=== PATIENT | male | born 1930 | race Caucasian/White ===

== ENCOUNTER → 2016-10-19 | Outpatient (CLI) | payer MEDICARE, BC | END | disposition home or self-care (01) | LOC: LABWHC1 12:36 | PROVIDERS: ATTEND Physical Medicine & Rehabilitation | DX: M47.817 Spondylosis without myelopathy or radiculopathy, lumbosacral region (principal); M51.16 Intervertebral disc disorders with radiculopathy, lumbar region; S32.040A Wedge compression fracture of fourth lumbar vertebra, initial encounter for closed fracture; M54.2 Cervicalgia; M54.5 Low back pain | CPT/HCPCS: 36415; 93005 ==

== ENCOUNTER 2017-02-10 09:27 | Inpatient (IN) | payer MEDICARE, BC ==
[2017-02-10] MEDS ORDERED: IPRATROPIUM-ALBUTEROL 3 ML NEB INHALATION STA (09:35)
--- NOTE | 2017-02-10 09:38 | ED ---
General Adult HPI - General Chief complaint: Neuro Symptoms/Deficit Stated complaint: Weakness Time Seen by Provider: 02/10/17 09:28 Source: patient, family, EMS, RN notes reviewed Mode of arrival: EMS Limitations: no limitations - History of Present Illness Initial comments: Patient is a pleasant 86-year-old male presenting to the emergency department with concerns regarding mental status and weakness. Patient has had a cough since yesterday. Daughter states this morning patient was less responsive. Patient had an episode where he cannot speak at all for around 30 seconds. Following this patient had some mumbled words for several minutes until EMS arrived. Patient seems to be talking normal at this point. Patient always leans to the right however this morning he was leaning towards the left. Patient did have difficulty transferring to use the toilet earlier. Patient is a poor historian and majority of history is taken from daughter. - Related Data Home Medications Medication Instructions Recorded Confirmed Fluticasone/Salmeterol [Advair 1 puff INHALATION RT-BID 09/04/15 09/21/15 250-50 Diskus] Tamsulosin HCl [Flomax] 0.4 mg PO DAILY 09/04/15 09/21/15 Levothyroxine Sodium [Synthroid] 75 mcg PO DAILY 09/07/15 09/21/15 Acetaminophen [Tylenol] 650 mg PO Q4H PRN 09/21/15 09/21/15 Bisacodyl [Dulcolax] 10 mg RECTAL DAILY PRN 09/21/15 09/21/15 Carbidopa-Levodopa 25-100 mg 1 tab PO TID 09/21/15 09/21/15 [Sinemet 25-100 mg] Folic Acid 1 mg PO HS 09/21/15 09/21/15 Guaifenesin/Dextromethorphan 5 ml PO Q6H 09/21/15 09/21/15 [Tussin Dm Cough Syrup] Menthol [Biofreeze] 1 applic TOPICAL BID 09/21/15 09/21/15 Multivitamins, Thera [Multivitamin 1 tab PO HS 09/21/15 09/21/15 (formulary)] Nitroglycerin Sl Tabs [Nitrostat] 0.4 mg SUBLINGUAL Q5M PRN 09/21/15 09/21/15 Thiamine [Vitamin B-1] 100 mg PO HS 09/21/15 09/21/15 amLODIPine BESYLATE [Norvasc] 2.5 mg PO DAILY 09/21/15 09/21/15 guaiFENesin [Mucinex] 600 mg PO Q12HR 09/21/15 09/21/15 Previous Rx's Medication Instructions Recorded Docusate [Colace] 100 mg PO BID cap 09/08/15 Loratadine [Claritin] 10 mg PO DAILY tab 09/08/15 Sodium Bicarbonate Tab 650 mg PO TID tab 09/08/15 Amoxic-Pot Clav 500-125 mg 1 tab PO Q12HR #7 tab 09/24/15 [Augmentin 500-125 mg] Furosemide [Lasix] 40 mg PO DAILY #1 tablet 09/24/15 Gabapentin [Neurontin] 200 mg PO TID cap 09/24/15 Ipratropium-Albuterol Nebulize 3 ml INHALATION RT-QID ampul.neb 09/24/15 [Duoneb 0.5 mg-3 mg/3 ml Soln] Levofloxacin [Levaquin] 250 mg PO DAILY #7 tab 09/24/15 oxyCODONE-APAP 5-325MG [Percocet 1 tab PO Q8H PRN #20 tab 09/24/15 5-325 mg] traMADol HCl [Ultram] 50 mg PO QID PRN #20 tab 09/24/15 Allergies Allergy/AdvReac Type Severity Reaction Status Date / Time No Known Allergies Allergy Verified 09/21/15 06:22 Review of Systems ROS Statement: Those systems with pertinent positive or pertinent negative responses have been documented in the HPI. ROS Other: All systems not noted in ROS Statement are negative. Constitutional: Denies: fever Eyes: Denies: eye pain ENT: Denies: ear pain Respiratory: Reports: cough Cardiovascular: Denies: chest pain Endocrine: Denies: fatigue Gastrointestinal: Denies: abdominal pain Genitourinary: Denies: dysuria Musculoskeletal: Denies: back pain Skin: Denies: rash Neurological: Reports: abnormal gait, other (speech problems) Past Medical History Past Medical History: Asthma, Heart Failure, Dementia, Musculoskeletal Disorder , Neurologic Disorder, Osteoarthritis (OA), Renal Disease, Thyroid Disorder Additional Past Medical History / Comment(s): Parkinsons disease, compression fracture of the L4 spine, gait dysfunction, bilateral hip and leg pain since a fall in August 2015, recent L heel blister chronic failure stage III, hyperkalemia , anemia, DJD, osteopenia, hypothyroidism, BPH, occasional confusion, History of Any Multi-Drug Resistant Organisms: None Reported Past Surgical History: Appendectomy, Joint Replacement Additional Past Surgical History / Comment(s): Total L hip replacement, splenectomy Past Anesthesia/Blood Transfusion Reactions: No Reported Reaction Past Psychological History: No Psychological Hx Reported Smoking Status: Former smoker Past Alcohol Use History: None Reported Past Drug Use History: None Reported - Past Family History Sister(s) Family Medical History: Myocardial Infarction ([place]) Brother(s) Family Medical History: Diabetes Mellitus Mother Family Medical History: No Reported History Additional Family Medical History / Comment(s): Mother lived to be 80 yrs old. Father History Unknown: Yes Additional Family Medical History / Comment(s): Father lived to be 75yrs old. General Exam Limitations: no limitations General appearance: alert, in no apparent distress Head exam: Present: atraumatic Eye exam: Present: normal appearance, PERRL, EOMI ENT exam: Present: normal oropharynx Neck exam: Present: normal inspection Respiratory exam: Present: wheezes Cardiovascular Exam: Present: regular rate, normal rhythm GI/Abdominal exam: Present: soft. Absent: tenderness Extremities exam: Present: normal inspection Neurological exam: Present: alert, CN II-XII intact, other (limited bilateral lower extremity exam. Patient refuses to lift either leg off the bed stating this is a chronic problem related to back problems. No weakness with dorsi and plantar flexion of the feet.) Expanded Speech: Present: fluid speech Cranial nerves: EOM's Intact: Normal Sensory exam: Upper Extremity Light Touch: Normal, Lower Extremity Light Touch: Normal Motor strength exam: RUE: 5, LUE: 5 Eye Response: (4) open spontaneously Motor Response: (6) obeys commands Verbal Response: (5) oriented Psychiatric exam: Present: normal affect, normal mood Skin exam: Present: normal color Course Vital Signs 02/10/17 02/10/17 02/10/17 09:29 10:28 10:29 Temperature 99.2 F 99.0 F Pulse Rate 94 86 80 Respiratory 20 18 Rate Blood Pressure 86/53 103/65 O2 Sat by Pulse 93 L 98 Oximetry 02/10/17 10:40 Temperature Pulse Rate 89 Respiratory Rate Blood Pressure O2 Sat by Pulse Oximetry - Reevaluation(s) Reevaluation #1: 02/10/17 11:06 patient does meet sepsis criteria diagnosed at 11:06 AM. Lactic acid and blood cultures have been ordered. IV antibiotics will be ordered. Patient and family updated on results and plan. Dr. Cleaning[facility] group has been paged for admission for Dr. Martínez. Neurology will be consulted. EKG Findings - EKG Comments: EKG Findings:: normal sinus rhythm 91. WV 202. QRS 146. QT 446. QTc 548. Right axis. Right bundle branch block. Inferior Q waves. Nonspecific T waves. Medical Decision Making - Lab Data Result diagrams: 02/10/17 09:44 02/10/17 09:44 Lab Results 02/10/17 02/10/17 02/10/17 Range/Units 09:31 09:44 09:44 WBC 12.6 H (3.8-10.6) k/uL RBC 3.38 L (4.30-5.90) m/uL Hgb 10.2 L (13.0-17.5) gm/dL Hct 33.0 L (39.0-53.0) % MCV 97.7 (80.0-100.0) fL MCH 30.2 (25.0-35.0) pg MCHC 30.9 L (31.0-37.0) g/dL RDW 15.4 (11.5-15.5) % Plt Count 181 (150-450) k/uL Neutrophils % 87 % Lymphocytes % 9 % Monocytes % 4 % Eosinophils % 0 % Basophils % 0 % Neutrophils # 10.9 H (1.3-7.7) k/uL Lymphocytes # 1.1 (1.0-4.8) k/uL Monocytes # 0.4 (0-1.0) k/uL Eosinophils # 0.0 (0-0.7) k/uL Basophils # 0.0 (0-0.2) k/uL PT (9.0-12.0) sec INR (<1.2) APTT (22.0-30.0) sec Sodium (137-145) mmol/L Potassium (3.5-5.1) mmol/L Chloride (98-107) mmol/L Carbon Dioxide (22-30) mmol/L Anion Gap mmol/L BUN (9-20) mg/dL Creatinine (0.66-1.25) mg/dL Est GFR (MDRD) Af Amer (>60 ml/min/1.73 sqM) Est GFR (MDRD) Non-Af (>60 ml/min/1.73 sqM) Glucose (74-99) mg/dL POC Glucose (mg/dL) 109 H (75-99) mg/dL POC Glu Network Developer ID Shawn Hernandez Plasma Lactic Acid Chema (0.7-2.0) mmol/L Calcium (8.4-10.2) mg/dL Total Bilirubin (0.2-1.3) mg/dL AST (17-59) U/L ALT (21-72) U/L Alkaline Phosphatase (38-126) U/L Total Creatine Kinase 37 L (55-170) U/L CK-MB (CK-2) 0.6 (0.0-2.4) ng/mL CK-MB (CK-2) Rel Index 1.6 Troponin I <0.012 (0.000-0.034) ng/mL Total Protein (6.3-8.2) g/dL Albumin (3.5-5.0) g/dL 02/10/17 02/10/17 02/10/17 Range/Units 09:44 09:44 09:44 WBC (3.8-10.6) k/uL RBC (4.30-5.90) m/uL Hgb (13.0-17.5) gm/dL Hct (39.0-53.0) % MCV (80.0-100.0) fL MCH (25.0-35.0) pg MCHC (31.0-37.0) g/dL RDW (11.5-15.5) % Plt Count (150-450) k/uL Neutrophils % % Lymphocytes % % Monocytes % % Eosinophils % % Basophils % % Neutrophils # (1.3-7.7) k/uL Lymphocytes # (1.0-4.8) k/uL Monocytes # (0-1.0) k/uL Eosinophils # (0-0.7) k/uL Basophils # (0-0.2) k/uL PT 11.5 (9.0-12.0) sec INR 1.2 H (<1.2) APTT 25.1 (22.0-30.0) sec Sodium 139 (137-145) mmol/L Potassium 4.1 (3.5-5.1) mmol/L Chloride 108 H (98-107) mmol/L Carbon Dioxide 17 L (22-30) mmol/L Anion Gap 14 mmol/L BUN 81 H* (9-20) mg/dL Creatinine 2.60 H (0.66-1.25) mg/dL Est GFR (MDRD) Af Amer 28 (>60 ml/min/1.73 sqM) Est GFR (MDRD) Non-Af 23 (>60 ml/min/1.73 sqM) Glucose 108 H (74-99) mg/dL POC Glucose (mg/dL) (75-99) mg/dL POC Glu Network Developer ID Plasma Lactic Acid Chema 1.5 (0.7-2.0) mmol/L Calcium 8.6 (8.4-10.2) mg/dL Total Bilirubin 0.6 (0.2-1.3) mg/dL AST 15 L (17-59) U/L ALT 23 (21-72) U/L Alkaline Phosphatase 60 (38-126) U/L Total Creatine Kinase (55-170) U/L CK-MB (CK-2) (0.0-2.4) ng/mL CK-MB (CK-2) Rel Index Troponin I (0.000-0.034) ng/mL Total Protein 7.0 (6.3-8.2) g/dL Albumin 3.7 (3.5-5.0) g/dL - Radiology Data Radiology results: report reviewed (Computed tomography scan of the brain shows no acute intercranial abnormality. Atrophy and chronic white matter changes.), image reviewed (right lower lobe infiltrate) Critical Care Time Critical Care Time: Yes Total Critical Care Time: 32 Disposition Clinical Impression: Transient cerebral ischemia, Pneumonia, Sepsis Disposition: ADMITTED IP TO THIS HOSP Condition: Serious Referrals: Peyton Martínez DO [Primary Care Provider] - 1-2 days Decision Time: 11:07
[2017-02-10 09:39] LABS: Glucose,Whole Blood 109 mg/dL (75-99)
[2017-02-10 10:11] LABS: Basophils % (A) 0 %; CH 30.8; CHCM 31.7; Eosinophils % (A) 0 %; HDW 2.37; HGB 10.2 gm/dL (13.0-17.5); Luc # (Auto) 0.07; Luc % (Auto) 1; Lymphocytes # (A) 1.1 k/uL (1.0-4.8); Lymphocytes % (A) 9 %; MCH 30.2 pg (25.0-35.0); MCHC 30.9 g/dL (31.0-37.0); MCV 97.7 fL (80.0-100.0); Mean Platelet Volume 8.4; Monocytes # (A) 0.4 k/uL (0-1.0); Monocytes % (A) 4 %; Neutrophils # (A) 10.9 k/uL (1.3-7.7); Neutrophils % (A) 87 %; RBC 3.38 m/uL (4.30-5.90); RDW 15.4 % (11.5-15.5); WBC 12.6 k/uL (3.8-10.6); WBC (Perox) 12.82
[2017-02-10 10:15] LABS: Calcium 8.6 mg/dL (8.4-10.2); Potassium 4.1 mmol/L (3.5-5.1); Total Bilirubin 0.6 mg/dL (0.2-1.3)
[2017-02-10 10:19] LABS: INR 1.2 (<1.2); Partial Thromboplastin Time 25.1 sec (22.0-30.0); Prothrombin Time 11.5 sec (9.0-12.0)
[2017-02-10 10:31] LABS: Creatine Kinase 37 U/L (55-170)
--- NOTE | 2017-02-10 10:39 | CT ---
EXAMINATION TYPE: CT brain wo con DATE OF EXAM: 02/10/2017 COMPARISON: NONE HISTORY: Neuro deficits CT DLP: 953.60 mGycm Automated exposure control for dose reduction was used. FINDINGS: There are generalized changes of sulcal prominence and ventriculomegaly, compatible with atrophic torito nge. There is diffuse periventricular white matter lucency, compatible with chronic white matter isch emic change. No acute focal lesion, mass effect or midline shift is seen. I do not see evidence of in tracranial blood. Visualized portions of the paranasal sinuses and mastoids are clear. IMPRESSION: 1. NO ACUTE INTRACRANIAL ABNORMALITY. 2. ATROPHIC CHANGE. 3. CHRONIC WHITE MATTER ISCHEMIC CHANGE.
--- NOTE | 2017-02-10 10:41 | XR ---
EXAMINATION TYPE: XR chest 2V DATE OF EXAM: 02/10/2017 HISTORY: altered mental status. REFERENCE: Previous study dated 09/24/2015. FINDINGS: The heart is enlarged. There is a right lower lobe infiltrate. I cannot exclude a small rig ht effusion. The left lung is clear. IMPRESSION: 1. CARDIOMEGALY. 2. RIGHT LOWER LOBE INFILTRATE.
[2017-02-10 10:44] LABS: Creatine Kinase MB 0.6 ng/mL (0.0-2.4); Troponin I <0.012 ng/mL (0.000-0.034)
[2017-02-10] MEDS ORDERED: IPRATROPIUM-ALBUTEROL 3 ML NEB INHALATION PRN (11:08)
[2017-02-10] MEDS ORDERED: cefTRIAXone IN SWFI 1,000 MG/10 ML SYRINGE IVP STA (11:08)
[2017-02-10] MEDS ORDERED: PNEUMONIA PROTOCOL UTILIZED 1 EACH MISC PO PRN (11:08)
[2017-02-10] MEDS ORDERED: ASPIRIN 325 MG TAB PO STA (11:12)
[2017-02-10] MEDS ORDERED: AZITHROMYCIN 500 MG in SODIUM CHLORIDE 0.9% 250 ML IVPB STA (11:19)
[2017-02-10] MEDS: SODIUM CHLORIDE 0.9% 1,000 ML IV SCH (12:09)
[2017-02-10 13:06] VITALS: BMI 27.6
[2017-02-10] MEDS ORDERED: NITROGLYCERIN SL TABS 0.4 MG TAB SUBLINGUAL PRN (14:37)
--- NOTE | 2017-02-10 16:25 | US ---
EXAMINATION TYPE: US carotid duplex BILAT DATE OF EXAM: 02/10/2017 COMPARISON: NONE CLINICAL HISTORY: Stenosis. Stenosis, exam done portable EXAM MEASUREMENTS: RIGHT: Peak Systolic Velocity (PSV) cm/sec ----- Right CCA: 64.3 ----- Right ICA: 73.0 ----- Right ECA: 144.7 ICA/CCA ratio: 1.1 RIGHT: End Diastole cm/sec ----- Right CCA: 8.4 ----- Right ICA: 18.9 ----- Right ECA: 0.0 LEFT: Peak Systolic Velocity (PSV) cm/sec ----- Left CCA: 77.3 ----- Left ICA: 79.8 ----- Left ECA: 116.4 ICA/CCA ratio: 1.0 LEFT: End Diastole cm/sec ----- Left CCA: 8.0 ----- Left ICA: 16.0 ----- Left ECA: 0.0 VERTEBRALS (direction of flow): Right Vertebral: Antegrade Left Vertebral: Antegrade Rhythm: Normal Difficult and limited evaluation of the right side due to patient's neck rigidly contracted to the right. Elevated velocity: right mid ECA, no significant stenosis. IMPRESSION: There is antegrade flow in the vertebral arteries. The images and measurements suggest 0 -50% stenosis in both internal carotid arteries and closer to 40% based on the images. There is eleva julio right external carotid artery velocity suggestive of 50-70% stenosis. Criteria for Assigning % of Stenosis / Diameter reduction (Estimation based on the indirect measurements of the internal carotid artery velocities (ICA PSV). 1. Normal (no stenosis)=ICA PSV < 125 cm/s: ratio < 2.0: ICA EDV<40 cm/s. 2. Less than 50% stenosis=ICA PSV < 125 cm/s: ratio < 2.0: ICA EDV<40 cm/s. 3. 50 to 69% stenosis=ICA PSV of 125 to 230 cm/s: ration 2.0 ? 4.0: ICA EDV 40-100 cm/s. 4. Greater than 70% stenosis to near occlusion= ICA PSV > 230 cm/s: ratio > 4.0: ICA EDV > 100 cm/s. 5. Near occlusion= ICA PSV velocities may be low or undetectable: variable ratio and ICA EDV. 6. Total occlusion=unable to detect flow.
[2017-02-10] MEDS: CARBIDOPA-LEVODOPA 25-100 MG 1 EACH TAB PO SCH (17:11)
[2017-02-10] MEDS ORDERED: SYMBICORT 80-4.5 MCG INHALER INHALATION SCH (20:00)
[2017-02-10] MEDS: HEPARIN SODIUM,PORCINE 5,000 UNIT/ML 1 ML VIAL SQ SCH (20:48)
[2017-02-10] MEDS: FOLIC ACID 1 MG TAB PO SCH (20:48)
[2017-02-10] MEDS: MULTIVITAMINS, THERA 1 EACH TAB PO SCH (20:48)
[2017-02-10] MEDS: THIAMINE 100 MG TAB PO SCH (20:48)
[2017-02-10] MEDS: METHADONE 5 MG TAB PO SCH (20:52)
--- NOTE | 2017-02-10 23:41 | P.HPIM ---
History of Present Illness H&P Date: 02/10/17 Chief Complaint: Altered mental status Patient is a 86-year-old male with a known history of dementia, Parkinson's disease, bilateral hip arthritis and other multiple medical problems presenting to the emergency department with concerns regarding mental status and weakness. Patient has had a cough since yesterday. Daughter states this morning patient was less responsive. Patient had an episode where he cannot speak at all for around 30 seconds. Following this patient had some mumbled words for several minutes until EMS arrived. Patient seems to be talking normal at this point. Patient always leans to the right however this morning he was leaning towards the left. Patient did have difficulty transferring to use the toilet earlier. Patient is a poor historian and majority of history is taken from daughter. Patient had chest x-ray which shows right lower lobe infiltrate CT head showed no acute intracranial process. Chronic white matter ischemic changes. EKG showed normal sinus rhythm Carotid duplex showed antegrade flow in both carotid arteries Review of Systems Constitutional: Patient denies any fever or chills . No generalized weakness or weight loss. Abdomen: Patient denied nausea vomiting and diarrhea and abdominal pain. Cardiovascular: Patient denies any chest pain or short of breath no palpitations. Respiratory: Patient does have cough and shortness of breath. Complete review of systems could not be a peripheral the patient Past Medical History Past Medical History: Asthma, Heart Failure, Dementia, Musculoskeletal Disorder , Neurologic Disorder, Osteoarthritis (OA), Renal Disease, Thyroid Disorder Additional Past Medical History / Comment(s): Parkinsons disease, compression fracture of the L4 spine, gait dysfunction, bilateral hip and leg pain since a fall in August 2015, chronic renal failure stage IV, hyperkalemia, anemia, DJD, osteopenia, hypothyroidism, BPH, occasional confusion, History of Any Multi-Drug Resistant Organisms: None Reported Past Surgical History: Appendectomy, Joint Replacement Additional Past Surgical History / Comment(s): Total L hip replacement, splenectomy Past Anesthesia/Blood Transfusion Reactions: No Reported Reaction Past Psychological History: No Psychological Hx Reported Additional Psychological History / Comment(s): Pt moved from [place] to [place] to be with family. He was admitted to [facility] 09/04/15 and discharged to [facility]. He is on a low NA 1200ml fluid restricted diet. He needs assist with all ADLs. He is assisted up into a wheelchair, otherwise he is in bed. He wears mediboots. Patient lives with son and [id number] that take care of him. Smoking Status: Never smoker Past Alcohol Use History: None Reported Additional Past Alcohol Use History / Comment(s): Pt states he started smoking at age 13 (1944) and quit 50 yrs ago(1965). Past Drug Use History: None Reported Additional Drug Use History / Comment(s): xsmoker over 50 yrs ago - Past Family History Sister(s) Family Medical History: Myocardial Infarction ([place]) Brother(s) Family Medical History: Diabetes Mellitus Mother Family Medical History: No Reported History Additional Family Medical History / Comment(s): Mother lived to be 80 yrs old. Father History Unknown: Yes Additional Family Medical History / Comment(s): Father lived to be 75yrs old. Medications and Allergies Home Medications Medication Instructions Recorded Confirmed Type Fluticasone/Salmeterol [Advair 1 puff INHALATION RT-BID 09/04/15 02/10/17 History 250-50 Diskus] Tamsulosin HCl [Flomax] 0.4 mg PO DAILY 09/04/15 02/10/17 History Levothyroxine Sodium [Synthroid] 75 mcg PO DAILY 09/07/15 02/10/17 History Carbidopa-Levodopa 25-100 mg 1 tab PO TID 09/21/15 02/10/17 History [Sinemet 25-100 mg] Folic Acid 1 mg PO HS 09/21/15 02/10/17 History Multivitamins, Thera [Multivitamin 1 tab PO HS 09/21/15 02/10/17 History (formulary)] Nitroglycerin Sl Tabs [Nitrostat] 0.4 mg SUBLINGUAL Q5M PRN 09/21/15 02/10/17 History Thiamine [Vitamin B-1] 100 mg PO HS 09/21/15 02/10/17 History guaiFENesin [Mucinex] 600 mg PO Q12HR 09/21/15 02/10/17 History Furosemide [Lasix] 40 mg PO DAILY #1 tablet 09/24/15 02/10/17 Rx Allopurinol [Zyloprim] 100 mg PO DAILY 02/10/17 02/10/17 History Calcitriol 0.5 mcg PO MOTH 02/10/17 02/10/17 History Dutasteride [Avodart] 0.5 mg PO DAILY 02/10/17 02/10/17 History Gabapentin [Neurontin] 100 mg PO TID 02/10/17 02/10/17 History Levocetirizine Dihydrochloride 5 mg PO DAILY 02/10/17 02/10/17 History [Xyzal] Methadone [Dolophine] 5 mg PO BID@0800,199902/10/17 02/10/17 History Allergies Allergy/AdvReac Type Severity Reaction Status Date / Time fentanyl Allergy Rash/Hives Verified 02/10/17 11:15 Physical Exam Vitals: Vital Signs Temp Pulse Pulse Resp BP BP Pulse Ox 02/10/17 13:42 81 18 02/10/17 12:14 97.7 F 86 18 103/56 98 02/10/17 11:33 97.6 F 81 16 85/53 96 02/10/17 11:29 89 20 92/57 98 02/10/17 10:40 89 02/10/17 10:29 99.0 F 80 18 103/65 98 02/10/17 10:28 86 02/10/17 09:29 99.2 F 94 20 86/53 93 L Intake and Output 02/09/17 02/10/17 02/10/17 22:59 06:59 14:59 Other: Voiding Method Urinal Weight 80 kg Patient Weight 02/11/17 05:59 Weight 80 kg PHYSICAL EXAMINATION: Patient is lying in the bed comfortably, no acute distress, awake alert but could not provide any history.. HEENT: Normocephalic. Neck is supple. Pupils reactive. Nostrils clear. Oral cavity is moist. Ears reveal no drainage. Neck reveals no JVD, carotid bruits, or thyromegaly. CHEST EXAMINATION: Trachea is central. Symmetrical expansion. Lung ramirez clear to auscultation and percussion. CARDIAC: Normal S1, S2 with no gallops. No murmurs ABDOMEN: Soft. Bowel sounds normal. No organomegaly. No abdominal bruits. Extremities: reveal no edema. No clubbing or cyanosis Neurologically awake, alert, oriented x1-2 . Able to move all extremities. No focal deficits noted Skin: No rash or skin lesions. Psychiatric: coOperative. Musculoskeletal: No joint swelling or deformity. Normal range of motion. Results CBC & Chem 7: 02/10/17 09:44 02/10/17 09:44 Labs: Abnormal Lab Results - Last 24 Hours (Table) 02/10/17 02/10/17 02/10/17 Range/Units 09:31 09:44 09:44 WBC 12.6 H (3.8-10.6) k/uL RBC 3.38 L (4.30-5.90) m/uL Hgb 10.2 L (13.0-17.5) gm/dL Hct 33.0 L (39.0-53.0) % MCHC 30.9 L (31.0-37.0) g/dL Neutrophils # 10.9 H (1.3-7.7) k/uL INR (<1.2) Chloride (98-107) mmol/L Carbon Dioxide (22-30) mmol/L BUN (9-20) mg/dL Creatinine (0.66-1.25) mg/dL Glucose (74-99) mg/dL POC Glucose (mg/dL) 109 H (75-99) mg/dL AST (17-59) U/L Total Creatine Kinase 37 L (55-170) U/L 02/10/17 02/10/17 Range/Units 09:44 09:44 WBC (3.8-10.6) k/uL RBC (4.30-5.90) m/uL Hgb (13.0-17.5) gm/dL Hct (39.0-53.0) % MCHC (31.0-37.0) g/dL Neutrophils # (1.3-7.7) k/uL INR 1.2 H (<1.2) Chloride 108 H (98-107) mmol/L Carbon Dioxide 17 L (22-30) mmol/L BUN 81 H* (9-20) mg/dL Creatinine 2.60 H (0.66-1.25) mg/dL Glucose 108 H (74-99) mg/dL POC Glucose (mg/dL) (75-99) mg/dL AST 15 L (17-59) U/L Total Creatine Kinase (55-170) U/L Thrombosis Risk Factor Assmnt - DVT/VTE Prophylaxis DVT/VTE Prophylaxis: Pharmacologic Prophylaxis ordered - Choose All That Apply Any of the Below Risk Factors Present?: Yes Each Factor Represents 1 point: Serious lung disease incl. pneumonia (< 1month) , Swollen legs (current) Each Risk Factor Represents 3 Points: Age 75 years or older Thrombosis Risk Factor Assessment Total Risk Factor Score: 5 Thrombosis Risk Factor Assessment Level: High Risk Assessment and Plan Assessment: #1 right lower lobe pneumonia #2 difficulty finding words and altered mental status on admission. Possible TIA. #3 CKD-4 #4 Parkinson's disease and dementia #5 hypothyroidism #6 BPH #7 COPD stable Plan: Patient will be continued on antibiotics in the form of ceftriaxone and azithromycin. Stroke workup including CT head and carotid duplex was done. Continue with the breathing treatments and follow up closely. Further recommendations based on the clinical course. Time with Patient: Greater than 30
[2017-02-11 06:43] LABS: Cholesterol 124 mg/dL (<200); HDL Cholesterol 40 mg/dL (40-60)
[2017-02-11] MEDS: LEVOTHYROXINE 75 MCG TAB PO SCH (06:50)
[2017-02-11] MEDS: METHADONE 5 MG TAB PO SCH ×2 (08:30→20:15)
[2017-02-11] MEDS: CARBIDOPA-LEVODOPA 25-100 MG 1 EACH TAB PO SCH ×3 (08:31→16:17)
[2017-02-11] MEDS: SYMBICORT 80-4.5 MCG INHALER INHALATION SCH ×2 (09:07→20:05)
--- NOTE | 2017-02-11 09:35 | XR ---
EXAMINATION TYPE: XR chest 2V DATE OF EXAM: 02/11/2017 HISTORY: pneumonia. REFERENCE: Previous study dated 02/10/2017. FINDINGS: The heart is enlarged. There is bibasilar airspace disease, worse on the right than the lef t. I suspect a small right effusion. The overall appearance is very similar to previous. IMPRESSION: NO SIGNIFICANT CHANGE IN THE APPEARANCE OF THE CHEST.
[2017-02-11] MEDS: HEPARIN SODIUM,PORCINE 5,000 UNIT/ML 1 ML VIAL SQ SCH ×2 (09:51→20:15)
[2017-02-11] MEDS: ALLOPURINOL 100 MG TAB PO SCH (09:51)
[2017-02-11] MEDS: TAMSULOSIN 0.4 MG CAP.ER.24H PO SCH (09:51)
[2017-02-11] MEDS: ASPIRIN 325 MG TAB PO SCH (09:51)
[2017-02-11] MEDS: FINASTERIDE 5 MG TAB PO SCH (09:51)
[2017-02-11 10:54] LABS: Basophils % (A) 0 %; CH 30.7; CHCM 30.8; Eosinophils # (A) 0.3 k/uL (0-0.7); Eosinophils % (A) 3 %; HCT 30.2 % (39.0-53.0); HDW 2.36; HGB 9.1 gm/dL (13.0-17.5); Hypochromasia Slight; Luc # (Auto) 0.08; Luc % (Auto) 1; Lymphocytes # (A) 2.1 k/uL (1.0-4.8); Lymphocytes % (A) 24 %; MCH 30.2 pg (25.0-35.0); MCHC 30.1 g/dL (31.0-37.0); MCV 100.4 fL (80.0-100.0); Macrocytosis Slight; Mean Platelet Volume 8.7; Monocytes # (A) 0.4 k/uL (0-1.0); Monocytes % (A) 4 %; Neutrophils % (A) 68 %; RBC 3.01 m/uL (4.30-5.90); RDW 14.4 % (11.5-15.5); WBC 8.8 k/uL (3.8-10.6); WBC (Perox) 8.77
[2017-02-11 11:00] LABS: Calcium 8.3 mg/dL (8.4-10.2); Potassium 4.2 mmol/L (3.5-5.1)
[2017-02-11] MEDS: cefTRIAXone IN SWFI 1,000 MG/10 ML SYRINGE IVP SCH (11:16)
[2017-02-11] MEDS: SODIUM CHLORIDE 0.9% 1,000 ML IV SCH ×3 (11:16→22:17)
[2017-02-11] MEDS: AZITHROMYCIN 500 MG TAB PO SCH (11:16)
--- NOTE | 2017-02-11 15:39 | ECHOF ---
Referral Reason:Thrombus MEASUREMENTS -------- HEIGHT: 170.2 cm WEIGHT: 79.4 kg BP: 120/60 IVSd: 1.5 cm (0.6 - 1.1) LVIDd: 3.5 cm (3.9 - 5.3) LVPWd: 1.0 cm (0.6 - 1.1) IVSs: 1.7 cm LVIDs: 3.3 cm LVPWs: 1.5 cm LAESV Index (A-L): 23.59 ml/m Ao Diam: 3.7 cm (2.0 - 3.7) AV Cusp: 1.8 cm (1.5 - 2.6) LA Diam: 4.5 cm (2.7 - 3.8) EPSS: 0.6 cm MV E Errol: 0.92 m/s MV DecT: 117 ms MV A Errol: 0.36 m/s MV E/A Ratio: 2.57 AR PHT: 439 ms RAP: 5.00 mmHg RVSP: 18.24 mmHg MV EF SLOPE: 49.75 mm/s (70 - 150) MV EXCURSION: 1.72 cm (> 18.000) FINDINGS -------- Undetermined rhythm. This was a technically adequate study. The left ventricular size is normal. There is mild concentric left ventricular hypertrophy. Overa ll left ventricular systolic function is low-normal with, an EF between 50 - 55 %. The right ventricle is normal in size. Normal LA size by volume 22+/-6 ml/m2. The right atrial size is normal. There is mild aortic regurgitation. Mild mitral regurgitation is present. Mild tricuspid regurgitation present. Right ventricular systolic pressure is normal at < 35 mmHg. Trace/mild (physiologic) pulmonic regurgitation. The aortic root size is normal. There is no pericardial effusion. CONCLUSIONS -------- 1. The left ventricular size is normal. 2. There is mild concentric left ventricular hypertrophy. 3. Overall left ventricular systolic function is low-normal with, an EF between 50 - 55 %. 4. The right ventricle is normal in size. 5. There is mild aortic regurgitation. 6. Mild mitral regurgitation is present. 7. Mild tricuspid regurgitation present. 8. Right ventricular systolic pressure is normal at < 35 mmHg. 9. Trace/mild (physiologic) pulmonic regurgitation. 10. The aortic root size is normal. 11. There is no pericardial effusion. INDUSTRIAL RADIOGRAPHER: Yin Bridges RDCS
--- NOTE | 2017-02-11 15:56 | P.CNNES ---
History of Present Illness Consult date: 02/11/17 Requesting physician: Gustavo Urbina Reason for Consult: Altered mental status History of Present Illness: Patient is a pleasant 86-year-old male who is being evaluated by the neurology service today 02/11/2017 per the request of Dr. Urbina for altered mental status. Patient does have history of dementia, Parkinson's disease, arthritis, and CHF. Patient is a poor historian. No family is at the bedside. Information was taken from the chart and the staff. Patient was brought to [facility] with complaints of increasing weakness and altered mental status. The daughter reports patient was less responsive in the morning. She reports an episode where he could not speak at all for approximately 30 seconds. Following this episode his words were mumbled for several minutes but seemed to clear by the time EMS arrived. CT of the brain showed no acute intracranial abnormality. CT did show atrophic changes and chronic white matter ischemic changes. Carotid Doppler showed less than 50% stenosis in both internal carotid arteries. Vital signs on admission were temperature 99.2 pulse rate 94 blood pressure 86/53 O2 saturation 93% on room air. Laboratory workup revealed WBCs 12.6, RBCs 3.38, hemoglobin 10.2, hematocrit 33.0. BUN was elevated at 81 with creatinine of 2.6. Lipid panel was within normal limits. Home medications include Sinemet 25/100 3 times a day. Patient is on methadone 5 mg twice a day for pain. At the time of my evaluation, patient is resting comfortably in bed and appears to be in no acute distress. Patient is conversant without dysarthria. Review of Systems REVIEW OF SYSTEMS: Otherwise unremarkable and noncontributory. Past Medical History Past Medical History: Asthma, Heart Failure, Dementia, Musculoskeletal Disorder , Neurologic Disorder, Osteoarthritis (OA), Renal Disease, Thyroid Disorder Additional Past Medical History / Comment(s): Parkinsons disease, compression fracture of the L4 spine, gait dysfunction, bilateral hip and leg pain since a fall in August 2015, chronic renal failure stage IV, hyperkalemia, anemia, DJD, osteopenia, hypothyroidism, BPH, occasional confusion, History of Any Multi-Drug Resistant Organisms: None Reported Past Surgical History: Appendectomy, Joint Replacement Additional Past Surgical History / Comment(s): Total L hip replacement, splenectomy Past Anesthesia/Blood Transfusion Reactions: No Reported Reaction Past Psychological History: No Psychological Hx Reported Additional Psychological History / Comment(s): Pt moved from [place] to [place] to be with family. He was admitted to [facility] 09/04/15 and discharged to [facility]. He is on a low NA 1200ml fluid restricted diet. He needs assist with all ADLs. He is assisted up into a wheelchair, otherwise he is in bed. He wears mediboots. Patient lives with son and [id number] that take care of him. Smoking Status: Never smoker Past Alcohol Use History: None Reported Additional Past Alcohol Use History / Comment(s): Pt states he started smoking at age 13 (1944) and quit 50 yrs ago(1965). Past Drug Use History: None Reported Additional Drug Use History / Comment(s): xsmoker over 50 yrs ago - Past Family History Sister(s) Family Medical History: Myocardial Infarction ([place]) Brother(s) Family Medical History: Diabetes Mellitus Mother Family Medical History: No Reported History Additional Family Medical History / Comment(s): Mother lived to be 80 yrs old. Father History Unknown: Yes Additional Family Medical History / Comment(s): Father lived to be 75yrs old. Medications and Allergies Home Medications Medication Instructions Recorded Confirmed Type Fluticasone/Salmeterol [Advair 1 puff INHALATION RT-BID 09/04/15 02/10/17 History 250-50 Diskus] Tamsulosin HCl [Flomax] 0.4 mg PO DAILY 09/04/15 02/10/17 History Levothyroxine Sodium [Synthroid] 75 mcg PO DAILY 09/07/15 02/10/17 History Carbidopa-Levodopa 25-100 mg 1 tab PO TID 09/21/15 02/10/17 History [Sinemet 25-100 mg] Folic Acid 1 mg PO HS 09/21/15 02/10/17 History Multivitamins, Thera [Multivitamin 1 tab PO HS 09/21/15 02/10/17 History (formulary)] Nitroglycerin Sl Tabs [Nitrostat] 0.4 mg SUBLINGUAL Q5M PRN 09/21/15 02/10/17 History Thiamine [Vitamin B-1] 100 mg PO HS 09/21/15 02/10/17 History guaiFENesin [Mucinex] 600 mg PO Q12HR 09/21/15 02/10/17 History Furosemide [Lasix] 40 mg PO DAILY #1 tablet 09/24/15 02/10/17 Rx Allopurinol [Zyloprim] 100 mg PO DAILY 02/10/17 02/10/17 History Calcitriol 0.5 mcg PO MOTH 02/10/17 02/10/17 History Dutasteride [Avodart] 0.5 mg PO DAILY 02/10/17 02/10/17 History Gabapentin [Neurontin] 100 mg PO TID 02/10/17 02/10/17 History Levocetirizine Dihydrochloride 5 mg PO DAILY 02/10/17 02/10/17 History [Xyzal] Methadone [Dolophine] 5 mg PO BID@0802/10/17 02/10/17 History Allergies Allergy/AdvReac Type Severity Reaction Status Date / Time fentanyl Allergy Rash/Hives Verified 02/10/17 11:15 Physical Examination - Vital Signs Vital Signs: Vital Signs Temp Pulse Pulse Resp BP Pulse Ox 02/11/17 11:24 57 L 16 02/11/17 11:11 97.2 F L 57 L 16 127/59 97 02/11/17 09:05 92 02/11/17 08:58 88 02/11/17 08:00 96.7 F L 57 L 16 119/53 96 02/11/17 04:00 98.1 F 48 L 16 112/57 99 02/11/17 00:00 96.9 F L 46 L 16 115/53 98 02/10/17 20:00 96.9 F L 50 L 16 121/52 98 Intake and Output 02/11/17 02/11/17 02/11/17 06:59 14:59 22:59 Intake Total 516 Output Total 300 Balance 216 Intake: Intake, IV Titration 40 Amount Sodium Chloride 0.9% 1, 40 000 ml @ 20 mls/hr IV . Q24H [facility] Rx#:[id number] Oral 476 Output: Urine 300 Other: Voiding Method Urinal # Voids 1 # Bowel Movements 1 Weight PHYSICAL EXAM: GENERAL APPEARANCE: Patient is a well-developed, obese male who appears to be in no acute distress. HEENT: Normocephalic, atraumatic, no facial asymmetry is seen. Neck is supple with no masses felt. CARDIOVASCULAR: Regular rate and rhythm. ABDOMEN: Nontender, nondistended. EXTREMITIES: Show no edema or clubbing. NEUROLOGICAL EXAM: Patient is awake, alert, and oriented 3. Speech and language are normal. Strength is 5/5 in bilateral upper extremities and 4-/5 in bilateral lower extremities. Sensory exam is decreased in bilateral lower extremities. No obvious lateralizing weakness is noted. No facial asymmetry on cranial nerve testing. Tremors noted to bilateral upper extremities with left greater than right. No seizure activity noted. Results - Laboratory Findings CBC and BMP: 02/11/17 06:08 02/11/17 06:08 Abnormal Lab Findings: Abnormal Labs 02/10/17 02/10/17 02/10/17 09:31 09:44 09:44 WBC 12.6 H RBC 3.38 L Hgb 10.2 L Hct 33.0 L MCV MCHC 30.9 L Neutrophils # 10.9 H INR Chloride Carbon Dioxide BUN Creatinine Glucose POC Glucose (mg/dL) 109 H Calcium AST Total Creatine Kinase 37 L 02/10/17 02/10/17 02/11/17 09:44 09:44 06:08 WBC RBC 3.01 L Hgb 9.1 L Hct 30.2 L MCV 100.4 H MCHC 30.1 L Neutrophils # INR 1.2 H Chloride 108 H Carbon Dioxide 17 L BUN 81 H* Creatinine 2.60 H Glucose 108 H POC Glucose (mg/dL) Calcium AST 15 L Total Creatine Kinase 02/11/17 06:08 WBC RBC Hgb Hct MCV MCHC Neutrophils # INR Chloride Carbon Dioxide 20 L BUN 89 H* Creatinine 3.02 H Glucose POC Glucose (mg/dL) Calcium 8.3 L AST Total Creatine Kinase Assessment and Plan Plan: Impression: 1. Altered mental status, resolved 2. Sensory deficit 3. Lower extremity weakness 4. Parkinson's disease 5. Dementia 6. Pneumonia Recommendations: It does appear patient suffered a transient ischemic attack with episode of difficulty speaking. Speech and language are normal at this time. Patient does have chronic weakness and increased generalized weakness may be due to progressing Parkinson's disease. Continue current Sinemet dosing. Patient was found to have right lower lobe pneumonia on admission. He is currently on antibiotics for this. As you recall, CT of the brain and carotid arteries were without any significant findings. I recommend starting aspirin 81 mg by mouth daily. I will order an EEG and serum homocysteine level. Lipid panel was within normal limits. Continue current management for her pneumonia. I recommend PT OT consult to evaluate and treat. Continue neurological checks. I will continue to follow with you. Further recommendations to follow. Thank you for allowing me to participate in the care of your patient. Feel free to call with any questions or concerns. I performed an examination of the patient and discussed the management with the HAIRSPRING FABRICATION SUPERVISOR. I have reviewed the HAIRSPRING FABRICATION SUPERVISOR notes and agree with the findings and plan of care.
[2017-02-11] MEDS: THIAMINE 100 MG TAB PO SCH (20:16)
[2017-02-11] MEDS: MULTIVITAMINS, THERA 1 EACH TAB PO SCH (20:16)
[2017-02-11] MEDS: FOLIC ACID 1 MG TAB PO SCH (20:16)
[2017-02-11] MEDS ORDERED: FUROSEMIDE 10 MG/ML 4 ML VIAL IV STA (21:14)
--- NOTE | 2017-02-11 23:53 | P.PN ---
Subjective Progress Note Date: 02/11/17 Principal diagnosis: Pneumonia Patient is a 86-year-old male with a known history of dementia, Parkinson's disease, bilateral hip arthritis and other multiple medical problems presenting to the emergency department with concerns regarding mental status and weakness. Patient has had a cough since yesterday. Daughter states this morning patient was less responsive. Patient had an episode where he cannot speak at all for around 30 seconds. Following this patient had some mumbled words for several minutes until EMS arrived. Patient seems to be talking normal at this point. Patient always leans to the right however this morning he was leaning towards the left. Patient did have difficulty transferring to use the toilet earlier. Patient is a poor historian and majority of history is taken from daughter. Patient had chest x-ray which shows right lower lobe infiltrate CT head showed no acute intracranial process. Chronic white matter ischemic changes. EKG showed normal sinus rhythm Carotid duplex showed antegrade flow in both carotid arteries 02/11/2017 Patient is awake and alert and oriented. Afebrile now. Shortness of breath improved. Neurologic workup negative so far. Continue with aspirin. No fever no chills. No acute overnight issues. Creatinine level increased from 2.6-3.0 today Current medications reviewed Objective - Vital Signs Vital signs: Vital Signs Temp 97.6 F 02/11/17 20:00 Pulse 57 L 02/11/17 20:00 Resp 22 02/11/17 20:00 BP 141/63 02/11/17 20:00 Pulse Ox 97 02/11/17 20:00 Intake & Output 02/11/17 02/11/17 02/12/17 06:59 18:59 06:59 Intake Total 752 Output Total 300 Balance 452 Weight Intake: Intake, IV Titration 40 Amount Sodium Chloride 0.9% 1, 40 000 ml @ 20 mls/hr IV . Q24H [facility] Rx#:[id number] Oral 712 Output: Urine 300 Other: Voiding Method Urinal # Voids 1 # Bowel Movements 1 - Exam PHYSICAL EXAMINATION: Patient is lying in the bed comfortably, no acute distress, awake alert and oriented.. Underlying dementia HEENT: Normocephalic. Neck is supple. Pupils reactive. Nostrils clear. Oral cavity is moist. Ears reveal no drainage. Neck reveals no JVD, carotid bruits, or thyromegaly. CHEST EXAMINATION: Trachea is central. Symmetrical expansion. Lung ramirez clear to auscultation and percussion. Diminished breath sounds basally CARDIAC: Normal S1, S2 with no gallops. No murmurs ABDOMEN: Soft. Bowel sounds normal. No organomegaly. No abdominal bruits. Extremities: reveal no edema. No clubbing or cyanosis Neurologically awake, alert, oriented x3 with well-coordinated movements. No focal deficits noted Skin: No rash or skin lesions. Psychiatric: Cooperative. Nonsuicidal Musculoskeletal: No joint swelling or deformity. Normal range of motion. - Labs CBC & Chem 7: 02/11/17 06:08 02/11/17 06:08 Labs: Abnormal Lab Results - Last 24 Hours (Table) 02/11/17 02/11/17 Range/Units 06:08 06:08 RBC 3.01 L (4.30-5.90) m/uL Hgb 9.1 L (13.0-17.5) gm/dL Hct 30.2 L (39.0-53.0) % MCV 100.4 H (80.0-100.0) fL MCHC 30.1 L (31.0-37.0) g/dL Carbon Dioxide 20 L (22-30) mmol/L BUN 89 H* (9-20) mg/dL Creatinine 3.02 H (0.66-1.25) mg/dL Calcium 8.3 L (8.4-10.2) mg/dL Microbiology - Last 24 Hours (Table) 02/10/17 09:44 Blood Culture - Preliminary Blood No Growth after 24 hours Assessment and Plan Assessment: #1 right lower lobe pneumonia #2 difficulty finding words and altered mental status on admission. Possible TIA and leg weakness due to worsening Parkinson's disease #3 acute on chronic CKD-4 creatinine increased from 2.6-3.0 #4 Parkinson's disease and dementia #5 hypothyroidism #6 BPH #7 COPD stable Plan: Patient will be continued on antibiotics in the form of ceftriaxone and azithromycin. Stroke workup including CT head and carotid duplex was done. Continue with aspirin. Follow-up renal function. Patient will be given gentle hydration. Continue with the breathing treatments and follow up closely. Further recommendations based on the clinical course. Time with Patient: Greater than 30
[2017-02-12] MEDS: LEVOTHYROXINE 75 MCG TAB PO SCH (06:32)
[2017-02-12] MEDS: CARBIDOPA-LEVODOPA 25-100 MG 1 EACH TAB PO SCH ×3 (06:32→16:55)
[2017-02-12 06:33] LABS: Calcium 8.4 mg/dL (8.4-10.2); Potassium 4.3 mmol/L (3.5-5.1)
[2017-02-12 06:38] LABS: Basophils % (A) 0 %; CH 30.4; CHCM 31.2; Eosinophils # (A) 0.4 k/uL (0-0.7); Eosinophils % (A) 5 %; HCT 30.4 % (39.0-53.0); HDW 2.38; HGB 9.3 gm/dL (13.0-17.5); Hypochromasia Slight; Luc # (Auto) 0.09; Luc % (Auto) 1; Lymphocytes # (A) 1.7 k/uL (1.0-4.8); Lymphocytes % (A) 25 %; MCHC 30.6 g/dL (31.0-37.0); MCV 98.1 fL (80.0-100.0); Mean Platelet Volume 8.4; Monocytes # (A) 0.3 k/uL (0-1.0); Monocytes % (A) 5 %; Neutrophils # (A) 4.4 k/uL (1.3-7.7); Neutrophils % (A) 63 %; RDW 14.2 % (11.5-15.5); WBC 6.9 k/uL (3.8-10.6); WBC (Perox) 7.15
[2017-02-12] MEDS: SYMBICORT 80-4.5 MCG INHALER INHALATION SCH ×2 (08:15→20:23)
[2017-02-12] MEDS: METHADONE 5 MG TAB PO SCH ×2 (08:22→20:09)
[2017-02-12] MEDS: TAMSULOSIN 0.4 MG CAP.ER.24H PO SCH (08:22)
[2017-02-12] MEDS: ASPIRIN 325 MG TAB PO SCH (08:22)
[2017-02-12] MEDS: FINASTERIDE 5 MG TAB PO SCH (08:22)
[2017-02-12] MEDS: HEPARIN SODIUM,PORCINE 5,000 UNIT/ML 1 ML VIAL SQ SCH ×2 (08:23→20:10)
[2017-02-12] MEDS: ALLOPURINOL 100 MG TAB PO SCH (08:23)
[2017-02-12] MEDS: cefTRIAXone IN SWFI 1,000 MG/10 ML SYRINGE IVP SCH (08:26)
[2017-02-12] MEDS ORDERED: CALCITRIOL 0.25 MCG CAP PO SCH (09:00)
--- NOTE | 2017-02-12 11:32 | CDI ---
In responding to this query, please exercise your independent professional judgment. The [facility] Coding Staff and Clinical Documentation Specialists appreciate your assistance in clarifying documentation, maintaining compliance with coding guidelines, accurately documenting patients condition and capturing severity of illness. The fact that a question is asked does not imply that any particular answer is desired or expected. Communication forms are a method of clarifying documentation and are not made part of the Legal Health Record. Thank you in advance for your clarification. Last Revision, June 2016 Libia Petit [address] [facility] [place] [address] Documentation Clarification Form Date: 02/12/2017 11:24:00 AM From: Vinita Canada RN, CCDS Admit Date: 02/10/2017 11:08:00 AM Patient Name: Dejon Canas Visit Number: [id number] Dr. Gustavo Urbina CHF is documented in the medical H&P. History/Risk Factors: CHF, right lower lobe pneumonia this admission, TIA, CKD stage 4, Parkinsons disease with dementia Clinical Indicators: VS/Pulse OX: temp 99.2, hr 94, RR 20, B/P 86/53, spo2 93% RA BNP: not done 02/10 Echocardiogram Results: EF 50-55%, mild m/t/p regurg, mild concentric LVH Chest X Ray: - reatment: Lasix 40 mg IVP x1 In your professional opinion, can you please clarify the acuity and type of CHF if known? Systolic Heart Failure: Acute Chronic Acute on Chronic Diastolic Heart Failure: Acute Chronic Acute on Chronic Systolic & Diastolic Heart Failure: Acute Chronic Acute on Chronic Unable to determine Other, please specify Please document in your progress notes and discharge summary in order to capture severity of illness and risk of mortality. Include clinical findings that support your diagnosis. FYI: Press F11 to launch patient chart. SÁNCHEZ
--- NOTE | 2017-02-12 11:40 | CDI ---
In responding to this query, please exercise your independent professional judgment. The [facility] Coding Staff and Clinical Documentation Specialists appreciate your assistance in clarifying documentation, maintaining compliance with coding guidelines, accurately documenting patients condition and capturing severity of illness. The fact that a question is asked does not imply that any particular answer is desired or expected. Communication forms are a method of clarifying documentation and are not made part of the Legal Health Record. Thank you in advance for your clarification. Last Revision, February 2015 Libia Petit [address] [facility] [place] [address] Documentation Clarification Form Date: 02/12/2017 11:34:00 AM From: Vinita Canada RN, CCDS Admit Date: 02/10/2017 11:08:00 AM Patient Name: Dejon Canas Visit Number: [id number] Dr. Gustavo Urbina A diagnosis of anemia lacks specificity to accurately reflect your patients severity of condition and clarification is needed. Patient history/risk factors: Anemia, CHF, CKD stage 4, Parkinson's disease Clinical Indicators: Hemoglobin: 10.2/9.1/9.3 Hematocrit: 33/30.2/30.4 Treatment: labs am daily Vitamin B-1 100 mg PO Q HS Folic Acid 1 mg PO Q HS In order to capture the severity of condition, please clarify the type of anemia and etiology if known: Acute blood loss anemia Acute on chronic blood loss anemia Chronic blood loss anemia Iron deficiency anemia Hemolytic anemia Drug induced anemia Anemia due to malignancy Nutritional anemia Anemia of chronic kidney disease Unable to determine Other, please specify Please document in your progress notes and discharge summary in order to capture severity of illness and risk of mortality. Include clinical findings that support your diagnosis. FYI: Press F11 to launch patient chart. SÁNCHEZ
[2017-02-12] MEDS: AZITHROMYCIN 500 MG TAB PO SCH (12:20)
--- NOTE | 2017-02-12 16:33 | P.PN ---
Subjective Progress Note Date: 02/12/17 Principal diagnosis: Patient is a pleasant 86-year-old male who is being followed by the neurology service for altered mental status. Patient does have history of dementia, Parkinson's disease, arthritis and CHF. Patient is poor historian. Information is gleaned from the chart and staff. Patient was brought to occur [facility] with increasing weakness and altered mental status. Daughter did witness episode of patient being unable to speak for approximately 30 seconds. Following this his words were mumbled over several minutes but cleared by the time EMS arrived. Most likely patient did suffer TIA. Patient is also showing increasing signs of weakness which may be progressing Parkinson' s disease. CT of the brain showed no intracranial abnormality. CT did show atrophic changes and chronic white matter ischemic changes. Patient is currently being treated for pneumonia as well. This may be contributing to increased weakness. At the time of my evaluation, patient's resting comfortably in bed and appears to be in no acute distress. Objective - Vital Signs Vital signs: Vital Signs Temp 96.9 F L 02/12/17 12:00 Pulse 63 02/12/17 16:00 Resp 18 02/12/17 16:00 BP 143/66 02/12/17 16:00 Pulse Ox 97 02/12/17 16:00 Intake & Output 02/11/17 02/12/17 02/12/17 18:59 06:59 18:59 Intake Total 752 340 Output Total 300 1350 700 Balance 452 -1350 -360 Weight 76.5 kg Intake: Intake, IV Titration 40 Amount Sodium Chloride 0.9% 1, 40 000 ml @ 60 mls/hr IV . [id number] [facility] Rx#:[id number] Oral 712 340 Output: Urine 300 1350 700 Other: Voiding Method Urinal Urinal Urinal Diaper Diaper # Voids 1 1 1 # Bowel Movements 1 1 - Exam PHYSICAL EXAM: GENERAL APPEARANCE: Patient is a well-developed, obese male who appears to be in no acute distress. HEENT: Normocephalic, atraumatic, no facial asymmetry is seen. Neck is supple with no masses felt. CARDIOVASCULAR: Regular rate and rhythm. ABDOMEN: Nontender, nondistended. EXTREMITIES: Show no edema or clubbing. NEUROLOGICAL EXAM: Patient is awake, alert, and oriented 3. Speech and language are normal. Strength is 5/5 in bilateral upper extremities and 3/5 in bilateral lower extremities. Sensory exam is decreased in bilateral lower extremities. No obvious lateralizing weakness is noted. No facial asymmetry is seen on cranial nerve testing. Tremors are noted to bilateral upper extremities with left greater than right. No seizure activity is seen. - Labs CBC & Chem 7: 02/12/17 05:15 02/12/17 05:15 Labs: Abnormal Lab Results - Last 24 Hours (Table) 02/12/17 02/12/17 02/12/17 Range/Units 05:15 05:15 05:15 RBC 3.10 L (4.30-5.90) m/uL Hgb 9.3 L (13.0-17.5) gm/dL Hct 30.4 L (39.0-53.0) % MCHC 30.6 L (31.0-37.0) g/dL Carbon Dioxide 21 L (22-30) mmol/L BUN 87 H* (9-20) mg/dL Creatinine 2.64 H (0.66-1.25) mg/dL Homocysteine 22.61 H (4.00-14.00) umol/L Microbiology - Last 24 Hours (Table) 02/10/17 09:44 Blood Culture - Preliminary Blood No Growth after 48 hours 02/12/17 06:05 Gram Stain - Final Sputum Sputum Culture - Final Assessment and Plan Plan: Impression: 1. TIA, transient aphasia which resolved 2. Altered mental status, resolved 3. Sensory deficit 4. Lower extremity weakness 5. Parkinson's disease 6. Dementia 7. Pneumonia Recommendations: It does appear patient suffered a transient ischemic attack with episode of difficulty speaking. Speech and language are normal at this time. Patient does have chronic weakness and increased generalized weakness may be due to progressing Parkinson's disease and recent bout of pneumonia. Continue current Sinemet dosing. As you recall, CT of the brain and carotid arteries were without any significant findings. I recommend continuing aspirin 81 mg by mouth daily. EEG was ordered but not yet performed. Serum homocysteine level is elevated. I will start the patient on Foltx daily. Lipid panel was within normal limits. Continue current management for pneumonia. I recommend PT OT consult to evaluate and treat. Continue neurological checks. Barring any abnormality on the EEG, I will continue to follow with you on an as-needed basis. Feel free to call with any questions or concerns. I performed an examination of the patient and discussed the management with the QUARRYING SPECIALIST. I have reviewed the QUARRYING SPECIALIST notes and agree with the findings and plan of care.
[2017-02-12] MEDS: FOLIC ACID 1 MG TAB PO SCH (20:10)
[2017-02-12] MEDS: THIAMINE 100 MG TAB PO SCH (20:10)
[2017-02-12] MEDS: MULTIVITAMINS, THERA 1 EACH TAB PO SCH (20:10)
--- NOTE | 2017-02-12 23:35 | P.PN ---
Subjective Progress Note Date: 02/12/17 Principal diagnosis: Pneumonia Patient is a 86-year-old male with a known history of dementia, Parkinson's disease, bilateral hip arthritis and other multiple medical problems presenting to the emergency department with concerns regarding mental status and weakness. Patient has had a cough since yesterday. Daughter states this morning patient was less responsive. Patient had an episode where he cannot speak at all for around 30 seconds. Following this patient had some mumbled words for several minutes until EMS arrived. Patient seems to be talking normal at this point. Patient always leans to the right however this morning he was leaning towards the left. Patient did have difficulty transferring to use the toilet earlier. Patient is a poor historian and majority of history is taken from daughter. Patient had chest x-ray which shows right lower lobe infiltrate CT head showed no acute intracranial process. Chronic white matter ischemic changes. EKG showed normal sinus rhythm Carotid duplex showed antegrade flow in both carotid arteries 02/11/2017 Patient is awake and alert and oriented. Afebrile now. Shortness of breath improved. Neurologic workup negative so far. Continue with aspirin. No fever no chills. No acute overnight issues. Creatinine level increased from 2.6-3.0 today 02/12/2017 Patient is awake and oriented. No complaints of chest pain today no short of breath. They will function improved. No fever no chills. Patient will be continued on aspirin and Dhillon acid was added. Anticipate discharged to rehab for next 24 hours Current medications reviewed Objective - Vital Signs Vital signs: Vital Signs Temp 96.9 F L 02/12/17 12:00 Pulse 63 02/12/17 16:00 Resp 18 02/12/17 16:00 BP 143/66 02/12/17 16:00 Pulse Ox 97 02/12/17 16:00 Intake & Output 02/12/17 02/12/17 02/13/17 06:59 18:59 06:59 Intake Total 440 Output Total 1350 700 350 Balance -1350 -260 -350 Weight 76.5 kg Intake: Oral 440 Output: Urine 1350 700 350 Other: Voiding Method Urinal Urinal Diaper Diaper # Voids 1 1 3 # Bowel Movements 1 - Exam PHYSICAL EXAMINATION: Patient is lying in the bed comfortably, no acute distress, awake alert and oriented.. Underlying dementia HEENT: Normocephalic. Neck is supple. Pupils reactive. Nostrils clear. Oral cavity is moist. Ears reveal no drainage. Neck reveals no JVD, carotid bruits, or thyromegaly. CHEST EXAMINATION: Trachea is central. Symmetrical expansion. Lung ramirez clear to auscultation and percussion. Diminished breath sounds basally CARDIAC: Normal S1, S2 with no gallops. No murmurs ABDOMEN: Soft. Bowel sounds normal. No organomegaly. No abdominal bruits. Extremities: reveal no edema. No clubbing or cyanosis Neurologically awake, alert, oriented x3 with well-coordinated movements. No focal deficits noted Skin: No rash or skin lesions. Psychiatric: Cooperative. Nonsuicidal Musculoskeletal: No joint swelling or deformity. Normal range of motion. - Labs CBC & Chem 7: 02/12/17 05:15 02/12/17 05:15 Labs: Abnormal Lab Results - Last 24 Hours (Table) 02/12/17 02/12/17 02/12/17 Range/Units 05:15 05:15 05:15 RBC 3.10 L (4.30-5.90) m/uL Hgb 9.3 L (13.0-17.5) gm/dL Hct 30.4 L (39.0-53.0) % MCHC 30.6 L (31.0-37.0) g/dL Carbon Dioxide 21 L (22-30) mmol/L BUN 87 H* (9-20) mg/dL Creatinine 2.64 H (0.66-1.25) mg/dL Homocysteine 22.61 H (4.00-14.00) umol/L Microbiology - Last 24 Hours (Table) 02/10/17 09:44 Blood Culture - Preliminary Blood No Growth after 48 hours 02/12/17 06:05 Gram Stain - Final Sputum Sputum Culture - Final Assessment and Plan Assessment: #1 right lower lobe pneumonia #2 difficulty finding words and altered mental status on admission. 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 Stroke workup including CT head and carotid duplex was done. EEG pending Continue with aspirin. Follow-up renal function. Patient will be given gentle hydration. Continue with the breathing treatments and follow up closely. Further recommendations based on the clinical course.
[2017-02-13 01:07] VITALS: RESP 16
[2017-02-13 06:39] LABS: CH 30.3; CHCM 31.1; HCT 29.9 % (39.0-53.0); HDW 2.33; HGB 9.3 gm/dL (13.0-17.5); Hypochromasia Slight; MCH 30.6 pg (25.0-35.0); MCHC 31.2 g/dL (31.0-37.0); MCV 98.1 fL (80.0-100.0); Macrocytosis Slight; Mean Platelet Volume 8.4; RBC 3.04 m/uL (4.30-5.90); RDW 15.4 % (11.5-15.5)
[2017-02-13] MEDS: LEVOTHYROXINE 75 MCG TAB PO SCH (06:47)
[2017-02-13] MEDS: CARBIDOPA-LEVODOPA 25-100 MG 1 EACH TAB PO SCH ×2 (06:47→12:06)
[2017-02-13 06:55] LABS: Calcium 8.8 mg/dL (8.4-10.2); Potassium 4.5 mmol/L (3.5-5.1); Total Bilirubin 0.2 mg/dL (0.2-1.3); Total Protein 6.3 g/dL (6.3-8.2)
[2017-02-13] MEDS: SYMBICORT 80-4.5 MCG INHALER INHALATION SCH (08:03)
[2017-02-13] MEDS: ASPIRIN 325 MG TAB PO SCH (09:08)
[2017-02-13] MEDS: FINASTERIDE 5 MG TAB PO SCH (09:08)
[2017-02-13] MEDS: ALLOPURINOL 100 MG TAB PO SCH (09:08)
[2017-02-13] MEDS: METHADONE 5 MG TAB PO SCH (09:08)
[2017-02-13] MEDS: TAMSULOSIN 0.4 MG CAP.ER.24H PO SCH (09:08)
[2017-02-13] MEDS: HEPARIN SODIUM,PORCINE 5,000 UNIT/ML 1 ML VIAL SQ SCH (09:08)
[2017-02-13 09:18] VITALS: PULSE 50; TEMP 97.8
--- NOTE | 2017-02-13 11:56 | P.DS ---
Providers Date of admission: 02/10/17 11:08 Expected date of discharge: 02/13/17 Attending physician: Gustavo Urbina Consults: 02/10/17 11:08 Consult Physician Routine Consulting Provider: Marga Junior Consult Reason/Comments: altered mental status, rule out TIA Do you want consulting provider notified?: Yes Primary care physician: Peyton Das Hospital Course: \ Discharge diagnosis #1 right lower lobe pneumonia #2 difficulty finding words and altered mental status on admission. 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 Patient has had a cough since yesterday. Daughter states this morning patient was less responsive. Patient had an episode where he cannot speak at all for around 30 seconds. Following this patient had some mumbled words for several minutes until EMS arrived. Patient seems to be talking normal at this point. Patient always leans to the right however this morning he was leaning towards the left. Patient did have difficulty transferring to use the toilet earlier. Patient is a poor historian and majority of history is taken from daughter. Patient had chest x-ray which shows right lower lobe infiltrate CT head showed no acute intracranial process. Chronic white matter ischemic changes. EKG showed normal sinus rhythm Carotid duplex showed antegrade flow in both carotid arteries 02/11/2017 Patient is awake and alert and oriented. Afebrile now. Shortness of breath improved. Neurologic workup negative so far. Continue with aspirin. No fever no chills. No acute overnight issues. Creatinine level increased from 2.6-3.0 today 02/12/2017 Patient is awake and oriented. No complaints of chest pain today no short of breath. They will function improved. No fever no chills. Patient will be continued on aspirin and Dhillon acid was added. Anticipate discharged to rehab for next 24 hours. Patient was continued on antibiotics in the form of ceftriaxone and azithromycin. Stroke workup including CT head and carotid duplex was done. EEG was. awaiting report. Continue with aspirin. stable. renal function. Patient as given gentle hydration. Otherwise patient is tolerating oral diet. IV fluids were discontinued. Patient was taking Lasix 40 mg daily which will be changed to 20 mg daily. Continued with the breathing treatments. Patient was followed closely. Currently hemodynamically stable. Patient will need rehab transfer. Discharge physical examination was done Total time taken greater than 35 minutes including 18 minutes for counseling and coordination of care. Patient Condition at Discharge: Serious Plan - Discharge Summary Discharge Rx Participant: Yes New Discharge Prescriptions: New Aspirin 81 mg PO DAILY #30 chewable Cefuroxime Axetil [Ceftin] 500 mg PO BID #10 tab Continue Tamsulosin HCl [Flomax] 0.4 mg PO DAILY Fluticasone/Salmeterol [Advair 250-50 Diskus] 1 puff INHALATION RT-BID Levothyroxine Sodium [Synthroid] 75 mcg PO DAILY Nitroglycerin Sl Tabs [Nitrostat] 0.4 mg SUBLINGUAL Q5M PRN PRN Reason: Pain guaiFENesin [Mucinex] 600 mg PO Q12HR Thiamine [Vitamin B-1] 100 mg PO HS Multivitamins, Thera [Multivitamin (formulary)] 1 tab PO HS Folic Acid 1 mg PO HS Carbidopa-Levodopa 25-100 mg [Sinemet 25-100 mg] 1 tab PO TID Methadone [Dolophine] 5 mg PO BID@0800,1999 Levocetirizine Dihydrochloride [Xyzal] 5 mg PO DAILY Dutasteride [Avodart] 0.5 mg PO DAILY Calcitriol 0.5 mcg PO MOTH Allopurinol [Zyloprim] 100 mg PO DAILY Gabapentin [Neurontin] 100 mg PO TID Changed Furosemide [Lasix] 20 mg PO DAILY #1 tablet Discharge Medication List Fluticasone/Salmeterol [Advair 250-50 Diskus] 1 puff INHALATION RT-BID 09/04/15 [History] Tamsulosin HCl [Flomax] 0.4 mg PO DAILY 09/04/15 [History] Levothyroxine Sodium [Synthroid] 75 mcg PO DAILY 09/07/15 [History] Carbidopa-Levodopa 25-100 mg [Sinemet 25-100 mg] 1 tab PO TID 09/21/15 [History] Folic Acid 1 mg PO HS 09/21/15 [History] Multivitamins, Thera [Multivitamin (formulary)] 1 tab PO HS 09/21/15 [History] Nitroglycerin Sl Tabs [Nitrostat] 0.4 mg SUBLINGUAL Q5M PRN 09/21/15 [History] Thiamine [Vitamin B-1] 100 mg PO HS 09/21/15 [History] guaiFENesin [Mucinex] 600 mg PO Q12HR 09/21/15 [History] Allopurinol [Zyloprim] 100 mg PO DAILY 02/10/17 [History] Calcitriol 0.5 mcg PO MOTH 02/10/17 [History] Dutasteride [Avodart] 0.5 mg PO DAILY 02/10/17 [History] Gabapentin [Neurontin] 100 mg PO TID 02/10/17 [History] Levocetirizine Dihydrochloride [Xyzal] 5 mg PO DAILY 02/10/17 [History] Methadone [Dolophine] 5 mg PO BID@0800,2000 02/10/17 [History] Aspirin 81 mg PO DAILY #30 chewable 02/13/17 [Rx] Cefuroxime Axetil [Ceftin] 500 mg PO BID #10 tab 02/13/17 [Rx] Furosemide [Lasix] 20 mg PO DAILY #1 tablet 02/13/17 [Rx] Follow up Appointment(s)/Referral(s): Peyton Das DO [Primary Care Provider] - 1-2 days Discharge Disposition: TRANSFER TO SNF/ECF
[2017-02-13] MEDS: AZITHROMYCIN 500 MG TAB PO SCH (12:06)
[2017-02-13] MEDS: cefTRIAXone IN SWFI 1,000 MG/10 ML SYRINGE IVP SCH (12:09)
[2017-02-13 12:25] VITALS: BP 132/61
--- NOTE | 2017-02-23 09:26 | EEG ---
ELECTROENCEPHALOGRAM REPORT DATE OF SERVICE: 02/13/2017 REASON FOR TESTING: Altered mental status. DESCRIPTION OF THE PROCEDURE: This EEG was performed using a 21 channel digital electroencephalograph, following international 10-20 system. DESCRIPTION OF THE RECORDING: From the beginning of the tracing, and with patient's eyes closed, the background rhythm was mostly consisting of. 6 to 7 Hz theta frequency in the posterior occipital leads. No obvious asymmetry is seen. Frequent muscle artifacts and occasional movement artifacts are seen. Photic stimulation was performed with no driving response seen. No pathological waves were elicited. Hyperventilation was not performed. The patient remains awake throughout the tracing. No epileptiform discharges were seen. His EKG lead showed a bradycardic rate with a normal rhythm. INTERPRETATION: This awake EEG is abnormal due to the presence of generalized slowing of the background rhythm, mostly in the theta range. This is consistent with mild encephalopathy. No epileptiform discharges were seen. The absence of epileptiform discharges does not rule out the diagnosis of epilepsy, therefore clinical correlation is recommended. MMANALY / IJN: [id number] /
== END 2017-02-13 15:19 | DRG 871 ==
LOC: EC 09:27 → 6SEL 11:08
PROVIDERS: ADMIT Internal Medicine; ATTEND Internal Medicine
DX: A41.9 Sepsis, unspecified organism (principal); J18.9 Pneumonia, unspecified organism; N18.4 Chronic kidney disease, stage 4 (severe); I50.32 Chronic diastolic (congestive) heart failure; F03.90 Unspecified dementia, unspecified severity, without behavioral disturbance, psychotic disturbance, mood disturbance, and anxiety; G20 Parkinson's disease; J44.0 Chronic obstructive pulmonary disease with (acute) lower respiratory infection; G45.9 Transient cerebral ischemic attack, unspecified; R47.01 Aphasia; D63.1 Anemia in chronic kidney disease; E03.9 Hypothyroidism, unspecified; M16.10 Unilateral primary osteoarthritis, unspecified hip; M85.80 Other specified disorders of bone density and structure, unspecified site; N40.0 Benign prostatic hyperplasia without lower urinary tract symptoms; Z79.899 Other long term (current) drug therapy; Z82.49 Family history of ischemic heart disease and other diseases of the circulatory system; Z83.3 Family history of diabetes mellitus; Z87.891 Personal history of nicotine dependence; Z90.81 Acquired absence of spleen; Z91.81 History of falling; Z96.642 Presence of left artificial hip joint; Z88.5 Allergy status to narcotic agent; R00.1 Bradycardia, unspecified
CPT/HCPCS: 36415; 70450; 71020; 80048; 80053; 80061; 82550; 82553; 83090; 83605; 84484; 85025; 85027; 85610; 85730; 87040; 87070; 87205; 93005; 93306; 93880; 94640; 95816; 99291

== ENCOUNTER 2017-05-24 15:02 | Inpatient (IN) | payer MEDICARE, BC ==
[2017-05-24] MEDS ORDERED: cefTRIAXone IN SWFI 1,000 MG/10 ML SYRINGE IVP STA (15:13)
[2017-05-24] MEDS ORDERED: SODIUM CHLORIDE 0.9% 1,000 ML IV STA (15:13)
[2017-05-24] MEDS ORDERED: FUROSEMIDE 10 MG/ML 4 ML VIAL IV STA (15:13)
[2017-05-24 15:59] LABS: Basophils % (A) 0 %; Eosinophils # (A) 0.3 k/uL (0-0.7); Eosinophils % (A) 3 %; HCT 34.5 % (39.0-53.0); HGB 10.5 gm/dL (13.0-17.5); Hypochromasia Slight; Lymphocytes # (A) 1.7 k/uL (1.0-4.8); Lymphocytes % (A) 19 %; MCHC 30.4 g/dL (31.0-37.0); MCV 98.4 fL (80.0-100.0); Mean Platelet Volume 8.7; Monocytes # (A) 0.3 k/uL (0-1.0); Monocytes % (A) 4 %; Neutrophils # (A) 6.3 k/uL (1.3-7.7); Neutrophils % (A) 73 %; Platelet Count 209 k/uL (150-450); RDW 14.6 % (11.5-15.5); WBC 8.6 k/uL (3.8-10.6)
[2017-05-24 16:08] LABS: ALT <6 U/L (21-72); AST 17 U/L (17-59); Albumin 4.1 g/dL (3.5-5.0); Alkaline Phosphatase 69 U/L (38-126); Anion Gap 17 mmol/L; Blood Urea Nitrogen 60 mg/dL (9-20); Calcium 9.4 mg/dL (8.4-10.2); Carbon Dioxide 21 mmol/L (22-30); Chloride 105 mmol/L (98-107); Glucose 129 mg/dL (74-99); Sodium 143 mmol/L (137-145); Total Bilirubin 0.7 mg/dL (0.2-1.3); Total Protein 7.5 g/dL (6.3-8.2)
[2017-05-24 16:11] LABS: Creatine Kinase 41 U/L (55-170)
[2017-05-24 16:13] LABS: INR 1.1 (<1.2); Partial Thromboplastin Time 25.4 sec (22.0-30.0)
[2017-05-24 16:25] LABS: Creatine Kinase MB 1.1 ng/mL (0.0-2.4); Troponin I <0.012 ng/mL (0.000-0.034)
--- NOTE | 2017-05-24 16:28 | XR ---
EXAMINATION TYPE: XR chest 2V DATE OF EXAM: 05/24/2017 COMPARISON: Prior chest x-ray 02/11/2017 HISTORY: Difficulty breathing, productive cough TECHNIQUE: Frontal and lateral views of the chest are obtained. FINDINGS: Increased AP diameter of the chest could be indicative of underlying COPD. Patient is rota julio. Abnormal increased attenuation present at the right lung base obscures the right hemidiaphragm p artially. Heart is enlarged. No pneumothorax or pleural effusion. IMPRESSION: Correlate for possible right middle lobe pneumonia, patient is rotated. Suspect elevatio n of the right hemidiaphragm. Cardiomegaly. Follow-up suggested.
--- NOTE | 2017-05-24 16:32 | ED ---
General Adult HPI - General Chief complaint: Recheck/Abnormal Lab/Rx Stated complaint: pneumonia Time Seen by Provider: 05/24/17 15:09 Source: patient, EMS Mode of arrival: EMS Limitations: no limitations - History of Present Illness Initial comments: 86 years old male was treated with a pneumonia a few days ago, he is not feeling better he is short-winded he still has a lot of secretions he does have a history of COPD. Today he almost passed out though he he didn't totally passed out he felt like sternal pass out he denies any injury from passing out. He said they does have a mild chest pain no pleuritic component to the chest pain no abdominal pain no frequency urgency dysuria no symptoms of any TIA or CVA - Related Data Home Medications Medication Instructions Recorded Confirmed Fluticasone/Salmeterol [Advair 1 puff INHALATION RT-BID 09/04/15 02/10/17 250-50 Diskus] Tamsulosin HCl [Flomax] 0.4 mg PO DAILY 09/04/15 02/10/17 Levothyroxine Sodium [Synthroid] 75 mcg PO DAILY 09/07/15 02/10/17 Carbidopa-Levodopa 25-100 mg 1 tab PO TID 09/21/15 02/10/17 [Sinemet 25-100 mg] Folic Acid 1 mg PO HS 09/21/15 02/10/17 Multivitamins, Thera [Multivitamin 1 tab PO HS 09/21/15 02/10/17 (formulary)] Nitroglycerin Sl Tabs [Nitrostat] 0.4 mg SUBLINGUAL Q5M PRN 09/21/15 02/10/17 Thiamine [Vitamin B-1] 100 mg PO HS 09/21/15 02/10/17 Allopurinol [Zyloprim] 100 mg PO DAILY 02/10/17 02/10/17 Calcitriol 0.5 mcg PO MOTH 02/10/17 02/10/17 Dutasteride [Avodart] 0.5 mg PO DAILY 02/10/17 02/10/17 Gabapentin [Neurontin] 100 mg PO TID 02/10/17 02/10/17 Levocetirizine Dihydrochloride 5 mg PO DAILY 02/10/17 02/10/17 [Xyzal] Methadone [Dolophine] 5 mg PO BID@0800,199902/10/17 02/10/17 Albuterol Inhaler [Ventolin Hfa 2 puff INHALATION RT-BID 05/24/17 05/24/17 Inhaler] Albuterol Nebulized [Ventolin 2.5 mg INHALATION RT-QID PRN 05/24/17 05/24/17 Nebulized] Amoxic-Pot Clav 875-125Mg 1 tab PO Q12HR 05/24/17 05/24/17 [Augmentin 875-125] Cholecalciferol (Vitamin D3) 2,000 unit PO DAILY@1400 05/24/17 05/24/17 [Vitamin D3] Furosemide [Lasix] 40 mg PO DAILY 05/24/17 05/24/17 Loratadine [Claritin] 10 mg PO DAILY 05/24/17 05/24/17 Sodium Polystyrene Sulfon/Sorb 15 gm PO MOTH 05/24/17 05/24/17 [Kionex 15 gm/60 ml Suspension] Zinc 50 mg PO DAILY 05/24/17 05/24/17 hydrOXYzine PAMOATE 25 mg PO DAILY 05/24/17 05/24/17 predniSONE See Taper PO DAILY 05/24/17 05/24/17 Previous Rx's Medication Instructions Recorded Aspirin 81 mg PO DAILY #30 chewable 02/13/17 Allergies Allergy/AdvReac Type Severity Reaction Status Date / Time fentanyl Allergy Rash/Hives Verified 05/24/17 16:21 Review of Systems ROS Statement: Those systems with pertinent positive or pertinent negative responses have been documented in the HPI. ROS Other: All systems not noted in ROS Statement are negative. Past Medical History Past Medical History: Asthma, Heart Failure, Dementia, Musculoskeletal Disorder , Neurologic Disorder, Osteoarthritis (OA), Renal Disease, Thyroid Disorder Additional Past Medical History / Comment(s): Parkinsons disease, compression fracture of the L4 spine, gait dysfunction, bilateral hip and leg pain since a fall in August 2015, chronic renal failure stage IV, hyperkalemia, anemia, DJD, osteopenia, hypothyroidism, BPH, occasional confusion, History of Any Multi-Drug Resistant Organisms: None Reported Past Surgical History: Appendectomy, Joint Replacement Additional Past Surgical History / Comment(s): Total L hip replacement, splenectomy Past Anesthesia/Blood Transfusion Reactions: No Reported Reaction Past Psychological History: No Psychological Hx Reported Smoking Status: Never smoker Past Alcohol Use History: None Reported Past Drug Use History: None Reported - Past Family History Sister(s) Family Medical History: Myocardial Infarction (MD) Brother(s) Family Medical History: Diabetes Mellitus Mother Family Medical History: No Reported History Additional Family Medical History / Comment(s): Mother lived to be 80 yrs old. Father History Unknown: Yes Additional Family Medical History / Comment(s): Father lived to be 75yrs old. General Exam - General Exam Comments Initial Comments: General: The patient is awake and alert, in no distress, does look tired Skin: Skin is warm and dry and no rashes or lesions are noted. Eye: Pupils are equal, round and reactive to light, extra-ocular movements are intact; there is normal conjunctiva bilaterally. Ears, nose, mouth and throat: There are moist mucous membranes Neck: The neck is supple, there is no tenderness Cardiovascular: There is a regular rate and rhythm. Respiratory: To auscultation bilateral, noticed times of secretions at the bases bilaterally Gastrointestinal: Soft, non-distended, non-tender abdomen without masses or organomegaly noted. There is no rebound or guarding present. Bowel sounds are unremarkable. Back: There is no tenderness to palpation in the midline. There is no obvious deformity. Musculoskeletal: Normal ROM, no tenderness, There is no pedal edema. There is no calf tenderness or swelling. No cords were appreciated. Neurological: CN II-XII intact, Cranial nerves III through XII are intact. There are no obvious motor or sensory deficits. Coordination appears grossly intact. Speech is normal. No neurological deficits at all no suspicion of TIA or CVA Psychiatric: Cooperative, appropriate mood & affect, normal judgment. Limitations: no limitations Course Vital Signs 05/24/17 05/24/17 15:07 16:09 Temperature 96.8 F L Pulse Rate 89 96 Respiratory 24 18 Rate Blood Pressure 95/60 125/76 O2 Sat by Pulse 93 L 95 Oximetry Troponin is negative creatinine is 2.33 BUN is over 60 CO2 is 21 troponin EKG were reviewed, chest x-ray confirms pneumonia basically he is a frail outpatient therapy he will needed the admitted he be admitted to Dr. Cleaning service EKG Findings - EKG Comments: EKG Findings:: EKG is a sinus rhythm with the patient complexes ventricular rate is 91 PA interval is 196 QRS duration is 88 QT/QTc is and review of this EKG does not reveal any STEMI noticed a nonspecific ST and T-wave abnormalities Medical Decision Making - Lab Data Result diagrams: 05/24/17 15:40 05/24/17 15:40 Lab Results 05/24/17 05/24/17 05/24/17 Range/Units 15:40 15:40 15:40 WBC 8.6 (3.8-10.6) k/uL RBC 3.50 L (4.30-5.90) m/uL Hgb 10.5 L (13.0-17.5) gm/dL Hct 34.5 L (39.0-53.0) % MCV 98.4 (80.0-100.0) fL MCH 30.0 (25.0-35.0) pg MCHC 30.4 L (31.0-37.0) g/dL RDW 14.6 (11.5-15.5) % Plt Count 209 (150-450) k/uL Neutrophils % 73 % Lymphocytes % 19 % Monocytes % 4 % Eosinophils % 3 % Basophils % 0 % Neutrophils # 6.3 (1.3-7.7) k/uL Lymphocytes # 1.7 (1.0-4.8) k/uL Monocytes # 0.3 (0-1.0) k/uL Eosinophils # 0.3 (0-0.7) k/uL Basophils # 0.0 (0-0.2) k/uL Hypochromasia Slight PT (9.0-12.0) sec INR (<1.2) APTT (22.0-30.0) sec Sodium 143 (137-145) mmol/L Potassium 4.0 (3.5-5.1) mmol/L Chloride 105 (98-107) mmol/L Carbon Dioxide 21 L (22-30) mmol/L Anion Gap 17 mmol/L BUN 60 H (9-20) mg/dL Creatinine 2.33 H (0.66-1.25) mg/dL Est GFR (MDRD) Af Amer 32 (>60 ml/min/1.73 sqM) Est GFR (MDRD) Non-Af 27 (>60 ml/min/1.73 sqM) Glucose 129 H (74-99) mg/dL Calcium 9.4 (8.4-10.2) mg/dL Total Bilirubin 0.7 (0.2-1.3) mg/dL AST 17 (17-59) U/L ALT <6 L (21-72) U/L Alkaline Phosphatase 69 (38-126) U/L Total Creatine Kinase 41 L (55-170) U/L CK-MB (CK-2) 1.1 (0.0-2.4) ng/mL CK-MB (CK-2) Rel Index 2.7 Troponin I <0.012 (0.000-0.034) ng/mL NT-Pro-B Natriuret Pep pg/mL Total Protein 7.5 (6.3-8.2) g/dL Albumin 4.1 (3.5-5.0) g/dL 05/24/17 05/24/17 Range/Units 15:40 15:40 WBC (3.8-10.6) k/uL RBC (4.30-5.90) m/uL Hgb (13.0-17.5) gm/dL Hct (39.0-53.0) % MCV (80.0-100.0) fL MCH (25.0-35.0) pg MCHC (31.0-37.0) g/dL RDW (11.5-15.5) % Plt Count (150-450) k/uL Neutrophils % % Lymphocytes % % Monocytes % % Eosinophils % % Basophils % % Neutrophils # (1.3-7.7) k/uL Lymphocytes # (1.0-4.8) k/uL Monocytes # (0-1.0) k/uL Eosinophils # (0-0.7) k/uL Basophils # (0-0.2) k/uL Hypochromasia PT 11.0 (9.0-12.0) sec INR 1.1 (<1.2) APTT 25.4 (22.0-30.0) sec Sodium (137-145) mmol/L Potassium (3.5-5.1) mmol/L Chloride (98-107) mmol/L Carbon Dioxide (22-30) mmol/L Anion Gap mmol/L BUN (9-20) mg/dL Creatinine (0.66-1.25) mg/dL Est GFR (MDRD) Af Amer (>60 ml/min/1.73 sqM) Est GFR (MDRD) Non-Af (>60 ml/min/1.73 sqM) Glucose (74-99) mg/dL Calcium (8.4-10.2) mg/dL Total Bilirubin (0.2-1.3) mg/dL AST (17-59) U/L ALT (21-72) U/L Alkaline Phosphatase (38-126) U/L Total Creatine Kinase (55-170) U/L CK-MB (CK-2) (0.0-2.4) ng/mL CK-MB (CK-2) Rel Index Troponin I (0.000-0.034) ng/mL NT-Pro-B Natriuret Pep 1520 pg/mL Total Protein (6.3-8.2) g/dL Albumin (3.5-5.0) g/dL Disposition Clinical Impression: Pre-syncope, Pneumonia, Hypotension Disposition: ADMITTED IP TO THIS HOSP Condition: Good Referrals: Peyton Das DO [Primary Care Provider] - 1-2 days
[2017-05-24] MEDS ORDERED: AZITHROMYCIN 500 MG in SODIUM CHLORIDE 0.9% 250 ML IVPB STA (16:37)
[2017-05-24] MEDS ORDERED: NITROGLYCERIN SL TABS 0.4 MG TAB SUBLINGUAL PRN (16:54)
[2017-05-24] MEDS ORDERED: ALBUTEROL INHALER 60 PUFF/8 GM INHALER INHALATION SCH (20:00)
[2017-05-24] MEDS: GABAPENTIN 100 MG CAP PO SCH (21:53)
[2017-05-24] MEDS: methylPREDNISolone SOD SUCCI 40 MG/ML 1 ML VIAL IV SCH (21:54)
[2017-05-24] MEDS: CARBIDOPA-LEVODOPA 25-100 MG 1 EACH TAB PO SCH (21:54)
[2017-05-24] MEDS: METHADONE 5 MG TAB PO SCH (22:04)
[2017-05-25] MEDS: SYMBICORT 80-4.5 MCG INHALER INHALATION SCH ×3 (00:17→21:30)
--- NOTE | 2017-05-25 00:20 | P.HPIM ---
History of Present Illness H&P Date: 05/24/17 Chief Complaint: Shortness of breath Patient is a 86-year-old male with a known history of Parkinson's disease, dementia asthma/COPD, osteoarthritis CKD stage IV and other multiple medical problems presented to ER with complaints of tiredness weak and about to pass out. Patient was seen by his PCP in the clinic today and was sent home on antibiotics. Patient actually recently completed antibiotic course 2 days ago for tracheobronchitis/pneumonia. After seeing his PCP in the clinic patient went home and was taking shower. Patient certainly became very tired and weak, short-winded and about to pass out. Patient's family brought to the hospital. Patient was also complaining of mild chest pain at home. no abdominal pain no frequency urgency dysuria no symptoms of any TIA or CVA Chest x-ray showed correlate for right middle lobe pneumonia WBC 8.6 BUN/creatinine 60/ 2.33 BNP 1520 Influenza PCR negative Review of Systems Patient denied any complaints of fever or chills. Patient does have generalized weakness. No chest pain. No nausea vomiting or abdominal pain or diarrhea. Patient does have shortness of breath. No numbness no tingling. Complete review of systems could not be obtained from the patient due to underlying dementia Past Medical History Past Medical History: Asthma, Heart Failure, Dementia, Musculoskeletal Disorder , Neurologic Disorder, Osteoarthritis (OA), Renal Disease, Thyroid Disorder Additional Past Medical History / Comment(s): Parkinsons disease, compression fracture of the L4 spine, gait dysfunction, bilateral hip and leg pain since a fall in August 2015, chronic renal failure stage IV, hyperkalemia, anemia, DJD, osteopenia, hypothyroidism, BPH, occasional confusion, History of Any Multi-Drug Resistant Organisms: None Reported Past Surgical History: Appendectomy, Joint Replacement Additional Past Surgical History / Comment(s): Total L hip replacement, splenectomy Past Anesthesia/Blood Transfusion Reactions: No Reported Reaction Past Psychological History: No Psychological Hx Reported Additional Psychological History / Comment(s): Pt moved from [place] to [place] to be with family. He was admitted to [facility] 09/04/15 and discharged to [facility] [place]. He is on a low NA 1200ml fluid restricted diet. He needs assist with all ADLs. He is assisted up into a wheelchair, otherwise he is in bed. Patient lives with son and [id number] that take care of him. Smoking Status: Former smoker Past Alcohol Use History: None Reported Additional Past Alcohol Use History / Comment(s): Pt states he started smoking at age 13 (1944) and quit 50 yrs ago(1965). Past Drug Use History: None Reported Additional Drug Use History / Comment(s): xsmoker over 50 yrs ago - Past Family History Sister(s) Family Medical History: Myocardial Infarction ([place]) Brother(s) Family Medical History: Diabetes Mellitus Mother Family Medical History: No Reported History Additional Family Medical History / Comment(s): Mother lived to be 80 yrs old. Father History Unknown: Yes Additional Family Medical History / Comment(s): Father lived to be 75yrs old. Medications and Allergies Home Medications Medication Instructions Recorded Confirmed Type Fluticasone/Salmeterol [Advair 1 puff INHALATION RT-BID 09/04/15 05/24/17 History 250-50 Diskus] Tamsulosin HCl [Flomax] 0.4 mg PO DAILY 09/04/15 05/24/17 History Levothyroxine Sodium [Synthroid] 75 mcg PO DAILY 09/07/15 05/24/17 History Carbidopa-Levodopa 25-100 mg 1 tab PO TID 09/21/15 05/24/17 History [Sinemet 25-100 mg] Folic Acid 1 mg PO DAILY@1400 09/21/15 05/24/17 History Multivitamins, Thera [Multivitamin 1 tab PO DAILY@1400 09/21/15 05/24/17 History (formulary)] Nitroglycerin Sl Tabs [Nitrostat] 0.4 mg SUBLINGUAL Q5M PRN 09/21/15 05/24/17 History Thiamine [Vitamin B-1] 100 mg PO DAILY@1400 09/21/15 05/24/17 History Allopurinol [Zyloprim] 100 mg PO DAILY 02/10/17 05/24/17 History Calcitriol 0.5 mcg PO MOWEFR 02/10/17 05/24/17 History Dutasteride [Avodart] 0.5 mg PO DAILY 02/10/17 05/24/17 History Gabapentin [Neurontin] 100 mg PO TID 02/10/17 05/24/17 History Levocetirizine Dihydrochloride 5 mg PO DAILY 02/10/17 05/24/17 History [Xyzal] Methadone [Dolophine] 5 mg PO BID@0800,199902/10/17 05/24/17 History Aspirin 81 mg PO DAILY #30 chewable 02/13/17 05/24/17 Rx Albuterol Inhaler [Ventolin Hfa 2 puff INHALATION RT-BID 05/24/17 05/24/17 History Inhaler] Albuterol Nebulized [Ventolin 2.5 mg INHALATION RT-QID PRN 05/24/17 05/24/17 History Nebulized] Amoxic-Pot Clav 875-125Mg 1 tab PO Q12HR 05/24/17 05/24/17 History [Augmentin 875-125] Cholecalciferol (Vitamin D3) 2,000 unit PO DAILY@1400 05/24/17 05/24/17 History [Vitamin D3] Furosemide [Lasix] 40 mg PO DAILY 05/24/17 05/24/17 History Loratadine [Claritin] 10 mg PO DAILY 05/24/17 05/24/17 History Sodium Polystyrene Sulfon/Sorb 15 gm PO MOTH 05/24/17 05/24/17 History [Kionex 15 gm/60 ml Suspension] Zinc 50 mg PO DAILY 05/24/17 05/24/17 History hydrOXYzine PAMOATE 25 mg PO DAILY 05/24/17 05/24/17 History predniSONE See Taper PO DAILY 05/24/17 05/24/17 History Allergies Allergy/AdvReac Type Severity Reaction Status Date / Time fentanyl Allergy Rash/Hives Verified 05/24/17 16:21 Physical Exam Vitals: Vital Signs Temp Pulse Resp BP Pulse Ox 05/24/17 20:18 90 18 122/57 97 05/24/17 18:02 92 18 117/58 97 05/24/17 16:35 90 18 108/58 98 05/24/17 16:09 96 18 125/76 95 05/24/17 15:07 96.8 F L 89 24 95/60 93 L Intake and Output 05/24/17 05/24/17 05/24/17 06:59 14:59 22:59 Other: Weight 79.379 kg Patient Weight 05/25/17 06:59 Weight 79.379 kg PHYSICAL EXAMINATION: Patient is lying in the bed comfortably, no acute distress, awake alert and does have some cognitive impairment . Poor historian HEENT: Normocephalic. Neck is supple. Pupils reactive. Nostrils clear. Oral cavity is moist. Ears reveal no drainage. Neck reveals no JVD, carotid bruits, or thyromegaly. CHEST EXAMINATION: Trachea is central. Symmetrical expansion. Lung ramirez clear to auscultation and percussion. Diminished air entry basally CARDIAC: Normal S1, S2 with no gallops. No murmurs ABDOMEN: Soft. Bowel sounds normal. No organomegaly. No abdominal bruits. Extremities: reveal no edema. No clubbing or cyanosis Neurologically awake, alert with well-coordinated movements. No focal deficits noted Skin: No rash or skin lesions. Psychiatric: Cooperative. Nonsuicidal Musculoskeletal: No joint swelling or deformity. Normal range of motion. Results CBC & Chem 7: 05/24/17 15:40 05/24/17 15:40 Labs: Abnormal Lab Results - Last 24 Hours (Table) 05/24/17 05/24/17 05/24/17 Range/Units 15:40 15:40 15:40 RBC 3.50 L (4.30-5.90) m/uL Hgb 10.5 L (13.0-17.5) gm/dL Hct 34.5 L (39.0-53.0) % MCHC 30.4 L (31.0-37.0) g/dL Carbon Dioxide 21 L (22-30) mmol/L BUN 60 H (9-20) mg/dL Creatinine 2.33 H (0.66-1.25) mg/dL Glucose 129 H (74-99) mg/dL ALT <6 L (21-72) U/L Total Creatine Kinase 41 L (55-170) U/L Thrombosis Risk Factor Assmnt - Choose All That Apply Any of the Below Risk Factors Present?: Yes Each Factor Represents 1 point: Obesity (BMI >25), Serious lung disease incl. pneumonia (< 1month) Other Risk Factors: Yes Each Risk Factor Represents 2 Points: Patient confined to bed Each Risk Factor Represents 3 Points: Age 75 years or older Thrombosis Risk Factor Assessment Total Risk Factor Score: 7 Thrombosis Risk Factor Assessment Level: High Risk Assessment and Plan Assessment: Right lower lobe pneumonia. Failed outpatient therapy COPD with mild exacerbation CKD stage IV baseline creatinine around 2.5 Anemia of chronic disease Parkinson's disease and gait dysfunction Osteoarthritis Hypothyroidism BPH Dementia Chronic CHF possible diastolic dysfunction Plan: Patient was taking Augmentin at home. Currently patient was started on ceftriaxone and azithromycin. . Monitor renal function. Continue with home medications and follow closely. Continue with albuterol inhalation and Symbicort. Pulmonary will be consulted. Discussed with his family in detail at bedside. Further recommendations based on the clinical course. Prognosis is guarded. Time with Patient: Greater than 30
[2017-05-25] MEDS: methylPREDNISolone SOD SUCCI 40 MG/ML 1 ML VIAL IV SCH ×4 (02:09→17:31)
[2017-05-25] MEDS: LEVOTHYROXINE 75 MCG TAB PO SCH (05:37)
[2017-05-25 07:35] LABS: Glucose,Whole Blood 157 mg/dL (75-99)
[2017-05-25] MEDS: INSULIN ASPART 100 UNIT/ML 1 ML 10 ML VIAL SQ SCH ×4 (08:38→21:48)
[2017-05-25] MEDS: METHADONE 5 MG TAB PO SCH ×2 (08:38→20:09)
[2017-05-25] MEDS: GABAPENTIN 100 MG CAP PO SCH ×3 (08:39→21:48)
[2017-05-25] MEDS: hydrOXYzine PAMOATE 25 MG CAP PO SCH (08:39)
[2017-05-25] MEDS: CARBIDOPA-LEVODOPA 25-100 MG 1 EACH TAB PO SCH ×3 (08:40→21:48)
[2017-05-25] MEDS: ASPIRIN 81 MG PO SCH (08:40)
[2017-05-25] MEDS: ZINC SULFATE 220 MG CAP PO SCH (08:40)
[2017-05-25] MEDS: FINASTERIDE 5 MG TAB PO SCH (08:40)
[2017-05-25] MEDS: ALLOPURINOL 100 MG TAB PO SCH (08:40)
[2017-05-25] MEDS: LORATADINE 10 MG TAB PO SCH (08:40)
[2017-05-25] MEDS: TAMSULOSIN 0.4 MG CAP.ER.24H PO SCH (08:41)
[2017-05-25] MEDS: FUROSEMIDE 40 MG TAB PO SCH (08:41)
[2017-05-25] MEDS ORDERED: LORATADINE 10 MG TAB PO SCH (09:00)
[2017-05-25] MEDS: ALBUTEROL NEBULIZED 2.5 MG/3 ML INHALATION PRN ×2 (11:18→15:06)
[2017-05-25] MEDS: CALCITRIOL 0.25 MCG CAP PO SCH (11:22)
[2017-05-25] MEDS: MULTIVITAMINS, THERA 1 EACH TAB PO SCH (11:23)
[2017-05-25] MEDS: THIAMINE 100 MG TAB PO SCH (11:23)
[2017-05-25] MEDS: FOLIC ACID 1 MG TAB PO SCH (11:23)
[2017-05-25] MEDS: CHOLECALCIFEROL 1,000 UNIT TAB PO SCH (11:24)
[2017-05-25 12:49] LABS: Glucose,Whole Blood 152 mg/dL (75-99)
--- NOTE | 2017-05-25 12:56 | P.CNPUL ---
History of Present Illness Consult date: 05/25/17 Requesting physician: Gustavo Urbina Reason for consult: COPD, pneumonia Chief complaint: Shortness of breath and weakness History of present illness: This is an 86-year-old white male, remote smoking history, history of multiple medical problems and comorbidities including Parkinson's disease, dementia, COPD , stage IV chronic kidney disease, patient presented to the ER with mostly symptoms of shortness of breath and weakness, almost passed out while he was taking a shower. Patient was recently seen by his primary care physician, placed on antibiotics, and apparently he was receiving treatment for presumptive tracheobronchitis, possible pneumonia. His condition according the patient was getting worse, family brought in the patient to the hospital, and his chest x-ray showed right lower lobe and possibly a right middle lobe pneumonia. Patient was admitted, placed on Rocephin and Zithromax, and this consult was initiated. In addition to his symptoms of shortness of breath, patient has been generally weak, complaining of cough, some wheezing. No fever , no chills, no hemoptysis, no chest pain. Labs on admission showed relatively normal CBC, normal electrolytes, however his BUN was 60 creatinine 2.33, anion gap metabolic acidosis was noted related to his renal failure. Viral screening was negative for influenza Review of Systems 14 point review of systems were obtained, please refer to pertinent positives as noted in HPI, otherwise remaining systems are negative. Past Medical History Past Medical History: Asthma, Heart Failure, Dementia, Musculoskeletal Disorder , Neurologic Disorder, Osteoarthritis (OA), Renal Disease, Thyroid Disorder Additional Past Medical History / Comment(s): Parkinsons disease, compression fracture of the L4 spine, gait dysfunction, bilateral hip and leg pain since a fall in August 2015, chronic renal failure stage IV, hyperkalemia, anemia, DJD, osteopenia, hypothyroidism, BPH, occasional confusion, History of Any Multi-Drug Resistant Organisms: None Reported Past Surgical History: Appendectomy, Joint Replacement Additional Past Surgical History / Comment(s): Total L hip replacement, splenectomy Past Anesthesia/Blood Transfusion Reactions: No Reported Reaction Past Psychological History: No Psychological Hx Reported Additional Psychological History / Comment(s): [place]. He was admitted to [facility] 09/04/15 and discharged to [facility] [place]. He is on a low NA 1200ml fluid restricted diet. He needs assist with all ADLs. He is assisted up into a wheelchair, otherwise he is in bed. Patient lives with son and [id number] that take care of him. Smoking Status: Former smoker Past Alcohol Use History: None Reported Additional Past Alcohol Use History / Comment(s): Pt states he started smoking at age 13 (1944) and quit 50 yrs ago(1965). Past Drug Use History: None Reported Additional Drug Use History / Comment(s): xsmoker over 50 yrs ago - Past Family History Sister(s) Family Medical History: Myocardial Infarction ([place]) Brother(s) Family Medical History: Diabetes Mellitus Mother Family Medical History: No Reported History Additional Family Medical History / Comment(s): Mother lived to be 80 yrs old. Father History Unknown: Yes Additional Family Medical History / Comment(s): Father lived to be 75yrs old. Medications and Allergies Home Medications Medication Instructions Recorded Confirmed Type Fluticasone/Salmeterol [Advair 1 puff INHALATION RT-BID 09/04/15 05/24/17 History 250-50 Diskus] Tamsulosin HCl [Flomax] 0.4 mg PO DAILY 09/04/15 05/24/17 History Levothyroxine Sodium [Synthroid] 75 mcg PO DAILY 09/07/15 05/24/17 History Carbidopa-Levodopa 25-100 mg 1 tab PO TID 09/21/15 05/24/17 History [Sinemet 25-100 mg] Folic Acid 1 mg PO DAILY@139909/21/15 05/24/17 History Multivitamins, Thera [Multivitamin 1 tab PO DAILY@1400 09/21/15 05/24/17 History (formulary)] Nitroglycerin Sl Tabs [Nitrostat] 0.4 mg SUBLINGUAL Q5M PRN 09/21/15 05/24/17 History Thiamine [Vitamin B-1] 100 mg PO DAILY@1400 09/21/15 05/24/17 History Allopurinol [Zyloprim] 100 mg PO DAILY 02/10/17 05/24/17 History Calcitriol 0.5 mcg PO MOWEFR 02/10/17 05/24/17 History Dutasteride [Avodart] 0.5 mg PO DAILY 02/10/17 05/24/17 History Gabapentin [Neurontin] 100 mg PO TID 02/10/17 05/24/17 History Levocetirizine Dihydrochloride 5 mg PO DAILY 02/10/17 05/24/17 History [Xyzal] Methadone [Dolophine] 5 mg PO BID@0800,199902/10/17 05/24/17 History Aspirin 81 mg PO DAILY #30 chewable 02/13/17 05/24/17 Rx Albuterol Inhaler [Ventolin Hfa 2 puff INHALATION RT-BID 05/24/17 05/24/17 History Inhaler] Albuterol Nebulized [Ventolin 2.5 mg INHALATION RT-QID PRN 05/24/17 05/24/17 History Nebulized] Amoxic-Pot Clav 875-125Mg 1 tab PO Q12HR 05/24/17 05/24/17 History [Augmentin 875-125] Cholecalciferol (Vitamin D3) 2,000 unit PO DAILY@1400 05/24/17 05/24/17 History [Vitamin D3] Furosemide [Lasix] 40 mg PO DAILY 05/24/17 05/24/17 History Loratadine [Claritin] 10 mg PO DAILY 05/24/17 05/24/17 History Sodium Polystyrene Sulfon/Sorb 15 gm PO MOTH 05/24/17 05/24/17 History [Kionex 15 gm/60 ml Suspension] Zinc 50 mg PO DAILY 05/24/17 05/24/17 History hydrOXYzine PAMOATE 25 mg PO DAILY 05/24/17 05/24/17 History predniSONE See Taper PO DAILY 05/24/17 05/24/17 History Allergies Allergy/AdvReac Type Severity Reaction Status Date / Time fentanyl Allergy Rash/Hives Verified 05/24/17 16:21 Physical Exam Vitals: Vital Signs Temp Pulse Pulse Resp BP BP Pulse Ox 05/25/17 11:30 64 05/25/17 11:20 68 05/25/17 09:34 53 L 150/70 05/25/17 07:00 96.9 F L 93 16 177/74 98 05/24/17 22:00 97.2 F L 90 20 105/61 94 L 05/24/17 20:18 90 18 122/57 97 05/24/17 18:02 92 18 117/58 97 05/24/17 16:35 90 18 108/58 98 02/15/18 16:09 96 18 125/76 95 05/24/17 15:07 96.8 F L 89 24 95/60 93 L Intake and Output 05/24/17 05/25/17 05/25/17 22:59 06:59 14:59 Intake Total 200 100 Output Total 300 Balance 200 -200 Intake: Oral 200 100 Output: Urine 300 Other: Voiding Method Urinal Diaper # Voids 2 # Bowel Movements 0 0 Weight 76.204 kg General appearance: Revealed a 86-year-old white male, in no distress, looks chronically ill and frail. Head exam: atraumatic, normocephalic. Eye exam: PERRLA, EOMI, ENT exam: Moist mucous membranes, throat is clear. Neck exam: Neck is supple, no neck masses, no thyromegaly, no stridor. Respiratory exam: Diminished breath sounds and crackles at the bases, no chest wall tenderness. Crackles noted more so at the right base. Cardiovascular Exam: regular rate, normal rhythm, 2/6 systolic murmur throughout the precordium, no gallop. GI/Abdominal exam: Soft nontender no megaly no rebound no guarding. Extremities exam: No clubbing edema or cyanosis. Neurological exam: Generally weak, otherwise no focal neurologic deficit. Psychiatric exam: Normal mood and affect, normal mental status examination. Skin exam: Present: normal color Results - Laboratory Findings CBC and BMP: 05/24/17 15:40 05/24/17 15:40 PT/INR, D-dimer PT 11.0 sec (9.0-12.0) 05/24/17 15:40 INR 1.1 (<1.2) 05/24/17 15:40 Abnormal lab findings: Abnormal Labs 05/24/17 05/24/17 05/24/17 15:40 15:40 15:40 RBC 3.50 L Hgb 10.5 L Hct 34.5 L MCHC 30.4 L Carbon Dioxide 21 L BUN 60 H Creatinine 2.33 H Glucose 129 H POC Glucose (mg/dL) ALT <6 L Total Creatine Kinase 41 L 05/25/17 07:15 RBC Hgb Hct MCHC Carbon Dioxide BUN Creatinine Glucose POC Glucose (mg/dL) 157 H ALT Total Creatine Kinase - Diagnostic Findings Chest x-ray: image reviewed (Right lower lobe and right middle lobe pneumonia is strongly suspected, slight elevation of right hemidiaphragm noted. Underlying COPD is also suspected.) Assessment and Plan Assessment: Impression: Acute right lower lobe pneumonia Acute exacerbation of COPD Multiple comorbidities including chronic kidney disease stage IV, anemia of chronic disease, Parkinson's disease, hypothyroidism, osteoarthritis, dementia, Recommendation: Agree with the present treatment plan including bronchodilators , antibiotics in the form of Rocephin and Zithromax, patient is back on his usual Parkinson's medications, agree with Solu-Medrol, we'll continue to follow. Long-term prognosis is poor and guarded considering the patient's age and the presentation of extensive pneumonia involving the right lower lobe Time with Patient: Greater than 30
[2017-05-25] MEDS: SODIUM CHLORIDE 0.9% 1,000 ML IV SCH (14:35)
--- NOTE | 2017-05-25 16:16 | CONS ---
CONSULTATION REASON FOR CONSULT: Renal failure. DATE OF CONSULTATION: 05/25/2017. HISTORY OF PRESENT ILLNESS: Patient is an 86-year-old male who was admitted to the hospital yesterday evening with abnormal labs. It appears that the patient passed out at home. He is not able to provide a detailed history. He did have some chest pressure too. No history of fever, chills. Patient states he has had weak kidney function previously. Serum creatinine was at 2.3 mg/dL. Review of previous labs shows previous creatinine 2.5 on 04/24/2017 and 1.9-2 mg/dL in February of 2017. Blood pressure is currently not low, although it was low at 105/61 on initial admission. Home medications do not show any NSAIDs or VÍCTOR inhibitors. PAST MEDICAL HISTORY: Chronic kidney disease and NKF stage IV, CKD mineral bone disorder, dementia, asthma, osteoarthritis, hypothyroidism, Parkinson disease, anemia, hypothyroidism. BPH. PAST SURGICAL HISTORY: Appendectomy and total left hip arthroplasty, splenectomy. SOCIAL HISTORY: Patient is a former smoker. No history of drug abuse or alcohol abuse. MEDICATIONS: Medications at home included Advair, Flomax, Sinemet, Synthroid, folic acid, multivitamins, Zyloprim, calcitriol, Avodart, Neurontin, vitamin D3, Lasix, Kayexalate, zinc, prednisone. ALLERGIES: Include fentanyl, which causes rash and hives. EXAMINATION: Patient is comfortable. He is not in any acute distress. He is awake. Blood pressure is 150/70, heart rate 68 per minute. He is afebrile. Examination of the heart S1, S2. Examination lungs bilateral breath sounds are heard. Decreased breath sounds bases. Abdomen is soft, nontender. Examination lower extremity shows no significant edema. [employer] exam is grossly intact. LAB: Shows sodium of 143, potassium 4.0, chloride 105, BUN 60, serum creatinine 2.3, hemoglobin 10.5 g/dL, calcium 9.4. ASSESSMENT: 1. Acute kidney injury, possibly prerenal. I will start gentle IV hydration. Chest x- ray does not show any significant pulmonary vascular congestion. 2. Chronic kidney disease and NKF stage IV secondary to nephrosclerosis. 3. CKD mineral bone disorder. 4. Acute right lower lobe pneumonia maintained on antibiotics. 5. Acute exacerbation of chronic obstructive pulmonary disease. PLAN: Start gentle IV hydration. Continue antibiotics. Repeat labs in a.m. Continue calcitriol. Thank you for this consultation. We will continue to follow the patient with you during his hospitalization. MMODL / IJN: [id number] /
[2017-05-25 17:00] LABS: Glucose,Whole Blood 238 mg/dL (75-99)
[2017-05-25] MEDS ORDERED: AZITHROMYCIN 500 MG in SODIUM CHLORIDE 0.9% 250 ML IVPB SCH (18:00)
--- NOTE | 2017-05-25 19:18 | P.PN ---
Subjective Progress Note Date: 05/25/17 Progress note being dictated for Dr. Urbina. Interval history:Patient is a 86-year-old male with a known history of Parkinson 's disease, dementia asthma/COPD, osteoarthritis CKD stage IV and other multiple medical problems presented to ER with complaints of tiredness weak and about to pass out. Patient was seen by his PCP in the clinic today and was sent home on antibiotics. Patient actually recently completed antibiotic course 2 days ago for tracheobronchitis/pneumonia. After seeing his PCP in the clinic patient went home and was taking shower. Patient certainly became very tired and weak, short-winded and about to pass out. Patient's family brought to the hospital. Patient was also complaining of mild chest pain at home. no abdominal pain no frequency urgency dysuria no symptoms of any TIA or CVA Chest x-ray showed correlate for right middle lobe pneumonia WBC 8.6 BUN/creatinine 60/ 2.33 BNP 1520 Influenza PCR negative 05/25/17 breathing slowly improving on nebulized bronchodilators, steroids, IV antibiotics. Maintained on gentle IV fluid hydration. Diet intake improving with no nausea or vomiting. Tested negative for influenza. Afebrile, maintaining O2 sats in the 90s on 2 L nasal cannula. Objective - Vital Signs Vital signs: Vital Signs Temp 97.0 F L 05/25/17 15:00 Pulse 70 05/25/17 15:14 Resp 18 05/25/17 18:26 BP 143/64 05/25/17 15:00 Pulse Ox 94 L 05/25/17 15:00 Intake & Output 05/24/17 05/25/17 05/25/17 18:59 06:59 18:59 Intake Total 300 Output Total 300 Balance 0 Weight 79.379 kg 76.204 kg Intake: Oral 300 Output: Urine 300 Other: Voiding Method Urinal Diaper # Voids 2 1 # Bowel Movements 0 - Exam Patient is sitting up in the bed comfortably, no acute distress, awake alert and does have some cognitive impairment . HEENT: Normocephalic. Neck is supple. Pupils reactive. Nostrils clear. Oral cavity is moist. Ears reveal no drainage. Neck reveals no JVD, carotid bruits, or thyromegaly. CHEST EXAMINATION: Trachea is central. Symmetrical expansion. Diminished air entry basally with bibasilar crackles, greater on the right CARDIAC: Normal S1, S2 with no gallops. No murmurs ABDOMEN: Soft. Bowel sounds normal. No organomegaly. No abdominal bruits. Extremities: reveal no edema. No clubbing or cyanosis Neurologically awake, alert with well-coordinated movements. Mild parkinsonian tremors. No focal deficits noted Skin: Bilateral buttocks , ulcers X 1 On each buttock, dime size, dry without draingage. Psychiatric: Cooperative. Nonsuicidal Musculoskeletal: No joint swelling or deformity. Normal range of motion. - Labs CBC & Chem 7: 05/24/17 15:40 05/24/17 15:40 Labs: Abnormal Lab Results - Last 24 Hours (Table) 05/25/17 05/25/17 05/25/17 Range/Units 07:15 12:22 16:57 POC Glucose (mg/dL) 157 H 152 H 238 H (75-99) mg/dL Assessment and Plan Assessment: Acute extensive Right lower lobe pneumonia. Failed outpatient therapy Acute COPD with mild exacerbation Acute on CKD stage IV baseline creatinine around 2.5, acute prerenal, chronic secondary to nephrosclerosis Anemia of chronic disease Parkinson's disease and gait dysfunction Osteoarthritis Hypothyroidism BPH Dementia Chronic CHF possible diastolic dysfunction Stage 2 buttocks ulcers x 2, present on admission. refer to Nursing pictures Plan: Continue on current medication regime ,monitoring and symptomatic treatment. Maintain nebulized rhonchal dilators, steroids, Rocephin, Zithromax. PT OT. Trapezius for improving bed mobility. Case management to also arrange for trapeze OP, when patient goes home for improved bed mobility. Close monitoring of renal function and electrolytes with repeat labs ordered for a.m. prognosis guarded given multiple complex medical issues. The impression and plan of care has been dictated as directed. : I performed a history and examination of this patient, discussed the same with the dictator. I agree with the dictator's note ,documented as a scribe. Any additional findings or plans will be noted.
[2017-05-25 21:05] LABS: Glucose,Whole Blood 236 mg/dL (75-99)
[2017-05-26] MEDS: methylPREDNISolone SOD SUCCI 40 MG/ML 1 ML VIAL IV SCH ×5 (00:25→22:59)
[2017-05-26] MEDS: LEVOTHYROXINE 75 MCG TAB PO SCH (06:34)
[2017-05-26] MEDS: ALBUTEROL NEBULIZED 2.5 MG/3 ML INHALATION PRN ×3 (07:15→16:32)
[2017-05-26] MEDS: SYMBICORT 80-4.5 MCG INHALER INHALATION SCH ×2 (07:15→19:38)
[2017-05-26 07:43] LABS: Glucose,Whole Blood 153 mg/dL (75-99)
[2017-05-26 08:09] LABS: Basophils % (A) 0 %; Eosinophils % (A) 0 %; HCT 33.7 % (39.0-53.0); HGB 10.1 gm/dL (13.0-17.5); Hypochromasia Slight; Lymphocytes # (A) 1.2 k/uL (1.0-4.8); Lymphocytes % (A) 9 %; MCH 29.5 pg (25.0-35.0); MCHC 29.9 g/dL (31.0-37.0); MCV 98.8 fL (80.0-100.0); Monocytes # (A) 0.2 k/uL (0-1.0); Monocytes % (A) 2 %; Neutrophils # (A) 11.6 k/uL (1.3-7.7); Neutrophils % (A) 89 %; Platelet Count 192 k/uL (150-450); RBC 3.41 m/uL (4.30-5.90); RDW 14.6 % (11.5-15.5); WBC 13.1 k/uL (3.8-10.6)
[2017-05-26] MEDS: INSULIN ASPART 100 UNIT/ML 1 ML 10 ML VIAL SQ SCH ×4 (08:13→22:11)
[2017-05-26] MEDS: ALLOPURINOL 100 MG TAB PO SCH (08:14)
[2017-05-26] MEDS: METHADONE 5 MG TAB PO SCH ×2 (08:14→21:04)
[2017-05-26] MEDS: FINASTERIDE 5 MG TAB PO SCH (08:15)
[2017-05-26] MEDS: CARBIDOPA-LEVODOPA 25-100 MG 1 EACH TAB PO SCH ×3 (08:15→21:04)
[2017-05-26] MEDS: ASPIRIN 81 MG PO SCH (08:15)
[2017-05-26] MEDS: FUROSEMIDE 40 MG TAB PO SCH (08:15)
[2017-05-26] MEDS: TAMSULOSIN 0.4 MG CAP.ER.24H PO SCH (08:16)
[2017-05-26] MEDS: hydrOXYzine PAMOATE 25 MG CAP PO SCH (08:16)
[2017-05-26] MEDS: LORATADINE 10 MG TAB PO SCH (08:16)
[2017-05-26] MEDS: ZINC SULFATE 220 MG CAP PO SCH (08:16)
[2017-05-26] MEDS: GABAPENTIN 100 MG CAP PO SCH ×3 (08:16→21:05)
[2017-05-26] MEDS: SODIUM CHLORIDE 0.9% 1,000 ML IV SCH (08:17)
[2017-05-26 08:30] LABS: Calcium 9.3 mg/dL (8.4-10.2); Potassium 4.1 mmol/L (3.5-5.1)
[2017-05-26 12:02] LABS: Glucose,Whole Blood 169 mg/dL (75-99)
[2017-05-26] MEDS: CHOLECALCIFEROL 1,000 UNIT TAB PO SCH (12:50)
[2017-05-26] MEDS: MULTIVITAMINS, THERA 1 EACH TAB PO SCH (12:50)
[2017-05-26] MEDS: THIAMINE 100 MG TAB PO SCH (12:50)
[2017-05-26] MEDS: FOLIC ACID 1 MG TAB PO SCH (12:50)
--- NOTE | 2017-05-26 12:55 | P.PN ---
Subjective Progress Note Date: 05/26/17 Principal diagnosis: Acute right lower lobe pneumonia and COPD exacerbation This is an 86-year-old white male, remote smoking history, history of multiple medical problems and comorbidities including Parkinson's disease, dementia, COPD , stage IV chronic kidney disease, patient presented to the ER with mostly symptoms of shortness of breath and weakness, almost passed out while he was taking a shower. Patient was recently seen by his primary care physician, placed on antibiotics, and apparently he was receiving treatment for presumptive tracheobronchitis, possible pneumonia. His condition according the patient was getting worse, family brought in the patient to the hospital, and his chest x-ray showed right lower lobe and possibly a right middle lobe pneumonia. Patient was admitted, placed on Rocephin and Zithromax, and this consult was initiated. In addition to his symptoms of shortness of breath, patient has been generally weak, complaining of cough, some wheezing. No fever , no chills, no hemoptysis, no chest pain. Labs on admission showed relatively normal CBC, normal electrolytes, however his BUN was 60 creatinine 2.33, anion gap metabolic acidosis was noted related to his renal failure. Viral screening was negative for influenza Patient was reevaluated today on 05/26/2017, feeling a bit better, however he continues to cough and wheeze. No fever no chills no hemoptysis no chest pain. Labs were reviewed WBC count is 13.1 basic metabolic profile is normal BUN is 64 creatinine is 2.23, basically the same as it was yesterday on admission. Objective - Vital Signs Vital signs: Vital Signs Temp 96.7 F L 05/26/17 06:16 Pulse 72 05/26/17 11:40 Resp 14 05/26/17 06:16 BP 166/76 05/26/17 06:16 Pulse Ox 98 05/26/17 06:16 Intake & Output 05/25/17 05/26/17 05/26/17 18:59 06:59 18:59 Output Total 200 Balance -200 Output: Urine 200 Other: Voiding Method Urinal Urinal # Voids 1 - Exam General appearance: Revealed a 86-year-old white male, in no distress, looks chronically ill and frail. Head exam: atraumatic, normocephalic. Eye exam: PERRLA, EOMI, ENT exam: Moist mucous membranes, throat is clear. Neck exam: Neck is supple, no neck masses, no thyromegaly, no stridor. Respiratory exam: Diminished breath sounds and crackles at the bases, no chest wall tenderness. Crackles noted more so at the right base. Cardiovascular Exam: regular rate, normal rhythm, 2/6 systolic murmur throughout the precordium, no gallop. GI/Abdominal exam: Soft nontender no megaly no rebound no guarding. Extremities exam: No clubbing edema or cyanosis. Neurological exam: Generally weak, otherwise no focal neurologic deficit. Psychiatric exam: Normal mood and affect, normal mental status examination. Skin exam: Present: normal color, no rashes. - Labs CBC & Chem 7: 05/26/17 07:24 05/26/17 07:24 Labs: Abnormal Lab Results - Last 24 Hours (Table) 05/25/17 05/25/17 05/26/17 Range/Units 16:57 20:52 07:24 WBC 13.1 H (3.8-10.6) k/uL RBC 3.41 L (4.30-5.90) m/uL Hgb 10.1 L (13.0-17.5) gm/dL Hct 33.7 L (39.0-53.0) % MCHC 29.9 L (31.0-37.0) g/dL Neutrophils # 11.6 H (1.3-7.7) k/uL BUN (9-20) mg/dL Creatinine (0.66-1.25) mg/dL Glucose (74-99) mg/dL POC Glucose (mg/dL) 238 H 236 H (75-99) mg/dL 05/26/17 05/26/17 05/26/17 Range/Units 07:24 07:36 11:53 WBC (3.8-10.6) k/uL RBC (4.30-5.90) m/uL Hgb (13.0-17.5) gm/dL Hct (39.0-53.0) % MCHC (31.0-37.0) g/dL Neutrophils # (1.3-7.7) k/uL BUN 64 H (9-20) mg/dL Creatinine 2.23 H (0.66-1.25) mg/dL Glucose 145 H (74-99) mg/dL POC Glucose (mg/dL) 153 H 169 H (75-99) mg/dL Assessment and Plan Assessment: Impression: Acute right lower lobe pneumonia Acute exacerbation of COPD Multiple comorbidities including chronic kidney disease stage IV, anemia of chronic disease, Parkinson's disease, hypothyroidism, osteoarthritis, dementia, Recommendation: Continue present treatment plan including bronchodilators, antibiotics in the form of Rocephin and Zithromax, patient is back on his usual Parkinson's medications, [facility], we'll continue to follow. Long -term prognosis is poor and guarded considering the patient's age and the presentation of extensive pneumonia involving the right lower lobe Time with Patient: Less than 30
[2017-05-26 13:43] VITALS: BMI 24.0
[2017-05-26] MEDS: cefTRIAXone IN SWFI 1,000 MG/10 ML SYRINGE IVP SCH (16:44)
[2017-05-26] MEDS: AZITHROMYCIN 500 MG TAB PO SCH (16:45)
[2017-05-26 16:57] LABS: Glucose,Whole Blood 180 mg/dL (75-99)
--- NOTE | 2017-05-26 18:32 | PN ---
PROGRESS NOTE Patient is seen for followup for acute kidney injury. He is currently maintained on IV fluids. His serum creatinine has improved slightly. The patient has been voiding in the urinal. Overall, patient is more awake today. He is able to carry on a conversation. EXAMINATION: Blood pressure is 128/70, heart rate 68 per minute. He is afebrile. Examination of the heart: S1, S2. Examination lungs: Bilateral breath sounds are heard. Abdomen is soft, nontender. Examination lower extremity shows no significant edema. OPTIMIZATION SPECIALIST exam is grossly intact. LABS: Sodium 141, potassium 4.1, BUN 64, serum creatinine 2.23, hemoglobin 10.1 g/dL. ASSESSMENT: 1. Acute kidney injury, prerenal, slightly improved. Renal function is not far from baseline. Previously, patient's creatinine has been 1.7 to 2 mg/dL. The patient is maintained on IV fluids at 50 mL an hour, which we can continue for now. 2. Chronic kidney disease NKF stage IV with baseline creatinine about 1.7 mg/dL secondary to nephrosclerosis. 3. Acute right lower lobe pneumonia maintained on antibiotics. 4. Acute exacerbation of chronic obstructive pulmonary disease. PLAN: Continue IV fluids 50 mL an hour. Repeat labs in a.m. Encourage increased oral intake. Check urinalysis. MMODL / IJN: [id number] /
[2017-05-26 19:50] LABS: Appearance,Urine Clear (Clear); Bilirubin,Urine Negative (Negative); Blood,Urine Negative (Negative); Color,Urine Light Yellow; Glucose,Urine (UA) Negative (Negative); Ketones,Urine Negative (Negative); Leukocyte Esterase,Urine Negative (Negative); Nitrite,Urine Negative (Negative); Protein,Urine Negative (Negative); Specific Gravity,Urine 1.008 (1.001-1.035); Urobilinogen,Urine <2.0 mg/dL (<2.0)
[2017-05-26 21:22] LABS: Glucose,Whole Blood 248 mg/dL (75-99)
[2017-05-27] MEDS: SODIUM CHLORIDE 0.9% 1,000 ML IV SCH (06:29)
[2017-05-27] MEDS: LEVOTHYROXINE 75 MCG TAB PO SCH (06:29)
[2017-05-27] MEDS: methylPREDNISolone SOD SUCCI 40 MG/ML 1 ML VIAL IV SCH ×3 (06:29→16:30)
[2017-05-27 06:58] LABS: Glucose,Whole Blood 152 mg/dL (75-99)
[2017-05-27] MEDS: METHADONE 5 MG TAB PO SCH ×2 (07:57→20:34)
[2017-05-27] MEDS: INSULIN ASPART 100 UNIT/ML 1 ML 10 ML VIAL SQ SCH ×4 (07:57→22:13)
[2017-05-27] MEDS: ASPIRIN 81 MG PO SCH (08:00)
[2017-05-27] MEDS: ALLOPURINOL 100 MG TAB PO SCH (08:00)
[2017-05-27] MEDS: FINASTERIDE 5 MG TAB PO SCH (08:01)
[2017-05-27] MEDS: GABAPENTIN 100 MG CAP PO SCH ×3 (08:01→20:34)
[2017-05-27] MEDS: CARBIDOPA-LEVODOPA 25-100 MG 1 EACH TAB PO SCH ×3 (08:01→20:34)
[2017-05-27] MEDS: LORATADINE 10 MG TAB PO SCH (08:02)
[2017-05-27] MEDS: hydrOXYzine PAMOATE 25 MG CAP PO SCH (08:02)
[2017-05-27] MEDS: TAMSULOSIN 0.4 MG CAP.ER.24H PO SCH (08:03)
[2017-05-27] MEDS: ZINC SULFATE 220 MG CAP PO SCH (08:03)
[2017-05-27] MEDS: SYMBICORT 80-4.5 MCG INHALER INHALATION SCH ×2 (08:34→19:59)
[2017-05-27] MEDS: ALBUTEROL NEBULIZED 2.5 MG/3 ML INHALATION PRN ×2 (08:34→12:07)
[2017-05-27 09:15] LABS: Basophils % (A) 0 %; Eosinophils % (A) 0 %; HCT 32.8 % (39.0-53.0); Hypochromasia Slight; Lymphocytes % (A) 6 %; MCH 29.6 pg (25.0-35.0); MCHC 30.4 g/dL (31.0-37.0); MCV 97.5 fL (80.0-100.0); Mean Platelet Volume 8.3; Monocytes # (A) 0.3 k/uL (0-1.0); Monocytes % (A) 2 %; Neutrophils # (A) 14.5 k/uL (1.3-7.7); Neutrophils % (A) 92 %; Platelet Count 232 k/uL (150-450); RBC 3.37 m/uL (4.30-5.90); RDW 14.9 % (11.5-15.5); WBC 15.8 k/uL (3.8-10.6)
[2017-05-27 09:39] LABS: Calcium 8.9 mg/dL (8.4-10.2)
[2017-05-27 12:19] LABS: Glucose,Whole Blood 243 mg/dL (75-99)
[2017-05-27] MEDS: FOLIC ACID 1 MG TAB PO SCH (13:46)
[2017-05-27] MEDS: CHOLECALCIFEROL 1,000 UNIT TAB PO SCH (13:46)
[2017-05-27] MEDS: MULTIVITAMINS, THERA 1 EACH TAB PO SCH (13:47)
[2017-05-27] MEDS: THIAMINE 100 MG TAB PO SCH (13:47)
--- NOTE | 2017-05-27 16:14 | P.PN ---
Subjective Progress Note Date: 05/27/17 Principal diagnosis: Acute right lower lobe pneumonia and COPD exacerbation This is an 86-year-old white male, remote smoking history, history of multiple medical problems and comorbidities including Parkinson's disease, dementia, COPD , stage IV chronic kidney disease, patient presented to the ER with mostly symptoms of shortness of breath and weakness, almost passed out while he was taking a shower. Patient was recently seen by his primary care physician, placed on antibiotics, and apparently he was receiving treatment for presumptive tracheobronchitis, possible pneumonia. His condition according the patient was getting worse, family brought in the patient to the hospital, and his chest x-ray showed right lower lobe and possibly a right middle lobe pneumonia. Patient was admitted, placed on Rocephin and Zithromax, and this consult was initiated. In addition to his symptoms of shortness of breath, patient has been generally weak, complaining of cough, some wheezing. No fever , no chills, no hemoptysis, no chest pain. Labs on admission showed relatively normal CBC, normal electrolytes, however his BUN was 60 creatinine 2.33, anion gap metabolic acidosis was noted related to his renal failure. Viral screening was negative for influenza Patient was reevaluated today on 05/26/2017, feeling a bit better, however he continues to cough and wheeze. No fever no chills no hemoptysis no chest pain. Labs were reviewed WBC count is 13.1 basic metabolic profile is normal BUN is 64 creatinine is 2.23, basically the same as it was yesterday on admission. Reevaluated today on 05/27/2017, patient is basically about the same, continues to cough and wheeze intermittently. No fever no chills no hemoptysis no chest pain. WBC count is 15.8 hemoglobin is 10.0 basic metabolic profile is normal, however BUN is 68 creatinine is 2.0, improving compared to admission labs. Objective - Vital Signs Vital signs: Vital Signs Temp 97.6 F 05/27/17 15:00 Pulse 89 05/27/17 15:00 Resp 16 05/27/17 15:00 BP 109/53 05/27/17 15:00 Pulse Ox 93 L 05/27/17 15:00 Intake & Output 05/26/17 05/27/17 05/27/17 18:59 06:59 18:59 Intake Total 7678 933 7879 Output Total 850 Balance 1020 -750 1100 Weight 76.204 kg Intake: Oral 6583 744 [id number] Output: Urine 850 Other: Voiding Method Urinal Urinal # Voids 2 3 # Bowel Movements 1 1 - Exam General appearance: Revealed a 86-year-old white male, in no distress, looks chronically ill and frail. Head exam: atraumatic, normocephalic. Eye exam: PERRLA, EOMI, ENT exam: Moist mucous membranes, throat is clear. Neck exam: Neck is supple, no neck masses, no thyromegaly, no stridor. Respiratory exam: Diminished breath sounds and crackles at the bases, no chest wall tenderness. Cardiovascular Exam: regular rate, normal rhythm, 2/6 systolic murmur throughout the precordium, no gallop. GI/Abdominal exam: Soft nontender no megaly no rebound no guarding. Extremities exam: No clubbing edema or cyanosis. Neurological exam: Generally weak, otherwise no focal neurologic deficit. Psychiatric exam: Normal mood and affect, normal mental status examination. Skin exam: Present: normal color, no rashes. - Labs CBC & Chem 7: 05/27/17 08:09 05/27/17 08:09 Labs: Abnormal Lab Results - Last 24 Hours (Table) 05/26/17 05/26/17 05/27/17 Range/Units 16:45 21:13 06:51 WBC (3.8-10.6) k/uL RBC (4.30-5.90) m/uL Hgb (13.0-17.5) gm/dL Hct (39.0-53.0) % MCHC (31.0-37.0) g/dL Neutrophils # (1.3-7.7) k/uL Carbon Dioxide (22-30) mmol/L BUN (9-20) mg/dL Creatinine (0.66-1.25) mg/dL Glucose (74-99) mg/dL POC Glucose (mg/dL) 180 H 248 H 152 H (75-99) mg/dL 05/27/17 05/27/17 05/27/17 Range/Units 08:09 08:09 12:17 WBC 15.8 H (3.8-10.6) k/uL RBC 3.37 L (4.30-5.90) m/uL Hgb 10.0 L (13.0-17.5) gm/dL Hct 32.8 L (39.0-53.0) % MCHC 30.4 L (31.0-37.0) g/dL Neutrophils # 14.5 H (1.3-7.7) k/uL Carbon Dioxide 21 L (22-30) mmol/L BUN 68 H (9-20) mg/dL Creatinine 2.00 H (0.66-1.25) mg/dL Glucose 154 H (74-99) mg/dL POC Glucose (mg/dL) 243 H (75-99) mg/dL Assessment and Plan Assessment: Impression: Acute right lower lobe pneumonia Acute exacerbation of COPD Multiple comorbidities including chronic kidney disease stage IV, anemia of chronic disease, Parkinson's disease, hypothyroidism, osteoarthritis, dementia, Recommendation: Continue present treatment plan including bronchodilators, antibiotics in the form of Rocephin and Zithromax, patient is back on his usual Parkinson's medications, [facility]'ll [facility] to [facility]. Follow-up chest x-ray in a.m. or in the next 24-48 hours. Patient will likely benefit from rehab referral. Time with Patient: Less than 30
[2017-05-27] MEDS: cefTRIAXone IN SWFI 1,000 MG/10 ML SYRINGE IVP SCH (16:29)
[2017-05-27] MEDS: AZITHROMYCIN 500 MG TAB PO SCH (16:30)
[2017-05-27 16:45] LABS: Glucose,Whole Blood 182 mg/dL (75-99)
--- NOTE | 2017-05-27 17:01 | PN ---
PROGRESS NOTE The patient is seen for followup for acute kidney injury, which is mainly prerenal. He is maintained on gentle IV hydration. Renal function continues to improve. Serum creatinine is down to 2.0 mg/dL from 2.3 on initial admission. Previous creatinine has been about 1.7 in March of 2017. EXAMINATION: Blood pressure is 109/53, heart rate 89 per minute. Patient is afebrile. Examination of the heart: S1, S2. Examination lungs: Bilateral breath sounds are heard. Abdomen is soft, nontender. Exam of lower extremity shows no significant edema. GUEST ASSOCIATE exam is grossly intact. LABS: Sodium 140, potassium 4.0, chloride 104, BUN 68, serum creatinine 2.0, hemoglobin 10.0 g/dL. ASSESSMENT: 1. Acute kidney injury, prerenal, currently maintained on gentle IV hydration with improvement in renal function. Patient is encouraged to increase his oral intake. 2. Chronic kidney disease and NKF stage IIIB with baseline creatinine about 1.7 mg/dL secondary to nephrosclerosis. Urinalysis is completely benign. 3. Acute right lower lobe pneumonia maintained on antibiotics. 4. Acute exacerbation of chronic obstructive pulmonary disease, currently improved. PLAN: Continue normal saline. Encourage increased oral intake. Avoid nephrotoxic agents. Repeat labs in a.m. MMODL / IJN: [id number] /
[2017-05-27 20:29] LABS: Glucose,Whole Blood 180 mg/dL (75-99)
--- NOTE | 2017-05-27 23:33 | P.PN ---
Subjective Progress Note Date: 05/26/17 Principal diagnosis: Pneumonia Interval history:Patient is a 86-year-old male with a known history of Parkinson 's disease, dementia asthma/COPD, osteoarthritis CKD stage IV and other multiple medical problems presented to ER with complaints of tiredness weak and about to pass out. Patient was seen by his PCP in the clinic today and was sent home on antibiotics. Patient actually recently completed antibiotic course 2 days ago for tracheobronchitis/pneumonia. After seeing his PCP in the clinic patient went home and was taking shower. Patient certainly became very tired and weak, short-winded and about to pass out. Patient's family brought to the hospital. Patient was also complaining of mild chest pain at home. no abdominal pain no frequency urgency dysuria no symptoms of any TIA or CVA Chest x-ray showed correlate for right middle lobe pneumonia WBC 8.6 BUN/creatinine 60/ 2.33 BNP 1520 Influenza PCR negative 05/25/17 breathing slowly improving on nebulized bronchodilators, steroids, IV antibiotics. Maintained on gentle IV fluid hydration. Diet intake improving with no nausea or vomiting. Tested negative for influenza. Afebrile, maintaining O2 sats in the 90s on 2 L nasal cannula. 05/26/2017 [place] patient's breathing status much improved now. Currently maintained on nasal cannula with good saturation. Able to tolerate oral diet and will reduce IV fluids. Pulmonary is following. Anticipate discharge in 1- 2 days.. Creatinine 2.3 Patient denied any complaints of chest pain or worsening shortness of breath. No nausea vomiting or abdominal pain. Otherwise patient is a poor historian. Current medications reviewed Objective - Vital Signs Vital signs: Vital Signs Temp 97.0 F L 05/26/17 15:00 Pulse 77 05/26/17 16:48 Resp 16 05/26/17 16:48 BP 128/70 05/26/17 15:00 Pulse Ox 94 L 05/26/17 15:00 Intake & Output 05/26/17 05/26/17 05/27/17 06:59 18:59 06:59 Intake Total 1020 Output Total 200 Balance -200 1020 Weight 76.204 kg Intake: Oral 1020 Output: Urine 200 Other: Voiding Method Urinal Urinal Urinal # Voids 2 # Bowel Movements 1 - Exam Patient is sitting up in the bed comfortably, no acute distress, awake alert and does have some cognitive impairment . HEENT: Normocephalic. Neck is supple. Pupils reactive. Nostrils clear. Oral cavity is moist. Ears reveal no drainage. Neck reveals no JVD, carotid bruits, or thyromegaly. CHEST EXAMINATION: Trachea is central. Symmetrical expansion. Diminished air entry basally with bibasilar crackles, greater on the right CARDIAC: Normal S1, S2 with no gallops. No murmurs ABDOMEN: Soft. Bowel sounds normal. No organomegaly. No abdominal bruits. Extremities: reveal no edema. No clubbing or cyanosis Neurologically awake, alert with well-coordinated movements. Mild parkinsonian tremors. No focal deficits noted Skin: Bilateral buttocks , ulcers X 1 On each buttock, dime size, dry without draingage. Psychiatric: Cooperative. Nonsuicidal Musculoskeletal: No joint swelling or deformity. Normal range of motion. - Labs CBC & Chem 7: 05/27/17 08:09 05/27/17 08:09 Labs: Abnormal Lab Results - Last 24 Hours (Table) 05/26/17 05/26/17 05/26/17 Range/Units 07:24 07:24 07:36 WBC 13.1 H (3.8-10.6) k/uL RBC 3.41 L (4.30-5.90) m/uL Hgb 10.1 L (13.0-17.5) gm/dL Hct 33.7 L (39.0-53.0) % MCHC 29.9 L (31.0-37.0) g/dL Neutrophils # 11.6 H (1.3-7.7) k/uL BUN 64 H (9-20) mg/dL Creatinine 2.23 H (0.66-1.25) mg/dL Glucose 145 H (74-99) mg/dL POC Glucose (mg/dL) 153 H (75-99) mg/dL 05/26/17 05/26/17 Range/Units 11:53 16:45 WBC (3.8-10.6) k/uL RBC (4.30-5.90) m/uL Hgb (13.0-17.5) gm/dL Hct (39.0-53.0) % MCHC (31.0-37.0) g/dL Neutrophils # (1.3-7.7) k/uL BUN (9-20) mg/dL Creatinine (0.66-1.25) mg/dL Glucose (74-99) mg/dL POC Glucose (mg/dL) 169 H 180 H (75-99) mg/dL Assessment and Plan Assessment: Right lower lobe pneumonia. Failed outpatient therapy COPD with mild exacerbation CKD stage IV baseline creatinine around 2.5 Anemia of chronic disease Parkinson's disease and gait dysfunction Osteoarthritis Hypothyroidism BPH Dementia Chronic CHF possible diastolic dysfunction Plan: Patient was taking Augmentin at home. Currently patient was started on ceftriaxone and azithromycin. . Monitor renal function. Continue with home medications and follow closely. Continue with albuterol inhalation and Symbicort. Pulmonary is following. Discussed with his family in detail at bedside. Further recommendations based on the clinical course. Prognosis is guarded. Time with Patient: Greater than 30
--- NOTE | 2017-05-27 23:35 | P.PN ---
Subjective Progress Note Date: 05/27/17 Principal diagnosis: Pneumonia Interval history:Patient is a 86-year-old male with a known history of Parkinson 's disease, dementia asthma/COPD, osteoarthritis CKD stage IV and other multiple medical problems presented to ER with complaints of tiredness weak and about to pass out. Patient was seen by his PCP in the clinic today and was sent home on antibiotics. Patient actually recently completed antibiotic course 2 days ago for tracheobronchitis/pneumonia. After seeing his PCP in the clinic patient went home and was taking shower. Patient certainly became very tired and weak, short-winded and about to pass out. Patient's family brought to the hospital. Patient was also complaining of mild chest pain at home. no abdominal pain no frequency urgency dysuria no symptoms of any TIA or CVA Chest x-ray showed correlate for right middle lobe pneumonia WBC 8.6 BUN/creatinine 60/ 2.33 BNP 1520 Influenza PCR negative 05/25/17 breathing slowly improving on nebulized bronchodilators, steroids, IV antibiotics. Maintained on gentle IV fluid hydration. Diet intake improving with no nausea or vomiting. Tested negative for influenza. Afebrile, maintaining O2 sats in the 90s on 2 L nasal cannula. 05/26/2017 [place] patient's breathing status much improved now. Currently maintained on nasal cannula with good saturation. Able to tolerate oral diet and will reduce IV fluids. Pulmonary is following. Anticipate discharge in 1- 2 days.. Creatinine 2.3 Patient denied any complaints of chest pain or worsening shortness of breath. No nausea vomiting or abdominal pain. Otherwise patient is a poor historian. 05/27/2017 Patient's breathing status is much improved today. Currently saturating on room air. Continued on antibiotics and breathing treatments. Renal function improved with creatinine level II.0 And spit discharge in next 24 hours with more clinical improvement Active Medications Generic Name Dose Route Start Last Admin Trade Name Freq PRN Reason Stop Dose Admin Albuterol Sulfate 2.5 mg 05/24/17 16:54 05/27/17 12:07 Ventolin Nebulized INHALATION 2.5 mg RT-QID PRN Administration Shortness Of Breath Allopurinol 100 mg 05/25/17 09:00 05/27/17 08:00 Zyloprim PO 100 mg DAILY DIANN Administration Aspirin 81 mg 05/25/17 09:00 05/27/17 08:00 Aspirin PO 81 mg DAILY DIANN Administration Azithromycin 500 mg 05/26/17 18:00 05/27/17 16:30 Zithromax PO 500 mg Q24HR@1800 DIANN Administration Budesonide/Formoterol Fumarate 2 puff 05/24/17 20:30 05/27/17 19:59 Symbicort 80-4.5 Mcg Inhaler INHALATION 2 puff RT-BID DIANN Administration Calcitriol 0.5 mcg 05/25/17 12:00 05/25/17 11:22 Rocaltrol PO 0.5 mcg MoWeFr@1200 DIANN Administration Carbidopa/Levodopa 1 each 05/24/17 22:00 05/27/17 20:34 Sinemet 25-100 PO 1 each TID DIANN Administration Ceftriaxone Sodium 1,000 mg 05/26/17 16:00 05/27/17 16:29 Rocephin IVP 1,000 mg Q24H DIANN Administration Cholecalciferol 2,000 unit 05/25/17 14:00 05/27/17 13:46 Vitamin D3 PO 2,000 unit DAILY@1400 DIANN Administration Finasteride 5 mg 05/25/17 09:00 05/27/17 08:01 Proscar PO 5 mg DAILY DIANN Administration Folic Acid 1 mg 05/25/17 14:00 05/27/17 13:46 Folic Acid PO 1 mg DAILY@1400 DIANN Administration Gabapentin 100 mg 05/24/17 22:00 05/27/17 20:34 Neurontin PO 100 mg TID DIANN Administration Hydroxyzine Pamoate 25 mg 05/25/17 09:00 05/27/17 08:02 Vistaril PO 25 mg DAILY DIANN Administration Sodium Chloride 1,000 mls @ 50 mls/hr 05/25/17 14:00 05/27/17 06:29 Saline 0.9% IV 50 mls/hr .Q20H DIANN Administration Insulin Aspart 0 unit 05/25/17 07:30 05/27/17 22:13 Novolog SQ 4 unit ACHS DIANN Administration Protocol Levothyroxine Sodium 75 mcg 05/25/17 06:30 05/27/17 06:29 Synthroid PO 75 mcg DAILY@0630 DIANN Administration Loratadine 10 mg 05/25/17 09:00 05/27/17 08:02 Claritin PO 10 mg DAILY DIANN Administration Methadone HCl 5 mg 05/24/17 20:30 05/27/17 20:34 Dolophine PO 5 mg BID@0800,2000 [facility] Administration Methylprednisolone Sodium Succinate 40 mg 05/24/17 20:15 05/27/17 16:30 Solu-Medrol IV 40 mg Q6HR DIANN Administration Multivitamins 1 each 05/25/17 14:00 05/27/17 13:47 Theragran PO 1 each DAILY@1400 [facility] Administration Nitroglycerin 0.4 mg 05/24/17 16:54 Nitrostat SUBLINGUAL Q5M PRN Pain Sodium Polystyrene Sulfonate 15 gm 05/28/17 12:00 Kayexalate PO MoTh@1200 DIANN Tamsulosin HCl 0.4 mg 05/25/17 09:00 05/27/17 08:03 Flomax PO 0.4 mg DAILY [facility] Administration Thiamine HCl 100 mg 05/25/17 14:00 05/27/17 13:47 Vitamin B-1 PO 100 mg DAILY@1400 [facility] Administration Zinc Sulfate 220 mg 05/25/17 09:00 05/27/17 08:03 Orazinc PO 220 mg DAILY [facility] Administration Current medications reviewed Objective - Vital Signs Vital signs: Vital Signs Temp 97.6 F 05/27/17 15:00 Pulse 89 05/27/17 15:00 Resp 16 05/27/17 15:00 BP 109/53 05/27/17 15:00 Pulse Ox 93 L 05/27/17 15:00 Intake & Output 05/27/17 05/27/17 05/28/17 06:59 18:59 06:59 Intake Total 100 1100 Output Total 850 Balance -750 1100 Intake: Oral 100 1100 Output: Urine 850 Other: Voiding Method Urinal Urinal # Voids 3 # Bowel Movements 1 - Exam Patient is sitting up in the bed comfortably, no acute distress, awake alert and does have some cognitive impairment . HEENT: Normocephalic. Neck is supple. Pupils reactive. Nostrils clear. Oral cavity is moist. Ears reveal no drainage. Neck reveals no JVD, carotid bruits, or thyromegaly. CHEST EXAMINATION: Trachea is central. Symmetrical expansion. Diminished air entry basally . No crackles CARDIAC: Normal S1, S2 with no gallops. No murmurs ABDOMEN: Soft. Bowel sounds normal. No organomegaly. No abdominal bruits. Extremities: reveal no edema. No clubbing or cyanosis Neurologically awake, alert with well-coordinated movements. Mild parkinsonian tremors. No focal deficits noted Skin: Bilateral buttocks , ulcers X 1 On each buttock, dime size, dry without draingage. Psychiatric: Cooperative. Nonsuicidal Musculoskeletal: No joint swelling or deformity. Normal range of motion. - Labs CBC & Chem 7: 05/27/17 08:09 05/27/17 08:09 Labs: Abnormal Lab Results - Last 24 Hours (Table) 05/27/17 05/27/17 05/27/17 Range/Units 06:51 08:09 08:09 WBC 15.8 H (3.8-10.6) k/uL RBC 3.37 L (4.30-5.90) m/uL Hgb 10.0 L (13.0-17.5) gm/dL Hct 32.8 L (39.0-53.0) % MCHC 30.4 L (31.0-37.0) g/dL Neutrophils # 14.5 H (1.3-7.7) k/uL Carbon Dioxide 21 L (22-30) mmol/L BUN 68 H (9-20) mg/dL Creatinine 2.00 H (0.66-1.25) mg/dL Glucose 154 H (74-99) mg/dL POC Glucose (mg/dL) 152 H (75-99) mg/dL 05/27/17 05/27/17 05/27/17 Range/Units 12:17 16:43 20:28 WBC (3.8-10.6) k/uL RBC (4.30-5.90) m/uL Hgb (13.0-17.5) gm/dL Hct (39.0-53.0) % MCHC (31.0-37.0) g/dL Neutrophils # (1.3-7.7) k/uL Carbon Dioxide (22-30) mmol/L BUN (9-20) mg/dL Creatinine (0.66-1.25) mg/dL Glucose (74-99) mg/dL POC Glucose (mg/dL) 243 H 182 H 180 H (75-99) mg/dL Assessment and Plan Assessment: Right lower lobe pneumonia. Failed outpatient therapy COPD with mild exacerbation Acute on CKD stage IV baseline creatinine around 2--2.5 Anemia of chronic disease Parkinson's disease and gait dysfunction Osteoarthritis Hypothyroidism BPH Dementia Chronic CHF possible diastolic dysfunction Plan: Patient was taking Augmentin at home. Currently patient was started on ceftriaxone and azithromycin. . Monitor renal function. Continue with home medications and follow closely. Continue with albuterol inhalation and Symbicort. Pulmonary is following. Anticipate discharge in next 24 hours Further recommendations based on the clinical course. Prognosis is guarded. Time with Patient: Greater than 30
[2017-05-28] MEDS: methylPREDNISolone SOD SUCCI 40 MG/ML 1 ML VIAL IV SCH ×4 (00:15→17:26)
[2017-05-28] MEDS: SODIUM CHLORIDE 0.9% 1,000 ML IV SCH ×4 (00:15→13:03)
[2017-05-28] MEDS: LEVOTHYROXINE 75 MCG TAB PO SCH (06:30)
[2017-05-28 07:21] LABS: Glucose,Whole Blood 168 mg/dL (75-99)
[2017-05-28 08:29] LABS: Basophils % (A) 0 %; Eosinophils % (A) 0 %; HCT 33.2 % (39.0-53.0); Hypochromasia Slight; Lymphocytes % (A) 5 %; MCH 29.7 pg (25.0-35.0); MCHC 30.2 g/dL (31.0-37.0); MCV 98.3 fL (80.0-100.0); Mean Platelet Volume 8.4; Monocytes # (A) 0.4 k/uL (0-1.0); Monocytes % (A) 2 %; Neutrophils # (A) 16.5 k/uL (1.3-7.7); Neutrophils % (A) 92 %; Platelet Count 235 k/uL (150-450); RBC 3.37 m/uL (4.30-5.90); WBC 17.9 k/uL (3.8-10.6)
[2017-05-28] MEDS: METHADONE 5 MG TAB PO SCH ×2 (08:29→19:57)
[2017-05-28] MEDS: ASPIRIN 81 MG PO SCH (08:30)
[2017-05-28] MEDS: ALLOPURINOL 100 MG TAB PO SCH (08:30)
[2017-05-28] MEDS: GABAPENTIN 100 MG CAP PO SCH ×3 (08:30→21:36)
[2017-05-28] MEDS: FINASTERIDE 5 MG TAB PO SCH (08:30)
[2017-05-28] MEDS: TAMSULOSIN 0.4 MG CAP.ER.24H PO SCH (08:30)
[2017-05-28] MEDS: INSULIN ASPART 100 UNIT/ML 1 ML 10 ML VIAL SQ SCH ×4 (08:30→22:38)
[2017-05-28] MEDS: ZINC SULFATE 220 MG CAP PO SCH (08:30)
[2017-05-28] MEDS: LORATADINE 10 MG TAB PO SCH (08:30)
[2017-05-28] MEDS: CARBIDOPA-LEVODOPA 25-100 MG 1 EACH TAB PO SCH ×3 (08:30→21:36)
[2017-05-28 08:32] LABS: Potassium 4.1 mmol/L (3.5-5.1)
[2017-05-28] MEDS: hydrOXYzine PAMOATE 25 MG CAP PO SCH (08:35)
[2017-05-28] MEDS: SYMBICORT 80-4.5 MCG INHALER INHALATION SCH ×2 (09:08→19:37)
--- NOTE | 2017-05-28 10:43 | P.PN ---
Subjective Patient is seen in follow-up for acute kidney injury and chronic kidney disease. Patient has chronic kidney disease stage III secondary to nephrosclerosis with baseline creatinine near 1.7. Creatinine was 2.3 on admission and is down to 1.92 today. He is currently resting in bed. Patient' s been treated for right lower lobe pneumonia. Denies chest pain. Denies shortness of breath. Admits to good urine output. Does have some loose bowel movements. No vomiting. Vital signs are stable. General: The patient appeared well nourished and normally developed. HEENT: Head exam is unremarkable. Neck is without jugular venous distension. LUNGS: Lungs are clear to auscultation and percussion. Breath sounds decreased. HEART: Rate and Rhythm are regular. First and second heart sounds normal. No murmurs, rubs or gallops. ABDOMEN: Abdominal exam reveals normal bowel sounds. Non-tender and non- distended. No evidence of peritonitis. EXTREMITITES: No clubbing, cyanosis, or edema. Objective - Vital Signs Vital signs: Vital Signs Temp 96.9 F L 05/28/17 06:31 Pulse 58 L 05/28/17 06:31 Resp 14 05/28/17 06:31 BP 158/74 05/28/17 06:31 Pulse Ox 95 05/28/17 06:31 Intake & Output 05/27/17 05/28/17 05/28/17 18:59 06:59 18:59 Intake Total 1100 Output Total 600 Balance 1100 -600 Intake: Oral 1100 Output: Urine 600 Other: Voiding Method Urinal # Voids 3 # Bowel Movements 1 3 1 - Labs CBC & Chem 7: 05/28/17 08:05 05/28/17 08:05 Labs: Abnormal Lab Results - Last 24 Hours (Table) 05/27/17 05/27/17 05/27/17 Range/Units 12:17 16:43 20:28 WBC (3.8-10.6) k/uL RBC (4.30-5.90) m/uL Hgb (13.0-17.5) gm/dL Hct (39.0-53.0) % MCHC (31.0-37.0) g/dL Neutrophils # (1.3-7.7) k/uL Carbon Dioxide (22-30) mmol/L BUN (9-20) mg/dL Creatinine (0.66-1.25) mg/dL Glucose (74-99) mg/dL POC Glucose (mg/dL) 243 H 182 H 180 H (75-99) mg/dL 05/28/17 05/28/17 05/28/17 Range/Units 07:14 08:05 08:05 WBC 17.9 H (3.8-10.6) k/uL RBC 3.37 L (4.30-5.90) m/uL Hgb 10.0 L (13.0-17.5) gm/dL Hct 33.2 L (39.0-53.0) % MCHC 30.2 L (31.0-37.0) g/dL Neutrophils # 16.5 H (1.3-7.7) k/uL Carbon Dioxide 21 L (22-30) mmol/L BUN 76 H (9-20) mg/dL Creatinine 1.92 H (0.66-1.25) mg/dL Glucose 176 H (74-99) mg/dL POC Glucose (mg/dL) 168 H (75-99) mg/dL Assessment and Plan Plan: Assessment: #1. Nonoliguric acute kidney injury mostly prerenal improving with IV hydration. Creatinine was 2.3 on admission and is down to 1.92 today. #2. Chronic kidney disease stage III secondary to nephrosclerosis with baseline creatinine near 1.7. #3. Right lower lobe pneumonia maintained on antibiotics. #4. 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 #5. Hypertension with chronic kidney disease. #6. Mild metabolic acidosis secondary to chronic kidney disease. Plan: Hep-Lock IV fluids. Encouraged oral intake. Avoid nephrotoxic agents and hypotensive episodes. Repeat electrolytes in the morning.
[2017-05-28] MEDS: CALCITRIOL 0.25 MCG CAP PO SCH (11:56)
[2017-05-28] MEDS ORDERED: SODIUM POLYSTYRENE SULFONATE 15 GM/60 ML BOTTLE PO SCH (12:00)
--- NOTE | 2017-05-28 12:31 | P.PN ---
Subjective Progress Note Date: 05/28/17 Principal diagnosis: Acute right lower lobe pneumonia and COPD exacerbation This is an 86-year-old white male, remote smoking history, history of multiple medical problems and comorbidities including Parkinson's disease, dementia, COPD , stage IV chronic kidney disease, patient presented to the ER with mostly symptoms of shortness of breath and weakness, almost passed out while he was taking a shower. Patient was recently seen by his primary care physician, placed on antibiotics, and apparently he was receiving treatment for presumptive tracheobronchitis, possible pneumonia. His condition according the patient was getting worse, family brought in the patient to the hospital, and his chest x-ray showed right lower lobe and possibly a right middle lobe pneumonia. Patient was admitted, placed on Rocephin and Zithromax, and this consult was initiated. In addition to his symptoms of shortness of breath, patient has been generally weak, complaining of cough, some wheezing. No fever , no chills, no hemoptysis, no chest pain. Labs on admission showed relatively normal CBC, normal electrolytes, however his BUN was 60 creatinine 2.33, anion gap metabolic acidosis was noted related to his renal failure. Viral screening was negative for influenza Patient was reevaluated today on 05/26/2017, feeling a bit better, however he continues to cough and wheeze. No fever no chills no hemoptysis no chest pain. Labs were reviewed WBC count is 13.1 basic metabolic profile is normal BUN is 64 creatinine is 2.23, basically the same as it was yesterday on admission. Reevaluated today on 05/27/2017, patient is basically about the same, continues to cough and wheeze intermittently. No fever no chills no hemoptysis no chest pain. WBC count is 15.8 hemoglobin is 10.0 basic metabolic profile is normal, however BUN is 68 creatinine is 2.0, improving compared to admission labs. On 05/28/2017 patient seen again in follow-up. Patient has a loose congested nonproductive cough, lung sounds are positive for diffuse wheezes and scattered rhonchi. He is on room air with O2 sat 95%. Continues on Rocephin and Zithromax, IV Solu-Medrol and DuoNeb nebulized treatments. His influenza screen was negative. Remains afebrile. Vital signs are stable. Today's lab work has been reviewed, WBC is up to 17.9, hemoglobin is 10, his renal profile is stable, with BUN is 76, and creatinine is 1.92. Patient is resting in bed. He denies any chest pain. He is tolerating oral intake well. Nephrology is following regarding the acute on chronic renal failure. Objective - Vital Signs Vital signs: Vital Signs Temp 96.9 F L 05/28/17 06:31 Pulse 58 L 05/28/17 06:31 Resp 14 05/28/17 06:31 BP 158/74 05/28/17 06:31 Pulse Ox 95 05/28/17 06:31 Intake & Output 05/27/17 05/28/17 05/28/17 18:59 06:59 18:59 Intake Total 1100 Output Total 600 Balance 1100 -600 Intake: Oral 1100 Output: Urine 600 Other: Voiding Method Urinal # Voids 3 # Bowel Movements 1 3 1 - Exam General appearance: Revealed a 86-year-old white male, in no distress, looks chronically ill and frail. Head exam: atraumatic, normocephalic. Eye exam: PERRLA, EOMI, ENT exam: Moist mucous membranes, throat is clear. Neck exam: Neck is supple, no neck masses, no thyromegaly, no stridor. Respiratory exam: Diminished breath sounds with scattered rhonchi and diffuse wheezing Cardiovascular Exam: regular rate, normal rhythm, 2/6 systolic murmur throughout the precordium, no gallop. GI/Abdominal exam: Soft nontender no megaly no rebound no guarding. Extremities exam: No clubbing edema or cyanosis. Neurological exam: Generally weak, otherwise no focal neurologic deficit. Psychiatric exam: Normal mood and affect, normal mental status examination. Skin exam: Present: normal color, no rashes. - Labs CBC & Chem 7: 05/28/17 08:05 05/28/17 08:05 Labs: Abnormal Lab Results - Last 24 Hours (Table) 05/27/17 05/27/17 05/28/17 Range/Units 16:43 20:28 07:14 WBC (3.8-10.6) k/uL RBC (4.30-5.90) m/uL Hgb (13.0-17.5) gm/dL Hct (39.0-53.0) % MCHC (31.0-37.0) g/dL Neutrophils # (1.3-7.7) k/uL Carbon Dioxide (22-30) mmol/L BUN (9-20) mg/dL Creatinine (0.66-1.25) mg/dL Glucose (74-99) mg/dL POC Glucose (mg/dL) 182 H 180 H 168 H (75-99) mg/dL 05/28/17 05/28/17 Range/Units 08:05 08:05 WBC 17.9 H (3.8-10.6) k/uL RBC 3.37 L (4.30-5.90) m/uL Hgb 10.0 L (13.0-17.5) gm/dL Hct 33.2 L (39.0-53.0) % MCHC 30.2 L (31.0-37.0) g/dL Neutrophils # 16.5 H (1.3-7.7) k/uL Carbon Dioxide 21 L (22-30) mmol/L BUN 76 H (9-20) mg/dL Creatinine 1.92 H (0.66-1.25) mg/dL Glucose 176 H (74-99) mg/dL POC Glucose (mg/dL) (75-99) mg/dL Assessment and Plan Plan: Assessment: Acute right lower lobe pneumonia Acute exacerbation of COPD Multiple comorbidities including chronic kidney disease stage IV, anemia of chronic disease, Parkinson's disease, hypothyroidism, osteoarthritis, dementia, Recommendation: We will obtain a 2 view chest x-ray today, continue treatment plan including bronchodilators, antibiotics in the form of Rocephin and Zithromax, Solu-Medrol , nebulized treatments. Patient will likely benefit from rehab referral. I performed a history & physical examination of the patient and discussed their management with my nurse practitioner, Gretchen Garcia. I reviewed the nurse practitioner's note and agree with the documented findings and plan of care. Lung sounds are positive for diffuse wheezes and rhonchi throughout the lung ramirez. The findings and the impression was discussed with the patient. I attest to the documentation by the nurse practitioner. Time with Patient: Less than 30
[2017-05-28 12:37] LABS: Glucose,Whole Blood 160 mg/dL (75-99)
[2017-05-28] MEDS: FOLIC ACID 1 MG TAB PO SCH (13:03)
[2017-05-28] MEDS: THIAMINE 100 MG TAB PO SCH (13:03)
[2017-05-28] MEDS: CHOLECALCIFEROL 1,000 UNIT TAB PO SCH (13:04)
[2017-05-28] MEDS: MULTIVITAMINS, THERA 1 EACH TAB PO SCH (13:04)
[2017-05-28 17:16] LABS: Glucose,Whole Blood 125 mg/dL (75-99)
[2017-05-28] MEDS: AZITHROMYCIN 500 MG TAB PO SCH (17:29)
[2017-05-28] MEDS: cefTRIAXone IN SWFI 1,000 MG/10 ML SYRINGE IVP SCH (17:30)
[2017-05-28] MEDS: CEFUROXIME 250 MG TAB PO SCH (17:40)
--- NOTE | 2017-05-28 18:07 | P.PN ---
Subjective Progress Note Date: 05/28/17 Progress note being dictated for Dr. Martínez Interval history:Patient is a 86-year-old male with a known history of Parkinson 's disease, dementia asthma/COPD, osteoarthritis CKD stage IV and other multiple medical problems presented to ER with complaints of tiredness weak and about to pass out. Patient was seen by his PCP in the clinic today and was sent home on antibiotics. Patient actually recently completed antibiotic course 2 days ago for tracheobronchitis/pneumonia. After seeing his PCP in the clinic patient went home and was taking shower. Patient certainly became very tired and weak, short-winded and about to pass out. Patient's family brought to the hospital. Patient was also complaining of mild chest pain at home. no abdominal pain no frequency urgency dysuria no symptoms of any TIA or CVA Chest x-ray showed correlate for right middle lobe pneumonia WBC 8.6 BUN/creatinine 60/ 2.33 BNP 1520 Influenza PCR negative 05/25/17 breathing slowly improving on nebulized bronchodilators, steroids, IV antibiotics. Maintained on gentle IV fluid hydration. Diet intake improving with no nausea or vomiting. Tested negative for influenza. Afebrile, maintaining O2 sats in the 90s on 2 L nasal cannula. 05/26/2017 [place] patient's breathing status much improved now. Currently maintained on nasal cannula with good saturation. Able to tolerate oral diet and will reduce IV fluids. Pulmonary is following. Anticipate discharge in 1- 2 days.. Creatinine 2.3 Patient denied any complaints of chest pain or worsening shortness of breath. No nausea vomiting or abdominal pain. Otherwise patient is a poor historian. 05/27/2017 Patient's breathing status is much improved today. Currently saturating on room air. Continued on antibiotics and breathing treatments. Renal function improved with creatinine level II.0 And spit discharge in next 24 hours with more clinical improvement 05/28/2017 maintained on nebulized bronchodilators, IV steroids, Zithromax and Rocephin, loose congested nonproductive cough persists. Maintaining O2 sats in the mid 90s. Good diet intake, blood sugars controlled. Renal function slowly improving. Afebrile. Objective - Vital Signs Vital signs: Vital Signs Temp 96.2 F L 05/28/17 15:00 Pulse 67 05/28/17 15:00 Resp 16 02/19/18 15:00 BP 167/77 05/28/17 15:00 Pulse Ox 97 05/28/17 15:00 Intake & Output 05/27/17 05/28/17 05/28/17 18:59 06:59 18:59 Intake Total 1100 Output Total 600 Balance 1100 -600 Intake: Oral 1100 Output: Urine 600 Other: Voiding Method Urinal # Voids 3 1 # Bowel Movements 1 3 1 - Exam Patient is sitting up in the bed comfortably, no acute distress, awake alert and does have some cognitive impairment . HEENT: Normocephalic. Neck is supple. Pupils reactive. Nostrils clear. Oral cavity is moist. Ears reveal no drainage. Neck reveals no JVD, carotid bruits, or thyromegaly. CHEST EXAMINATION: Trachea is central. Symmetrical expansion. Bilateral bases with Diminished air entry,scattered rhonchi, occasional diffuse expiratory wheezing CARDIAC: Normal S1, S2 with no gallops. Systolic murmurs ABDOMEN: Soft. Bowel sounds normal. No organomegaly. No abdominal bruits. Extremities: reveal no edema. No clubbing or cyanosis Neurologically awake, alert with well-coordinated movements. Mild parkinsonian tremors. No focal deficits noted Skin: Bilateral buttocks , ulcers X 1 On each buttock, dime size, dry without draingage. Please refer to nursing documentation/pictures. Psychiatric: Cooperative. Nonsuicidal Musculoskeletal: No joint swelling or deformity. Normal range of motion. - Labs CBC & Chem 7: 05/28/17 08:05 05/28/17 08:05 Labs: Abnormal Lab Results - Last 24 Hours (Table) 05/27/17 05/28/17 05/28/17 Range/Units 20:28 07:14 08:05 WBC 17.9 H (3.8-10.6) k/uL RBC 3.37 L (4.30-5.90) m/uL Hgb 10.0 L (13.0-17.5) gm/dL Hct 33.2 L (39.0-53.0) % MCHC 30.2 L (31.0-37.0) g/dL Neutrophils # 16.5 H (1.3-7.7) k/uL Carbon Dioxide (22-30) mmol/L BUN (9-20) mg/dL Creatinine (0.66-1.25) mg/dL Glucose (74-99) mg/dL POC Glucose (mg/dL) 180 H 168 H (75-99) mg/dL 05/28/17 05/28/17 05/28/17 Range/Units 08:05 12:22 17:11 WBC (3.8-10.6) k/uL RBC (4.30-5.90) m/uL Hgb (13.0-17.5) gm/dL Hct (39.0-53.0) % MCHC (31.0-37.0) g/dL Neutrophils # (1.3-7.7) k/uL Carbon Dioxide 21 L (22-30) mmol/L BUN 76 H (9-20) mg/dL Creatinine 1.92 H (0.66-1.25) mg/dL Glucose 176 H (74-99) mg/dL POC Glucose (mg/dL) 160 H 125 H (75-99) mg/dL Assessment and Plan Assessment: Acute extensive Right lower lobe pneumonia. Failed outpatient therapy Acute COPD with mild exacerbation Acute on CKD stage III, secondary to nephrosclerosis, baseline creatinine 1.7 Anemia of chronic disease Parkinson's disease and gait dysfunction Osteoarthritis Hypothyroidism BPH Dementia Chronic CHF possible diastolic dysfunction Stage 2 buttocks ulcers x 2, present on admission. refer to Nursing pictures Plan: Continue on current medication regime ,monitoring and symptomatic treatment. F/U Chest x-ray pending. Maintain nebulized rhonchal dilators, steroids, ceftin, Zithromax. PT OT. Close monitoring of renal function and electrolytes with repeat labs ordered for a.m. prognosis guarded given multiple complex medical issues. Discharge planning in progress for subacute rehab tomorrow pending pulmonary clearance. The impression and plan of care has been dictated as directed. : I performed a history and examination of this patient, discussed the same with the dictator. I agree with the dictator's note ,documented as a scribe. Any additional findings or plans will be noted.
[2017-05-28] MEDS: predniSONE 20 MG TAB PO SCH (19:57)
[2017-05-28 21:39] LABS: Glucose,Whole Blood 148 mg/dL (75-99)
[2017-05-29] MEDS: methylPREDNISolone SOD SUCCI 40 MG/ML 1 ML VIAL IV SCH (01:35)
[2017-05-29] MEDS: LEVOTHYROXINE 75 MCG TAB PO SCH (05:54)
[2017-05-29 07:26] LABS: Glucose,Whole Blood 127 mg/dL (75-99)
[2017-05-29] MEDS: INSULIN ASPART 100 UNIT/ML 1 ML 10 ML VIAL SQ SCH ×3 (07:28→17:37)
[2017-05-29 07:31] VITALS: RESP 18
[2017-05-29] MEDS: METHADONE 5 MG TAB PO SCH (08:21)
[2017-05-29] MEDS: GABAPENTIN 100 MG CAP PO SCH ×2 (08:22→15:45)
[2017-05-29] MEDS: FINASTERIDE 5 MG TAB PO SCH (08:22)
[2017-05-29] MEDS: ALLOPURINOL 100 MG TAB PO SCH (08:22)
[2017-05-29] MEDS: ZINC SULFATE 220 MG CAP PO SCH (08:22)
[2017-05-29] MEDS: CHOLECALCIFEROL 1,000 UNIT TAB PO SCH (08:22)
[2017-05-29] MEDS: CARBIDOPA-LEVODOPA 25-100 MG 1 EACH TAB PO SCH ×2 (08:22→15:45)
[2017-05-29] MEDS: hydrOXYzine PAMOATE 25 MG CAP PO SCH (08:22)
[2017-05-29] MEDS: TAMSULOSIN 0.4 MG CAP.ER.24H PO SCH (08:23)
[2017-05-29] MEDS: predniSONE 20 MG TAB PO SCH (08:23)
[2017-05-29] MEDS: FOLIC ACID 1 MG TAB PO SCH (08:23)
[2017-05-29] MEDS: LORATADINE 10 MG TAB PO SCH (08:23)
[2017-05-29] MEDS: THIAMINE 100 MG TAB PO SCH (08:23)
[2017-05-29] MEDS: ASPIRIN 81 MG PO SCH (08:23)
[2017-05-29] MEDS: CEFUROXIME 250 MG TAB PO SCH (08:23)
[2017-05-29] MEDS: MULTIVITAMINS, THERA 1 EACH TAB PO SCH (08:24)
--- NOTE | 2017-05-29 08:24 | XR ---
EXAMINATION TYPE: XR chest 2V DATE OF EXAM: 05/28/2017 COMPARISON: Prior chest x-ray 05/24/2017 HISTORY: Right lower lobe pneumonia TECHNIQUE: Frontal and lateral views of the chest are obtained on 3 images. FINDINGS: Patchy basilar density persists on the right. Heart is enlarged. No evident pneumothorax o r sizable effusion. Prominent lung volumes suggest underlying COPD. Old right-sided rib fractures are suspected posteriorly. Patient is rotated. IMPRESSION: Correlate for right lower lobe atelectasis versus pneumonia.
[2017-05-29 08:40] LABS: Basophils % (A) 0 %; Eosinophils % (A) 0 %; HGB 9.9 gm/dL (13.0-17.5); Hypochromasia Moderate; Lymphocytes % (A) 5 %; MCH 29.7 pg (25.0-35.0); MCV 99.2 fL (80.0-100.0); Macrocytosis Slight; Mean Platelet Volume 8.5; Monocytes # (A) 0.6 k/uL (0-1.0); Monocytes % (A) 3 %; Neutrophils # (A) 19.5 k/uL (1.3-7.7); Neutrophils % (A) 92 %; Platelet Count 219 k/uL (150-450); RBC 3.32 m/uL (4.30-5.90); WBC 21.1 k/uL (3.8-10.6)
[2017-05-29] MEDS: SYMBICORT 80-4.5 MCG INHALER INHALATION SCH (08:55)
[2017-05-29 09:08] LABS: Calcium 8.5 mg/dL (8.4-10.2); Magnesium 2.4 mg/dL (1.6-2.3); Potassium 4.4 mmol/L (3.5-5.1)
--- NOTE | 2017-05-29 10:52 | XR ---
EXAMINATION TYPE: XR chest 1V portable DATE OF EXAM: 05/29/2017 COMPARISON: Prior chest x-ray 05/28/2017 HISTORY: Pneumonia TECHNIQUE: Single frontal view of the chest is obtained. FINDINGS: Patient is rotated. Heart is enlarged. Basilar density in the right appears improved. No e vident pneumothorax. No pleural effusion. IMPRESSION: Cardiomegaly. Suspect improvement in aeration. Follow-up PA and lateral chest x-ray may be of benefit.
[2017-05-29 12:02] LABS: Glucose,Whole Blood 141 mg/dL (75-99)
--- NOTE | 2017-05-29 12:38 | P.PN ---
Subjective Patient is seen in follow-up for acute kidney injury and chronic kidney disease. Patient has chronic kidney disease stage III secondary to nephrosclerosis with baseline creatinine near 1.7. Creatinine was 2.3 on admission and is down to 1.79 today. He is currently resting in bed. Patient' s been treated for right lower lobe pneumonia. Denies chest pain. Denies shortness of breath. Admits to good urine output. Does have some loose bowel movements. No vomiting. Hemodynamically stable. Vital signs are stable. General: The patient appeared well nourished and normally developed. HEENT: Head exam is unremarkable. Neck is without jugular venous distension. LUNGS: Lungs are clear to auscultation and percussion. Breath sounds decreased. HEART: Rate and Rhythm are regular. First and second heart sounds normal. No murmurs, rubs or gallops. ABDOMEN: Abdominal exam reveals normal bowel sounds. Non-tender and non- distended. No evidence of peritonitis. EXTREMITITES: No clubbing, cyanosis, or edema. Objective - Vital Signs Vital signs: Vital Signs Temp 97.9 F 05/29/17 07:00 Pulse 51 L 05/29/17 07:00 Resp 18 05/29/17 07:00 BP 149/74 05/29/17 07:00 Pulse Ox 97 05/29/17 07:00 Intake & Output 05/28/17 05/29/17 05/29/17 18:59 06:59 18:59 Output Total 575 Balance -575 Output: Urine 575 Other: Voiding Method Urinal # Voids 1 1 # Bowel Movements 1 2 - Labs CBC & Chem 7: 05/29/17 07:57 05/29/17 07:57 Labs: Abnormal Lab Results - Last 24 Hours (Table) 05/28/17 05/28/17 05/28/17 Range/Units 12:22 17:11 21:36 WBC (3.8-10.6) k/uL RBC (4.30-5.90) m/uL Hgb (13.0-17.5) gm/dL Hct (39.0-53.0) % MCHC (31.0-37.0) g/dL Neutrophils # (1.3-7.7) k/uL Carbon Dioxide (22-30) mmol/L BUN (9-20) mg/dL Creatinine (0.66-1.25) mg/dL Glucose (74-99) mg/dL POC Glucose (mg/dL) 160 H 125 H 148 H (75-99) mg/dL Magnesium (1.6-2.3) mg/dL 05/29/17 05/29/17 05/29/17 Range/Units 07:23 07:57 07:57 WBC 21.1 H (3.8-10.6) k/uL RBC 3.32 L (4.30-5.90) m/uL Hgb 9.9 L (13.0-17.5) gm/dL Hct 33.0 L (39.0-53.0) % MCHC 30.0 L (31.0-37.0) g/dL Neutrophils # 19.5 H (1.3-7.7) k/uL Carbon Dioxide 21 L (22-30) mmol/L BUN 81 H* (9-20) mg/dL Creatinine 1.79 H (0.66-1.25) mg/dL Glucose 136 H (74-99) mg/dL POC Glucose (mg/dL) 127 H (75-99) mg/dL Magnesium 2.4 H (1.6-2.3) mg/dL 05/29/17 Range/Units 11:52 WBC (3.8-10.6) k/uL RBC (4.30-5.90) m/uL Hgb (13.0-17.5) gm/dL Hct (39.0-53.0) % MCHC (31.0-37.0) g/dL Neutrophils # (1.3-7.7) k/uL Carbon Dioxide (22-30) mmol/L BUN (9-20) mg/dL Creatinine (0.66-1.25) mg/dL Glucose (74-99) mg/dL POC Glucose (mg/dL) 141 H (75-99) mg/dL Magnesium (1.6-2.3) mg/dL Assessment and Plan Plan: Assessment: #1. Nonoliguric acute kidney injury mostly prerenal improving with IV hydration. Creatinine was 2.3 on admission and is down to 1.79 today. BUN disproportionately elevated partially due to steroids. #2. Chronic kidney disease stage III secondary to nephrosclerosis with baseline creatinine near 1.7. #3. Right lower lobe pneumonia maintained on antibiotics. #4. 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 #5. Hypertension with chronic kidney disease. #6. Mild metabolic acidosis secondary to chronic kidney disease. Plan: Remains off all IV fluids. Encouraged oral intake. Avoid nephrotoxic agents and hypotensive episodes. Repeat electrolytes in the morning.
[2017-05-29 15:49] VITALS: BP 144/73; PULSE 68; TEMP 95.6
--- NOTE | 2017-05-29 16:07 | P.DS ---
Providers Date of admission: 05/24/17 16:41 Expected date of discharge: 05/29/17 Attending physician: Karla Martínez Consults: 05/24/17 16:48 Consult Physician Stat Consulting Provider: Kurt Brown Consult Reason/Comments: COPD Do you want consulting provider notified?: Yes Consult Physician Stat Consulting Provider: Jesus Fierro Consult Reason/Comments: Chronic renal failure Do you want consulting provider notified?: Yes Primary care physician: Peyton Das Hospital Course: Final Diagnoses: Acute extensive Right lower lobe pneumonia. Failed outpatient therapy Acute COPD with mild exacerbation Acute on CKD stage III, secondary to nephrosclerosis, baseline creatinine 1.7 Anemia of chronic disease Parkinson's disease and gait dysfunction Osteoarthritis Hypothyroidism BPH Dementia Chronic CHF possible diastolic dysfunction Stage 2 buttocks ulcers x 2, present on admission. refer to Nursing pictures Hospital course:Interval history:Patient is a 86-year-old male with a known history of Parkinson's disease, dementia asthma/COPD, osteoarthritis CKD stage IV and other multiple medical problems presented to ER with complaints of tiredness weak, near syncope. Patient recently completed antibiotic course 2 days prior to admission for tracheobronchitis/pneumonia. Patient became very tired and weak, short-winded with near syncope. Patient's family brought to the hospital. Patient was also complaining of mild chest pain at home. no abdominal pain no frequency urgency dysuria no symptoms of any TIA or CVA.Chest x-ray showed correlate for right middle lobe pneumonia.WBC 8.6,BUN/creatinine 60 / 2.33,,BNP 1520,Influenza PCR negative. Evaluated by pulmonary and nephrology. Maintained on nebulized bronchodilators, IV antibiotics, gentle IV fluid hydration. Significant clinical improvement. Patient has been cleared by all consults for discharge. Patient is being discharged to [facility] subacute rehab in stable condition with guarded prognosis. Physical EXAM: VSS, sitting up in bed, no acute distress, cardiac, regular S1 and S2, lungs, bilateral bases diminished with scattered rhonchi, diffuse expiratory wheezing. Abdomem: Soft nontender positive bowel sounds. Neuro: No focal deficits. The impression and plan of care has been dictated as directed. : I performed a history and examination of this patient, discussed the same with the dictator. I agree with the dictator's note ,documented as a scribe. Any additional findings or plans will be noted. Time taken: 35 minutes Patient Condition at Discharge: Stable Plan - Discharge Summary Discharge Rx Participant: Yes New Discharge Prescriptions: New Azithromycin [Zithromax] 500 mg PO Q24HR@1800 #3 tab Cefuroxime [Ceftin] 500 mg PO DAILY #10 tab Continue Tamsulosin HCl [Flomax] 0.4 mg PO DAILY Fluticasone/Salmeterol [Advair 250-50 Diskus] 1 puff INHALATION RT-BID Levothyroxine Sodium [Synthroid] 75 mcg PO DAILY Nitroglycerin Sl Tabs [Nitrostat] 0.4 mg SUBLINGUAL Q5M PRN PRN Reason: Pain Thiamine [Vitamin B-1] 100 mg PO DAILY@1400 Multivitamins, Thera [Multivitamin (formulary)] 1 tab PO DAILY@1400 Folic Acid 1 mg PO DAILY@1400 Carbidopa-Levodopa 25-100 mg [Sinemet 25-100 mg] 1 tab PO TID Methadone [Dolophine] 5 mg PO BID@0800,2000 Levocetirizine Dihydrochloride [Xyzal] 5 mg PO DAILY Dutasteride [Avodart] 0.5 mg PO DAILY Calcitriol 0.5 mcg PO MOWEFR Allopurinol [Zyloprim] 100 mg PO DAILY Gabapentin [Neurontin] 100 mg PO TID Aspirin 81 mg PO DAILY #30 chewable Cholecalciferol (Vitamin D3) [Vitamin D3] 2,000 unit PO DAILY@1400 Albuterol Inhaler [Ventolin Hfa Inhaler] 2 puff INHALATION RT-BID Furosemide [Lasix] 40 mg PO DAILY hydrOXYzine PAMOATE 25 mg PO DAILY Loratadine [Claritin] 10 mg PO DAILY Sodium Polystyrene Sulfon/Sorb [Kionex 15 gm/60 ml Suspension] 15 gm PO MOTH Zinc 50 mg PO DAILY Albuterol Nebulized [Ventolin Nebulized] 2.5 mg INHALATION RT-QID PRN PRN Reason: Shortness Of Breath predniSONE See Taper PO DAILY Discontinued Amoxic-Pot Clav 875-125Mg [Augmentin 875-125] 1 tab PO Q12HR Discharge Medication List Fluticasone/Salmeterol [Advair 250-50 Diskus] 1 puff INHALATION RT-BID 09/04/15 [History] Tamsulosin HCl [Flomax] 0.4 mg PO DAILY 09/04/15 [History] Levothyroxine Sodium [Synthroid] 75 mcg PO DAILY 09/07/15 [History] Carbidopa-Levodopa 25-100 mg [Sinemet 25-100 mg] 1 tab PO TID 09/21/15 [History] Folic Acid 1 mg PO DAILY@1400 09/21/15 [History] Multivitamins, Thera [Multivitamin (formulary)] 1 tab PO DAILY@1400 09/21/15 [ History] Nitroglycerin Sl Tabs [Nitrostat] 0.4 mg SUBLINGUAL Q5M PRN 09/21/15 [History] Thiamine [Vitamin B-1] 100 mg PO DAILY@1400 09/21/15 [History] Allopurinol [Zyloprim] 100 mg PO DAILY 02/10/17 [History] Calcitriol 0.5 mcg PO MOWEFR 02/10/17 [History] Dutasteride [Avodart] 0.5 mg PO DAILY 02/10/17 [History] Gabapentin [Neurontin] 100 mg PO TID 02/10/17 [History] Levocetirizine Dihydrochloride [Xyzal] 5 mg PO DAILY 02/10/17 [History] Methadone [Dolophine] 5 mg PO BID@0800,199902/10/17 [History] Aspirin 81 mg PO DAILY #30 chewable 02/13/17 [Rx] Albuterol Inhaler [Ventolin Hfa Inhaler] 2 puff INHALATION RT-BID 05/24/17 [ History] Albuterol Nebulized [Ventolin Nebulized] 2.5 mg INHALATION RT-QID PRN 05/24/17 [ History] Cholecalciferol (Vitamin D3) [Vitamin D3] 2,000 unit PO DAILY@1400 05/24/17 [ History] Furosemide [Lasix] 40 mg PO DAILY 05/24/17 [History] Loratadine [Claritin] 10 mg PO DAILY 05/24/17 [History] Sodium Polystyrene Sulfon/Sorb [Kionex 15 gm/60 ml Suspension] 15 gm PO MOTH [History] Zinc 50 mg PO DAILY 05/24/17 [History] hydrOXYzine PAMOATE 25 mg PO DAILY 05/24/17 [History] predniSONE See Taper PO DAILY 05/24/17 [History] Azithromycin [Zithromax] 500 mg PO Q24HR@1800 #3 tab 05/29/17 [Rx] Cefuroxime [Ceftin] 500 mg PO DAILY #10 tab 05/29/17 [Rx] Follow up Appointment(s)/Referral(s): [facility], [NON-STAFF] - (Once out of [facility].) Raghav Garcia MD [STAFF PHYSICIAN] - 1 Week (While in [facility].) Peyton Das DO [Primary Care Provider] - 1 Week (Once out of [facility].) [facility], [[facility]FF[facility] - 1 Week Patient Instructions/Handouts: Heart Failure (DC), Pneumonia (DC) Activity/Diet/Wound Care/Special Instructions: Regular diet. Activity as tolerated. Fall precautions, change position every 2 hours while awake. CBC,BMP In 3 days
[2017-05-29 17:04] LABS: Glucose,Whole Blood 149 mg/dL (75-99)
[2017-05-29] MEDS: AZITHROMYCIN 500 MG TAB PO SCH (17:37)
[2017-05-30] MEDS ORDERED: predniSONE 20 MG TAB PO SCH (09:00)
== END 2017-05-29 18:06 | DRG 194 ==
LOC: EC 15:02 → 4MS4W 16:41
PROVIDERS: ADMIT Hospitalist; ATTEND Hospitalist
DX: J18.9 Pneumonia, unspecified organism (principal); E87.2 Acidosis; L89.312 Pressure ulcer of right buttock, stage 2; I13.0 Hypertensive heart and chronic kidney disease with heart failure and stage 1 through stage 4 chronic kidney disease, or unspecified chronic kidney disease; N17.9 Acute kidney failure, unspecified; L89.322 Pressure ulcer of left buttock, stage 2; N18.4 Chronic kidney disease, stage 4 (severe); G20 Parkinson's disease; I50.32 Chronic diastolic (congestive) heart failure; J44.0 Chronic obstructive pulmonary disease with (acute) lower respiratory infection; J44.1 Chronic obstructive pulmonary disease with (acute) exacerbation; D63.8 Anemia in other chronic diseases classified elsewhere; F03.90 Unspecified dementia, unspecified severity, without behavioral disturbance, psychotic disturbance, mood disturbance, and anxiety; E03.9 Hypothyroidism, unspecified; M19.90 Unspecified osteoarthritis, unspecified site; M85.80 Other specified disorders of bone density and structure, unspecified site; N40.0 Benign prostatic hyperplasia without lower urinary tract symptoms; T38.0X5A Adverse effect of glucocorticoids and synthetic analogues, initial encounter; Z79.4 Long term (current) use of insulin; Z79.51 Long term (current) use of inhaled steroids; Z79.52 Long term (current) use of systemic steroids; Z79.82 Long term (current) use of aspirin; Z79.899 Other long term (current) drug therapy; Z82.49 Family history of ischemic heart disease and other diseases of the circulatory system; Z83.3 Family history of diabetes mellitus; Z87.891 Personal history of nicotine dependence; Z90.81 Acquired absence of spleen; Z91.81 History of falling; Z96.642 Presence of left artificial hip joint
CPT/HCPCS: 36415; 71045; 71046; 80048; 80053; 81003; 82550; 82553; 83735; 83880; 84484; 85025; 85610; 85730; 87502; 93005; 94640; 94760; 96365; 96366; 96372; 96375; 99214; 99285

== ENCOUNTER 2017-06-11 16:45 | Inpatient (IN) | payer MEDICARE, BC ==
--- NOTE | 2017-06-11 16:58 | ED ---
General Adult HPI - General Chief complaint: Recheck/Abnormal Lab/Rx Stated complaint: pneumonia Time Seen by Provider: 06/11/17 16:46 Source: patient, family, EMS, RN notes reviewed, old records reviewed - History of Present Illness Initial comments: 86-year-old male presenting for evaluation of hyperkalemia. According EMS patient has an up trending potassium, was 6.2, given 2 doses of Kayexalate, repeat potassium is 6.8. Patient's only complaint is mild dyspnea. According to EMS he was treated for pneumonia. Patient denies any lower extremity swelling. Denies any vomiting or diarrhea. Denies fever or chills. Patient states he has been eating and drinking normally. - Related Data Home Medications Medication Instructions Recorded Confirmed Fluticasone/Salmeterol [Advair 1 puff INHALATION RT-BID@0800,1700 09/04/1506/11 250-50 Diskus] Tamsulosin HCl [Flomax] 0.4 mg PO DAILY@0800 09/04/15 06/11/17 Levothyroxine Sodium [Synthroid] 75 mcg PO DAILY@0609/07/15 06/11/17 Carbidopa-Levodopa 25-100 mg 1 tab PO TID@0800,1200,1700 09/21/15 06/11/17 [Sinemet 25-100 mg] Folic Acid 1 mg PO DAILY@169909/21/15 06/11/17 Multivitamins, Thera [Multivitamin 1 tab PO DAILY@169909/21/15 06/11/17 (formulary)] Nitroglycerin Sl Tabs [Nitrostat] 0.4 mg SUBLINGUAL Q5M PRN 09/21/15 06/11/17 Thiamine [Vitamin B-1] 100 mg PO DAILY@169909/21/15 06/11/17 Allopurinol [Zyloprim] 100 mg PO DAILY@0800 02/10/17 06/11/17 Calcitriol 0.5 mcg PO MOWEFR@17002/10/17 06/11/17 Dutasteride [Avodart] 0.5 mg PO DAILY@0800 02/10/17 06/11/17 Gabapentin [Neurontin] 100 mg PO TID@0800,1400,2100 02/10/17 06/11/17 Levocetirizine Dihydrochloride 5 mg PO DAILY@0800 02/10/17 06/11/17 [Xyzal] Methadone [Dolophine] 5 mg PO BID@0800,2100 02/10/17 06/11/17 Cholecalciferol (Vitamin D3) 2,000 unit PO DAILY@1700 05/24/17 06/11/17 [Vitamin D3] Sodium Polystyrene Sulfon/Sorb 15 gm PO MOTH@0800 05/24/17 06/11/17 [Kionex 15 gm/60 ml Suspension] Zinc 50 mg PO DAILY@1700 05/24/17 06/11/17 hydrOXYzine PAMOATE 25 mg PO DAILY@0800 05/24/17 06/11/17 Albuterol Nebulized [Ventolin 2.5 mg INHALATION RT-Q4H PRN 06/11/17 06/11/17 Nebulized] Aspirin 81 mg PO DAILY@1700 06/11/17 06/11/17 Bisacodyl [Dulcolax] 10 mg RECTAL DAILY PRN 06/11/17 06/11/17 Ensure Clear 1 can PO BID@0800,1700 06/11/17 06/11/17 Magnesium Hydroxide [Milk of 2,400 mg PO DAILY PRN 06/11/17 06/11/17 Magnesia] Na Phos,M-B/Na Phos,Di-Ba [Fleet 133 ml RECTAL DAILY PRN 06/11/17 06/11/17 Adult] Sodium Polystyrene Sulfonate 15 gm PO DIRECTED 06/11/17 06/11/17 [Kayexalate] predniSONE 10 mg PO DAILY 06/11/17 06/11/17 Allergies Allergy/AdvReac Type Severity Reaction Status Date / Time fentanyl Allergy Rash/Hives Verified 06/11/17 17:19 Review of Systems ROS Statement: Those systems with pertinent positive or pertinent negative responses have been documented in the HPI. ROS Other: All systems not noted in ROS Statement are negative. Past Medical History Past Medical History: Asthma, Heart Failure, Dementia, Musculoskeletal Disorder , Neurologic Disorder, Osteoarthritis (OA), Renal Disease, Thyroid Disorder Additional Past Medical History / Comment(s): Parkinsons disease, compression fracture of the L4 spine, gait dysfunction, bilateral hip and leg pain since a fall in August 2015, chronic renal failure stage IV, hyperkalemia, anemia, DJD, osteopenia, hypothyroidism, BPH, occasional confusion, History of Any Multi-Drug Resistant Organisms: None Reported Past Surgical History: Appendectomy, Joint Replacement Additional Past Surgical History / Comment(s): Total L hip replacement, splenectomy Past Anesthesia/Blood Transfusion Reactions: No Reported Reaction Past Psychological History: No Psychological Hx Reported Additional Psychological History / Comment(s): Pt moved from [place] to [place] to be with family. He was admitted to [facility] 09/04/15 and discharged to [facility]. He is on a low NA 1200ml fluid restricted diet. He needs assist with all ADLs. He is assisted up into a wheelchair, otherwise he is in bed. Patient lives with son and [id number] that take care of him. Smoking Status: Former smoker Past Alcohol Use History: None Reported Additional Past Alcohol Use History / Comment(s): Pt states he started smoking at age 13 (1944) and quit 50 yrs ago(1965). Past Drug Use History: None Reported Additional Drug Use History / Comment(s): xsmoker over 50 yrs ago - Past Family History Sister(s) Family Medical History: Myocardial Infarction ([place]) Brother(s) Family Medical History: Diabetes Mellitus Mother Family Medical History: No Reported History Additional Family Medical History / Comment(s): Mother lived to be 80 yrs old. Father History Unknown: Yes Additional Family Medical History / Comment(s): Father lived to be 75yrs old. General Exam General appearance: alert, in no apparent distress Head exam: Present: atraumatic, normocephalic Eye exam: Present: normal appearance, PERRL ENT exam: Present: mucous membranes moist Neck exam: Present: normal inspection. Absent: tenderness, meningismus Respiratory exam: Present: rhonchi. Absent: respiratory distress Cardiovascular Exam: Present: regular rate, normal rhythm GI/Abdominal exam: Present: soft. Absent: distended, tenderness Extremities exam: Present: normal inspection, normal capillary refill. Absent: pedal edema Neurological exam: Present: alert, oriented X3, CN II-XII intact. Absent: motor sensory deficit Psychiatric exam: Present: normal affect, normal mood Skin exam: Present: warm, dry, intact. Absent: cyanosis, diaphoretic Course Vital Signs 06/11/17 06/11/17 06/11/17 16:50 17:11 18:39 Temperature 98.3 F Pulse Rate 72 70 58 L Respiratory 18 18 18 Rate Blood Pressure 164/70 138/63 160/71 O2 Sat by Pulse 98 99 98 Oximetry EKG Findings - EKG Comments: EKG Findings:: EKG shows normal sinus rhythm, ventricular rate 67, TX interval 164, QRS duration 88, QTC 435, no ischemic changes, patient does have hyperacute T waves in V2, no other signs of hyperkalemia Medical Decision Making - Medical Decision Making 86 old male presenting with outpatient lab abnormalities. Patient comes from the longterm, potassium was found to be 6.8, this was rechecked in the emergency department, 6.2. Patient has EKG showing normal sinus rhythm, normal intervals, there is possibility of hyperacute T wave in V2 and 3, no other signs of hyperkalemia. Patient has history of chronic kidney disease, creatinine 1.5 this appears to be baseline. Other electrolytes within normal limits. Hemoglobin stable 9.6 from 9.5. Chest x-ray negative for any pulmonary edema or focal pneumonia. Patient given normal saline, Dhillon catheter inserted with clear urine approximately 200 mL of output. No urinary retention. He is given calcium gluconate, albuterol and he received 2 doses of Kayexalate prior to arrival. - Lab Data Result diagrams: 06/11/17 17:10 06/11/17 17:10 Lab Results 06/11/17 06/11/17 06/11/17 Range/Units 17:10 17:10 17:10 WBC 13.3 H (3.8-10.6) k/uL RBC 3.16 L (4.30-5.90) m/uL Hgb 9.6 L (13.0-17.5) gm/dL Hct 30.5 L (39.0-53.0) % MCV 96.5 D (80.0-100.0) fL MCH 30.5 (25.0-35.0) pg MCHC 31.6 (31.0-37.0) g/dL RDW 16.0 H (11.5-15.5) % Plt Count 208 (150-450) k/uL Neutrophils % 91 % Lymphocytes % 5 % Monocytes % 3 % Eosinophils % 0 % Basophils % 0 % Neutrophils # 12.1 H (1.3-7.7) k/uL Lymphocytes # 0.6 L (1.0-4.8) k/uL Monocytes # 0.4 (0-1.0) k/uL Eosinophils # 0.1 (0-0.7) k/uL Basophils # 0.0 (0-0.2) k/uL PT (9.0-12.0) sec INR (<1.2) APTT (22.0-30.0) sec Sodium 136 L (137-145) mmol/L Potassium 6.2 H* (3.5-5.1) mmol/L Chloride 108 H (98-107) mmol/L Carbon Dioxide 21 L (22-30) mmol/L Anion Gap 7 mmol/L BUN 57 H (9-20) mg/dL Creatinine 1.50 H (0.66-1.25) mg/dL Est GFR (MDRD) Af Amer 54 (>60 ml/min/1.73 sqM) Est GFR (MDRD) Non-Af 44 (>60 ml/min/1.73 sqM) Glucose 132 H (74-99) mg/dL Calcium 7.9 L (8.4-10.2) mg/dL Magnesium 2.3 (1.6-2.3) mg/dL Total Bilirubin 0.3 (0.2-1.3) mg/dL AST 11 L (17-59) U/L ALT 12 L (21-72) U/L Alkaline Phosphatase 50 (38-126) U/L Total Creatine Kinase <20 L (55-170) U/L CK-MB (CK-2) 1.3 (0.0-2.4) ng/mL CK-MB (CK-2) Rel Index Troponin I <0.012 (0.000-0.034) ng/mL NT-Pro-B Natriuret Pep pg/mL Total Protein 4.9 L (6.3-8.2) g/dL Albumin 2.5 L (3.5-5.0) g/dL 06/11/17 06/11/17 Range/Units 17:10 17:10 WBC (3.8-10.6) k/uL RBC (4.30-5.90) m/uL Hgb (13.0-17.5) gm/dL Hct (39.0-53.0) % MCV (80.0-100.0) fL MCH (25.0-35.0) pg MCHC (31.0-37.0) g/dL RDW (11.5-15.5) % Plt Count (150-450) k/uL Neutrophils % % Lymphocytes % % Monocytes % % Eosinophils % % Basophils % % Neutrophils # (1.3-7.7) k/uL Lymphocytes # (1.0-4.8) k/uL Monocytes # (0-1.0) k/uL Eosinophils # (0-0.7) k/uL Basophils # (0-0.2) k/uL PT 10.6 (9.0-12.0) sec INR 1.1 (<1.2) APTT 23.7 (22.0-30.0) sec Sodium (137-145) mmol/L Potassium (3.5-5.1) mmol/L Chloride (98-107) mmol/L Carbon Dioxide (22-30) mmol/L Anion Gap mmol/L BUN (9-20) mg/dL Creatinine (0.66-1.25) mg/dL Est GFR (MDRD) Af Amer (>60 ml/min/1.73 sqM) Est GFR (MDRD) Non-Af (>60 ml/min/1.73 sqM) Glucose (74-99) mg/dL Calcium (8.4-10.2) mg/dL Magnesium (1.6-2.3) mg/dL Total Bilirubin (0.2-1.3) mg/dL AST (17-59) U/L ALT (21-72) U/L Alkaline Phosphatase (38-126) U/L Total Creatine Kinase (55-170) U/L CK-MB (CK-2) (0.0-2.4) ng/mL CK-MB (CK-2) Rel Index Troponin I (0.000-0.034) ng/mL NT-Pro-B Natriuret Pep 1120 pg/mL Total Protein (6.3-8.2) g/dL Albumin (3.5-5.0) g/dL Critical Care Time Critical Care Time: Yes Total Critical Care Time: 35 Disposition Clinical Impression: Hyperkalemia Disposition: ADMITTED IP TO THIS HOSP Condition: Stable Referrals: Peyton Das DO [Primary Care Provider] - 1-2 days Decision to Admit Reason: Admit from EC Decision Date: 06/11/17 Decision Time: 18:54
[2017-06-11 17:21] LABS: Basophils % (A) 0 %; Eosinophils # (A) 0.1 k/uL (0-0.7); Eosinophils % (A) 0 %; HCT 30.5 % (39.0-53.0); HGB 9.6 gm/dL (13.0-17.5); Lymphocytes # (A) 0.6 k/uL (1.0-4.8); Lymphocytes % (A) 5 %; MCH 30.5 pg (25.0-35.0); MCHC 31.6 g/dL (31.0-37.0); Mean Platelet Volume 7.6; Monocytes # (A) 0.4 k/uL (0-1.0); Monocytes % (A) 3 %; Neutrophils # (A) 12.1 k/uL (1.3-7.7); Neutrophils % (A) 91 %; Platelet Count 208 k/uL (150-450); RBC 3.16 m/uL (4.30-5.90); WBC 13.3 k/uL (3.8-10.6)
--- NOTE | 2017-06-11 17:28 | XR ---
EXAMINATION TYPE: XR chest 2V DATE OF EXAM: 06/11/2017 COMPARISON: 05/29/2017, 02/10/2017 INDICATION: Difficulty breathing cough elevated potassium TECHNIQUE: Frontal and lateral views of the chest are obtained. FINDINGS: The heart size is normal. Mediastinum has some fullness of the right superior mediastinum region, wh ich remains stable. The pulmonary vasculature is normal. The lungs are clear. IMPRESSION: 1. No acute pulmonary process.
[2017-06-11 17:30] LABS: Albumin 2.5 g/dL (3.5-5.0); Calcium 7.9 mg/dL (8.4-10.2); Total Bilirubin 0.3 mg/dL (0.2-1.3); Total Protein 4.9 g/dL (6.3-8.2)
[2017-06-11 17:33] LABS: INR 1.1 (<1.2); Partial Thromboplastin Time 23.7 sec (22.0-30.0); Potassium 6.2 mmol/L (3.5-5.1); Prothrombin Time 10.6 sec (9.0-12.0)
[2017-06-11] MEDS ORDERED: LIDOCAINE URO-JET JELLY 2% 5 ML KIT URETHRAL ONE (17:36)
[2017-06-11 17:38] LABS: MCV 96.5 fL (80.0-100.0)
[2017-06-11 17:45] LABS: Creatine Kinase <20 U/L (55-170)
[2017-06-11 17:57] LABS: Creatine Kinase MB 1.3 ng/mL (0.0-2.4); Troponin I <0.012 ng/mL (0.000-0.034)
[2017-06-11] MEDS ORDERED: CALCIUM GLUCONATE 1,000 MG in SODIUM CHLORIDE 0.9% 100 ML IVPB ONE (18:44)
[2017-06-11] MEDS ORDERED: SODIUM POLYSTYRENE SULFONATE 15 GM/60 ML BOTTLE PO ONE (18:44)
[2017-06-11] MEDS ORDERED: ALBUTEROL NEB (CONC) 2.5 MG/0.5 ML INHALATION ONE (18:44)
[2017-06-11] MEDS ORDERED: SODIUM CHLORIDE 0.9% 1,000 ML IV SCH (18:45)
[2017-06-11] MEDS ORDERED: IPRATROPIUM-ALBUTEROL 3 ML NEB INHALATION STA (18:46)
[2017-06-11] MEDS ORDERED: NALOXONE 0.4 MG/ML 1 ML VIAL IV PRN (18:47)
[2017-06-11] MEDS ORDERED: MAGNESIUM HYDROXIDE 2,400 MG/10 ML CUP PO PRN (21:06)
[2017-06-11] MEDS ORDERED: BISACODYL 10 MG SUPP RECTAL PRN (21:06)
[2017-06-11] MEDS ORDERED: NA PHOS,M-B/NA PHOS,DI-BA 133 ML ENEMA RECTAL PRN (21:06)
[2017-06-11] MEDS ORDERED: NITROGLYCERIN SL TABS 0.4 MG TAB SUBLINGUAL PRN (21:06)
[2017-06-11 23:53] LABS: Potassium 5.9 mmol/L (3.5-5.1)
[2017-06-12] MEDS ORDERED: ACETAMINOPHEN TAB 325 MG TAB PO PRN (00:08)
[2017-06-12] MEDS ORDERED: SODIUM POLYSTYRENE SULFONATE 15 GM/60 ML BOTTLE PO ONE (00:12)
--- NOTE | 2017-06-12 02:17 | HP ---
HISTORY AND PHYSICAL DATE OF SERVICE: 06/11/2017 CHIEF COMPLAINTS: Hyperkalemia. HISTORY OF PRESENT ILLNESS: This 86-year-old gentleman with a past medical history of multiple medical problems including COPD, history of DJD, history of chronic renal disease, history of Parkinson's, history of hypothyroidism, being followed by Dr. Das in the outpatient setting was recently treated with pneumonia. Subsequently patient had hypokalemia, potassium 6.5. Patient came to [facility] for further evaluation. Patient complains of weakness. Patient also complains of shortness of breath. There is no history of fever, rigors or chills. No history of headache , loss of consciousness, seizures. PAST MEDICAL HISTORY: History of recent pneumonia, history of asthma, CHF, dementia, DJD, history of renal disease, history of Parkinson's. MEDICATIONS: Prior to admission home medications are: 1. Kayexalate 50 mg p.r.n. 2. Zyloprim 100 mg b.i.d. 3. Prednisone 10 mg daily. 4. Hydroxyzine 25 mg b.i.d. 5. Zinc 50 mg daily. 6. Vitamin B1 100 mg. 7. Flomax 0.4 daily. 9. Nitrostat 0.4 mg sublingual. 10.Fleet enema daily p.r.n. 11.Multivitamins 1 p.o. daily. 14.Synthroid 75 mcg. 16.Neurontin 100 mg p.o. t.i.d. 17.Folic acid 1 mg. 18.Advair 250/50 1 puff daily. 19.Ensure clear 1 can p.o. t.i.d. 21.Vitamin D3 2000 daily. 22.Sinemet 20/100 1 p.o. t.i.d. 23.Calcitriol 0.5 mcg p.o. Sunday, Sunday, Sunday. 24.Dulcolax 10 mg daily p.r.n. 25.Aspirin 81 mg daily. 26.Ventolin 2.5 q.4h p.r.n. ALLERGIES: PENICILLIN. FAMILY HISTORY: History of myocardial infarction in the family. SOCIAL HISTORY: Previous history of smoking. No history of alcohol intake. REVIEW OF SYSTEMS: ENT: No diminished hearing or vision. CARDIOVASCULAR: No angina or palpitations. Respiratory: As mentioned earlier. GI no nausea or vomiting. No dysuria. NERVOUS SYSTEM: As mentioned. Allergy/Immunology: No asthma or hayfever. Musculoskeletal as mentioned. Hematology/Oncology: No history of anemia. Endocrine: As mentioned earlier. Constitutional: As mentioned earlier. Rheumatology: Negative. Dermatology: Negative. Psychiatric; as mentioned earlier. PHYSICAL EXAMINATION: Alert and oriented x2. Pulse 69, blood pressure 130/64, respiration 18, temperature 97 degrees, pulse ox 98% on room air. HEENT: Conjunctivae normal. Oral mucosa moist. Neck is no jugular venous distention. No carotid bruit. No lymph node enlargement. Cardiovascular: S1-S2. No S3, no S4. Respiratory: Breath sounds diminished in the bases. A few scattered rhonchi. No crackles. ABDOMEN: Soft, nontender. No mass palpable. Legs: No edema. No swelling. NERVOUS SYSTEM: Higher functions as mentioned earlier. Moves all four extremities. No focal motor or sensory deficits. Lymphatics: No lymph nodes palpable in the neck , axillae or groin. SKIN: No ulcer, rash or bleeding. LAB STUDIES: Hemoglobin 10.6, sodium 130, potassium 3.2, creatinine 1.50. Other labs noted. ASSESSMENT: 1. Acute hyperkalemia, possibly secondary to renal disease. 2. History of chronic kidney disease stage 3. 3. Hyponatremia. 4. Increased WBC. 5. Anemia. 6. Chronic obstructive pulmonary disease. 7. History of recent pneumonia. 8. History of asthma. 9. Dementia. 10.Degenerative joint disease. 11.History of Parkinson disease. 12.History of compression fracture of the L4. 13.Gait dysfunction. 14.History of osteopenia. 15.History of degenerative joint disease. RECOMMENDATIONS AND DISCUSSION: In this 86-year-old gentleman who presented with multiple complex medical issues , we will monitor the patient closely, continue the current medications, symptomatic treatment. Continue the bronchodilators. Otherwise I would also recommend Kayexalate. Repeat potassium is 5.9. Otherwise I would also recommend dietary evaluation for potassium restriction. The patient seems to be not very compliant with hypokalemic diet at this time. Otherwise, guarded prognosis because of multiple complex medical issues and further recommendations to follow. A copy of dictation being forwarded to Dr. Bautista who is the primary care physician CHRIS / EZRAN: [id number] / [facility]
[2017-06-12 05:58] LABS: Basophils % (A) 0 %; Eosinophils # (A) 0.1 k/uL (0-0.7); Eosinophils % (A) 1 %; HCT 28.7 % (39.0-53.0); HGB 9.1 gm/dL (13.0-17.5); Lymphocytes # (A) 1.4 k/uL (1.0-4.8); Lymphocytes % (A) 16 %; MCH 30.2 pg (25.0-35.0); MCHC 31.6 g/dL (31.0-37.0); MCV 95.4 fL (80.0-100.0); Mean Platelet Volume 7.6; Monocytes # (A) 0.6 k/uL (0-1.0); Monocytes % (A) 7 %; Neutrophils # (A) 6.4 k/uL (1.3-7.7); Neutrophils % (A) 75 %; Platelet Count 202 k/uL (150-450); RBC 3.01 m/uL (4.30-5.90); RDW 15.7 % (11.5-15.5); WBC 8.5 k/uL (3.8-10.6)
[2017-06-12 06:20] LABS: Albumin 2.2 g/dL (3.5-5.0); Calcium 7.7 mg/dL (8.4-10.2); Phosphorus 3.4 mg/dL (2.5-4.5); Potassium 5.7 mmol/L (3.5-5.1); Total Bilirubin 0.4 mg/dL (0.2-1.3); Total Protein 4.5 g/dL (6.3-8.2)
[2017-06-12] MEDS: LEVOTHYROXINE 75 MCG TAB PO SCH (06:23)
[2017-06-12] MEDS: IPRATROPIUM-ALBUTEROL 3 ML NEB INHALATION PRN (07:40)
[2017-06-12] MEDS: SYMBICORT 80-4.5 MCG INHALER INHALATION SCH ×2 (07:41→20:02)
[2017-06-12] MEDS ORDERED: NON-FORMULARY DRUG (Ensure Clear 1 CAN) PO SCH (08:00)
[2017-06-12] MEDS: LORATADINE 10 MG TAB PO SCH (09:13)
[2017-06-12] MEDS: TAMSULOSIN 0.4 MG CAP.ER.24H PO SCH (09:13)
[2017-06-12] MEDS: predniSONE 10 MG TAB PO SCH (09:13)
[2017-06-12] MEDS: FINASTERIDE 5 MG TAB PO SCH (09:13)
[2017-06-12] MEDS: GABAPENTIN 100 MG CAP PO SCH ×3 (09:13→22:34)
[2017-06-12] MEDS: CARBIDOPA-LEVODOPA 25-100 MG 1 EACH TAB PO SCH ×3 (09:13→17:06)
[2017-06-12] MEDS: ALLOPURINOL 100 MG TAB PO SCH (09:13)
[2017-06-12] MEDS: SODIUM POLYSTYRENE SULFONATE 15 GM/60 ML BOTTLE PO SCH ×3 (09:14→17:07)
[2017-06-12] MEDS: hydrOXYzine PAMOATE 25 MG CAP PO SCH (09:49)
[2017-06-12] MEDS: METHADONE 5 MG TAB PO SCH ×2 (09:50→22:34)
[2017-06-12 13:35] VITALS: BMI 27.0
[2017-06-12] MEDS ORDERED: DARBEPOETIN ALFA 40 MCG/0.4 ML SYRINGE SQ SCH (16:30)
[2017-06-12] MEDS ORDERED: FOLIC ACID 1 MG TAB PO SCH (17:00)
[2017-06-12] MEDS ORDERED: MULTIVITAMINS, THERA 1 EACH TAB PO SCH (17:00)
[2017-06-12] MEDS ORDERED: THIAMINE 100 MG TAB PO SCH (17:00)
[2017-06-12] MEDS ORDERED: ZINC SULFATE 220 MG CAP PO SCH (17:00)
[2017-06-12] MEDS ORDERED: ASPIRIN 81 MG PO SCH (17:00)
[2017-06-12] MEDS ORDERED: CHOLECALCIFEROL 1,000 UNIT TAB PO SCH (17:00)
--- NOTE | 2017-06-12 18:16 | P.PN ---
Subjective Progress Note Date: 06/12/17 Progress note being dictated for Dr. Cleaning. Interval history: This is an 78-year-old gentleman admitted with acute hyperkalemia, chronic kidney disease, hyponatremia and multiple other medical issues. Received Kayexalate, placed on potassium dietary restrictions, potassium down to 5.7. Telemetry sinus bradycardia, heart rates in the 50s. Renal function improving. Nephrology consult in place with recommendations pending. Denies chest pain, palpitations or increasing shortness of breath. Afebrile, leukocytosis resolved. Sodium 138. Loose congested cough, nonproductive. Objective - Vital Signs Vital signs: Vital Signs Temp 97.4 F L 06/12/17 15:45 Pulse 55 L 06/12/17 16:00 Resp 16 06/12/17 16:00 BP 142/62 06/12/17 15:45 Pulse Ox 99 06/12/17 15:45 Intake & Output 06/11/17 06/12/17 06/12/17 18:59 06:59 18:59 Intake Total 630 400 Output Total 210 1140 Balance -210 -510 400 Weight 79.379 kg 88 kg 88 kg Intake: Intake, IV Titration 150 Amount Sodium Chloride 0.9% 1, 150 000 ml @ 75 mls/hr IV . [id number] DIANN Rx#:[id number] Oral 480 400 Output: Urine 210 1140 Uretheral (Dhillon) 210 300 Other: Voiding Method Urinal Urinal Diaper Diaper # Voids 220 # Bowel Movements 2 - Exam PHYSICAL EXAM: VITAL SIGNS: [As above] GENERAL: Sitting up in bed, no acute distress HEENT: Conjunctivae normal. eyes normal. Oral mucosa moist NECK: No JVD. No thyroid enlargement. No LNs CARDIOVASCULAR: S1, S2 muffled. No murmur RESPIRATION: Breath sounds diminished in the bases. Coarse rhonchi, no crackles. ABDOMEN: Soft, nontender . No guarding. no masses palpable. Bowel sounds heard. LEGS: No edema. no swelling PSYCHIATRY: Alert and oriented -3, mood and affect normal. NERVOUS SYSTEM: Cranial N 2-12 grossly normal. Moves all 4 limbs. Diffuse weakness No focal deficits. Skin: no ulcer no rash Joints: No active swelling. No inflammation. Lymphatic system. No LN neck axilla or groin. - Labs CBC & Chem 7: 06/12/17 05:28 06/12/17 05:28 Labs: Abnormal Lab Results - Last 24 Hours (Table) 06/11/17 06/12/17 06/12/17 Range/Units 23:28 05:28 05:28 RBC 3.01 L (4.30-5.90) m/uL Hgb 9.1 L (13.0-17.5) gm/dL Hct 28.7 L (39.0-53.0) % RDW 15.7 H (11.5-15.5) % Sodium 136 L (137-145) mmol/L Potassium 5.9 H 5.7 H (3.5-5.1) mmol/L Chloride 108 H 109 H (98-107) mmol/L BUN 52 H (9-20) mg/dL Creatinine 1.41 H (0.66-1.25) mg/dL Calcium 7.7 L (8.4-10.2) mg/dL Magnesium 2.4 H (1.6-2.3) mg/dL AST 10 L (17-59) U/L ALT 20 L (21-72) U/L Total Protein 4.5 L (6.3-8.2) g/dL Albumin 2.2 L (3.5-5.0) g/dL Assessment and Plan Assessment: 1. Acute hyperkalemia, possibly secondary to renal disease 2. Chronic kidney disease, stage III 3. Hyponatremia, resolved 4. Leukocytosis, resolved 5, anemia of chronic disease 6. COPD 7. Recent pneumonia 8. Parkinson's disease 9. Compression fracture of L4, degenerative joint disease Plan: Continue on current medication regime, monitoring and symptomatic treatment. Maintain nebulized bronchodilators, renal diet, Kayexalate. Close monitoring of electrolytes, renal function with repeat labs ordered for a.m. nephrology consult in place with recommendations pending. Increase ambulation as tolerated The impression and plan of care has been dictated as directed. : I performed a history and examination of this patient, discussed the same with the dictator. I agree with the dictator's note ,documented as a scribe. Any additional findings or plans will be noted.
--- NOTE | 2017-06-12 22:26 | US ---
EXAMINATION TYPE: US renals and bladder DATE OF EXAM: 06/12/2017 COMPARISON: NONE CLINICAL HISTORY: renal failure. Renal failure. Exam limitations due to body habitus. EXAM MEASUREMENTS: Right Kidney: 8.3 x 4.1 x 3.5 cm Left Kidney: 8.5 x4.7 x 3.2 cm Right Kidney: No hydronephrosis or masses seen Left Kidney: No hydronephrosis or masses seen Bladder: Anechoic Bilateral Jets seen: no There is no evidence for hydronephrosis. No nephrolithiasis is seen. No masses are identified. The urinary bladder is anechoic. IMPRESSION: No acute process.
--- NOTE | 2017-06-12 22:30 | CONS ---
CONSULTATION DATE OF CONSULTATION: June 12, 2017. REASON FOR CONSULT: Renal failure. HISTORY OF PRESENT ILLNESS: Patient is an 86-year-old male who was with complaints of weakness. He was also short of breath. The patient was noted to have high potassium. His serum potassium was 6.2 mEq/L with a creatinine of 1.5. The patient was recently discharged from the hospital on 05/29/2017. He was seen for acute kidney injury on top of chronic kidney disease. 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 His serum creatinine was about 1.9-1.7 at the time of discharge. The patient has been more short of breath on this admission and chest x-ray showed no acute pulmonary process. The patient has received Kayexalate and his serum potassium is down to 5.7 mEq/L today. The patient's blood pressure was not low at the time of admission. Medications prior to admission did not include any VÍCTOR inhibitors or nonsteroidal anti-inflammatory agents. Currently patient is not on any IV fluids. His serum creatinine is at 1.4 mg/dL. The patient has been voiding in a diaper; however, it looks like he has been retaining urine with 900 cc of urine obtained on straight cath. PAST MEDICAL HISTORY: CKD stage 4 with baseline creatinine about 2; however, on this admission, his creatinine is down to 1.5 mg/dL. Etiology is nephrosclerosis and perhaps underlying the obstructive uropathy and urine retention as well. The patient has Parkinson disease, osteoarthritis, dementia, asthma, hypothyroidism, BPH. PAST SURGICAL HISTORY: Appendectomy, total left hip arthroplasty, splenectomy. SOCIAL HISTORY: Negative for smoking or drug abuse. MEDICATIONS: At home included: 1. Kayexalate. 2. Zyloprim. 3. Prednisone. 4. Methadone. 5. Milk of magnesia. 6. Neurontin. 7. Sinemet. 8. Calcitriol. 9. Aspirin. 10.Dulcolax. 11.Vitamin D3. 12.Ensure. 13.Avodart. EXAMINATION: Currently patient is lying in bed. He is not in any acute distress. Blood pressure is 141/64, heart rate 57 per minute. He is afebrile. HEART: S1, S2. LUNGS: Decreased breath sounds at bases. Abdomen is soft, nontender. Lower extremities show trace edema bilaterally. CONTINUITY READER is grossly intact. LABS: Show sodium 138, potassium 5.7, chloride 109, BUN 52, serum creatinine 1.4. Hemoglobin 9.1 g/dL. Calcium 7.7. ASSESSMENT: 1. Acute kidney injury, most likely secondary to urine retention. Serum creatinine is slightly improved. Previously, patient's creatinine has been at about 2; however, I do believe he had some degree of obstructive uropathy at that time as well, since his renal function has improved significantly. Continue to maintain off of IV fluids. Hyperkalemia should improve with relief of obstruction. We will likely need to insert Dhillon catheter. The patient is maintained on Avodart. 2. Hyperkalemia associated with urine retention, obstructive uropathy, status post Kayexalate and improving. 3. Chronic kidney disease mineral bone disorder maintained on calcitriol, which we can continue. 4. Chronic kidney disease secondary to nephrosclerosis and possibly underlying obstructive uropathy. Baseline creatinine now appears to be about 1.5 mg/dL, as this is much lower than about 2, which it had been previously. 5. Parkinson disease. 6. Underlying dementia. 7. Anemia of chronic disease. Will rule out iron deficiency. Last iron saturation was done in September. Ferritin was high at 415 in late May. I doubt underlying significant iron deficiency. 8. Benign prostatic hypertrophy, maintained on Avodart. PLAN: Continue to monitor postvoid residuals. Patient will likely need Dhillon catheter placed. Continue with Avodart. Repeat labs in a.m. The patient may need Urology consult. Thank you for this consultation. We will continue to follow the patient with you during his hospitalization. MMODL / IJN: [id number] /
[2017-06-13] MEDS: LEVOTHYROXINE 75 MCG TAB PO SCH (06:04)
[2017-06-13 06:17] LABS: Basophils % (A) 0 %; Eosinophils # (A) 0.2 k/uL (0-0.7); Eosinophils % (A) 3 %; HCT 28.7 % (39.0-53.0); HGB 9.2 gm/dL (13.0-17.5); Lymphocytes # (A) 1.5 k/uL (1.0-4.8); Lymphocytes % (A) 22 %; MCH 30.2 pg (25.0-35.0); MCHC 31.9 g/dL (31.0-37.0); MCV 94.7 fL (80.0-100.0); Mean Platelet Volume 7.8; Monocytes # (A) 0.5 k/uL (0-1.0); Monocytes % (A) 7 %; Neutrophils # (A) 4.8 k/uL (1.3-7.7); Neutrophils % (A) 68 %; Platelet Count 190 k/uL (150-450); RBC 3.03 m/uL (4.30-5.90); WBC 7.2 k/uL (3.8-10.6)
[2017-06-13 06:28] LABS: Calcium 7.6 mg/dL (8.4-10.2)
[2017-06-13 06:29] LABS: Potassium 5.1 mmol/L (3.5-5.1)
[2017-06-13] MEDS: IPRATROPIUM-ALBUTEROL 3 ML NEB INHALATION PRN ×2 (08:36→11:45)
[2017-06-13] MEDS: SYMBICORT 80-4.5 MCG INHALER INHALATION SCH (08:36)
[2017-06-13] MEDS: predniSONE 10 MG TAB PO SCH (09:18)
[2017-06-13] MEDS: GABAPENTIN 100 MG CAP PO SCH ×2 (09:18→15:01)
[2017-06-13] MEDS: ALLOPURINOL 100 MG TAB PO SCH (09:18)
[2017-06-13] MEDS: LORATADINE 10 MG TAB PO SCH (09:18)
[2017-06-13] MEDS: CARBIDOPA-LEVODOPA 25-100 MG 1 EACH TAB PO SCH ×2 (09:18→11:28)
[2017-06-13] MEDS: FINASTERIDE 5 MG TAB PO SCH (09:18)
[2017-06-13] MEDS: TAMSULOSIN 0.4 MG CAP.ER.24H PO SCH (09:21)
[2017-06-13] MEDS: hydrOXYzine PAMOATE 25 MG CAP PO SCH (09:21)
[2017-06-13] MEDS: METHADONE 5 MG TAB PO SCH (09:22)
[2017-06-13 11:26] VITALS: RESP 18; TEMP 97
[2017-06-13] MEDS ORDERED: FUROSEMIDE 20 MG TAB PO SCH (14:00)
--- NOTE | 2017-06-13 14:31 | PN ---
PROGRESS NOTE Patient is seen for followup for acute kidney injury. His renal function has improved significantly with creatinine now down to 1.3 mg/dL. It looks like he may have had urine retention on initial admission. However, lately, according to nursing staff, he has been voiding in his diaper and the urinal. Ultrasound did not show any evidence of hydronephrosis. Currently, patient is not on any IV fluids. His oral intake is fair. His potassium has also improved. PHYSICAL EXAMINATION: Blood pressure is 131/64, heart rate 66 per minute. He is afebrile. Examination of the heart, S1, S2. Examination of the lungs, decreased breath sounds at bases. Abdomen is soft, nontender. Examination of the lower extremities showed trace edema bilaterally. LEGAL OFFICE ADMINISTRATOR exam is grossly intact. LABS SHOW: Sodium 136, potassium 5.1, chloride 107, BUN 46, serum creatinine 1.3, hemoglobin 9.2 g/dL. ASSESSMENT: 1. Acute kidney injury, prerenal versus secondary to urine retention. I will check another bladder scan. Continue off of IV fluids. Resume low-dose diuretics which will also help with the hyperkalemia. There are no nephrotoxic agents on board at this time. 2. BPH, maintained on Proscar and Flomax. 3. Hyperkalemia associated with acute kidney injury and possibly underlying urinary retention as well. Currently improved post Kayexalate. 4. Secondary hyperparathyroidism. Maintained on Rocaltrol 3 times a week. 5. Hypothyroidism. 6. Anemia of chronic disease maintained on Aranesp. 7. Hyperuricemia, currently on Zyloprim. 8. Chronic kidney disease, NKF stage III, with baseline creatinine about 1.5 to 1.3 mg/dL. Previously it had been around 1.9 to 1.7 to 2 mg/dL. PLAN: Check bladder scan. Continue to encourage the patient to void. Continue with the Proscar and the Flomax. Add low-dose loop diuretics to help with the hyperkalemia. MMODL / IJN: [id number] /
[2017-06-13 15:54] VITALS: BP 143/71; PULSE 71
[2017-06-13] MEDS ORDERED: CALCITRIOL 0.25 MCG CAP PO SCH (17:00)
--- NOTE | 2017-06-13 22:49 | DS ---
DISCHARGE SUMMARY FINAL DIAGNOSES: 1. Acute hypokalemia, possibly secondary to renal disease. 2. History of chronic kidney disease stage 3. 3. Hyponatremia, resolved. 4. Leukocytosis, improved. 5. Anemia of chronic disease. 6. Chronic obstructive pulmonary disease. 7. History of recent pneumonia. 8. History of Parkinson's disease. 9. Compression fracture of L4. 10.Degenerative joint disease. DISCHARGE DISPOSITION: The patient is being discharged in stable condition with guarded prognosis. HISTORY OF PRESENT ILLNESS: This 86-year-old with a past medical history of multiple medical problems was admitted were severe hypokalemia. The patient treated conservatively. The patient improved significantly. Potassium improved from 6.2 to 5.1. The patient will be discharged in stable condition with guarded prognosis. On exam, vital signs are stable. Cardiovascular normal. Abdomen is soft. Nervous system, no focal deficits. DISCHARGE INSTRUCTIONS: 1. Cardiac diet. 2. Activity limited until follow up. 3. Follow up with Dr. De Leon in 2 weeks. 4. Follow up with Dr. Das in 2-3 days. 5. CBC and BMP in the outpatient setting. 6. Home care is being arranged. 7. A low-potassium diet is recommend. 8. Ventolin 2.5 q.4h p.r.n. 9. Zyloprim 100 mg p.o. daily. 10.Aspirin 81 mg. 11.Dulcolax 10 mg rectally. 12.Calcitriol 0.5 p.o. Sunday, Sunday and Sunday. 13.Carbidopa levodopa 25/100 p.o. t.i.d. 14.Vitamin D3 2000 daily. 15.Avodart 0.5 mg daily. 16.Ensure 1 p.o. b.i.d. 17.Advair 1 puff b.i.d. 18.Folic acid 1 mg b.i.d. 19.Lasix 20 mg p.o. daily. 20.Neurontin 100 mg p.o. t.i.d. 21.Hydroxyzine 25 mg p.o. daily. 22.Levocetirizine 5 mg p.o. daily. 23.Synthroid 75 mcg p.o. daily. 24.Magnesium oxide 2.4 g daily. 25.Methadone 5 mg p.o. b.i.d. 26.Multivitamins 1 p.o. daily. 27.Fleets enema p.r.n. 28.Nitrostat 0.4 sublingual p.r.n. 29.Prednisone 10 mg p.o. daily. 30.Sodium polystyrene sulfonate 15 g p.o. Sunday, and 15 mg p.r.n. 31.Flomax 0.4 daily. 32.Thiamine 100 mg p.o. daily. 33.Zinc 50 mg p.o. Total time taken 35 minutes. MMODL / IJN: [id number] /
[2017-06-14] MEDS ORDERED: SODIUM POLYSTYRENE SULFONATE 15 GM/60 ML BOTTLE PO SCH (08:00)
== END 2017-06-13 17:27 | disposition home health service (06) | DRG 641 ==
LOC: EC 16:45 → 6SEL 18:47
PROVIDERS: ADMIT Internal Medicine; ATTEND Internal Medicine
DX: E87.5 Hyperkalemia (principal); N17.9 Acute kidney failure, unspecified; N13.8 Other obstructive and reflux uropathy; N25.81 Secondary hyperparathyroidism of renal origin; G20 Parkinson's disease; D63.8 Anemia in other chronic diseases classified elsewhere; F03.90 Unspecified dementia, unspecified severity, without behavioral disturbance, psychotic disturbance, mood disturbance, and anxiety; E87.1 Hypo-osmolality and hyponatremia; D72.829 Elevated white blood cell count, unspecified; E03.9 Hypothyroidism, unspecified; I12.9 Hypertensive chronic kidney disease with stage 1 through stage 4 chronic kidney disease, or unspecified chronic kidney disease; N18.3 Chronic kidney disease, stage 3 (moderate); J44.9 Chronic obstructive pulmonary disease, unspecified; M19.90 Unspecified osteoarthritis, unspecified site; M85.80 Other specified disorders of bone density and structure, unspecified site; N40.1 Benign prostatic hyperplasia with lower urinary tract symptoms; E79.0 Hyperuricemia without signs of inflammatory arthritis and tophaceous disease; R00.1 Bradycardia, unspecified; R26.9 Unspecified abnormalities of gait and mobility; R33.9 Retention of urine, unspecified; Z96.642 Presence of left artificial hip joint; Z90.81 Acquired absence of spleen; Z87.891 Personal history of nicotine dependence; Z87.01 Personal history of pneumonia (recurrent); Z79.82 Long term (current) use of aspirin; Z79.52 Long term (current) use of systemic steroids; Z79.899 Other long term (current) drug therapy; Z88.8 Allergy status to other drugs, medicaments and biological substances; Z82.49 Family history of ischemic heart disease and other diseases of the circulatory system
CPT/HCPCS: 36415; 51702; 51798; 71046; 76770; 80048; 80051; 80053; 82550; 82553; 83735; 83880; 84100; 84484; 85025; 85610; 85730; 93005; 94640; 96365; 99291

== ENCOUNTER 2017-06-19 17:24 | Inpatient (IN) | payer MEDICARE, BC ==
[2017-06-19] MEDS ORDERED: IPRATROPIUM-ALBUTEROL 3 ML NEB INHALATION STA (19:05)
--- NOTE | 2017-06-19 19:14 | ED ---
SOB HPI - General Chief Complaint: Shortness of Breath Stated Complaint: Sob Time Seen by Provider: 06/19/17 18:52 Source: patient, family, RN notes reviewed, old records reviewed Mode of arrival: ambulatory Limitations: no limitations - History of Present Illness Initial Comments: This is a 86-year-old male with a history of COPD and recent admission for pneumonia who was discharged last week who is back today with complaints of shortness of breath and pulse ox of 85% on room air. Of note he was started on prednisone this morning he was started on oral antibiotics yesterday by his family doctor. No chest pain is reported no other reports of nausea vomiting or other symptoms at this time. No reports of peripheral edema. No palpitations. MD Complaint: shortness of breath - Related Data Home Medications Medication Instructions Recorded Confirmed Fluticasone/Salmeterol [Advair 1 puff INHALATION RT-BID@0800,1700 09/04/1506/19 250-50 Diskus] Tamsulosin HCl [Flomax] 0.4 mg PO DAILY@0800 09/04/15 06/19/17 Levothyroxine Sodium [Synthroid] 75 mcg PO DAILY@0600 09/07/15 06/19/17 Carbidopa-Levodopa 25-100 mg 1 tab PO TID@0800,1200,1700 09/21/15 06/19/17 [Sinemet 25-100 mg] Folic Acid 1 mg PO DAILY@169909/21/15 06/19/17 Multivitamins, Thera [Multivitamin 1 tab PO DAILY@169909/21/15 06/19/17 (formulary)] Nitroglycerin Sl Tabs [Nitrostat] 0.4 mg SUBLINGUAL Q5M PRN 09/21/15 06/19/17 Thiamine [Vitamin B-1] 100 mg PO DAILY@169909/21/15 06/19/17 Allopurinol [Zyloprim] 100 mg PO DAILY@0800 02/10/17 06/19/17 Calcitriol 0.5 mcg PO MOWEFR@1700 02/10/17 06/19/17 Dutasteride [Avodart] 0.5 mg PO DAILY@0800 02/10/17 06/19/17 Gabapentin [Neurontin] 100 mg PO TID@0800,1400,2100 02/10/1706/19/18 Levocetirizine Dihydrochloride 5 mg PO DAILY@0800 02/10/17 06/19/17 [Xyzal] Methadone [Dolophine] 5 mg PO BID@0800,209902/10/17 06/19/17 Cholecalciferol (Vitamin D3) 2,000 unit PO DAILY@1700 05/24/17 06/19/17 [Vitamin D3] Sodium Polystyrene Sulfon/Sorb 15 gm PO MOTH@0805/24/17 06/19/17 [Kionex 15 gm/60 ml Suspension] Zinc 50 mg PO DAILY@169905/24/17 06/19/17 hydrOXYzine PAMOATE 25 mg PO DAILY@0805/24/17 06/19/17 Aspirin 81 mg PO DAILY@169906/11/17 06/19/17 Bisacodyl [Dulcolax] 10 mg RECTAL DAILY PRN 06/11/17 06/19/17 Ensure Clear 1 can PO BID@0800,169906/11/17 06/19/17 Magnesium Hydroxide [Milk of 2,400 mg PO DAILY PRN 06/11/17 06/19/17 Magnesia] Na Phos,M-B/Na Phos,Di-Ba [Fleet 133 ml RECTAL DAILY PRN 06/11/17 06/19/17 Adult] Sodium Polystyrene Sulfonate 15 gm PO DIRECTED 06/11/17 06/19/17 [Kayexalate] predniSONE See Taper PO DIRECTED 06/11/17 06/19/17 Amoxicillin/Potassium Clav 1 tab PO Q12HR 06/19/17 06/19/17 [Augmentin 875-125 Tablet] Previous Rx's Medication Instructions Recorded Albuterol Nebulized [Ventolin 2.5 mg INHALATION QID #0 06/13/17 Nebulized] Furosemide [Lasix] 20 mg PO DAILY #30 tab 06/13/17 Allergies Allergy/AdvReac Type Severity Reaction Status Date / Time fentanyl Allergy Rash/Hives Verified 06/19/17 19:12 Review of Systems ROS Statement: Those systems with pertinent positive or pertinent negative responses have been documented in the HPI. ROS Other: All systems not noted in ROS Statement are negative. Past Medical History Past Medical History: Asthma, Heart Failure, Dementia, Musculoskeletal Disorder , Neurologic Disorder, Osteoarthritis (OA), Renal Disease, Thyroid Disorder Additional Past Medical History / Comment(s): parkinsons disease, compression fracture of the L4 spine, gait dysfunction, bilateral hip and leg pain since a fall in August 2015, chronic renal failure stage IV, hyperkalemia, anemia, DJD, osteopenia, hypothyroidism, BPH, occasional confusion. History of Any Multi-Drug Resistant Organisms: None Reported Past Surgical History: Appendectomy, Joint Replacement Additional Past Surgical History / Comment(s): total L hip replacement, splenectomy Past Anesthesia/Blood Transfusion Reactions: No Reported Reaction Past Psychological History: No Psychological Hx Reported Smoking Status: Former smoker Past Alcohol Use History: None Reported Past Drug Use History: None Reported - Past Family History Sister(s) Family Medical History: Myocardial Infarction (MA) Brother(s) Family Medical History: Diabetes Mellitus Mother Family Medical History: No Reported History Additional Family Medical History / Comment(s): Mother lived to be 80 yrs old. Father History Unknown: Yes Additional Family Medical History / Comment(s): Father lived to be 75yrs old. General Exam - General Exam Comments Initial Comments: This is a well-developed well-nourished awake alert male Limitations: no limitations General appearance: alert, in no apparent distress Head exam: Present: atraumatic, normocephalic, normal inspection Eye exam: Present: normal appearance, PERRL, EOMI. Absent: scleral icterus, conjunctival injection, periorbital swelling ENT exam: Present: mucous membranes dry Neck exam: Present: normal inspection. Absent: tenderness, meningismus, lymphadenopathy Respiratory exam: Present: wheezes, rhonchi (Right basilar rhonchi), decreased breath sounds, other (Patient does demonstrate kyphosis). Absent: respiratory distress, rales, stridor Cardiovascular Exam: Present: regular rate, normal rhythm, normal heart sounds. Absent: systolic murmur, diastolic murmur, rubs, gallop, clicks GI/Abdominal exam: Present: soft, normal bowel sounds. Absent: distended, tenderness, guarding, rebound, rigid Extremities exam: Present: normal inspection, full ROM, normal capillary refill , other. Absent: tenderness, pedal edema, joint swelling, calf tenderness Back exam: Present: normal inspection Neurological exam: Present: alert, oriented X3, CN II-XII intact Psychiatric exam: Present: normal affect, normal mood Skin exam: Present: warm, dry, normal color, other (The patient does have evidence of decubitus ulceration with a duo derma in place). Absent: rash Course Vital Signs 06/19/17 06/19/17 06/19/17 18:12 19:25 19:44 Temperature 98.9 F Pulse Rate 84 84 84 Respiratory 18 Rate Blood Pressure 104/59 O2 Sat by Pulse 94 L Oximetry 06/19/17 06/19/17 20:02 20:05 Temperature 98.8 F Pulse Rate 92 Respiratory 18 Rate Blood Pressure 138/61 O2 Sat by Pulse 89 L 92 L Oximetry - Reevaluation(s) Reevaluation #1: 06/19/17 21:38 Patient is some slight improvement after the initial treatment. Medical Decision Making - Medical Decision Making I did discuss [employer] the patient family as well as with on-call service patient will be admitted for treatment of COPD and pneumonia. Patient also demonstrate renal insufficiency - Lab Data Result diagrams: 06/19/17 19:35 06/19/17 19:35 Lab Results 06/19/17 06/19/17 06/19/17 Range/Units 19:35 19:35 19:35 WBC 10.3 (3.8-10.6) k/uL RBC 2.94 L (4.30-5.90) m/uL Hgb 8.7 L (13.0-17.5) gm/dL Hct 27.6 L (39.0-53.0) % MCV 94.0 (80.0-100.0) fL MCH 29.5 (25.0-35.0) pg MCHC 31.4 (31.0-37.0) g/dL RDW 15.5 (11.5-15.5) % Plt Count 308 (150-450) k/uL Neutrophils % 88 % Lymphocytes % 9 % Monocytes % 2 % Eosinophils % 0 % Basophils % 0 % Neutrophils # 9.0 H (1.3-7.7) k/uL Lymphocytes # 0.9 L (1.0-4.8) k/uL Monocytes # 0.3 (0-1.0) k/uL Eosinophils # 0.0 (0-0.7) k/uL Basophils # 0.0 (0-0.2) k/uL PT (9.0-12.0) sec INR (<1.2) APTT (22.0-30.0) sec Sodium (137-145) mmol/L Potassium (3.5-5.1) mmol/L Chloride (98-107) mmol/L Carbon Dioxide (22-30) mmol/L Anion Gap mmol/L BUN (9-20) mg/dL Creatinine (0.66-1.25) mg/dL Est GFR (CKD-EPI)AfAm (>60 ml/min/1.73 sqM) Est GFR (CKD-EPI)NonAf (>60 ml/min/1.73 sqM) Glucose (74-99) mg/dL Calcium (8.4-10.2) mg/dL Magnesium (1.6-2.3) mg/dL Total Bilirubin (0.2-1.3) mg/dL AST (17-59) U/L ALT (21-72) U/L Alkaline Phosphatase (38-126) U/L Total Creatine Kinase 91 (55-170) U/L CK-MB (CK-2) 1.6 (0.0-2.4) ng/mL CK-MB (CK-2) Rel Index 1.8 Troponin I 0.027 (0.000-0.034) ng/mL NT-Pro-B Natriuret Pep 2800 pg/mL Total Protein (6.3-8.2) g/dL Albumin (3.5-5.0) g/dL Urine Color Urine Appearance (Clear) Urine pH (5.0-8.0) Ur Specific [place] (1.001-1.035) Urine Protein (Negative) Urine Glucose (UA) (Negative) Urine Ketones (Negative) Urine Blood (Negative) Urine Nitrite (Negative) Urine Bilirubin (Negative) Urine Urobilinogen (<2.0) mg/dL Ur Leukocyte Esterase (Negative) Urine RBC (0-5) /hpf Urine WBC (0-5) /hpf Ur Squamous Epith Cells (0-4) /hpf Amorphous Sediment (None) /hpf Urine Bacteria (None) /hpf Hyaline Casts (0-2) /lpf Urine Mucus (None) /hpf 06/19/17 06/19/17 06/19/17 Range/Units 19:35 19:35 19:55 WBC (3.8-10.6) k/uL RBC (4.30-5.90) m/uL Hgb (13.0-17.5) gm/dL Hct (39.0-53.0) % MCV (80.0-100.0) fL MCH (25.0-35.0) pg MCHC (31.0-37.0) g/dL RDW (11.5-15.5) % Plt Count (150-450) k/uL Neutrophils % % Lymphocytes % % Monocytes % % Eosinophils % % Basophils % % Neutrophils # (1.3-7.7) k/uL Lymphocytes # (1.0-4.8) k/uL Monocytes # (0-1.0) k/uL Eosinophils # (0-0.7) k/uL Basophils # (0-0.2) k/uL PT 11.5 (9.0-12.0) sec INR 1.2 H (<1.2) APTT 27.4 (22.0-30.0) sec Sodium 134 L (137-145) mmol/L Potassium 4.6 (3.5-5.1) mmol/L Chloride 101 (98-107) mmol/L Carbon Dioxide 22 (22-30) mmol/L Anion Gap 11 mmol/L BUN 48 H (9-20) mg/dL Creatinine 1.90 H (0.66-1.25) mg/dL Est GFR (CKD-EPI)AfAm 36 (>60 ml/min/1.73 sqM) Est GFR (CKD-EPI)NonAf 31 (>60 ml/min/1.73 sqM) Glucose 144 H (74-99) mg/dL Calcium 7.9 L (8.4-10.2) mg/dL Magnesium 2.1 (1.6-2.3) mg/dL Total Bilirubin 0.5 (0.2-1.3) mg/dL AST 18 (17-59) U/L ALT 23 (21-72) U/L Alkaline Phosphatase 105 (38-126) U/L Total Creatine Kinase (55-170) U/L CK-MB (CK-2) (0.0-2.4) ng/mL CK-MB (CK-2) Rel Index Troponin I (0.000-0.034) ng/mL NT-Pro-B Natriuret Pep pg/mL Total Protein 5.6 L (6.3-8.2) g/dL Albumin 2.8 L (3.5-5.0) g/dL Urine Color Yellow Urine Appearance Clear (Clear) Urine pH 5.0 (5.0-8.0) Ur Specific [place] 1.008 (1.001-1.035) Urine Protein Trace H (Negative) Urine Glucose (UA) Negative (Negative) Urine Ketones Negative (Negative) Urine Blood Trace H (Negative) Urine Nitrite Negative (Negative) Urine Bilirubin Negative (Negative) Urine Urobilinogen <2.0 (<2.0) mg/dL Ur Leukocyte Esterase Negative (Negative) Urine RBC 2 (0-5) /hpf Urine WBC <1 (0-5) /hpf Ur Squamous Epith Cells 1 (0-4) /hpf Amorphous Sediment Occasional H (None) /hpf Urine Bacteria Rare H (None) /hpf Hyaline Casts 16 H (0-2) /lpf Urine Mucus Rare H (None) /hpf - Radiology Data Radiology results: report reviewed (I did review the imaging and report is evidence of a pleural effusion and evidence of a lower abdominal infiltrate on the lateral chest x-ray.), image reviewed Critical Care Time Critical Care Time: Yes Critical Care Time: 32 minutes of critical care time which includes initial presentation with history physical labs x-rays several reevaluation of the patient discussed with patient family regarding findings discussed with the main service review of old charting was available documentation above and admission orders Disposition Clinical Impression: Pneumonia, Acute exacerbation of chronic obstructive airways disease, Adult respiratory distress syndrome, Renal insufficiency syndrome Disposition: ADMITTED IP TO THIS [facility] Condition: Stable Referrals: Peyton Das DO [Primary Care Provider] - 1-2 days
[2017-06-19 20:07] LABS: Basophils % (A) 0 %; Eosinophils % (A) 0 %; HCT 27.6 % (39.0-53.0); HGB 8.7 gm/dL (13.0-17.5); Lymphocytes # (A) 0.9 k/uL (1.0-4.8); Lymphocytes % (A) 9 %; MCH 29.5 pg (25.0-35.0); MCHC 31.4 g/dL (31.0-37.0); Mean Platelet Volume 7.7; Monocytes # (A) 0.3 k/uL (0-1.0); Monocytes % (A) 2 %; Neutrophils % (A) 88 %; Platelet Count 308 k/uL (150-450); RBC 2.94 m/uL (4.30-5.90); RDW 15.5 % (11.5-15.5); WBC 10.3 k/uL (3.8-10.6)
[2017-06-19 20:15] LABS: INR 1.2 (<1.2); Partial Thromboplastin Time 27.4 sec (22.0-30.0); Prothrombin Time 11.5 sec (9.0-12.0)
[2017-06-19 20:20] LABS: Albumin 2.8 g/dL (3.5-5.0); Calcium 7.9 mg/dL (8.4-10.2); Magnesium 2.1 mg/dL (1.6-2.3); Potassium 4.6 mmol/L (3.5-5.1); Total Bilirubin 0.5 mg/dL (0.2-1.3); Total Protein 5.6 g/dL (6.3-8.2)
[2017-06-19 20:38] LABS: Amorphous Sediment,Urine Occasional /hpf; Appearance,Urine Clear (Clear); Bacteria,Urine Rare /hpf; Bilirubin,Urine Negative (Negative); Blood,Urine Trace (Negative); Color,Urine Yellow; Glucose,Urine (UA) Negative (Negative); Hyaline Casts,Urine 16 /lpf (0-2); Ketones,Urine Negative (Negative); Leukocyte Esterase,Urine Negative (Negative); Mucus,Urine Rare /hpf; Nitrite,Urine Negative (Negative); Protein,Urine Trace (Negative); RBC,Urine 2 /hpf (0-5); Specific Gravity,Urine 1.008 (1.001-1.035); Squamous Epithelial Cell,Urine 1 /hpf (0-4); Urobilinogen,Urine <2.0 mg/dL (<2.0); WBC,Urine <1 /hpf (0-5)
--- NOTE | 2017-06-19 20:38 | XR ---
EXAMINATION TYPE: XR chest 2V DATE OF EXAM: 06/19/2017 COMPARISON: 06/11/2017 HISTORY: Difficulty breathing TECHNIQUE: Frontal and lateral views of the chest are obtained. FINDINGS: There is some patchy infiltrate at both lung bases. There is no gross heart failure. Thora cic aorta is atheromatous. There is blunting of the posterior costophrenic angles. There is spurring in the thoracic spine. IMPRESSION: Small pleural effusions. There is increasing infiltrates at the posterior lung bases com pared to last exam. No heart failure.
[2017-06-19 20:45] LABS: Creatine Kinase MB 1.6 ng/mL (0.0-2.4); Troponin I 0.027 ng/mL (0.000-0.034)
[2017-06-19] MEDS ORDERED: PIPERACILLIN-TAZOBACTAM 3.375 GM in DEXTROSE/WATER 1 50ML.BAG IVPB STA (21:39)
[2017-06-19] MEDS ORDERED: PNEUMONIA PROTOCOL UTILIZED 1 EACH MISC PO PRN (21:41)
[2017-06-19] MEDS ORDERED: LEVOFLOXACIN 750MG-D5W PMX 750 MG in DEXTROSE/WATER 1 150ML.BAG IVPB STA (21:41)
[2017-06-19] MEDS ORDERED: MAGNESIUM HYDROXIDE 2,400 MG/10 ML CUP PO PRN (21:43)
[2017-06-19] MEDS ORDERED: NITROGLYCERIN SL TABS 0.4 MG TAB SUBLINGUAL PRN (21:43)
[2017-06-19] MEDS ORDERED: NA PHOS,M-B/NA PHOS,DI-BA 133 ML ENEMA RECTAL PRN (21:43)
[2017-06-19] MEDS ORDERED: BISACODYL 10 MG SUPP RECTAL PRN (21:43)
[2017-06-19] MEDS: SODIUM CHLORIDE 0.9% 1,000 ML IV SCH (22:27)
[2017-06-19] MEDS: PIPERACILLIN-TAZOBACTAM 3.375 GM in DEXTROSE/WATER 1 50ML.BAG IVPB SCH (23:23)
[2017-06-19] MEDS: methylPREDNISolone SOD SUCCI 125 MG/2 ML VIAL IV SCH (23:25)
[2017-06-20] MEDS ORDERED: IPRATROPIUM-ALBUTEROL 3 ML NEB INHALATION SCH
[2017-06-20] MEDS ORDERED: IPRATROPIUM-ALBUTEROL 3 ML NEB INHALATION PRN (01:23)
[2017-06-20] MEDS: methylPREDNISolone SOD SUCCI 125 MG/2 ML VIAL IV SCH ×4 (05:20→23:08)
[2017-06-20] MEDS: LEVOTHYROXINE 75 MCG TAB PO SCH (05:21)
[2017-06-20 07:57] LABS: Glucose,Whole Blood 218 mg/dL (75-99)
[2017-06-20] MEDS ORDERED: NON-FORMULARY DRUG (Ensure Clear 1 CAN) PO SCH (08:00)
[2017-06-20] MEDS: METHADONE 5 MG TAB PO SCH ×2 (08:18→23:07)
[2017-06-20] MEDS: FINASTERIDE 5 MG TAB PO SCH (08:19)
[2017-06-20] MEDS: LORATADINE 10 MG TAB PO SCH (08:19)
[2017-06-20] MEDS: PIPERACILLIN-TAZOBACTAM 3.375 GM in DEXTROSE/WATER 1 50ML.BAG IVPB SCH ×3 (08:19→23:09)
[2017-06-20] MEDS: ALLOPURINOL 100 MG TAB PO SCH (08:19)
[2017-06-20] MEDS: CARBIDOPA-LEVODOPA 25-100 MG 1 EACH TAB PO SCH ×3 (08:19→18:03)
[2017-06-20] MEDS: TAMSULOSIN 0.4 MG CAP.ER.24H PO SCH (08:19)
[2017-06-20] MEDS: GABAPENTIN 100 MG CAP PO SCH ×3 (08:19→23:06)
[2017-06-20] MEDS: FUROSEMIDE 20 MG TAB PO SCH (08:19)
[2017-06-20] MEDS: hydrOXYzine PAMOATE 25 MG CAP PO SCH (08:19)
[2017-06-20] MEDS: IPRATROPIUM-ALBUTEROL 3 ML NEB INHALATION SCH ×4 (08:45→20:50)
[2017-06-20] MEDS: SYMBICORT 80-4.5 MCG INHALER INHALATION SCH ×2 (08:46→17:08)
[2017-06-20 11:45] LABS: Glucose,Whole Blood 206 mg/dL (75-99)
--- NOTE | 2017-06-20 13:45 | XR ---
EXAMINATION TYPE: XR chest 2V DATE OF EXAM: 06/20/2017 COMPARISON: 06/19/2017 TECHNIQUE: PA and lateral views submitted. HISTORY: Shortness of breath FINDINGS: Persistent bilateral consolidation and pleural effusion. Central interstitium prominent. Arthropathy of the shoulders and diffuse anemia. No pneumothorax as visualized. Due to positioning there is some limitation of the right apex. Hypertrophic and degenerative change of the spine. IMPRESSION: 1. Bilateral infiltrate and pleural effusion stable. Correlate clinically to exclude central venous c ongestion
--- NOTE | 2017-06-20 16:14 | P.CNPUL ---
History of Present Illness Consult date: 06/20/17 Requesting physician: Karla Cleaning Reason for consult: dyspnea, cough, hypoxemia, pneumonia, abnormal CXR/CT Chief complaint: Shortness of breath, hypoxic rest or a failure, chest congestion, wheezing History of present illness: Dejon is a 86-year-old white male patient of Dr. Peyton Das, who was recently hospitalized in May for right lower lobe pneumonia in May, and again for COPD exacerbation and acute on chronic renal failure with hypokalemia on 09/2017, improved, and was discharged home on 06/13/2017. Patient had completed a course of Zithromax and Ceftin for his right lower lobe pneumonia. Patient lives with his son and his [id number], he has poor baseline functional capacity, is unable to ambulate, and is mostly on bedrest. He does not wear oxygen at his baseline. Past medical history includes COPD, congestive heart failure, dementia, osteoarthritis, chronic kidney disease, Parkinson's disease, compression fractures of the lumbar spine, anemia, hypothyroidism. Patient is a former smoker, quit in 1965. Patient was noted to be increasingly short of breath at home, congested, coughing, but unable to produce any sputum. He states he did have the chills at home. He was started on prednisone taper and antibiotics in the form of Augmentin by his primary care physician on 06/19/2017. But in view of progressing dyspnea, chest congestion, and wheezing he was brought to the emergency room for further evaluation and treatment. On presentation he was noted to be hypoxemic, his pulse ox was 85% on room air. Initial chest x-ray showed small pleural effusions, and increasing infiltrates at the posterior lung bases compared to the last exam on 06/11/2017. No evidence of overt heart failure. Follow-up chest x-ray on 06/20/2017 showed bilateral infiltrate and pleural effusions. Patient was started on a combination of IV steroids, Levaquin, Zosyn, nebulized treatments DuoNeb, Symbicort and oral Lasix and admitted for further management. Lab work did not show any evidence of leukocytosis, WBC of 10.3, hemoglobin is 8.7, sodium is 134, potassium is 4.6, B1 is 48, creatinine is 1.9. Troponin was negative 1, proBNP was 2800. Urinalysis showed trace protein, trace blood, rare bacteria and mucus. Patient has been afebrile while inpatient, hemodynamically stable, currently on 3 L per nasal cannula O2 sat 96% . Review of Systems All systems: negative Constitutional: Denies chills, Denies fever Eyes: denies blurred vision, denies pain Ears, nose, mouth and throat: Denies headache, Denies sore throat Cardiovascular: Denies chest pain, Denies shortness of breath Respiratory: Reports congestion, Reports dyspnea, Reports respiratory infections , Reports wheezing, Denies cough Gastrointestinal: Denies abdominal pain, Denies diarrhea, Denies nausea, Denies vomiting Musculoskeletal: Denies myalgias Integumentary: Denies pruritus, Denies rash Neurological: Denies numbness, Denies weakness Psychiatric: Denies anxiety, Denies depression Endocrine: Denies fatigue, Denies weight change Past Medical History Past Medical History: Asthma, Heart Failure, Dementia, Musculoskeletal Disorder , Neurologic Disorder, Osteoarthritis (OA), Renal Disease, Thyroid Disorder Additional Past Medical History / Comment(s): parkinsons disease, compression fracture of the L4 spine, gait dysfunction, bilateral hip and leg pain since a fall in August 2015, chronic renal failure stage IV, hyperkalemia, anemia, DJD, osteopenia, hypothyroidism, BPH, occasional confusion. History of Any Multi-Drug Resistant Organisms: None Reported Past Surgical History: Appendectomy, Joint Replacement Additional Past Surgical History / Comment(s): total L hip replacement, splenectomy Past Anesthesia/Blood Transfusion Reactions: No Reported Reaction Past Psychological History: No Psychological Hx Reported Additional Psychological History / Comment(s): Pt resides at [facility] at this time. Pt states he does not ambulate or stand, they use a lift to get him into a wheelchair, he is otherwise bedbound. Smoking Status: Former smoker Past Alcohol Use History: None Reported Additional Past Alcohol Use History / Comment(s): pt states he quit smoking over 50 years ago. Past Drug Use History: None Reported Additional Drug Use History / Comment(s): xsmoker over 50 yrs ago - Past Family History Sister(s) Family Medical History: Myocardial Infarction ([place]) Brother(s) Family Medical History: Diabetes Mellitus Mother Family Medical History: No Reported History Additional Family Medical History / Comment(s): Mother lived to be 80 yrs old. Father History Unknown: Yes Additional Family Medical History / Comment(s): Father lived to be 75yrs old. Medications and Allergies Home Medications Medication Instructions Recorded Confirmed Type Fluticasone/Salmeterol [Advair 1 puff INHALATION RT-BID@0800,1700 09/04/1506/19 History 250-50 Diskus] Tamsulosin HCl [Flomax] 0.4 mg PO DAILY@0800 09/04/15 06/19/17 History Levothyroxine Sodium [Synthroid] 75 mcg PO DAILY@0600 09/07/15 06/19/17 History Carbidopa-Levodopa 25-100 mg 1 tab PO TID@0800,1200,1700 09/21/15 06/19/17 History [Sinemet 25-100 mg] Folic Acid 1 mg PO DAILY@169909/21/15 06/19/17 History Multivitamins, Thera [Multivitamin 1 tab PO DAILY@169909/21/15 06/19/17 History (formulary)] Nitroglycerin Sl Tabs [Nitrostat] 0.4 mg SUBLINGUAL Q5M PRN 09/21/15 06/19/17 History Thiamine [Vitamin B-1] 100 mg PO DAILY@169909/21/15 06/19/17 History Allopurinol [Zyloprim] 100 mg PO DAILY@0800 02/10/17 06/19/17 History Calcitriol 0.5 mcg PO MOWEFR@1700 02/10/17 06/19/17 History Dutasteride [Avodart] 0.5 mg PO DAILY@0800 02/10/17 06/19/17 History Gabapentin [Neurontin] 100 mg PO TID@0800,1400,209902/10/17 06/19/17 History Levocetirizine Dihydrochloride 5 mg PO DAILY@0800 02/10/17 06/19/17 History [Xyzal] Methadone [Dolophine] 5 mg PO BID@0800,209902/10/17 06/19/17 History Cholecalciferol (Vitamin D3) 2,000 unit PO DAILY@0 05/24/17 06/19/17 History [Vitamin D3] Sodium Polystyrene Sulfon/Sorb 15 gm PO MOTH@0805/24/17 06/19/17 History [Kionex 15 gm/60 ml Suspension] Zinc 50 mg PO DAILY@1699 05/24/17 06/19/17 History hydrOXYzine PAMOATE 25 mg PO DAILY@0800 05/24/17 06/19/17 History Aspirin 81 mg PO DAILY@1700 06/11/17 06/19/17 History Bisacodyl [Dulcolax] 10 mg RECTAL DAILY PRN 06/11/17 06/19/17 History Ensure Clear 1 can PO BID@0800,1700 06/11/17 06/19/17 History Magnesium Hydroxide [Milk of 2,400 mg PO DAILY PRN 06/11/17 06/19/17 History Magnesia] Na Phos,M-B/Na Phos,Di-Ba [Fleet 133 ml RECTAL DAILY PRN 06/11/17 06/19/17 History Adult] Sodium Polystyrene Sulfonate 15 gm PO DIRECTED 06/11/17 06/19/17 History [Kayexalate] predniSONE See Taper PO DIRECTED 06/11/17 06/19/17 History Albuterol Nebulized [Ventolin 2.5 mg INHALATION QID #0 06/13/17 06/19/17 Rx Nebulized] Furosemide [Lasix] 20 mg PO DAILY #30 tab 06/13/17 06/19/17 Rx Amoxicillin/Potassium Clav 1 tab PO Q12HR 06/19/17 06/19/17 History [Augmentin 875-125 Tablet] Allergies Allergy/AdvReac Type Severity Reaction Status Date / Time fentanyl Allergy Rash/Hives Verified 06/19/17 19:12 Physical Exam Vitals: Vital Signs Temp Pulse Pulse Resp BP BP Pulse Ox 06/20/17 12:57 62 06/20/17 12:50 62 06/20/17 08:58 68 06/20/17 08:48 65 06/20/17 08:00 62 18 06/20/17 07:00 97.8 F 62 18 181/79 96 06/19/17 23:00 98.4 F 84 16 132/65 96 06/19/17 22:12 98.1 F 85 18 143/64 95 06/19/17 20:05 92 L 06/19/17 20:02 98.8 F 92 18 138/61 89 L 06/19/17 19:44 84 06/19/17 19:25 84 03/13/18 18:12 98.9 F 84 18 104/59 94 L Intake and Output 06/19/17 06/20/17 06/20/17 22:59 06:59 14:59 Intake Total 232 209 2101 Output Total 600 Balance 590 160 720 Intake: IV 160 160 Sodium Chloride 0.9% 1, 160 160 000 ml @ 20 mls/hr IV . Q24H [facility] Rx#:[id number] Intake, IV Titration 200 Amount Levofloxacin 750Mg-D5w 150 Pmx 750 mg In Dextrose/ Water 1 150ml.bag @ 100 mls/hr IVPB ONCE [facility] Rx#: [id number] Piperacillin-Tazobactam 3 50 .375 gm In Dextrose/Water 1 50ml.bag @ 12.5 mls/hr IVPB Q8HR [facility] Rx#: [id number] Oral 590 960 Output: Urine 600 Other: Voiding Method Indwelling Catheter Weight 79.3 kg GENERAL EXAM: Alert, 86-year-old elderly, chronically ill-looking, white male comfortable in no apparent distress. HEAD: Normocephalic/atraumatic. EYES: Normal reaction of pupils, equal size. Conjunctiva pink, sclera white. NOSE: Clear with pink turbinates. THROAT: No erythema or exudates. NECK: No masses, no JVD, no thyroid enlargement, no adenopathy. CHEST: No chest wall deformity. Symmetrical expansion. LUNGS: Equal air entry with scattered rhonchi, and diffuse wheezes throughout the lung ramirez. Patient has a weak congested bronchospastic cough CVS: Regular rate and rhythm, normal S1 and S2, no gallops, no murmurs, no rubs ABDOMEN: Soft, nontender. No hepatosplenomegaly, normal bowel sounds, no guarding or rigidity. EXTREMITIES: No clubbing, no edema, no cyanosis, 2+ pulses and upper and lower extremities. MUSCULOSKELETAL: Muscle strength and tone normal. SPINE: No scoliosis or deformity SKIN: No rashes CENTRAL NERVOUS SYSTEM: Alert and oriented -3. No focal deficits, tone is normal in all 4 extremities. PSYCHIATRIC: Alert and oriented -3. Appropriate affect. Intact judgment and insight. Results - Laboratory Findings CBC and BMP: 06/19/17 19:35 06/19/17 19:35 PT/INR, D-dimer PT 11.5 sec (9.0-12.0) 06/19/17 19:35 INR 1.2 (<1.2) H 06/19/17 19:35 Abnormal lab findings: Abnormal Labs 06/19/17 06/19/17 06/19/17 19:35 19:35 19:35 RBC 2.94 L Hgb 8.7 L Hct 27.6 L Neutrophils # 9.0 H Lymphocytes # 0.9 L INR 1.2 H Sodium 134 L BUN 48 H Creatinine 1.90 H Glucose 144 H POC Glucose (mg/dL) Calcium 7.9 L Total Protein 5.6 L Albumin 2.8 L Urine Protein Urine Blood Amorphous Sediment Urine Bacteria Hyaline Casts Urine Mucus 06/19/17 06/20/17 06/20/17 19:55 07:34 11:40 RBC Hgb Hct Neutrophils # Lymphocytes # INR Sodium BUN Creatinine Glucose POC Glucose (mg/dL) 218 H 206 H Calcium Total Protein Albumin Urine Protein Trace H Urine Blood Trace H Amorphous Sediment Occasional H Urine Bacteria Rare H Hyaline Casts 16 H Urine Mucus Rare H - Diagnostic Findings Chest x-ray: report reviewed Assessment and Plan Plan: Assessment: #1. Acute hypoxic respiratory failure secondary to right lower lobe pneumonia, possibly be aspiration related #2. Recent hospitalization for right lower lobe pneumonia in May, patient was treated with Rocephin and Zithromax during that admission, improved when was discharged home #3. Recent hospitalization for acute on chronic renal failure, with hypokalemia , discharged home on 06/13/2017 #4. COPD, with a baseline FEV1 of 47% of predicted, GOLD stage III #5. History of chronic congestive heart failure with diastolic dysfunction #6. Anemia of chronic disease #7. Chronic renal failure, stage III #8. Hypothyroidism #9. Parkinson's disease/dementia with significant impairment of neurologic function/cognition/memory/gait #10. Poor baseline functional status, patient is mostly bedbound #11. History of BPH, on Avodart and Flomax #12. Osteoarthritis Plan: Continue current antibiotic coverage, Levaquin and Zosyn, continue nebulized treatments, continue IV steroids, oral Lasix, continue Symbicort. Obtain a swallow evaluation to rule out aspiration. Obtain sputum culture. Monitor electrolytes and renal profile, monitor urine output. Monitor fever pattern. I performed a history & physical examination of the patient and discussed their management with my nurse practitioner, Gretchen Garcia. I reviewed the nurse practitioner's note and agree with the documented findings and plan of care. Lung sounds are positive for diffuse wheezes, and rhonchi throughout the lung ramirez. The findings and the impression was discussed with the patient. I attest to the documentation by the nurse practitioner. Time with Patient: Greater than 30
[2017-06-20] MEDS ORDERED: FUROSEMIDE 10 MG/ML 4 ML VIAL IV STA (17:17)
[2017-06-20 17:22] LABS: Glucose,Whole Blood 209 mg/dL (75-99)
[2017-06-20] MEDS: ZINC SULFATE 220 MG CAP PO SCH (18:03)
[2017-06-20] MEDS: THIAMINE 100 MG TAB PO SCH (18:03)
[2017-06-20] MEDS: CALCITRIOL 0.25 MCG CAP PO SCH (18:03)
[2017-06-20] MEDS: FOLIC ACID 1 MG TAB PO SCH (18:03)
[2017-06-20] MEDS: ASPIRIN 81 MG PO SCH (18:03)
[2017-06-20] MEDS: CHOLECALCIFEROL 1,000 UNIT TAB PO SCH (18:03)
[2017-06-20] MEDS: MULTIVITAMINS, THERA 1 EACH TAB PO SCH (18:04)
--- NOTE | 2017-06-20 19:05 | HP ---
HISTORY AND PHYSICAL CHIEF COMPLAINTS: Shortness of breath and cough. HISTORY OF PRESENT ILLNESS: This 86-year-old gentleman with a past medical history of multiple medical problems, including anemia, history of COPD, history of recent pneumonia, history of parkinson disease, compression fracture at L4, DJD, being followed by Dr. Das in the outpatient setting, was recently admitted with hyperkalemia secondary to renal failure. The patient went home and subsequently the family noticed that the patient was more short of breath; the patient was weak and patient was saturating at 85%. The patient was taken to [facility] and admitted for further evaluation and treatment. Chest x-ray showed possible bibasilar infiltrate. There is no history of any fever, rigor or chills. Aspiration is suspected at this time. PAST MEDICAL HISTORY: 1. History of asthma. 2. CHF. 3. History of dementia. 4. DJD. 5. History of hypothyroidism. 6. Parkinson disease. 7. History of appendectomy. HOME MEDICATIONS: 1. Dulcolax 10 mg rectally p.r.n. 2. Kayexalate 15 mg p.o. daily. 3. Kionex 15 grams p.o. monthly. 4. Nitrostat 0.4 sublingually p.r.n. 5. Fleet's Enema 133 mL rectally daily p.r.n. 6. Milk of magnesia. 7. Augmentin 875 one p.o. b.i.d. 8. Prednisone taper. 9. Hydroxyzine 25 mg p.o. daily. 10.Zinc 50 mg p.o. daily. 11.Vitamin B1 100 mg p.o. daily. 12.Flomax 0.4 daily. 13.Multivitamins 1 p.o. daily. 14.Dolophine 5 mg p.o. b.i.d. 15.Synthroid 75 mcg p.o. daily. 16.Xyzal 5 mg p.o. daily. 17.Neurontin 100 mg p.o. t.i.d. 18.Lasix 20 mg p.o. daily. 19.Folic acid 1 mg p.o. daily. 20.Advair 250/50 one puff b.i.d. 21.Ensure Clear 1 can b.i.d. 22.Avodart 0.5 mg p.o. daily. 23.Vitamin D3 2000 daily. 24.Carbidopa/levodopa 25/100 one p.o. t.i.d. 25.Calcitriol 0.5 mcg p.o. Sunday, Sunday, Sunday. 26.Aspirin 81 mg daily. 27.Zyloprim 100 mg p.o. daily. 28.Ventolin 2.5 mg q.i.d. ALLERGIES: FENTANYL. FAMILY HISTORY: History of myocardial infarction in the family. SOCIAL HISTORY: Previous history of smoking. No current smoking or alcohol intake. REVIEW OF SYSTEMS: ENT: Diminished hearing. Diminished vision. CARDIOVASCULAR SYSTEM: As mentioned earlier. RESPIRATORY SYSTEM: As mentioned earlier. GI: No nausea, vomiting. : As mentioned earlier. NERVOUS SYSTEM: No numbness. Generalized weakness. ALLERGY/IMMUNOLOGY: No asthma, hayfever. MUSCULOSKELETAL: As mentioned earlier. HEMATOLOGY/ONCOLOGY: No history of anemia. ENDOCRINE: No history of diabetes, hypothyroidism. CONSTITUTIONAL: As mentioned earlier. DERMATOLOGY: Negative. RHEUMATOLOGY: Negative. PSYCHIATRY: As mentioned earlier. PHYSICAL EXAMINATION: Patient alert and oriented x2. Pulse is 78, blood pressure 130/60, respiration 18, temperature 97.8, pulse ox 97% on 2 L. HEENT: Conjunctivae normal. NECK: No jugular venous distention. CARDIOVASCULAR SYSTEM: S1, S2 muffled. RESPIRATORY SYSTEM: Breath sounds diminished at the bases. A few scattered rhonchi and crackles. Expiratory wheezing also heard. ABDOMEN: Soft, non-tender. No mass palpable. LEGS: No edema. No swelling. NERVOUS SYSTEM: Mild diffuse weakness. SKIN: No ulcer, rash, bleeding. JOINTS: No active deforming arthropathy. LABS: WBC 10.3, hemoglobin 8.7, glucose 144. ASSESSMENT: 1. Acute bilateral pneumonia, possibly aspiration pneumonia, with shortness of breath. 2. Chronic obstructive pulmonary disease. 3. History of recent renal failure and hyperkalemia. 4. Hyponatremia. 5. History of asthma, congestive heart failure. 6. Dementia. 7. Degenerative joint disease. 8. History of renal disease. 9. History of parkinson's. 10.History of compression fracture at L4. 11.Gait dysfunction. 12.Chronic renal disease, stage IV. 13.Hypothyroidism. 14.Benign prostatic hypertrophy. RECOMMENDATIONS AND DISCUSSION: In this 86-year-old gentleman who presented with multiple complex medical issues , we will we will monitor the patient closely, continue the current medications, continue with symptomatic treatment. Continue with the bronchodilators. Continue with empiric antibiotics. Consult Dr. Sylvester. Speech pathology evaluation. DVT prophylaxis. Guarded prognosis. Further recommendations to follow. MMODL / IJN: [id number] / MTDD
[2017-06-20 20:26] LABS: Glucose,Whole Blood 227 mg/dL (75-99)
[2017-06-20] MEDS ORDERED: INSULIN ASPART 100 UNIT/ML 1 ML 10 ML VIAL SQ SCH (21:00)
[2017-06-20] MEDS: HEPARIN SODIUM,PORCINE 5,000 UNIT/ML 1 ML VIAL SQ SCH (23:06)
[2017-06-20] MEDS: INSULIN ASPART 100 UNIT/ML 1 ML 10 ML VIAL SQ SCH (23:08)
[2017-06-21] MEDS: SODIUM CHLORIDE 0.9% 1,000 ML IV SCH (03:10)
[2017-06-21] MEDS: LEVOTHYROXINE 75 MCG TAB PO SCH (05:51)
[2017-06-21] MEDS: methylPREDNISolone SOD SUCCI 125 MG/2 ML VIAL IV SCH ×4 (05:51→23:42)
[2017-06-21 07:11] LABS: Glucose,Whole Blood 141 mg/dL (75-99)
[2017-06-21] MEDS: IPRATROPIUM-ALBUTEROL 3 ML NEB INHALATION SCH ×4 (07:12→19:07)
[2017-06-21] MEDS: SYMBICORT 80-4.5 MCG INHALER INHALATION SCH ×2 (07:12→19:07)
[2017-06-21 07:51] LABS: Basophils % (A) 0 %; Eosinophils % (A) 0 %; HCT 27.6 % (39.0-53.0); HGB 8.7 gm/dL (13.0-17.5); Lymphocytes % (A) 8 %; MCH 29.9 pg (25.0-35.0); MCHC 31.5 g/dL (31.0-37.0); MCV 94.7 fL (80.0-100.0); Mean Platelet Volume 7.6; Monocytes # (A) 0.3 k/uL (0-1.0); Monocytes % (A) 3 %; Neutrophils # (A) 11.4 k/uL (1.3-7.7); Neutrophils % (A) 89 %; Platelet Count 343 k/uL (150-450); RBC 2.92 m/uL (4.30-5.90); RDW 15.3 % (11.5-15.5); WBC 12.8 k/uL (3.8-10.6)
[2017-06-21] MEDS: INSULIN ASPART 100 UNIT/ML 1 ML 10 ML VIAL SQ SCH ×4 (07:53→22:11)
[2017-06-21] MEDS: hydrOXYzine PAMOATE 25 MG CAP PO SCH (07:55)
[2017-06-21] MEDS: LEVOFLOXACIN 750 MG TAB PO SCH (07:55)
[2017-06-21] MEDS: GABAPENTIN 100 MG CAP PO SCH ×3 (07:56→22:11)
[2017-06-21] MEDS: ALLOPURINOL 100 MG TAB PO SCH (07:56)
[2017-06-21] MEDS: FINASTERIDE 5 MG TAB PO SCH (07:56)
[2017-06-21] MEDS: METHADONE 5 MG TAB PO SCH ×2 (07:56→22:09)
[2017-06-21] MEDS: CARBIDOPA-LEVODOPA 25-100 MG 1 EACH TAB PO SCH ×3 (07:56→17:14)
[2017-06-21] MEDS: FUROSEMIDE 20 MG TAB PO SCH (07:56)
[2017-06-21] MEDS: PIPERACILLIN-TAZOBACTAM 3.375 GM in DEXTROSE/WATER 1 50ML.BAG IVPB SCH ×3 (07:58→23:42)
[2017-06-21] MEDS: LORATADINE 10 MG TAB PO SCH (07:58)
[2017-06-21] MEDS: PANTOPRAZOLE 40 MG TABLET PO SCH (07:58)
[2017-06-21] MEDS: TAMSULOSIN 0.4 MG CAP.ER.24H PO SCH (07:59)
[2017-06-21] MEDS: SODIUM POLYSTYRENE SULFONATE 15 GM/60 ML BOTTLE PO SCH (07:59)
[2017-06-21] MEDS: HEPARIN SODIUM,PORCINE 5,000 UNIT/ML 1 ML VIAL SQ SCH ×2 (07:59→22:11)
[2017-06-21 08:06] LABS: Calcium 8.2 mg/dL (8.4-10.2); Potassium 3.7 mmol/L (3.5-5.1)
[2017-06-21 11:55] LABS: Glucose,Whole Blood 155 mg/dL (75-99)
--- NOTE | 2017-06-21 12:20 | P.PN ---
Subjective Progress Note Date: 06/21/17 Principal diagnosis: Acute hypoxic respiratory failure secondary to right lower lobe pneumonia, possibly aspirationArthur Ashford is a 86-year-old white male patient of Dr. Peyton Das, who was recently hospitalized in May for right lower lobe pneumonia in May, and again for COPD exacerbation and acute on chronic renal failure with hypokalemia on 09/2017, improved, and was discharged home on 06/13/2017. Patient had completed a course of Zithromax and Ceftin for his right lower lobe pneumonia. Patient lives with his son and his [id number], he has poor baseline functional capacity, is unable to ambulate, and is mostly on bedrest. He does not wear oxygen at his baseline. Past medical history includes COPD, congestive heart failure, dementia, osteoarthritis, chronic kidney disease, Parkinson's disease, compression fractures of the lumbar spine, anemia, hypothyroidism. Patient is a former smoker, quit in 1965. Patient was noted to be increasingly short of breath at home, congested, coughing, but unable to produce any sputum. He states he did have the chills at home. He was started on prednisone taper and antibiotics in the form of Augmentin by his primary care physician on 06/19/2017. But in view of progressing dyspnea, chest congestion, and wheezing he was brought to the emergency room for further evaluation and treatment. On presentation he was noted to be hypoxemic, his pulse ox was 85% on room air. Initial chest x-ray showed small pleural effusions, and increasing infiltrates at the posterior lung bases compared to the last exam on 06/11/2017. No evidence of overt heart failure. Follow-up chest x-ray on 06/20/2017 showed bilateral infiltrate and pleural effusions. Patient was started on a combination of IV steroids, Levaquin, Zosyn, nebulized treatments DuoNeb, Symbicort and oral Lasix and admitted for further management. Lab work did not show any evidence of leukocytosis, WBC of 10.3, hemoglobin is 8.7, sodium is 134, potassium is 4.6, B1 is 48, creatinine is 1.9. Troponin was negative 1, proBNP was 2800. Urinalysis showed trace protein, trace blood, rare bacteria and mucus. Patient has been afebrile while inpatient, hemodynamically stable, currently on 3 L per nasal cannula O2 sat 96% . The patient is seen again today 06/21/2017 in follow-up on the regular medical floor. He is currently awake and alert in no acute distress. He is resting comfortably in bed. He states he is breathing about the same as compared to yesterday. No significant improvement thus far. He is maintaining good O2 saturations in the 90s on 2 L/m per nasal cannula. He's been afebrile. Hemodynamically stable. White count 12.8. Hemoglobin 8.7. Creatinine 1.94. He is continued on Zosyn and Levaquin along with IV Solu-Medrol, Symbicort and bronchodilators. Blood cultures reveal no growth to date. Objective - Vital Signs Vital signs: Vital Signs Temp 97.9 F 06/21/17 07:00 Pulse 74 06/21/17 11:16 Resp 18 06/21/17 08:00 BP 121/69 06/21/17 07:00 Pulse Ox 97 06/21/17 07:15 Intake & Output 06/20/17 06/21/17 06/21/17 18:59 06:59 18:59 Intake Total 1320 800 Output Total 1500 400 400 Balance -180 400 -400 Weight 90.5 kg 90.5 kg Intake: IV 160 Sodium Chloride 0.9% 1, 160 000 ml @ 20 mls/hr IV . Q24H [facility] Rx#:[id number] Intake, IV Titration 200 210 Amount Levofloxacin 750Mg-D5w 150 Pmx 750 mg In Dextrose/ Water 1 150ml.bag @ 100 mls/hr IVPB ONCE [facility] Rx#: [id number] Piperacillin-Tazobactam 3 50 50 .375 gm In Dextrose/Water 1 50ml.bag @ 12.5 mls/hr IVPB Q8HR [facility] Rx#: [id number] Sodium Chloride 0.9% 1, 160 000 ml @ 20 mls/hr IV . Q24H [facility] Rx#:[id number] Oral 960 590 Output: Urine 1500 400 400 Other: Voiding Method Incontinent Indwelling Catheter Indwelling Catheter # Voids 1 1 - Exam GENERAL EXAM: Alert, active, comfortable in no apparent distress. HEAD: Normocephalic. EYES: Normal reaction of pupils, equal size. NOSE: Clear with pink turbinates. THROAT: No erythema or exudates. NECK: No masses, no JVD. CHEST: No chest wall deformity. LUNGS: Equal air entry with no crackles, wheeze, rhonchi or dullness. CVS: S1 and S2 normal with crackles in the bilateral posterior bases. Diminished. ABDOMEN: No hepatosplenomegaly, normal bowel sounds, no guarding or rigidity. SPINE: No scoliosis or deformity SKIN: No rashes CENTRAL NERVOUS SYSTEM: No focal deficits, tone is normal in all 4 extremities. EXTREMITIES: There is no peripheral edema. No clubbing, no cyanosis. Peripheral pulses are intact. - Labs CBC & Chem 7: 06/21/17 07:32 06/21/17 07:32 Labs: Abnormal Lab Results - Last 24 Hours (Table) 06/20/17 06/20/17 06/21/17 Range/Units 17:16 20:24 07:02 WBC (3.8-10.6) k/uL RBC (4.30-5.90) m/uL Hgb (13.0-17.5) gm/dL Hct (39.0-53.0) % Neutrophils # (1.3-7.7) k/uL BUN (9-20) mg/dL Creatinine (0.66-1.25) mg/dL Glucose (74-99) mg/dL POC Glucose (mg/dL) 209 H 227 H 141 H (75-99) mg/dL Calcium (8.4-10.2) mg/dL 06/21/17 06/21/17 06/21/17 Range/Units 07:32 07:32 11:45 WBC 12.8 H (3.8-10.6) k/uL RBC 2.92 L (4.30-5.90) m/uL Hgb 8.7 L (13.0-17.5) gm/dL Hct 27.6 L (39.0-53.0) % Neutrophils # 11.4 H (1.3-7.7) k/uL BUN 51 H (9-20) mg/dL Creatinine 1.94 H (0.66-1.25) mg/dL Glucose 136 H (74-99) mg/dL POC Glucose (mg/dL) 155 H (75-99) mg/dL Calcium 8.2 L (8.4-10.2) mg/dL Microbiology - Last 24 Hours (Table) 06/19/17 19:35 Blood Culture - Preliminary Blood No Growth after 24 hours Assessment and Plan Assessment: Assessment: #1. Acute hypoxic respiratory failure secondary to right lower lobe pneumonia, possibly be aspiration related #2. Recent hospitalization for right lower lobe pneumonia in May, patient was treated with Rocephin and Zithromax during that admission, improved when was discharged home #3. Recent hospitalization for acute on chronic renal failure, with hypokalemia , discharged home on 06/13/2017 #4. COPD, with a baseline FEV1 of 47% of predicted, GOLD stage III #5. History of chronic congestive heart failure with diastolic dysfunction #6. Anemia of chronic disease #7. Chronic renal failure, stage III #8. Hypothyroidism #9. Parkinson's disease/dementia with significant impairment of neurologic function/cognition/memory/gait #10. Poor baseline functional status, patient is mostly bedbound #11. History of BPH, on Avodart and Flomax #12. Osteoarthritis Plan: The patient was seen and evaluated by Dr. Sylvester. The patient is currently stable from the pulmonary standpoint. We'll continue with his current medications for now. A bedside swallow evaluation did reveal an overt cough on thin liquids. Modified barium swallow is pending. Aspiration precautions in place. We will continue to follow and make further recommendations based on his clinical status. I, the cosigning physician, performed a history & physical examination of the patient. Lungs sounds have crackles in the bilateral posterior bases. Diminished.. Maintaining good O2 saturations in the 90s on 2 L/m per nasal cannula. I discussed the assessment and plan of care with my nurse practitioner , Autumn Almonte. I attest to the above note as dictated by her.
--- NOTE | 2017-06-21 13:11 | XR ---
EXAMINATION TYPE: XR chest 2V DATE OF EXAM: 06/21/2017 COMPARISON: 06/20/2017 TECHNIQUE: PA and lateral views submitted. HISTORY: pneumonia FINDINGS: Persistent bilateral consolidation and pleural effusion. Central interstitium prominent. Arthropathy of the shoulders and diffuse anemia. No pneumothorax as visualized. Due to positioning there is some limitation of the right apex. Hypertr ophic and degenerative change of the spine. Chronic rib deformities. IMPRESSION: 1. Bilateral infiltrate and pleural effusion stable. Correlate clinically to exclude central venous c ongestion
--- NOTE | 2017-06-21 14:39 | FL ---
MODIFIED SWALLOW / DEGLUTITION STUDY DATE OF EXAM: 06/21/2017 CLINICAL HISTORY: 86-year-old male with COPD and Parkinson's, presents with pneumonia, rule out silen t aspiration TECHNIQUE: Deglutition study is performed utilizing thin liquid barium, honey and nectar thick liqui d barium, barium thick applesauce, and barium coated cracker. Total fluoroscopy time: 1 minute 43 seconds. Total images: None, real-time fluoroscopy support was provided to speech pathology. COMPARISON: None. FINDINGS: Patient is edentulous. The oral and pharyngeal phases show satisfactory initiation and propagation wi th all modalities tested. With repeated swallows of thin liquid via straw, deep penetration is seen to the level of the vocal c ords. No aspiration. No penetration or aspiration with any other modality tested. No significant pharyngeal residue was appreciated. IMPRESSION: Deep penetration to the vocal folds with repeated swallows of thin liquids via straw. No aspiration. Please refer to speech therapist notes for further details if necessary.
[2017-06-21] MEDS: THIAMINE 100 MG TAB PO SCH (17:14)
[2017-06-21] MEDS: FOLIC ACID 1 MG TAB PO SCH (17:14)
[2017-06-21] MEDS: CHOLECALCIFEROL 1,000 UNIT TAB PO SCH (17:14)
[2017-06-21] MEDS: MULTIVITAMINS, THERA 1 EACH TAB PO SCH (17:14)
[2017-06-21] MEDS: ASPIRIN 81 MG PO SCH (17:14)
[2017-06-21] MEDS: ZINC SULFATE 220 MG CAP PO SCH (17:14)
[2017-06-21 17:15] LABS: Glucose,Whole Blood 226 mg/dL (75-99)
--- NOTE | 2017-06-21 18:32 | P.PN ---
Subjective Progress Note Date: 06/21/17 Progress note being dictated for Dr. Cleaning. Interval history: This is an 78-year-old gentleman admitted with acute bilateral pneumonia, possible aspiration pneumonia, COPD and multiple other medical issues. Evaluated by therapy, underwent modified barium swallow reporting no aspiration, but overt cough on thin liquids. Modified diet recommended with no straws. Chest x-ray reporting stable bilateral infiltrate and pleural effusion. Maintained on Zosyn, Levaquin, nebulized bronchodilators and steroids. Reports minimal improvement in breathing compared to yesterday. Maintaining O2 sats in the 90s on 2 L nasal cannula. Afebrile. Preliminary blood cultures negative. Objective - Vital Signs Vital signs: Vital Signs Temp 97.9 F 06/21/17 15:00 Pulse 80 06/21/17 16:08 Resp 18 06/21/17 15:00 BP 143/72 06/21/17 15:00 Pulse Ox 92 L 06/21/17 15:00 Intake & Output 06/20/17 06/21/17 06/21/17 18:59 06:59 18:59 Intake Total 9805 790 5838 Output Total 3452 205 8105 Balance -180 400 -285 Weight 90.5 kg 90.5 kg Intake: IV 160 Sodium Chloride 0.9% 1, 160 000 ml @ 20 mls/hr IV . Q24H DIANN Rx#:[id number] Intake, IV Titration 200 210 210 Amount Levofloxacin 750Mg-D5w 150 Pmx 750 mg In Dextrose/ Water 1 150ml.bag @ 100 mls/hr IVPB ONCE STA Rx#: [id number] Piperacillin-Tazobactam 3 50 50 50 .375 gm In Dextrose/Water 1 50ml.bag @ 12.5 mls/hr IVPB Q8HR DIANN Rx#: [id number] Sodium Chloride 0.9% 1, 160 160 000 ml @ 20 mls/hr IV . Q24H DIANN Rx#:[id number] Oral 278 278 5375 Output: Urine 2689 500 1245 Condom 575 Other: Voiding Method Incontinent Indwelling Catheter Indwelling Catheter # Voids 1 1 - Exam PHYSICAL EXAM: VITAL SIGNS: As above GENERAL: Sitting up in bed, no acute distress HEENT: Conjunctivae normal. eyes normal. Oral mucosa moist NECK: No JVD. No thyroid enlargement. No LNs CARDIOVASCULAR: S1, S2 muffled. No murmur RESPIRATION: Breath sounds diminished in the bases. No rhonchi or crackles. No wheezing ABDOMEN: Soft, nontender . No guarding. no masses palpable.Bowel sounds heard. LEGS: No edema. no swelling PSYCHIATRY: Alert and oriented -2, mood and affect normal. NERVOUS SYSTEM: Cranial N 2-12 grossly normal. Moves all 4 limbs. Diffuse weakness No focal deficits. Skin: no ulcer no rash Joints: No active swelling. No inflammation. Lymphatic system. No LN neck axilla or groin. - Labs CBC & Chem 7: 06/21/17 07:32 06/21/17 07:32 Labs: Abnormal Lab Results - Last 24 Hours (Table) 06/20/17 06/21/17 06/21/17 Range/Units 20:24 07:02 07:32 WBC 12.8 H (3.8-10.6) k/uL RBC 2.92 L (4.30-5.90) m/uL Hgb 8.7 L (13.0-17.5) gm/dL Hct 27.6 L (39.0-53.0) % Neutrophils # 11.4 H (1.3-7.7) k/uL BUN (9-20) mg/dL Creatinine (0.66-1.25) mg/dL Glucose (74-99) mg/dL POC Glucose (mg/dL) 227 H 141 H (75-99) mg/dL Calcium (8.4-10.2) mg/dL 06/21/17 06/21/17 06/21/17 Range/Units 07:32 11:45 17:11 WBC (3.8-10.6) k/uL RBC (4.30-5.90) m/uL Hgb (13.0-17.5) gm/dL Hct (39.0-53.0) % Neutrophils # (1.3-7.7) k/uL BUN 51 H (9-20) mg/dL Creatinine 1.94 H (0.66-1.25) mg/dL Glucose 136 H (74-99) mg/dL POC Glucose (mg/dL) 155 H 226 H (75-99) mg/dL Calcium 8.2 L (8.4-10.2) mg/dL Microbiology - Last 24 Hours (Table) 06/19/17 19:35 Blood Culture - Preliminary Blood No Growth after 24 hours Assessment and Plan Assessment: 1. Acute bilateral pneumonia, with no aspiration per MBS 2. COPD, gold stage III 3. Recent acute renal failure with hyperkalemia 4. Hyponatremia 5. Dementia 6. Parkinson's disease 7. Chronic renal disease, stage IV 8. History of chronic congestive heart failure with diastolic dysfunction 9. Medical debility, mostly bedbound Plan: Continue on current medication regime ,monitoring and symptomatic treatment. Maintain nebulized bronchodilators, antibiotics, steroids. MBS reported overt cough on thin liquids, no aspiration, Modified diet as recommended per speech therapy. One-to-one supervision with meals, strict aspiration precautions. The impression and plan of care has been dictated as directed. : I performed a history and examination of this patient, discussed the same with the dictator. I agree with the dictator's note ,documented as a scribe. Any additional findings or plans will be noted.
[2017-06-21 20:51] LABS: Glucose,Whole Blood 182 mg/dL (75-99)
[2017-06-22] MEDS: LEVOTHYROXINE 75 MCG TAB PO SCH (05:56)
[2017-06-22] MEDS: methylPREDNISolone SOD SUCCI 125 MG/2 ML VIAL IV SCH ×3 (06:02→17:36)
[2017-06-22] MEDS: SODIUM CHLORIDE 0.9% 1,000 ML IV SCH ×2 (06:56→23:08)
[2017-06-22] MEDS: SYMBICORT 80-4.5 MCG INHALER INHALATION SCH ×2 (07:30→19:06)
[2017-06-22] MEDS: IPRATROPIUM-ALBUTEROL 3 ML NEB INHALATION SCH ×4 (07:30→19:06)
[2017-06-22 07:43] LABS: Glucose,Whole Blood 179 mg/dL (75-99)
[2017-06-22 08:20] LABS: Basophils % (A) 0 %; Eosinophils % (A) 0 %; HCT 27.8 % (39.0-53.0); HGB 8.6 gm/dL (13.0-17.5); Hypochromasia Slight; Lymphocytes # (A) 0.9 k/uL (1.0-4.8); Lymphocytes % (A) 7 %; MCH 29.9 pg (25.0-35.0); MCHC 31.1 g/dL (31.0-37.0); MCV 96.1 fL (80.0-100.0); Mean Platelet Volume 7.8; Monocytes # (A) 0.3 k/uL (0-1.0); Monocytes % (A) 2 %; Neutrophils # (A) 11.8 k/uL (1.3-7.7); Neutrophils % (A) 90 %; Platelet Count 345 k/uL (150-450); RBC 2.89 m/uL (4.30-5.90); RDW 15.5 % (11.5-15.5); WBC 13.1 k/uL (3.8-10.6)
[2017-06-22 08:24] LABS: Calcium 8.3 mg/dL (8.4-10.2); Potassium 3.6 mmol/L (3.5-5.1)
[2017-06-22] MEDS: PIPERACILLIN-TAZOBACTAM 3.375 GM in DEXTROSE/WATER 1 50ML.BAG IVPB SCH ×3 (09:00→23:00)
[2017-06-22] MEDS: INSULIN ASPART 100 UNIT/ML 1 ML 10 ML VIAL SQ SCH ×4 (09:00→22:53)
[2017-06-22] MEDS: ALLOPURINOL 100 MG TAB PO SCH (09:01)
[2017-06-22] MEDS: FUROSEMIDE 20 MG TAB PO SCH (09:01)
[2017-06-22] MEDS: GABAPENTIN 100 MG CAP PO SCH ×3 (09:01→22:53)
[2017-06-22] MEDS: hydrOXYzine PAMOATE 25 MG CAP PO SCH (09:01)
[2017-06-22] MEDS: METHADONE 5 MG TAB PO SCH ×2 (09:01→22:52)
[2017-06-22] MEDS: PANTOPRAZOLE 40 MG TABLET PO SCH (09:02)
[2017-06-22] MEDS: TAMSULOSIN 0.4 MG CAP.ER.24H PO SCH (09:02)
[2017-06-22] MEDS: FINASTERIDE 5 MG TAB PO SCH (09:02)
[2017-06-22] MEDS: CARBIDOPA-LEVODOPA 25-100 MG 1 EACH TAB PO SCH ×3 (09:02→17:39)
[2017-06-22] MEDS: LORATADINE 10 MG TAB PO SCH (09:02)
[2017-06-22] MEDS: HEPARIN SODIUM,PORCINE 5,000 UNIT/ML 1 ML VIAL SQ SCH ×2 (09:02→22:53)
--- NOTE | 2017-06-22 10:11 | P.PN ---
Subjective Progress Note Date: 06/22/17 Principal diagnosis: Acute hypoxic respiratory failure secondary to right lower lobe pneumonia, possibly aspirationArthur Ashford is a 86-year-old white male patient of Dr. Peyton Das, who was recently hospitalized in May for right lower lobe pneumonia in May, and again for COPD exacerbation and acute on chronic renal failure with hypokalemia on 09/2017, improved, and was discharged home on 06/13/2017. Patient had completed a course of Zithromax and Ceftin for his right lower lobe pneumonia. Patient lives with his son and his [id number], he has poor baseline functional capacity, is unable to ambulate, and is mostly on bedrest. He does not wear oxygen at his baseline. Past medical history includes COPD, congestive heart failure, dementia, osteoarthritis, chronic kidney disease, Parkinson's disease, compression fractures of the lumbar spine, anemia, hypothyroidism. Patient is a former smoker, quit in 1965. Patient was noted to be increasingly short of breath at home, congested, coughing, but unable to produce any sputum. He states he did have the chills at home. He was started on prednisone taper and antibiotics in the form of Augmentin by his primary care physician on 06/19/2017. But in view of progressing dyspnea, chest congestion, and wheezing he was brought to the emergency room for further evaluation and treatment. On presentation he was noted to be hypoxemic, his pulse ox was 85% on room air. Initial chest x-ray showed small pleural effusions, and increasing infiltrates at the posterior lung bases compared to the last exam on 06/11/2017. No evidence of overt heart failure. Follow-up chest x-ray on 06/20/2017 showed bilateral infiltrate and pleural effusions. Patient was started on a combination of IV steroids, Levaquin, Zosyn, nebulized treatments DuoNeb, Symbicort and oral Lasix and admitted for further management. Lab work did not show any evidence of leukocytosis, WBC of 10.3, hemoglobin is 8.7, sodium is 134, potassium is 4.6, B1 is 48, creatinine is 1.9. Troponin was negative 1, proBNP was 2800. Urinalysis showed trace protein, trace blood, rare bacteria and mucus. Patient has been afebrile while inpatient, hemodynamically stable, currently on 3 L per nasal cannula O2 sat 96% . The patient is seen again today 06/21/2017 in follow-up on the regular medical floor. He is currently awake and alert in no acute distress. He is resting comfortably in bed. He states he is breathing about the same as compared to yesterday. No significant improvement thus far. He is maintaining good O2 saturations in the 90s on 2 L/m per nasal cannula. He's been afebrile. Hemodynamically stable. White count 12.8. Hemoglobin 8.7. Creatinine 1.94. He is continued on Zosyn and Levaquin along with IV Solu-Medrol, Symbicort and bronchodilators. Blood cultures reveal no growth to date. The patient is seen again today 06/22/2017 in follow-up on the regular medical floor. He is awake and alert in no acute distress. Currently having breakfast. His appetite is fair. No coughing or choking noted. He continues to maintain good O2 saturations in the 90s on 2 L/m per nasal cannula. He is afebrile. Hemodynamically stable. Blood cultures reveal no growth to date. White count 13.1. Hemoglobin 8.6. Creatinine 2.21. Objective - Vital Signs Vital signs: Vital Signs Temp 97.7 F 06/22/17 07:00 Pulse 72 06/22/17 07:42 Resp 18 06/22/17 07:00 BP 161/73 06/22/17 07:00 Pulse Ox 91 L 06/22/17 07:00 Intake & Output 06/21/17 06/22/17 06/22/17 18:59 06:59 18:59 Intake Total 1770 1060 Output Total 2175 Balance -405 1060 Weight 90.5 kg 88.5 kg Intake: Intake, IV Titration 210 420 Amount Piperacillin-Tazobactam 3 50 100 .375 gm In Dextrose/Water 1 50ml.bag @ 12.5 mls/hr IVPB Q8HR DIANN Rx#: [id number] Sodium Chloride 0.9% 1, 160 320 000 ml @ 20 mls/hr IV . Q24H DIANN Rx#:[id number] Oral 1560 640 Output: Urine 2175 Condom 575 Other: Voiding Method Indwelling Catheter Indwelling Catheter # Voids 1 - Exam GENERAL EXAM: Alert, comfortable in no apparent distress. HEAD: Normocephalic. EYES: Normal reaction of pupils, equal size. NOSE: Clear with pink turbinates. THROAT: No erythema or exudates. NECK: No masses, no JVD. CHEST: No chest wall deformity. LUNGS: Equal air entry with faint end expiratory wheeze bilaterally, few scattered crackles in the bases. CVS: S1 and S2 normal ABDOMEN: No hepatosplenomegaly, normal bowel sounds, no guarding or rigidity. SPINE: No scoliosis or deformity SKIN: No rashes CENTRAL NERVOUS SYSTEM: No focal deficits, tone is normal in all 4 extremities. EXTREMITIES: There is no peripheral edema. No clubbing, no cyanosis. Peripheral pulses are intact. - Labs CBC & Chem 7: 06/22/17 07:42 06/22/17 07:42 Labs: Abnormal Lab Results - Last 24 Hours (Table) 06/21/17 06/21/17 06/21/17 Range/Units 11:45 17:11 20:49 WBC (3.8-10.6) k/uL RBC (4.30-5.90) m/uL Hgb (13.0-17.5) gm/dL Hct (39.0-53.0) % Neutrophils # (1.3-7.7) k/uL Lymphocytes # (1.0-4.8) k/uL BUN (9-20) mg/dL Creatinine (0.66-1.25) mg/dL Glucose (74-99) mg/dL POC Glucose (mg/dL) 155 H 226 H 182 H (75-99) mg/dL Calcium (8.4-10.2) mg/dL 06/22/17 06/22/17 06/22/17 Range/Units 07:35 07:42 07:42 WBC 13.1 H (3.8-10.6) k/uL RBC 2.89 L (4.30-5.90) m/uL Hgb 8.6 L (13.0-17.5) gm/dL Hct 27.8 L (39.0-53.0) % Neutrophils # 11.8 H (1.3-7.7) k/uL Lymphocytes # 0.9 L (1.0-4.8) k/uL BUN 54 H (9-20) mg/dL Creatinine 2.21 H (0.66-1.25) mg/dL Glucose 165 H (74-99) mg/dL POC Glucose (mg/dL) 179 H (75-99) mg/dL Calcium 8.3 L (8.4-10.2) mg/dL Microbiology - Last 24 Hours (Table) 06/19/17 19:35 Blood Culture - Preliminary Blood No Growth after 48 hours Assessment and Plan Assessment: Assessment: #1. Acute hypoxic respiratory failure secondary to right lower lobe pneumonia, possibly be aspiration related. He did not tolerate thin liquids at the bedside. However, his modified barium swallow did not reveal any evidence of aspiration. #2. Recent hospitalization for right lower lobe pneumonia in May, patient was treated with Rocephin and Zithromax during that admission, improved when was discharged home #3. Recent hospitalization for acute on chronic renal failure, with hypokalemia , discharged home on 06/13/2017 #4. COPD, with a baseline FEV1 of 47% of predicted, GOLD stage III #5. History of chronic congestive heart failure with diastolic dysfunction #6. Anemia of chronic disease #7. Chronic renal failure, stage III, creatinine 2.21. GFR 26. #8. Hypothyroidism #9. Parkinson's disease/dementia with significant impairment of neurologic function/cognition/memory/gait #10. Poor baseline functional status, patient is mostly bedbound #11. History of BPH, on Avodart and Flomax #12. Osteoarthritis Plan: The patient was seen and evaluated by Dr. Sylvester. We'll continue with his current medications for now. Change Symbicort to Pulmicort and Perforomist inhalations twice a day as patient's timing is not great with an inhaler. Continue Zosyn and Levaquin. We will continue to follow and make further recommendations based on his clinical status. I, the cosigning physician, performed a history & physical examination of the patient. Lungs sounds have crackles in the bilateral posterior bases. Diminished.. Maintaining good O2 saturations in the 90s on 2 L/m per nasal cannula. I discussed the assessment and plan of care with my nurse practitioner , Autumn Almonte. I attest to the above note as dictated by her.
[2017-06-22 12:09] LABS: Glucose,Whole Blood 145 mg/dL (75-99)
[2017-06-22 17:25] LABS: Glucose,Whole Blood 157 mg/dL (75-99)
[2017-06-22] MEDS: CALCITRIOL 0.25 MCG CAP PO SCH (17:34)
[2017-06-22] MEDS: THIAMINE 100 MG TAB PO SCH (17:35)
[2017-06-22] MEDS: FOLIC ACID 1 MG TAB PO SCH (17:35)
[2017-06-22] MEDS: CHOLECALCIFEROL 1,000 UNIT TAB PO SCH (17:35)
[2017-06-22] MEDS: ZINC SULFATE 220 MG CAP PO SCH (17:35)
[2017-06-22] MEDS: ASPIRIN 81 MG PO SCH (17:35)
[2017-06-22] MEDS: MULTIVITAMINS, THERA 1 EACH TAB PO SCH (17:35)
[2017-06-22 20:10] LABS: Glucose,Whole Blood 190 mg/dL (75-99)
[2017-06-22] MEDS ORDERED: cloNIDine HCL 0.1 MG TAB PO PRN (20:27)
[2017-06-22] MEDS ORDERED: hydrALAZINE HCL 20 MG/ML 1 ML VIAL IVP PRN (20:27)
--- NOTE | 2017-06-22 20:44 | P.PN ---
Subjective Progress Note Date: 06/22/17 Progress note being dictated for Dr. Cleaning. Interval history: This is an 78-year-old gentleman admitted with acute bilateral pneumonia, possible aspiration pneumonia, COPD and multiple other medical issues. Evaluated by therapy, underwent modified barium swallow reporting no aspiration, but overt cough on thin liquids. Modified diet recommended with no straws. Chest x-ray reporting stable bilateral infiltrate and pleural effusion. Maintained on Zosyn, Levaquin, nebulized bronchodilators and steroids. Reports minimal improvement in breathing compared to yesterday. Maintaining O2 sats in the 90s on 2 L nasal cannula. Afebrile. Preliminary blood cultures negative. 06/22/17 maintained on nebulized bronchodilators, Zosyn and Levaquin. Breathing continues to improve. Maintaining O2 sats in the 90s on 2 L nasal cannula. Afebrile, WBC 13.1, preliminary blood cultures negative. Currently on oral Lasix with renal function worsening. Consuming 25-50% of meals. Denies nausea or vomiting. No diarrhea. Denies abdominal pain. Denies chest pain, palpitations or increasing shortness of breath. Objective - Vital Signs Vital signs: Vital Signs Temp 97.0 F L 06/22/17 19:06 Pulse 78 06/22/17 19:17 Resp 20 06/22/17 19:23 BP 160/76 06/22/17 19:26 Pulse Ox 95 06/22/17 15:00 Intake & Output 06/22/17 06/22/17 06/23/17 06:59 18:59 06:59 Intake Total 1060 1440 25 Output Total 600 Balance 1060 840 25 Weight 88.5 kg Intake: Intake, IV Titration 420 Amount Piperacillin-Tazobactam 3 100 .375 gm In Dextrose/Water 1 50ml.bag @ 12.5 mls/hr IVPB Q8HR DIANN Rx#: [id number] Sodium Chloride 0.9% 1, 320 000 ml @ 20 mls/hr IV . Q24H DIANN Rx#:[id number] Oral 640 1440 25 Output: Urine 600 Other: Voiding Method Indwelling Catheter # Voids 1 - Exam PHYSICAL EXAM: VITAL SIGNS: As above GENERAL: Sitting up in bed, no acute distress HEENT: Conjunctivae normal. eyes normal. Oral mucosa moist NECK: No JVD. No thyroid enlargement. No LNs CARDIOVASCULAR: S1, S2 muffled. No murmur RESPIRATION: Breath sounds diminished in the bases. No rhonchi, fine bibasilar crackles. Bilateral scattered expiratory wheezing ABDOMEN: Soft, nontender . No guarding. no masses palpable.Bowel sounds heard. LEGS: No edema. no swelling PSYCHIATRY: Alert and oriented -2, mood and affect normal. NERVOUS SYSTEM: Cranial N 2-12 grossly normal. Moves all 4 limbs. Diffuse weakness No focal deficits. Skin: no ulcer no rash Joints: No active swelling. No inflammation. Lymphatic system. No LN neck axilla or groin. - Labs CBC & Chem 7: 06/22/17 07:42 06/22/17 07:42 Labs: Abnormal Lab Results - Last 24 Hours (Table) 06/21/17 06/22/17 06/22/17 Range/Units 20:49 07:35 07:42 WBC 13.1 H (3.8-10.6) k/uL RBC 2.89 L (4.30-5.90) m/uL Hgb 8.6 L (13.0-17.5) gm/dL Hct 27.8 L (39.0-53.0) % Neutrophils # 11.8 H (1.3-7.7) k/uL Lymphocytes # 0.9 L (1.0-4.8) k/uL BUN (9-20) mg/dL Creatinine (0.66-1.25) mg/dL Glucose (74-99) mg/dL POC Glucose (mg/dL) 182 H 179 H (75-99) mg/dL Calcium (8.4-10.2) mg/dL 06/22/17 06/22/17 06/22/17 Range/Units 07:42 11:58 17:17 WBC (3.8-10.6) k/uL RBC (4.30-5.90) m/uL Hgb (13.0-17.5) gm/dL Hct (39.0-53.0) % Neutrophils # (1.3-7.7) k/uL Lymphocytes # (1.0-4.8) k/uL BUN 54 H (9-20) mg/dL Creatinine 2.21 H (0.66-1.25) mg/dL Glucose 165 H (74-99) mg/dL POC Glucose (mg/dL) 145 H 157 H (75-99) mg/dL Calcium 8.3 L (8.4-10.2) mg/dL 06/22/17 Range/Units 20:08 WBC (3.8-10.6) k/uL RBC (4.30-5.90) m/uL Hgb (13.0-17.5) gm/dL Hct (39.0-53.0) % Neutrophils # (1.3-7.7) k/uL Lymphocytes # (1.0-4.8) k/uL BUN (9-20) mg/dL Creatinine (0.66-1.25) mg/dL Glucose (74-99) mg/dL POC Glucose (mg/dL) 190 H (75-99) mg/dL Calcium (8.4-10.2) mg/dL Microbiology - Last 24 Hours (Table) 06/19/17 19:35 Blood Culture - Preliminary Blood No Growth after 48 hours Assessment and Plan Assessment: 1. Acute bilateral pneumonia, with no aspiration per MBS; modified diet 2. COPD, gold stage III 3. Recent acute renal failure with hyperkalemia 4. Hyponatremia 5. Dementia 6. Parkinson's disease 7. Chronic renal disease, stage IV 8. History of chronic congestive heart failure with diastolic dysfunction 9. Medical debility, mostly bedbound Plan: Continue on current medication regime ,monitoring and symptomatic treatment. Maintain nebulized bronchodilators, antibiotics, steroids.maintain One-to-one supervision with meals, strict aspiration precautions. The impression and plan of care has been dictated as directed. : I performed a history and examination of this patient, discussed the same with the dictator. I agree with the dictator's note ,documented as a scribe. Any additional findings or plans will be noted.
[2017-06-22] MEDS: amLODIPine 10 MG TAB PO SCH (22:53)
[2017-06-22] MEDS: methylPREDNISolone SOD SUCCI 40 MG/ML 1 ML VIAL IV SCH (22:53)
[2017-06-23] MEDS: LEVOTHYROXINE 75 MCG TAB PO SCH (05:31)
[2017-06-23] MEDS: SYMBICORT 80-4.5 MCG INHALER INHALATION SCH ×2 (07:14→19:04)
[2017-06-23] MEDS: IPRATROPIUM-ALBUTEROL 3 ML NEB INHALATION SCH ×4 (07:14→19:04)
[2017-06-23 07:36] LABS: Glucose,Whole Blood 190 mg/dL (75-99)
[2017-06-23 07:40] LABS: Basophils % (A) 0 %; Eosinophils % (A) 0 %; HCT 28.2 % (39.0-53.0); HGB 8.8 gm/dL (13.0-17.5); Lymphocytes % (A) 8 %; MCH 29.6 pg (25.0-35.0); MCHC 31.2 g/dL (31.0-37.0); MCV 94.7 fL (80.0-100.0); Mean Platelet Volume 7.5; Monocytes # (A) 0.3 k/uL (0-1.0); Monocytes % (A) 2 %; Neutrophils # (A) 11.1 k/uL (1.3-7.7); Neutrophils % (A) 89 %; Platelet Count 383 k/uL (150-450); RBC 2.98 m/uL (4.30-5.90); RDW 15.5 % (11.5-15.5); WBC 12.5 k/uL (3.8-10.6)
[2017-06-23 08:22] LABS: Calcium 8.2 mg/dL (8.4-10.2); Potassium 3.3 mmol/L (3.5-5.1)
[2017-06-23] MEDS: CARBIDOPA-LEVODOPA 25-100 MG 1 EACH TAB PO SCH ×3 (08:34→16:56)
[2017-06-23] MEDS: INSULIN ASPART 100 UNIT/ML 1 ML 10 ML VIAL SQ SCH ×4 (08:34→20:32)
[2017-06-23] MEDS: GABAPENTIN 100 MG CAP PO SCH ×3 (08:34→20:33)
[2017-06-23] MEDS: FINASTERIDE 5 MG TAB PO SCH (08:35)
[2017-06-23] MEDS: ALLOPURINOL 100 MG TAB PO SCH (08:35)
[2017-06-23] MEDS: LEVOFLOXACIN 750 MG TAB PO SCH (08:35)
[2017-06-23] MEDS: amLODIPine 10 MG TAB PO SCH (08:35)
[2017-06-23] MEDS: PANTOPRAZOLE 40 MG TABLET PO SCH (08:35)
[2017-06-23] MEDS: HEPARIN SODIUM,PORCINE 5,000 UNIT/ML 1 ML VIAL SQ SCH ×2 (08:36→20:32)
[2017-06-23] MEDS: LORATADINE 10 MG TAB PO SCH (08:36)
[2017-06-23] MEDS: TAMSULOSIN 0.4 MG CAP.ER.24H PO SCH (08:36)
[2017-06-23] MEDS: PIPERACILLIN-TAZOBACTAM 3.375 GM in DEXTROSE/WATER 1 50ML.BAG IVPB SCH ×3 (08:37→23:09)
[2017-06-23] MEDS: METHADONE 5 MG TAB PO SCH ×2 (08:39→20:32)
[2017-06-23] MEDS: hydrOXYzine PAMOATE 25 MG CAP PO SCH (08:40)
[2017-06-23] MEDS: methylPREDNISolone SOD SUCCI 40 MG/ML 1 ML VIAL IV SCH ×3 (08:48→23:09)
--- NOTE | 2017-06-23 11:12 | P.PN ---
Subjective Progress Note Date: 06/23/17 Principal diagnosis: Acute hypoxic respiratory failure secondary to right lower lobe pneumonia, possibly aspirationArthur Ashford is a 86-year-old white male patient of Dr. Peyton Das, who was recently hospitalized in May for right lower lobe pneumonia in May, and again for COPD exacerbation and acute on chronic renal failure with hypokalemia on 09/2017, improved, and was discharged home on 06/13/2017. Patient had completed a course of Zithromax and Ceftin for his right lower lobe pneumonia. Patient lives with his son and his [id number], he has poor baseline functional capacity, is unable to ambulate, and is mostly on bedrest. He does not wear oxygen at his baseline. Past medical history includes COPD, congestive heart failure, dementia, osteoarthritis, chronic kidney disease, Parkinson's disease, compression fractures of the lumbar spine, anemia, hypothyroidism. Patient is a former smoker, quit in 1965. Patient was noted to be increasingly short of breath at home, congested, coughing, but unable to produce any sputum. He states he did have the chills at home. He was started on prednisone taper and antibiotics in the form of Augmentin by his primary care physician on 06/19/2017. But in view of progressing dyspnea, chest congestion, and wheezing he was brought to the emergency room for further evaluation and treatment. On presentation he was noted to be hypoxemic, his pulse ox was 85% on room air. Initial chest x-ray showed small pleural effusions, and increasing infiltrates at the posterior lung bases compared to the last exam on 06/11/2017. No evidence of overt heart failure. Follow-up chest x-ray on 06/20/2017 showed bilateral infiltrate and pleural effusions. Patient was started on a combination of IV steroids, Levaquin, Zosyn, nebulized treatments DuoNeb, Symbicort and oral Lasix and admitted for further management. Lab work did not show any evidence of leukocytosis, WBC of 10.3, hemoglobin is 8.7, sodium is 134, potassium is 4.6, B1 is 48, creatinine is 1.9. Troponin was negative 1, proBNP was 2800. Urinalysis showed trace protein, trace blood, rare bacteria and mucus. Patient has been afebrile while inpatient, hemodynamically stable, currently on 3 L per nasal cannula O2 sat 96% . The patient is seen again today 06/21/2017 in follow-up on the regular medical floor. He is currently awake and alert in no acute distress. He is resting comfortably in bed. He states he is breathing about the same as compared to yesterday. No significant improvement thus far. He is maintaining good O2 saturations in the 90s on 2 L/m per nasal cannula. He's been afebrile. Hemodynamically stable. White count 12.8. Hemoglobin 8.7. Creatinine 1.94. He is continued on Zosyn and Levaquin along with IV Solu-Medrol, Symbicort and bronchodilators. Blood cultures reveal no growth to date. The patient is seen again today 06/22/2017 in follow-up on the regular medical floor. He is awake and alert in no acute distress. Currently having breakfast. His appetite is fair. No coughing or choking noted. He continues to maintain good O2 saturations in the 90s on 2 L/m per nasal cannula. He is afebrile. Hemodynamically stable. Blood cultures reveal no growth to date. White count 13.1. Hemoglobin 8.6. Creatinine 2.21. The patient is seen again today 06/23/2017 in follow-up on the regular medical floor. He is currently resting quite comfortably in bed. He is awake and alert in no acute distress. He states he is breathing better today as compared to yesterday. Blood culture reveals no growth to date. White count 12.5. Hemoglobin 8.8. Creatinine 2.38. Objective - Vital Signs Vital signs: Vital Signs Temp 97.6 F 06/23/17 07:00 Pulse 80 06/23/17 07:26 Resp 18 06/23/17 07:00 BP 140/65 06/23/17 07:00 Pulse Ox 96 06/23/17 07:00 Intake & Output 06/22/17 06/23/17 06/23/17 18:59 06:59 18:59 Intake Total 1440 25 Output Total 600 Balance 840 25 Weight 88 kg Intake: Oral 1440 25 Output: Urine 600 Other: Voiding Method Urinal # Voids 1 1 - Exam GENERAL EXAM: Alert, comfortable in no apparent distress. HEAD: Normocephalic. EYES: Normal reaction of pupils, equal size. NOSE: Clear with pink turbinates. THROAT: No erythema or exudates. NECK: No masses, no JVD. CHEST: No chest wall deformity. LUNGS: Equal air entry with faint end expiratory wheeze bilaterally, few scattered crackles in the bases. CVS: S1 and S2 normal ABDOMEN: No hepatosplenomegaly, normal bowel sounds, no guarding or rigidity. SPINE: No scoliosis or deformity SKIN: No rashes CENTRAL NERVOUS SYSTEM: No focal deficits, tone is normal in all 4 extremities. EXTREMITIES: There is no peripheral edema. No clubbing, no cyanosis. Peripheral pulses are intact. - Labs CBC & Chem 7: 06/23/17 07:10 06/23/17 07:10 Labs: Abnormal Lab Results - Last 24 Hours (Table) 06/22/17 06/22/17 06/22/17 Range/Units 11:58 17:17 20:08 WBC (3.8-10.6) k/uL RBC (4.30-5.90) m/uL Hgb (13.0-17.5) gm/dL Hct (39.0-53.0) % Neutrophils # (1.3-7.7) k/uL Potassium (3.5-5.1) mmol/L BUN (9-20) mg/dL Creatinine (0.66-1.25) mg/dL Glucose (74-99) mg/dL POC Glucose (mg/dL) 145 H 157 H 190 H (75-99) mg/dL Calcium (8.4-10.2) mg/dL 06/23/17 06/23/17 06/23/17 Range/Units 07:10 07:10 07:30 WBC 12.5 H (3.8-10.6) k/uL RBC 2.98 L (4.30-5.90) m/uL Hgb 8.8 L (13.0-17.5) gm/dL Hct 28.2 L (39.0-53.0) % Neutrophils # 11.1 H (1.3-7.7) k/uL Potassium 3.3 L (3.5-5.1) mmol/L BUN 60 H (9-20) mg/dL Creatinine 2.38 H (0.66-1.25) mg/dL Glucose 164 H (74-99) mg/dL POC Glucose (mg/dL) 190 H (75-99) mg/dL Calcium 8.2 L (8.4-10.2) mg/dL Microbiology - Last 24 Hours (Table) 06/19/17 19:35 Blood Culture - Preliminary Blood No Growth after 72 hours Assessment and Plan Assessment: Assessment: #1. Acute hypoxic respiratory failure secondary to right lower lobe pneumonia, possibly be aspiration related. He did not tolerate thin liquids at the bedside. However, his modified barium swallow did not reveal any evidence of aspiration. #2. Recent hospitalization for right lower lobe pneumonia in May, patient was treated with Rocephin and Zithromax during that admission, improved when was discharged home #3. Recent hospitalization for acute on chronic renal failure, with hypokalemia , discharged home on 06/13/2017 #4. COPD, with a baseline FEV1 of 47% of predicted, GOLD stage III #5. History of chronic congestive heart failure with diastolic dysfunction #6. Anemia of chronic disease #7. Chronic renal failure, stage III, creatinine 2.38. GFR 23. #8. Hypothyroidism #9. Parkinson's disease/dementia with significant impairment of neurologic function/cognition/memory/gait #10. Poor baseline functional status, patient is mostly bedbound #11. History of BPH, on Avodart and Flomax #12. Osteoarthritis Plan: The patient was seen and evaluated by Dr. Sylvester. We'll continue with his current medications for now. He has been slow to progress. We will repeat a chest x-ray in the a.m. We will continue to follow and make further recommendations based on his clinical status. I, the cosigning physician, performed a history & physical examination of the patient. Lungs sounds have crackles in the bilateral posterior bases. Diminished.. Maintaining good O2 saturations in the 90s on 2 L/m per nasal cannula. I discussed the assessment and plan of care with my nurse practitioner , Autumn Almonte. I attest to the above note as dictated by her.
[2017-06-23 12:41] LABS: Glucose,Whole Blood 119 mg/dL (75-99)
[2017-06-23] MEDS: SODIUM CHLORIDE 0.9% 1,000 ML IV SCH ×2 (16:51→23:01)
[2017-06-23] MEDS: ASPIRIN 81 MG PO SCH (16:55)
[2017-06-23] MEDS: CHOLECALCIFEROL 1,000 UNIT TAB PO SCH (16:55)
[2017-06-23] MEDS: FOLIC ACID 1 MG TAB PO SCH (16:56)
[2017-06-23] MEDS: ZINC SULFATE 220 MG CAP PO SCH (16:57)
[2017-06-23] MEDS: THIAMINE 100 MG TAB PO SCH (16:57)
[2017-06-23] MEDS: MULTIVITAMINS, THERA 1 EACH TAB PO SCH (16:59)
[2017-06-23 17:14] LABS: Glucose,Whole Blood 182 mg/dL (75-99)
--- NOTE | 2017-06-23 17:38 | PN ---
PROGRESS NOTE DATE OF SERVICE: 06/23/2017 This 86-year-old gentleman who was admitted with bilateral pneumonia is being closely monitored. Patient complains significant _. Dr. Sylvester is following the patient closely. No chest pain or palpitations. PHYSICAL EXAMINATION: On exam, alert and oriented x2. Pulse 74, blood pressure 129/62, respiration 18 , temperature 97.4, pulse ox 98% on 2 L. HEENT: Conjunctivae normal. Oral mucosa moist. Neck is no jugular venous distention. No carotid bruit. No lymph node enlargement. CARDIOVASCULAR: S1 and S2 muffled. No S3, no S4. RESPIRATORY: Breath sounds diminished at the bases. A few scattered rhonchi and coarse crackles. ABDOMEN: Soft, nontender. LEGS: No edema. No swelling. Nervous System: No focal deficits. LABS: WBC 12.5, hemoglobin is 8.8. Sodium 143, potassium 3.3. Influenza negative. ASSESSMENT: 1. Acute bilateral pneumonia with no aspiration per modified barium swallow on modified diet. 2. Chronic obstructive pulmonary disease, gold stage III. 3. Recent acute renal failure with hyperkalemia. 4. Hyponatremia. 5. Dementia. 6. Parkinson's. 7. Chronic kidney disease stage 4. 8. History of chronic congestive heart failure with chronic diastolic dysfunction. 9. Medical debility. RECOMMENDATIONS AND DISCUSSION: I recommend to continue current medication, continue symptomatic treatment. Otherwise continue with bronchodilators. Continue with broad-spectrum IV antibiotics. Continue with reduced dose of steroids. The patient is on IV Zosyn. Guarded prognosis because of multiple complex medical issues. PT, OT evaluation. Further recommendations to follow. MMODL / IJN: [id number] / MTDD
[2017-06-23 20:18] LABS: Glucose,Whole Blood 172 mg/dL (75-99)
[2017-06-24] MEDS ORDERED: FUROSEMIDE 10 MG/ML 4 ML VIAL IV STA (05:44)
[2017-06-24] MEDS: LEVOTHYROXINE 75 MCG TAB PO SCH (05:55)
--- NOTE | 2017-06-24 07:27 | XR ---
EXAMINATION TYPE: XR chest 2V DATE OF EXAM: 06/24/2017 HISTORY: follow-up. REFERENCE: Previous study dated 06/21/2017. FINDINGS: The patient's chin projects over the right upper chest. The patient is taken a poor inspiration. The heart is enlarged. No definite pleural fluid is seen. I do not see evidence of pneumonia or edema. IMPRESSION: MARKEDLY SUBOPTIMAL EXAMINATION DEMONSTRATING CARDIOMEGALY BUT NO OTHER DEFINITE ABNORMALITY.
[2017-06-24] MEDS: IPRATROPIUM-ALBUTEROL 3 ML NEB INHALATION SCH ×4 (07:46→19:28)
[2017-06-24] MEDS: SYMBICORT 80-4.5 MCG INHALER INHALATION SCH ×2 (07:47→19:28)
[2017-06-24 08:06] LABS: Basophils % (A) 0 %; Eosinophils % (A) 0 %; HCT 28.5 % (39.0-53.0); HGB 8.9 gm/dL (13.0-17.5); Lymphocytes # (A) 1.1 k/uL (1.0-4.8); Lymphocytes % (A) 8 %; MCH 29.4 pg (25.0-35.0); MCHC 31.3 g/dL (31.0-37.0); Mean Platelet Volume 7.8; Monocytes # (A) 0.3 k/uL (0-1.0); Monocytes % (A) 2 %; Neutrophils # (A) 12.1 k/uL (1.3-7.7); Neutrophils % (A) 89 %; Platelet Count 382 k/uL (150-450); RBC 3.04 m/uL (4.30-5.90); RDW 15.4 % (11.5-15.5); WBC 13.6 k/uL (3.8-10.6)
[2017-06-24 08:10] LABS: Glucose,Whole Blood 180 mg/dL (75-99)
[2017-06-24 08:12] LABS: Calcium 8.5 mg/dL (8.4-10.2); Potassium 3.4 mmol/L (3.5-5.1)
[2017-06-24] MEDS: INSULIN ASPART 100 UNIT/ML 1 ML 10 ML VIAL SQ SCH ×4 (08:14→21:17)
[2017-06-24] MEDS: ALLOPURINOL 100 MG TAB PO SCH (08:15)
[2017-06-24] MEDS: PANTOPRAZOLE 40 MG TABLET PO SCH (08:15)
[2017-06-24] MEDS: GABAPENTIN 100 MG CAP PO SCH ×3 (08:15→21:47)
[2017-06-24] MEDS: FINASTERIDE 5 MG TAB PO SCH (08:15)
[2017-06-24] MEDS: CARBIDOPA-LEVODOPA 25-100 MG 1 EACH TAB PO SCH ×3 (08:15→17:17)
[2017-06-24] MEDS: LORATADINE 10 MG TAB PO SCH (08:16)
[2017-06-24] MEDS: amLODIPine 10 MG TAB PO SCH (08:17)
[2017-06-24] MEDS: methylPREDNISolone SOD SUCCI 40 MG/ML 1 ML VIAL IV SCH ×3 (08:17→23:10)
[2017-06-24] MEDS: TAMSULOSIN 0.4 MG CAP.ER.24H PO SCH (08:17)
[2017-06-24] MEDS: HEPARIN SODIUM,PORCINE 5,000 UNIT/ML 1 ML VIAL SQ SCH ×2 (08:17→21:47)
[2017-06-24] MEDS: hydrOXYzine PAMOATE 25 MG CAP PO SCH (08:25)
[2017-06-24] MEDS: METHADONE 5 MG TAB PO SCH ×2 (08:26→21:53)
[2017-06-24] MEDS: PIPERACILLIN-TAZOBACTAM 3.375 GM in DEXTROSE/WATER 1 50ML.BAG IVPB SCH ×2 (08:27→21:46)
[2017-06-24 11:39] LABS: Glucose,Whole Blood 221 mg/dL (75-99)
--- NOTE | 2017-06-24 16:32 | P.PN ---
Subjective Progress Note Date: 06/24/17 Principal diagnosis: Acute hypoxic respiratory failure secondary to right lower lobe pneumonia, suspect aspirationArthur Ashford is a 86-year-old white male patient of Dr. Peyton Das, who was recently hospitalized in May for right lower lobe pneumonia in May, and again for COPD exacerbation and acute on chronic renal failure with hypokalemia on 09/2017, improved, and was discharged home on 06/13/2017. Patient had completed a course of Zithromax and Ceftin for his right lower lobe pneumonia. Patient lives with his son and his [id number], he has poor baseline functional capacity, is unable to ambulate, and is mostly on bedrest. He does not wear oxygen at his baseline. Past medical history includes COPD, congestive heart failure, dementia, osteoarthritis, chronic kidney disease, Parkinson's disease, compression fractures of the lumbar spine, anemia, hypothyroidism. Patient is a former smoker, quit in 1965. Patient was noted to be increasingly short of breath at home, congested, coughing, but unable to produce any sputum. He states he did have the chills at home. He was started on prednisone taper and antibiotics in the form of Augmentin by his primary care physician on 06/19/2017. But in view of progressing dyspnea, chest congestion, and wheezing he was brought to the emergency room for further evaluation and treatment. On presentation he was noted to be hypoxemic, his pulse ox was 85% on room air. Initial chest x-ray showed small pleural effusions, and increasing infiltrates at the posterior lung bases compared to the last exam on 06/11/2017. No evidence of overt heart failure. Follow-up chest x-ray on 06/20/2017 showed bilateral infiltrate and pleural effusions. Patient was started on a combination of IV steroids, Levaquin, Zosyn, nebulized treatments DuoNeb, Symbicort and oral Lasix and admitted for further management. Lab work did not show any evidence of leukocytosis, WBC of 10.3, hemoglobin is 8.7, sodium is 134, potassium is 4.6, B1 is 48, creatinine is 1.9. Troponin was negative 1, proBNP was 2800. Urinalysis showed trace protein, trace blood, rare bacteria and mucus. Patient has been afebrile while inpatient, hemodynamically stable, currently on 3 L per nasal cannula O2 sat 96% . The patient is seen again today 06/21/2017 in follow-up on the regular medical floor. He is currently awake and alert in no acute distress. He is resting comfortably in bed. He states he is breathing about the same as compared to yesterday. No significant improvement thus far. He is maintaining good O2 saturations in the 90s on 2 L/m per nasal cannula. He's been afebrile. Hemodynamically stable. White count 12.8. Hemoglobin 8.7. Creatinine 1.94. He is continued on Zosyn and Levaquin along with IV Solu-Medrol, Symbicort and bronchodilators. Blood cultures reveal no growth to date. The patient is seen again today 06/22/2017 in follow-up on the regular medical floor. He is awake and alert in no acute distress. Currently having breakfast. His appetite is fair. No coughing or choking noted. He continues to maintain good O2 saturations in the 90s on 2 L/m per nasal cannula. He is afebrile. Hemodynamically stable. Blood cultures reveal no growth to date. White count 13.1. Hemoglobin 8.6. Creatinine 2.21. The patient is seen again today 06/23/2017 in follow-up on the regular medical floor. He is currently resting quite comfortably in bed. He is awake and alert in no acute distress. He states he is breathing better today as compared to yesterday. Blood culture reveals no growth to date. White count 12.5. Hemoglobin 8.8. Creatinine 2.38. Reevaluated today on 06/24/2017, patient is basically about the same, comfortable , in no distress, however he continues to have the same complaints every day, stating that he is not feeling well, and is not getting any better. However the patient is noted to be comfortable, and in no distress. Objective - Vital Signs Vital signs: Vital Signs Temp 98.0 F 06/24/17 15:00 Pulse 82 06/24/17 15:46 Resp 16 06/24/17 15:00 BP 126/54 06/24/17 15:00 Pulse Ox 97 06/24/17 15:00 Intake & Output 06/23/17 06/24/17 06/24/17 18:59 06:59 18:59 Intake Total 200 70 730 Output Total 1200 300 Balance -1000 -230 730 Weight 88 kg 88.2 kg Intake: IV 140 Sodium Chloride 0.9% 1, 140 000 ml @ 20 mls/hr IV . Q24H DIANN Rx#:[id number] Intake, IV Titration 70 50 Amount Piperacillin-Tazobactam 3 50 .375 gm In Dextrose/Water 1 50ml.bag @ 12.5 mls/hr IVPB Q8HR DIANN Rx#: [id number] Sodium Chloride 0.9% 1, 70 000 ml @ 20 mls/hr IV . Q24H DIANN Rx#:[id number] Oral 200 540 Output: Urine 1200 300 Condom 300 Other: Voiding Method Urinal Urinal Urinal # Voids 1 1 - Exam GENERAL EXAM: Alert, comfortable in no apparent distress. HEAD: Normocephalic. EYES: Normal reaction of pupils, equal size. NOSE: Clear with pink turbinates. THROAT: No erythema or exudates. NECK: No masses, no JVD. CHEST: No chest wall deformity. LUNGS: Equal air entry with faint end expiratory wheeze bilaterally, few scattered crackles in the bases. CVS: S1 and S2 normal ABDOMEN: No hepatosplenomegaly, normal bowel sounds, no guarding or rigidity. SPINE: No scoliosis or deformity SKIN: No rashes CENTRAL NERVOUS SYSTEM: No focal deficits, tone is normal in all 4 extremities. EXTREMITIES: There is no peripheral edema. No clubbing, no cyanosis. Peripheral pulses are intact. - Labs CBC & Chem 7: 06/24/17 07:30 06/24/17 07:30 Labs: Abnormal Lab Results - Last 24 Hours (Table) 06/23/17 06/23/17 06/24/17 Range/Units 16:56 20:16 07:30 WBC 13.6 H (3.8-10.6) k/uL RBC 3.04 L (4.30-5.90) m/uL Hgb 8.9 L (13.0-17.5) gm/dL Hct 28.5 L (39.0-53.0) % Neutrophils # 12.1 H (1.3-7.7) k/uL Potassium (3.5-5.1) mmol/L BUN (9-20) mg/dL Creatinine (0.66-1.25) mg/dL Glucose (74-99) mg/dL POC Glucose (mg/dL) 182 H 172 H (75-99) mg/dL 06/24/17 06/24/17 06/24/17 Range/Units 07:30 07:39 11:37 WBC (3.8-10.6) k/uL RBC (4.30-5.90) m/uL Hgb (13.0-17.5) gm/dL Hct (39.0-53.0) % Neutrophils # (1.3-7.7) k/uL Potassium 3.4 L (3.5-5.1) mmol/L BUN 73 H (9-20) mg/dL Creatinine 2.87 H (0.66-1.25) mg/dL Glucose 168 H (74-99) mg/dL POC Glucose (mg/dL) 180 H 221 H (75-99) mg/dL Microbiology - Last 24 Hours (Table) 06/19/17 19:35 Blood Culture - Preliminary Blood No Growth after 96 hours Assessment and Plan Assessment: #1. Acute hypoxic respiratory failure secondary to right lower lobe pneumonia, possibly be aspiration related. He did not tolerate thin liquids at the bedside. However, his modified barium swallow did not reveal any evidence of aspiration. #2. Recent hospitalization for right lower lobe pneumonia in May, patient was treated with Rocephin and Zithromax during that admission, improved when was discharged home #3. Recent hospitalization for acute on chronic renal failure, with hypokalemia , discharged home on 06/13/2017 #4. COPD, with a baseline FEV1 of 47% of predicted, GOLD stage III #5. History of chronic congestive heart failure with diastolic dysfunction #6. Anemia of chronic disease #7. Chronic renal failure, stage III, creatinine 2.38. GFR 23. #8. Hypothyroidism #9. Parkinson's disease/dementia with significant impairment of neurologic function/cognition/memory/gait #10. Poor baseline functional status, patient is mostly bedbound #11. History of BPH, on Avodart and Flomax #12. Osteoarthritis Recommendation: Continue present meds, consider discharge planning to ECF in the morning. Follow-up chest x-ray in a.m. Time with Patient: Less than 30
[2017-06-24] MEDS: ASPIRIN 81 MG PO SCH (17:17)
[2017-06-24] MEDS: MULTIVITAMINS, THERA 1 EACH TAB PO SCH (17:17)
[2017-06-24] MEDS: THIAMINE 100 MG TAB PO SCH (17:17)
[2017-06-24] MEDS: CHOLECALCIFEROL 1,000 UNIT TAB PO SCH (17:17)
[2017-06-24] MEDS: FOLIC ACID 1 MG TAB PO SCH (17:17)
[2017-06-24] MEDS: ZINC SULFATE 220 MG CAP PO SCH (17:18)
[2017-06-24 17:32] LABS: Glucose,Whole Blood 114 mg/dL (75-99)
[2017-06-24 20:03] LABS: Glucose,Whole Blood 128 mg/dL (75-99)
--- NOTE | 2017-06-24 21:30 | PN ---
PROGRESS NOTE DATE OF SERVICE: 06/24/2017. INTERVAL HISTORY: This 86-year-old gentleman who was admitted with acute bilateral pneumonia is being closely monitored. The patient has a little bit of shortness with cough and sputum. No chest pain. No palpitations. No fever. PHYSICAL EXAM: Alert and oriented x3. Pulse 82, blood pressure 137/54, respiration 16, temperature 98 degrees, pulse ox 97% on 2 L. HEENT: Conjunctivae normal. Oral mucosa moist. Neck is no jugular venous distention. No thyroid mass or carotid bruit. CARDIOVASCULAR: S1 and S2. RESPIRATORY: Breath sounds diminished at the bases. Bilateral scattered rhonchi and expiratory wheezing and crackles. ABDOMEN: Soft, nontender. LEGS: No edema. NERVOUS SYSTEM: Diffusely weak. LABS: WBC 13.6, hemoglobin 8.7, creatinine is 2.87. ASSESSMENT: 1. Acute bilateral pneumonia with no aspiration per modified barium swallow on modified diet. 2. Chronic obstructive pulmonary disease, gold stage III. 3. Recent acute renal failure with hyperkalemia. 4. Possibly currently aptyg-ox-mmjvftf kidney disease. 5. Hyponatremia. 6. Dementia. 7. Parkinson's. 8. Chronic kidney disease stage 4. 9. History of chronic congestive heart failure with chronic diastolic dysfunction. 10.Medical debility. RECOMMENDATIONS AND DISCUSSION: I recommend to continue current medication, continue symptomatic treatment. Nephrology evaluation. Continue the rest of the medications. Avoid nephrotoxic medications. Repeat labs. PT, OT evaluation, possible ECF rehab. Guarded prognosis. Further recommendations to follow. MMODL / IJN: [id number] /
[2017-06-24] MEDS: SODIUM CHLORIDE 0.9% 1,000 ML IV SCH (21:53)
[2017-06-25] MEDS ORDERED: methylPREDNISolone SOD SUCCI 125 MG/2 ML VIAL IV STA (02:14)
[2017-06-25] MEDS: LEVOTHYROXINE 75 MCG TAB PO SCH (06:10)
[2017-06-25 07:42] LABS: Glucose,Whole Blood 224 mg/dL (75-99)
[2017-06-25 07:56] LABS: Calcium 8.2 mg/dL (8.4-10.2); Potassium 3.3 mmol/L (3.5-5.1)
[2017-06-25 08:09] LABS: Basophils % (A) 0 %; Eosinophils % (A) 0 %; HCT 27.4 % (39.0-53.0); HGB 8.6 gm/dL (13.0-17.5); Lymphocytes # (A) 0.9 k/uL (1.0-4.8); Lymphocytes % (A) 7 %; MCH 29.6 pg (25.0-35.0); MCHC 31.4 g/dL (31.0-37.0); Mean Platelet Volume 7.9; Monocytes # (A) 0.1 k/uL (0-1.0); Monocytes % (A) 1 %; Neutrophils # (A) 11.5 k/uL (1.3-7.7); Neutrophils % (A) 91 %; Platelet Count 360 k/uL (150-450); RBC 2.91 m/uL (4.30-5.90); RDW 15.8 % (11.5-15.5); WBC 12.7 k/uL (3.8-10.6)
[2017-06-25] MEDS: INSULIN ASPART 100 UNIT/ML 1 ML 10 ML VIAL SQ SCH ×4 (08:36→21:44)
[2017-06-25] MEDS: PANTOPRAZOLE 40 MG TABLET PO SCH (08:37)
[2017-06-25] MEDS: CARBIDOPA-LEVODOPA 25-100 MG 1 EACH TAB PO SCH ×3 (08:37→17:10)
[2017-06-25] MEDS: HEPARIN SODIUM,PORCINE 5,000 UNIT/ML 1 ML VIAL SQ SCH ×2 (08:37→21:45)
[2017-06-25] MEDS: amLODIPine 10 MG TAB PO SCH (08:38)
[2017-06-25] MEDS: TAMSULOSIN 0.4 MG CAP.ER.24H PO SCH (08:38)
[2017-06-25] MEDS: methylPREDNISolone SOD SUCCI 40 MG/ML 1 ML VIAL IV SCH ×3 (08:38→23:00)
[2017-06-25] MEDS: SODIUM POLYSTYRENE SULFONATE 15 GM/60 ML BOTTLE PO SCH (08:39)
[2017-06-25] MEDS: LEVOFLOXACIN 750 MG TAB PO SCH (08:39)
[2017-06-25] MEDS: FINASTERIDE 5 MG TAB PO SCH (08:39)
[2017-06-25] MEDS: ALLOPURINOL 100 MG TAB PO SCH (08:40)
[2017-06-25] MEDS: GABAPENTIN 100 MG CAP PO SCH ×3 (08:40→21:45)
[2017-06-25] MEDS: LORATADINE 10 MG TAB PO SCH (08:41)
[2017-06-25] MEDS: SYMBICORT 80-4.5 MCG INHALER INHALATION SCH ×2 (08:49→19:53)
[2017-06-25] MEDS: IPRATROPIUM-ALBUTEROL 3 ML NEB INHALATION SCH ×4 (08:49→19:53)
[2017-06-25] MEDS: PIPERACILLIN-TAZOBACTAM 3.375 GM in DEXTROSE/WATER 1 50ML.BAG IVPB SCH ×2 (08:52→21:45)
[2017-06-25] MEDS: hydrOXYzine PAMOATE 25 MG CAP PO SCH (08:53)
[2017-06-25] MEDS: METHADONE 5 MG TAB PO SCH ×2 (08:53→21:44)
[2017-06-25 11:38] LABS: Glucose,Whole Blood 242 mg/dL (75-99)
[2017-06-25] MEDS: SODIUM CHLORIDE 0.9% 1,000 ML IV SCH (11:39)
--- NOTE | 2017-06-25 14:53 | US ---
EXAMINATION TYPE: US kidneys/renal and bladder DATE OF EXAM: 06/25/2017 COMPARISON: 06/12/2017 US CLINICAL HISTORY: elevated lab levels, rule out any blockage. Difficult exam as patient cannot roll o nto his side or take a deep breath in and hold it. EXAM MEASUREMENTS: Right Kidney: 8.1 x 4.1 x 4.2 cm Left Kidney: 8.5 x 4.3 x 3.9 cm Right Kidney: No hydronephrosis or masses seen. Measuring small with cortical renal thinning Left Kidney: No hydronephrosis or masses seen. Measuring small with cortical renal thinning Bladder: Not distended due to catheter Bilateral Jets seen: No, see above There is no evidence for hydronephrosis at this point in time. No nephrolithiasis is seen. No dorian s are identified. IMPRESSION: Bilateral renal atrophy with no hydronephrosis or nephrolithiasis.
--- NOTE | 2017-06-25 15:29 | XR ---
EXAMINATION TYPE: XR chest 2V DATE OF EXAM: 06/25/2017 COMPARISON: 06/21/2017 TECHNIQUE: PA and lateral views submitted. HISTORY: Abnormal x-ray FINDINGS: Tiny right pleural effusion. Hypertrophic and degenerative change the spine. Contrast seen within the colon. Prominent interstitium. Subsegmental changes at the right lung base. IMPRESSION: 1. Right basilar infiltrate and tiny effusion. Mild central venous congestion not excluded.
--- NOTE | 2017-06-25 15:50 | P.PN ---
Subjective Progress Note Date: 06/25/17 Principal diagnosis: Acute hypoxic rest or a failure secondary to right lower lobe pneumonia, suspect aspiration Dejon is a 86-year-old white male patient of Dr. Peyton Das, who was recently hospitalized in May for right lower lobe pneumonia in May, and again for COPD exacerbation and acute on chronic renal failure with hypokalemia on 09/2017, improved, and was discharged home on 06/13/2017. Patient had completed a course of Zithromax and Ceftin for his right lower lobe pneumonia. Patient lives with his son and his [id number], he has poor baseline functional capacity, is unable to ambulate, and is mostly on bedrest. He does not wear oxygen at his baseline. Past medical history includes COPD, congestive heart failure, dementia, osteoarthritis, chronic kidney disease, Parkinson's disease, compression fractures of the lumbar spine, anemia, hypothyroidism. Patient is a former smoker, quit in 1965. Patient was noted to be increasingly short of breath at home, congested, coughing, but unable to produce any sputum. He states he did have the chills at home. He was started on prednisone taper and antibiotics in the form of Augmentin by his primary care physician on 06/19/2017. But in view of progressing dyspnea, chest congestion, and wheezing he was brought to the emergency room for further evaluation and treatment. On presentation he was noted to be hypoxemic, his pulse ox was 85% on room air. Initial chest x-ray showed small pleural effusions, and increasing infiltrates at the posterior lung bases compared to the last exam on 06/11/2017. No evidence of overt heart failure. Follow-up chest x-ray on 06/20/2017 showed bilateral infiltrate and pleural effusions. Patient was started on a combination of IV steroids, Levaquin, Zosyn, nebulized treatments DuoNeb, Symbicort and oral Lasix and admitted for further management. Lab work did not show any evidence of leukocytosis, WBC of 10.3, hemoglobin is 8.7, sodium is 134, potassium is 4.6, B1 is 48, creatinine is 1.9. Troponin was negative 1, proBNP was 2800. Urinalysis showed trace protein, trace blood, rare bacteria and mucus. Patient has been afebrile while inpatient, hemodynamically stable, currently on 3 L per nasal cannula O2 sat 96% . The patient is seen again today 06/21/2017 in follow-up on the regular medical floor. He is currently awake and alert in no acute distress. He is resting comfortably in bed. He states he is breathing about the same as compared to yesterday. No significant improvement thus far. He is maintaining good O2 saturations in the 90s on 2 L/m per nasal cannula. He's been afebrile. Hemodynamically stable. White count 12.8. Hemoglobin 8.7. Creatinine 1.94. He is continued on Zosyn and Levaquin along with IV Solu-Medrol, Symbicort and bronchodilators. Blood cultures reveal no growth to date. The patient is seen again today 06/22/2017 in follow-up on the regular medical floor. He is awake and alert in no acute distress. Currently having breakfast. His appetite is fair. No coughing or choking noted. He continues to maintain good O2 saturations in the 90s on 2 L/m per nasal cannula. He is afebrile. Hemodynamically stable. Blood cultures reveal no growth to date. White count 13.1. Hemoglobin 8.6. Creatinine 2.21. The patient is seen again today 06/23/2017 in follow-up on the regular medical floor. He is currently resting quite comfortably in bed. He is awake and alert in no acute distress. He states he is breathing better today as compared to yesterday. Blood culture reveals no growth to date. White count 12.5. Hemoglobin 8.8. Creatinine 2.38. Reevaluated today on 06/24/2017, patient is basically about the same, comfortable , in no distress, however he continues to have the same complaints every day, stating that he is not feeling well, and is not getting any better. However the patient is noted to be comfortable, and in no distress. On 06/25/2017 patient seen again in follow-up. Resting in bed, denies any acute distress. He states his breathing has not much improved since admission. He still sounds congested, has a loose cough, but unable to bring up any sputum. Remains on 2 L per nasal cannula with O2 sat 99%, remains afebrile, dynamically stable. On today's blood work, WBCs 12.7, hemoglobin is 8.6, potassium is 3.3, BUN is 81, and creatinine is 3.23. Blood culture shows no growth since admission, patient was unable to produce a sputum specimen for culture. He remains on Levaquin and Zosyn for his right lower lobe pneumonia, remains on IV Solu-Medrol, DuoNeb, Symbicort. His lung sounds are positive for diffuse wheezes and rhonchi. Patient remains very weak, has not been able to get up out of bed. Today's chest x-ray shows right basilar infiltrate and tiny effusion, mild central venous congestion, patient was given 1 dose of IV Lasix yesterday, with no significant improvement in the appearance of central venous congestion. Patient's renal profile has worsened on today's blood work. Renal ultrasound showed bilateral renal atrophy with no hydronephrosis or nephrolithiasis. From pulmonary standpoint patient remains stable although he has not made a significant improvement overall and continues to complain of not feeling well, and not doing well. However he remains in no apparent distress, his oxygenation is stable on 2 L per nasal cannula. He remains afebrile. Objective - Vital Signs Vital signs: Vital Signs Temp 97.8 F 06/25/17 07:00 Pulse 83 06/25/17 12:35 Resp 18 06/25/17 12:25 BP 118/63 06/25/17 07:00 Pulse Ox 99 06/25/17 08:49 Intake & Output 06/24/17 06/25/17 06/25/17 18:59 06:59 18:59 Intake Total 730 840 650 Output Total 600 290 Balance 730 240 360 Weight 92 kg Intake: IV 140 60 Sodium Chloride 0.9% 1, 140 60 000 ml @ 20 mls/hr IV . Q24H [facility] Rx#:[id number] Intake, IV Titration 50 190 250 Amount Piperacillin-Tazobactam 3 50 50 .375 gm In Dextrose/Water 1 50ml.bag @ 12.5 mls/hr IVPB Q12HR [facility] Rx#: [id number] Piperacillin-Tazobactam 3 50 .375 gm In Dextrose/Water 1 50ml.bag @ 12.5 mls/hr IVPB Q8HR [facility] Rx#: [id number] Sodium Chloride 0.9% 1, 140 000 ml @ 20 mls/hr IV . Q24H [facility] Rx#:[id number] Sodium Chloride 0.9% 1, 200 000 ml @ 50 mls/hr IV . Q20H [facility] Rx#:[id number] Oral 540 590 400 Output: Urine 600 290 Condom 600 290 Other: Voiding Method Urinal Urinal Urinal # Voids 2 - Exam GENERAL EXAM: Alert, 86-year-old elderly, chronically ill-looking, white male comfortable in no apparent distress. HEAD: Normocephalic/atraumatic. EYES: Normal reaction of pupils, equal size. Conjunctiva pink, sclera white. NOSE: Clear with pink turbinates. THROAT: No erythema or exudates. NECK: No masses, no JVD, no thyroid enlargement, no adenopathy. CHEST: No chest wall deformity. Symmetrical expansion. LUNGS: Equal air entry with scattered rhonchi, and diffuse wheezes throughout the lung ramirez. Patient has a weak congested bronchospastic cough CVS: Regular rate and rhythm, normal S1 and S2, no gallops, no murmurs, no rubs ABDOMEN: Soft, nontender. No hepatosplenomegaly, normal bowel sounds, no guarding or rigidity. EXTREMITIES: No clubbing, no edema, no cyanosis, 2+ pulses and upper and lower extremities. MUSCULOSKELETAL: Muscle strength and tone normal. SPINE: No scoliosis or deformity SKIN: No rashes CENTRAL NERVOUS SYSTEM: Alert and oriented -3. No focal deficits, tone is normal in all 4 extremities. PSYCHIATRIC: Alert and oriented -3. Appropriate affect. Intact judgment and insight. - Labs CBC & Chem 7: 06/25/17 07:16 06/25/17 07:16 Labs: Abnormal Lab Results - Last 24 Hours (Table) 06/24/17 06/24/17 06/25/17 Range/Units 17:28 20:01 07:16 WBC 12.7 H (3.8-10.6) k/uL RBC 2.91 L (4.30-5.90) m/uL Hgb 8.6 L (13.0-17.5) gm/dL Hct 27.4 L (39.0-53.0) % RDW 15.8 H (11.5-15.5) % Neutrophils # 11.5 H (1.3-7.7) k/uL Lymphocytes # 0.9 L (1.0-4.8) k/uL Potassium (3.5-5.1) mmol/L BUN (9-20) mg/dL Creatinine (0.66-1.25) mg/dL Glucose (74-99) mg/dL POC Glucose (mg/dL) 114 H 128 H (75-99) mg/dL Calcium (8.4-10.2) mg/dL 06/25/17 06/25/17 06/25/17 Range/Units 07:16 07:30 11:32 WBC (3.8-10.6) k/uL RBC (4.30-5.90) m/uL Hgb (13.0-17.5) gm/dL Hct (39.0-53.0) % RDW (11.5-15.5) % Neutrophils # (1.3-7.7) k/uL Lymphocytes # (1.0-4.8) k/uL Potassium 3.3 L (3.5-5.1) mmol/L BUN 81 H* (9-20) mg/dL Creatinine 3.23 H (0.66-1.25) mg/dL Glucose 185 H (74-99) mg/dL POC Glucose (mg/dL) 224 H 242 H (75-99) mg/dL Calcium 8.2 L (8.4-10.2) mg/dL Microbiology - Last 24 Hours (Table) 06/19/17 19:35 Blood Culture - Preliminary Blood No Growth after 120 hours Assessment and Plan Plan: Assessment: #1. Acute hypoxic respiratory failure secondary to right lower lobe pneumonia, possibly be aspiration related. He did not tolerate thin liquids at the bedside , was noted to be coughing with thin liquids. However his modified barium swallow did not reveal any evidence of overt aspiration. #2. Recent hospitalization for right lower lobe pneumonia in May, patient was treated with Rocephin and Zithromax during that admission, improved when was discharged home #3. Recent hospitalization for acute on chronic renal failure, with hypokalemia , discharged home on 06/13/2017 #4. COPD, with a baseline FEV1 of 47% of predicted, GOLD stage III #5. History of chronic congestive heart failure with diastolic dysfunction #6. Anemia of chronic disease #7. Chronic renal failure, stage III #8. Hypothyroidism #9. Parkinson's disease/dementia with significant impairment of neurologic function/cognition/memory/gait #10. Poor baseline functional status, patient is mostly bedbound #11. History of BPH, on Avodart and Flomax #12. Osteoarthritis Plan: Patient remains stable from pulmonary standpoint, no worsening dyspnea, however he continues to be very debilitated overall, very poor functional status, requires extensive assistance with all ADLs, including supervision and assistance with feeding. He remains an aspiration risk secondary to his multiple comorbidities, debilitated state. Continue current antibiotic coverage , his renal profile seems to be worsening, today's chest x-ray shows stable findings, with mild interstitial prominence. Patient is maintaining stable oxygenation on 2 L per nasal cannula, continue nebulized treatments. From pulmonary standpoint in view of his multiple comorbidities, debilitated state, his prognosis is guarded. Recommend consult to hospice. I performed a history & physical examination of the patient and discussed their management with my nurse practitioner, Gretchen Garcia. I reviewed the nurse practitioner's note and agree with the documented findings and plan of care. Lung sounds are positive for diffuse wheezes, and rhonchi throughout the lung ramirez. The findings and the impression was discussed with the patient. I attest to the documentation by the nurse practitioner. Time with Patient: Less than 30
--- NOTE | 2017-06-25 16:49 | PN ---
PROGRESS NOTE DATE OF SERVICE: 06/25/2017. This 86-year-old gentleman was admitted with acute bilateral pneumonia with no aspiration on modified barium swallow, was on modified diet. The patient also had worsening renal failure at this time. The most recent chest x-ray done yesterday showed suboptimal exam. No other definite abnormalities noted. There is no history of fever, rigors, chills. EXAM: Alert and oriented x2. Pulse 85, blood pressure 118/63, respiration 18, temperature 97.8, pulse ox 98% on 2 L. HEENT: Conjunctivae normal. NECK: No jugular venous distention. CARDIOVASCULAR: S1, S2. RESPIRATORY: Breath sounds diminished in the bases. A few scattered rhonchi and crackles. ABDOMEN: Soft, nontender. LEGS: No edema. NERVOUS SYSTEM: No focal deficit. LAB STUDIES: Hemoglobin 8.6, potassium 3.3, creatinine 3.23. ASSESSMENT: 1. Acute bilateral pneumonia with no aspiration from modified barium swallow, modified diet. 2. Chronic obstructive pulmonary disease, gold stage III. 3. Recent acute renal failure with hyperkalemia. 4. Possible currently acute on chronic kidney disease. 5. Hyponatremia. 6. Dementia. 7. Parkinson's. 8. Gait dysfunction. 9. Chronic kidney disease stage IV. 10.History of congestive heart failure with chronic diastolic dysfunction. 11.Medical debility. RECOMMENDATIONS AND DISCUSSION: I recommend to continue current management and symptomatic treatment. Nephrology evaluation. I would recommend Dhillon catheter, Flomax and also ultrasound of the kidneys to rule out the possibility of obstructive uropathy. Guarded prognosis because of multiple complex medical issues. Further recommendations to follow. MMODL / IJN: [id number] /
[2017-06-25] MEDS: CALCITRIOL 0.25 MCG CAP PO SCH (17:10)
[2017-06-25] MEDS: ASPIRIN 81 MG PO SCH (17:10)
[2017-06-25] MEDS: CHOLECALCIFEROL 1,000 UNIT TAB PO SCH (17:10)
[2017-06-25] MEDS: MULTIVITAMINS, THERA 1 EACH TAB PO SCH (17:11)
[2017-06-25] MEDS: ZINC SULFATE 220 MG CAP PO SCH (17:11)
[2017-06-25] MEDS: THIAMINE 100 MG TAB PO SCH (17:11)
[2017-06-25] MEDS: FOLIC ACID 1 MG TAB PO SCH (17:11)
[2017-06-25 17:22] LABS: Glucose,Whole Blood 308 mg/dL (75-99)
[2017-06-25] MEDS ORDERED: INSULIN ASPART 100 UNIT/ML 1 ML 10 ML VIAL SQ ONE (18:00)
[2017-06-25 19:48] LABS: Glucose,Whole Blood 150 mg/dL (75-99)
[2017-06-26] MEDS: LEVOTHYROXINE 75 MCG TAB PO SCH (05:32)
[2017-06-26] MEDS: SODIUM CHLORIDE 0.9% 1,000 ML IV SCH (05:34)
--- NOTE | 2017-06-26 05:43 | CONS ---
CONSULTATION REASON FOR CONSULT: Renal failure. HISTORY OF PRESENT ILLNESS: Patient is an 86-year-old male who was admitted to the hospital on 06/19/2017, with complaints of shortness of breath. He was recently hospitalized for pneumonia. Patient was also hypoxic with O2 sats of 85% at the time of admission. The patient has been receiving Lasix. His chest x-ray showed pleural effusion and right basilar infiltrate. Serum creatinine was 1.9 on admission. It has gone up to 3.23 today. Patient does have chronic kidney disease with previous creatinine as low as 1.5 and 1.3 mg/dL as of 06/12 and 06/13/2017. Not sure if at that time patient was volume overloaded. He was just recently hospitalized on 06/12/2017 and I had seen him for renal failure. Previously, his creatinine has been about 1.8 to 1.2 mg/dL. He did have urine retention on his last admission and had required Dhillon catheter placement. On this admission, he has had postvoid residuals of about 600 to 500 mL and has been requiring straight catheterizations. It was thought that previously he may have had a chronic component of urine retention and his renal function had improved with relief of urine retention. On this admission, blood pressure has not been significantly low. The patient has been afebrile. He has not received any significant nephrotoxic medications. Currently, patient is maintained on IV fluids at 50 mL an hour. He has not been eating or drinking much according to nursing staff. PAST MEDICAL HISTORY: Chronic kidney disease. Previously, creatinine had been 1.8 to 2 mg/dL, but during his last admission, it had gone down to about 1.3 mg/dL. COPD, Parkinson disease, asthma, osteoarthritis, history of BPH. PAST SURGICAL HISTORY: Left hip arthroplasty, splenectomy, appendectomy. SOCIAL HISTORY: Patient is a former smoker. No history of drug abuse or alcohol abuse. MEDICATIONS: Medications at home prior to admission included aspirin, vitamin D3, Avodart, Neurontin, Zyloprim, folic acid, Sinemet, Synthroid, Advair, Kayexalate, prednisone, sodium phosphate enema, Lasix, Augmentin. ALLERGIES: Allergies include fentanyl, which causes rash and hives. REVIEW OF SYSTEMS: As per HPI. Other systems negative. No fever, chills, nausea, vomiting or diarrhea. PHYSICAL EXAMINATION: On examination, currently patient is comfortable. He is awake. He is not in any acute distress. Blood pressure is 124/70, heart rate 85 per minute. Patient is afebrile. EXAMINATION OF THE HEART: S1, S2. EXAMINATION OF THE LUNGS: Bilateral breath sounds are heard. Abdomen is soft, nontender. Examination of the lower extremities shows no significant edema. [employer]ING TABLE WORK[employer] exam is grossly intact. LABS: Labs show sodium 139, potassium 3.3, BUN 81, serum creatinine 3.2. Hemoglobin 8.6 g/dL. ASSESSMENT: 1. Acute kidney injury, most likely prerenal since patient has not had much oral intake. Clinically, he does not appear to be fluid overloaded. I will start gentle IV hydration. We will repeat a chest x-ray in a.m. The chest x-ray from this morning does not show any significant pulmonary vascular congestion. The patient also has had a history of urine retention previously. He has been requiring straight catheterizations and ultrasound did not reveal any hydronephrosis. Currently, patient is not on any nephrotoxic agents. We will repeat labs in a.m. I will also decrease his Norvasc as blood pressure is not significantly elevated. We will allow the systolic blood pressure to be around 130 mmHg. 2. Hypertension, controlled. Decrease the dose of Norvasc to 5 mg to allow slightly higher perfusion pressure. 3. Recent hospitalization for pneumonia. 4. Possible pneumonia this admission again. Patient is maintained on antibiotics, updraft treatments and steroids. 5. 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 6. Chronic obstructive pulmonary disease, being followed by Pulmonary. 7. History of congestive heart failure with diastolic dysfunction. 8. History of benign prostatic hypertrophy, maintained on Flomax and Avodart. 9. Diastolic dysfunction with ejection fraction 50% to 55% in February of 2017. PLAN: Start gentle IV hydration. Repeat labs in a.m. Encourage increased oral intake. Decrease Norvasc. Continue to monitor for urine retention. Thank you for this consultation. We will continue to follow the patient with you during his hospitalization. Overall prognosis is guarded. Need to consider other options including hospice care given the repeated hospitalizations and overall decline in general condition. MMODL / IJN: [id number] /
[2017-06-26 07:23] LABS: Glucose,Whole Blood 128 mg/dL (75-99)
[2017-06-26] MEDS: SYMBICORT 80-4.5 MCG INHALER INHALATION SCH ×2 (07:24→20:46)
[2017-06-26] MEDS: IPRATROPIUM-ALBUTEROL 3 ML NEB INHALATION SCH ×4 (07:24→20:46)
[2017-06-26] MEDS: INSULIN ASPART 100 UNIT/ML 1 ML 10 ML VIAL SQ SCH ×7 (08:50→21:31)
[2017-06-26] MEDS: CARBIDOPA-LEVODOPA 25-100 MG 1 EACH TAB PO SCH ×3 (08:59→17:40)
[2017-06-26] MEDS: ALLOPURINOL 100 MG TAB PO SCH (08:59)
[2017-06-26] MEDS: GABAPENTIN 100 MG CAP PO SCH ×3 (08:59→21:36)
[2017-06-26] MEDS: TAMSULOSIN 0.4 MG CAP.ER.24H PO SCH (09:00)
[2017-06-26] MEDS: hydrOXYzine PAMOATE 25 MG CAP PO SCH (09:00)
[2017-06-26] MEDS: LORATADINE 10 MG TAB PO SCH (09:00)
[2017-06-26] MEDS: METHADONE 5 MG TAB PO SCH ×2 (09:00→21:36)
[2017-06-26] MEDS: PANTOPRAZOLE 40 MG TABLET PO SCH (09:00)
[2017-06-26] MEDS: amLODIPine 5 MG TAB PO SCH (09:00)
[2017-06-26] MEDS: FINASTERIDE 5 MG TAB PO SCH (09:00)
[2017-06-26] MEDS: HEPARIN SODIUM,PORCINE 5,000 UNIT/ML 1 ML VIAL SQ SCH ×2 (09:01→21:36)
[2017-06-26] MEDS: methylPREDNISolone SOD SUCCI 40 MG/ML 1 ML VIAL IV SCH ×2 (09:01→21:36)
[2017-06-26] MEDS: PIPERACILLIN-TAZOBACTAM 3.375 GM in DEXTROSE/WATER 1 50ML.BAG IVPB SCH ×2 (09:01→21:35)
[2017-06-26 10:40] LABS: Anisocytosis Slight; Basophils % (A) 0 %; Eosinophils % (A) 0 %; HCT 27.7 % (39.0-53.0); HGB 8.9 gm/dL (13.0-17.5); Lymphocytes # (A) 0.9 k/uL (1.0-4.8); Lymphocytes % (A) 6 %; MCH 29.9 pg (25.0-35.0); MCV 93.3 fL (80.0-100.0); Mean Platelet Volume 8.5; Monocytes # (A) 0.3 k/uL (0-1.0); Monocytes % (A) 2 %; Neutrophils # (A) 13.3 k/uL (1.3-7.7); Neutrophils % (A) 91 %; Platelet Count 331 k/uL (150-450); RBC 2.97 m/uL (4.30-5.90); RDW 16.2 % (11.5-15.5); WBC 14.6 k/uL (3.8-10.6)
[2017-06-26 10:56] LABS: Calcium 8.1 mg/dL (8.4-10.2); Potassium 3.2 mmol/L (3.5-5.1)
[2017-06-26 11:21] LABS: Glucose,Whole Blood 144 mg/dL (75-99)
--- NOTE | 2017-06-26 13:43 | P.PN ---
Subjective Progress Note Date: 06/26/17 Principal diagnosis: Acute hypoxic rest or a failure secondary to right lower lobe pneumonia, suspect aspiration Dejon is a 86-year-old white male patient of Dr. Peyton Das, who was recently hospitalized in May for right lower lobe pneumonia in May, and again for COPD exacerbation and acute on chronic renal failure with hypokalemia on 09/2017, improved, and was discharged home on 06/13/2017. Patient had completed a course of Zithromax and Ceftin for his right lower lobe pneumonia. Patient lives with his son and his [id number], he has poor baseline functional capacity, is unable to ambulate, and is mostly on bedrest. He does not wear oxygen at his baseline. Past medical history includes COPD, congestive heart failure, dementia, osteoarthritis, chronic kidney disease, Parkinson's disease, compression fractures of the lumbar spine, anemia, hypothyroidism. Patient is a former smoker, quit in 1965. Patient was noted to be increasingly short of breath at home, congested, coughing, but unable to produce any sputum. He states he did have the chills at home. He was started on prednisone taper and antibiotics in the form of Augmentin by his primary care physician on 06/19/2017. But in view of progressing dyspnea, chest congestion, and wheezing he was brought to the emergency room for further evaluation and treatment. On presentation he was noted to be hypoxemic, his pulse ox was 85% on room air. Initial chest x-ray showed small pleural effusions, and increasing infiltrates at the posterior lung bases compared to the last exam on 06/11/2017. No evidence of overt heart failure. Follow-up chest x-ray on 06/20/2017 showed bilateral infiltrate and pleural effusions. Patient was started on a combination of IV steroids, Levaquin, Zosyn, nebulized treatments DuoNeb, Symbicort and oral Lasix and admitted for further management. Lab work did not show any evidence of leukocytosis, WBC of 10.3, hemoglobin is 8.7, sodium is 134, potassium is 4.6, B1 is 48, creatinine is 1.9. Troponin was negative 1, proBNP was 2800. Urinalysis showed trace protein, trace blood, rare bacteria and mucus. Patient has been afebrile while inpatient, hemodynamically stable, currently on 3 L per nasal cannula O2 sat 96% . The patient is seen again today 06/21/2017 in follow-up on the regular medical floor. He is currently awake and alert in no acute distress. He is resting comfortably in bed. He states he is breathing about the same as compared to yesterday. No significant improvement thus far. He is maintaining good O2 saturations in the 90s on 2 L/m per nasal cannula. He's been afebrile. Hemodynamically stable. White count 12.8. Hemoglobin 8.7. Creatinine 1.94. He is continued on Zosyn and Levaquin along with IV Solu-Medrol, Symbicort and bronchodilators. Blood cultures reveal no growth to date. The patient is seen again today 06/22/2017 in follow-up on the regular medical floor. He is awake and alert in no acute distress. Currently having breakfast. His appetite is fair. No coughing or choking noted. He continues to maintain good O2 saturations in the 90s on 2 L/m per nasal cannula. He is afebrile. Hemodynamically stable. Blood cultures reveal no growth to date. White count 13.1. Hemoglobin 8.6. Creatinine 2.21. The patient is seen again today 06/23/2017 in follow-up on the regular medical floor. He is currently resting quite comfortably in bed. He is awake and alert in no acute distress. He states he is breathing better today as compared to yesterday. Blood culture reveals no growth to date. White count 12.5. Hemoglobin 8.8. Creatinine 2.38. Reevaluated today on 06/24/2017, patient is basically about the same, comfortable , in no distress, however he continues to have the same complaints every day, stating that he is not feeling well, and is not getting any better. However the patient is noted to be comfortable, and in no distress. On 06/25/2017 patient seen again in follow-up. Resting in bed, denies any acute distress. He states his breathing has not much improved since admission. He still sounds congested, has a loose cough, but unable to bring up any sputum. Remains on 2 L per nasal cannula with O2 sat 99%, remains afebrile, dynamically stable. On today's blood work, WBCs 12.7, hemoglobin is 8.6, potassium is 3.3, BUN is 81, and creatinine is 3.23. Blood culture shows no growth since admission, patient was unable to produce a sputum specimen for culture. He remains on Levaquin and Zosyn for his right lower lobe pneumonia, remains on IV Solu-Medrol, DuoNeb, Symbicort. His lung sounds are positive for diffuse wheezes and rhonchi. Patient remains very weak, has not been able to get up out of bed. Today's chest x-ray shows right basilar infiltrate and tiny effusion, mild central venous congestion, patient was given 1 dose of IV Lasix yesterday, with no significant improvement in the appearance of central venous congestion. Patient's renal profile has worsened on today's blood work. Renal ultrasound showed bilateral renal atrophy with no hydronephrosis or nephrolithiasis. From pulmonary standpoint patient remains stable although he has not made a significant improvement overall and continues to complain of not feeling well, and not doing well. However he remains in no apparent distress, his oxygenation is stable on 2 L per nasal cannula. He remains afebrile. On 06/26/2017 patient seen in follow-up on medical surgical floor. He is resting in bed, does not appear to be in any acute distress. Appears to be more alert today, but states that overall he doesn't feel much better. Lung sounds are less rhonchorous on today's exam, he does have some coarse crackles over bilateral bases and some minimal faint end expiratory wheezing. Currently on 2 L per nasal cannula with O2 sat 95%. He is afebrile. Blood culture remains negative since admission. Patient has been on combination of Zosyn and Levaquin. No new chest x-rays today. Today's lab work has been reviewed, WBC is 14.6, hemoglobin is 8.9, serum potassium is 3.2, BUN is 97, creatinine is 3.40. Patient's renal profile seems to be worsening. Overall patient's seems to be stable from pulmonary standpoint, with no worsening dyspnea, although subjectively he does not report feeling better. Patient's daughter and son are at the bedside, their goal is to transfer the patient to a subacute rehab, most likely [facility] on the [place]. Patient was at [facility] and reportedly did not have a good experience. Patient was seen by hospice, is not ready to enroll in hospice at this time. Objective - Vital Signs Vital signs: Vital Signs Temp 97.1 F L 06/25/17 23:00 Pulse 74 06/26/17 11:27 Resp 18 06/26/17 07:00 BP 140/63 06/26/17 07:00 Pulse Ox 95 06/26/17 07:00 Intake & Output 06/25/17 06/26/17 06/26/17 18:59 06:59 18:59 Intake Total 650 740 Output Total 290 400 Balance 360 340 Weight 92 kg 94 kg Intake: Intake, IV Titration 250 500 Amount Piperacillin-Tazobactam 3 50 .375 gm In Dextrose/Water 1 50ml.bag @ 12.5 mls/hr IVPB Q12HR DIANN Rx#: [id number] Sodium Chloride 0.9% 1, 200 500 000 ml @ 50 mls/hr IV . Q20H DIANN Rx#:[id number] Oral 400 240 Output: Urine 290 400 Condom 290 400 Other: Voiding Method Urinal Indwelling Catheter - Exam GENERAL EXAM: Alert, 86-year-old elderly, chronically ill-looking, white male comfortable in no apparent distress. HEAD: Normocephalic/atraumatic. EYES: Normal reaction of pupils, equal size. Conjunctiva pink, sclera white. NOSE: Clear with pink turbinates. THROAT: No erythema or exudates. NECK: No masses, no JVD, no thyroid enlargement, no adenopathy. CHEST: No chest wall deformity. Symmetrical expansion. LUNGS: Equal air entry with bibasilar crackles, and faint expiratory wheezes bilaterally. On today's exam patient sounds less rhonchorous CVS: Regular rate and rhythm, normal S1 and S2, no gallops, no murmurs, no rubs ABDOMEN: Soft, nontender. No hepatosplenomegaly, normal bowel sounds, no guarding or rigidity. EXTREMITIES: No clubbing, no edema, no cyanosis, 2+ pulses and upper and lower extremities. MUSCULOSKELETAL: Muscle strength and tone normal. SPINE: No scoliosis or deformity SKIN: No rashes CENTRAL NERVOUS SYSTEM: Alert and oriented -3. No focal deficits, tone is normal in all 4 extremities. PSYCHIATRIC: Alert and oriented -3. Appropriate affect. Intact judgment and insight. - Labs CBC & Chem 7: 06/26/17 10:26 06/26/17 10:26 Labs: Abnormal Lab Results - Last 24 Hours (Table) 06/25/17 06/25/17 06/26/17 Range/Units 17:12 19:47 07:21 WBC (3.8-10.6) k/uL RBC (4.30-5.90) m/uL Hgb (13.0-17.5) gm/dL Hct (39.0-53.0) % RDW (11.5-15.5) % Neutrophils # (1.3-7.7) k/uL Lymphocytes # (1.0-4.8) k/uL Potassium (3.5-5.1) mmol/L BUN (9-20) mg/dL Creatinine (0.66-1.25) mg/dL Glucose (74-99) mg/dL POC Glucose (mg/dL) 308 H 150 H 128 H (75-99) mg/dL Calcium (8.4-10.2) mg/dL 06/26/17 06/26/17 06/26/17 Range/Units 10:26 10:26 11:17 WBC 14.6 H (3.8-10.6) k/uL RBC 2.97 L (4.30-5.90) m/uL Hgb 8.9 L (13.0-17.5) gm/dL Hct 27.7 L (39.0-53.0) % RDW 16.2 H (11.5-15.5) % Neutrophils # 13.3 H (1.3-7.7) k/uL Lymphocytes # 0.9 L (1.0-4.8) k/uL Potassium 3.2 L (3.5-5.1) mmol/L BUN 97 H* (9-20) mg/dL Creatinine 3.40 H (0.66-1.25) mg/dL Glucose 131 H (74-99) mg/dL POC Glucose (mg/dL) 144 H (75-99) mg/dL Calcium 8.1 L (8.4-10.2) mg/dL Microbiology - Last 24 Hours (Table) 06/19/17 19:35 Blood Culture - Final Blood No Growth after 144 hours Assessment and Plan Plan: Assessment: #1. Acute hypoxic respiratory failure secondary to right lower lobe pneumonia, possibly be aspiration related. He did not tolerate thin liquids at the bedside , was noted to be coughing with thin liquids. However his modified barium swallow did not reveal any evidence of overt aspiration. #2. Recent hospitalization for right lower lobe pneumonia in May, patient was treated with Rocephin and Zithromax during that admission, improved when was discharged home #3. Recent hospitalization for acute on chronic renal failure, with hypokalemia , discharged home on 06/13/2017 #4. COPD, with a baseline FEV1 of 47% of predicted, GOLD stage III #5. History of chronic congestive heart failure with diastolic dysfunction #6. Anemia of chronic disease #7. Chronic renal failure, stage III #8. Hypothyroidism #9. Parkinson's disease/dementia with significant impairment of neurologic function/cognition/memory/gait #10. Poor baseline functional status, patient is mostly bedbound #11. History of BPH, on Avodart and Flomax #12. Osteoarthritis Plan: Patient is afebrile, vital signs are stable. He is maintaining oxygenation at 95-97% on 2 L per nasal cannula. Seems to be a little bit more awake today, and conversant. Does not report feeling better overall. Denies any fever, chills. His appetite remains poor. Nephrology is on consult, and their input was noted. Patient's renal profile seems to be worsening. From pulmonary standpoint continue current plan of care, continue current antibiotic coverage, continue DuoNeb, continue Symbicort. We will decrease the Solu-Medrol down to 40 mg every 12 hours. Patient refused hospice, the plan is to discharge patient to the [facility] on the [place] once improves. We'll obtain repeat chest x- ray in the morning. Continue monitoring vital signs, renal profile, electrolytes. I performed a history & physical examination of the patient and discussed their management with my nurse practitioner, Gretchen Garcia. I reviewed the nurse practitioner's note and agree with the documented findings and plan of care. Lung sounds are positive for scattered expiratory wheezes bilaterally, and bibasilar rales at the lung ramirez. The findings and the impression was discussed with the patient. I attest to the documentation by the nurse practitioner. Time with Patient: Less than 30
[2017-06-26 15:17] LABS: Hemoglobin A1C 6.6 % (4.0-6.0)
--- NOTE | 2017-06-26 15:20 | PN ---
PROGRESS NOTE DATE OF SERVICE: 06/26/2017. This 86-year-old gentleman who was admitted with acute bilateral pneumonia with no aspiration from modified barium swallow is being closely monitored. Patient also had renal failure. Patient originally had stage IV renal failure with fluctuating creatinine at this time. The patient's breathing . The patient is still complaining of cough and sputum at this time. PAST MEDICAL HISTORY: Reviewed. REVIEW OF SYSTEMS: CARDIOVASCULAR: As mentioned. RESPIRATORY: As mentioned earlier. GI: mentioned earlier. GENITOURINARY: Mentioned earlier. NERVOUS SYSTEM: Generalized weakness. CURRENT MEDICATIONS: Reviewed and include: 1. DuoNeb q.i.d. and p.r.n. 2. Zyloprim 100 mg p.o. daily. 3. Norvasc 5 mg p.o. daily. 4. Aspirin 325. 5. Dulcolax 10 mg daily. 6. Symbicort 80/4.5 two puffs b.i.d. 7. Rocaltrol 0.5 mg Sunday, Sunday and Sunday. 8. Sinemet 1 p.o. t.i.d. 9. Vitamin D3. 10.Catapres. 11.Proscar. 12.Folic acid. 13.Neurontin. 14.Apresoline. 15.Vistaril. 16.NovoLog scale. 17.Levaquin. 18.Synthroid. 19.Milk of magnesia. 20.Zoloft. 21.Solu-Medrol. 22.Multivitamin. 23.Nitrostat. 24.Protonix. 25.Zosyn 3.375 IV b.i.d. 26.Kayexalate 15 g Sunday, . 27.Flomax 0.4 daily. 28.Vitamin B 100 mg p.o. daily. 29.Zinc 220 mg p.o. daily. PHYSICAL EXAM: Patient is alert, oriented x2. Pulse is 71, blood pressure 146/60, respiration 18, temperature normal, pulse ox 94% on 2 L. HEENT: Conjunctivae normal. NECK: No jugular venous distention. No carotid bruit. No lymph node enlargement. CARDIOVASCULAR: S1, S2 muffled. RESPIRATORY: Breath sounds diminished in the bases. A few scattered rhonchi and expiratory wheezing and crackles. ABDOMEN: Soft, nontender. No mass palpable. No hepatosplenomegaly. LEGS: No edema, no swelling. NERVOUS SYSTEM: Higher functions as mentioned. Moves all 4 limbs. Mild diffuse weakness. LYMPHATICS: No lymphadenopathy in the neck, axillae, groin. SKIN: No ulcer, rash, bleeding. LABS: At this time shows WBC 14.2, hemoglobin 8.9. Sodium 139, potassium 3.2, creatinine 3.40. ASSESSMENT: 1. Acute bilateral pneumonia with no aspiration for modified barium swallow on modified diet. 2. Chronic obstructive pulmonary disease, gold stage III. 3. Recent acute renal failure with hyperkalemia. 4. Possible acute on chronic kidney disease. 5. Hyponatremia. 6. Dementia. 7. Parkinson's. 8. Gait dysfunction. 9. Chronic kidney disease stage IV. 10.History of congestive heart failure with chronic diastolic dysfunction. 11.Medical debility. 12.NO CODE, NO CPR, NO VENT. RECOMMENDATIONS AND DISCUSSION: In this 86-year-old gentleman who presented with multiple complex medical issues. I had a detailed discussion with the family at this time. Currently regarding the code status and patient level, the family is agreeable to NO CODE, NO CPR at this time. Otherwise continue to monitor. PT, OT evaluation, possible ECF rehab. Continue rest of the medications. Guarded prognosis because of multiple complex medical issues. Low potassium supplementation. Repeat potassium and creatinine. Further recommendations to follow. MMODL / IJN: [id number] / MTDVeronica
[2017-06-26 17:25] LABS: Glucose,Whole Blood 113 mg/dL (75-99)
[2017-06-26] MEDS: ASPIRIN 81 MG PO SCH (17:40)
[2017-06-26] MEDS: MULTIVITAMINS, THERA 1 EACH TAB PO SCH (17:41)
[2017-06-26] MEDS: FOLIC ACID 1 MG TAB PO SCH (17:41)
[2017-06-26] MEDS: ZINC SULFATE 220 MG CAP PO SCH (17:41)
[2017-06-26] MEDS: CHOLECALCIFEROL 1,000 UNIT TAB PO SCH (17:41)
[2017-06-26] MEDS: THIAMINE 100 MG TAB PO SCH (17:41)
--- NOTE | 2017-06-26 20:26 | PN ---
PROGRESS NOTE Patient is seen for followup for acute kidney injury on top of chronic kidney disease. He is currently having his breakfast. The patient denies any other significant complaints. He was started on gentle IV hydration with saline at 50 mL an hour. The patient also currently has an indwelling Dhillon catheter. The 24 hour urine output was 1500 mL. EXAMINATION: This morning, blood pressure was 140/63, heart rate of 80 per minute. Patient is afebrile. Examination of the heart S1, S2. Examination of lungs decreased breath sounds at bases. Minimal basilar crackles are heard. Abdomen is soft, nontender. Examination of lower extremities shows no significant edema. LAB: Show sodium 139, potassium 3.2, BUN 97, serum creatinine 3.4, hemoglobin 8.9 g/dL. ASSESSMENT: 1. Acute kidney injury, possibly prerenal, currently maintained on IV fluids. Renal function is not much better. The patient also has an indwelling Dhillon catheter. He is encouraged to increase oral intake. Chest x-ray did not show overt heart failure from yesterday. 2. Chronic kidney disease and NKF stage III secondary to nephrosclerosis with possibly underlying urine retention with baseline creatinine at as low as 1.2 mg/dL on his last admission. 3. Chronic obstructive pulmonary disease. 4. Diastolic dysfunction, cardiomyopathy with ejection fraction 50 to 55% in February of 2017. 5. Benign prostatic hypertrophy, maintained on Flomax and Avodart with urine retention, currently with indwelling Dhillon catheter. 6. Diastolic heart failure, acute on top of chronic on initial admission, status post diuresis. 7. Possible pneumonia maintained on antibiotics. 8. Recent hospitalization for pneumonia prior to this admission. 9. Hypertension with blood pressure not elevated. Norvasc was decreased yesterday to avoid any hypoperfusion. PLAN: Continue IV fluids for 1 more day. Replace potassium and repeat labs in a.m. MMODL / IJN: [id number] /
[2017-06-26 20:45] LABS: Glucose,Whole Blood 133 mg/dL (75-99)
[2017-06-27] MEDS: LEVOTHYROXINE 75 MCG TAB PO SCH (06:08)
[2017-06-27] MEDS: SODIUM CHLORIDE 0.9% 1,000 ML IV SCH ×2 (06:08→21:10)
[2017-06-27] MEDS: IPRATROPIUM-ALBUTEROL 3 ML NEB INHALATION SCH ×4 (07:18→20:42)
[2017-06-27 07:36] LABS: Glucose,Whole Blood 211 mg/dL (75-99)
[2017-06-27 08:11] LABS: Anisocytosis Slight; Basophils % (A) 0 %; Eosinophils % (A) 0 %; HCT 27.8 % (39.0-53.0); HGB 9.2 gm/dL (13.0-17.5); Lymphocytes # (A) 0.9 k/uL (1.0-4.8); Lymphocytes % (A) 5 %; MCH 30.9 pg (25.0-35.0); MCV 93.6 fL (80.0-100.0); Mean Platelet Volume 8.2; Monocytes # (A) 0.4 k/uL (0-1.0); Monocytes % (A) 2 %; Neutrophils # (A) 15.8 k/uL (1.3-7.7); Neutrophils % (A) 92 %; Platelet Count 346 k/uL (150-450); RBC 2.98 m/uL (4.30-5.90); RDW 16.4 % (11.5-15.5); WBC 17.3 k/uL (3.8-10.6)
[2017-06-27] MEDS: hydrOXYzine PAMOATE 25 MG CAP PO SCH (08:19)
[2017-06-27] MEDS: TAMSULOSIN 0.4 MG CAP.ER.24H PO SCH (08:19)
[2017-06-27] MEDS: LORATADINE 10 MG TAB PO SCH (08:19)
[2017-06-27] MEDS: FINASTERIDE 5 MG TAB PO SCH (08:19)
[2017-06-27] MEDS: METHADONE 5 MG TAB PO SCH ×2 (08:19→21:10)
[2017-06-27] MEDS: GABAPENTIN 100 MG CAP PO SCH ×3 (08:19→21:10)
[2017-06-27] MEDS: PANTOPRAZOLE 40 MG TABLET PO SCH (08:19)
[2017-06-27] MEDS: ALLOPURINOL 100 MG TAB PO SCH (08:19)
[2017-06-27] MEDS: CARBIDOPA-LEVODOPA 25-100 MG 1 EACH TAB PO SCH ×3 (08:19→16:47)
[2017-06-27] MEDS: amLODIPine 5 MG TAB PO SCH (08:20)
[2017-06-27] MEDS: HEPARIN SODIUM,PORCINE 5,000 UNIT/ML 1 ML VIAL SQ SCH ×2 (08:20→21:10)
[2017-06-27] MEDS: LEVOFLOXACIN 750 MG TAB PO SCH (08:20)
[2017-06-27] MEDS: INSULIN ASPART 100 UNIT/ML 1 ML 10 ML VIAL SQ SCH ×7 (08:26→21:05)
[2017-06-27 08:35] LABS: Calcium 8.1 mg/dL (8.4-10.2); Potassium 3.5 mmol/L (3.5-5.1)
[2017-06-27] MEDS: PIPERACILLIN-TAZOBACTAM 3.375 GM in DEXTROSE/WATER 1 50ML.BAG IVPB SCH ×2 (10:42→21:10)
[2017-06-27] MEDS: methylPREDNISolone SOD SUCCI 40 MG/ML 1 ML VIAL IV SCH (10:43)
[2017-06-27 10:47] LABS: Appearance,Urine Cloudy (Clear); Bilirubin,Urine Negative (Negative); Blood,Urine Large (Negative); Budding Yeast,Urine Many /hpf; Color,Urine Yellow; Glucose,Urine (UA) Negative (Negative); Ketones,Urine Negative (Negative); Leukocyte Esterase,Urine Large (Negative); Mucus,Urine Rare /hpf; Nitrite,Urine Negative (Negative); Protein,Urine Trace (Negative); RBC,Urine 181 /hpf (0-5); Specific Gravity,Urine 1.015 (1.001-1.035); Squamous Epithelial Cell,Urine 1 /hpf (0-4); Urobilinogen,Urine <2.0 mg/dL (<2.0); WBC,Urine >182 /hpf (0-5)
[2017-06-27] MEDS: SYMBICORT 80-4.5 MCG INHALER INHALATION SCH ×2 (10:49→20:42)
[2017-06-27 11:51] LABS: Glucose,Whole Blood 131 mg/dL (75-99)
--- NOTE | 2017-06-27 12:36 | PN ---
PROGRESS NOTE DATE OF SERVICE: 06/27/2017 This is an 86-year-old gentleman who was admitted with multiple medical problems including bilateral pneumonia, also had renal failure, stage III to IV. The patient is being closely monitored by Nephrology and as well as Pulmonology. ECF rehab is being considered. No chest pain. No palpitations. No fever. Patient also had Dhillon catheter for obstructive uropathy. PHYSICAL EXAM: Alert and oriented x2. Pulse 88, blood pressure 160/95, respiration 20, temperature 97.4, pulse ox 94% on 2 L. HEENT: Conjunctivae normal. NECK: No jugular venous distension. CARDIOVASCULAR: S1, S2, muffled. RESPIRATORY: Breath sounds diminished at the bases. A few scattered rhonchi, no crackles. Abdomen is soft, nontender. LEGS: No edema, no swelling. NERVOUS SYSTEM: No focal deficits. LABS: WBC is 17.3, hemoglobin is 9.2, and the creatinine is 3.58. UA shows WBCs. ASSESSMENT: 1. Acute bilateral pneumonia with no aspiration on modified barium swallow and modified diet. 2. Chronic obstructive pulmonary disease, gold stage III. 3. Recent acute renal failure with hyperkalemia. 4. Chronic kidney disease stage III to IV. 5. Hyponatremia. 6. Dementia. 7. Parkinson's. 8. Rule out urinary tract infection. 9. Gait dysfunction. 10.History of congestive heart failure with chronic diastolic dysfunction. 11.Medical debility. 12.NO CODE, NO CARDIOPULMONARY RESUSCITATION, NO VENTILATOR. RECOMMENDATION: Recommend to continue with the current medication, continue with the symptomatic treatment. Otherwise, the patient is currently on Levaquin. I would recommend urine and blood cultures and continue to monitor. Further recommendations to follow. Otherwise, PT, OT evaluation. Increase ambulation and possible ECF rehab. MMODL / IJN: [id number] /
[2017-06-27] MEDS: ACETAMINOPHEN TAB 325 MG TAB PO PRN (12:57)
--- NOTE | 2017-06-27 14:48 | P.PN ---
Subjective Progress Note Date: 06/27/17 Principal diagnosis: Acute hypoxic rest or a failure secondary to right lower lobe pneumonia, suspect aspiration Dejon is a 86-year-old white male patient of Dr. Peyton Das, who was recently hospitalized in May for right lower lobe pneumonia in May, and again for COPD exacerbation and acute on chronic renal failure with hypokalemia on 09/2017, improved, and was discharged home on 06/13/2017. Patient had completed a course of Zithromax and Ceftin for his right lower lobe pneumonia. Patient lives with his son and his [id number], he has poor baseline functional capacity, is unable to ambulate, and is mostly on bedrest. He does not wear oxygen at his baseline. Past medical history includes COPD, congestive heart failure, dementia, osteoarthritis, chronic kidney disease, Parkinson's disease, compression fractures of the lumbar spine, anemia, hypothyroidism. Patient is a former smoker, quit in 1965. Patient was noted to be increasingly short of breath at home, congested, coughing, but unable to produce any sputum. He states he did have the chills at home. He was started on prednisone taper and antibiotics in the form of Augmentin by his primary care physician on 06/19/2017. But in view of progressing dyspnea, chest congestion, and wheezing he was brought to the emergency room for further evaluation and treatment. On presentation he was noted to be hypoxemic, his pulse ox was 85% on room air. Initial chest x-ray showed small pleural effusions, and increasing infiltrates at the posterior lung bases compared to the last exam on 06/11/2017. No evidence of overt heart failure. Follow-up chest x-ray on 06/20/2017 showed bilateral infiltrate and pleural effusions. Patient was started on a combination of IV steroids, Levaquin, Zosyn, nebulized treatments DuoNeb, Symbicort and oral Lasix and admitted for further management. Lab work did not show any evidence of leukocytosis, WBC of 10.3, hemoglobin is 8.7, sodium is 134, potassium is 4.6, B1 is 48, creatinine is 1.9. Troponin was negative 1, proBNP was 2800. Urinalysis showed trace protein, trace blood, rare bacteria and mucus. Patient has been afebrile while inpatient, hemodynamically stable, currently on 3 L per nasal cannula O2 sat 96% . The patient is seen again today 06/21/2017 in follow-up on the regular medical floor. He is currently awake and alert in no acute distress. He is resting comfortably in bed. He states he is breathing about the same as compared to yesterday. No significant improvement thus far. He is maintaining good O2 saturations in the 90s on 2 L/m per nasal cannula. He's been afebrile. Hemodynamically stable. White count 12.8. Hemoglobin 8.7. Creatinine 1.94. He is continued on Zosyn and Levaquin along with IV Solu-Medrol, Symbicort and bronchodilators. Blood cultures reveal no growth to date. The patient is seen again today 06/22/2017 in follow-up on the regular medical floor. He is awake and alert in no acute distress. Currently having breakfast. His appetite is fair. No coughing or choking noted. He continues to maintain good O2 saturations in the 90s on 2 L/m per nasal cannula. He is afebrile. Hemodynamically stable. Blood cultures reveal no growth to date. White count 13.1. Hemoglobin 8.6. Creatinine 2.21. The patient is seen again today 06/23/2017 in follow-up on the regular medical floor. He is currently resting quite comfortably in bed. He is awake and alert in no acute distress. He states he is breathing better today as compared to yesterday. Blood culture reveals no growth to date. White count 12.5. Hemoglobin 8.8. Creatinine 2.38. Reevaluated today on 06/24/2017, patient is basically about the same, comfortable , in no distress, however he continues to have the same complaints every day, stating that he is not feeling well, and is not getting any better. However the patient is noted to be comfortable, and in no distress. On 06/25/2017 patient seen again in follow-up. Resting in bed, denies any acute distress. He states his breathing has not much improved since admission. He still sounds congested, has a loose cough, but unable to bring up any sputum. Remains on 2 L per nasal cannula with O2 sat 99%, remains afebrile, dynamically stable. On today's blood work, WBCs 12.7, hemoglobin is 8.6, potassium is 3.3, BUN is 81, and creatinine is 3.23. Blood culture shows no growth since admission, patient was unable to produce a sputum specimen for culture. He remains on Levaquin and Zosyn for his right lower lobe pneumonia, remains on IV Solu-Medrol, DuoNeb, Symbicort. His lung sounds are positive for diffuse wheezes and rhonchi. Patient remains very weak, has not been able to get up out of bed. Today's chest x-ray shows right basilar infiltrate and tiny effusion, mild central venous congestion, patient was given 1 dose of IV Lasix yesterday, with no significant improvement in the appearance of central venous congestion. Patient's renal profile has worsened on today's blood work. Renal ultrasound showed bilateral renal atrophy with no hydronephrosis or nephrolithiasis. From pulmonary standpoint patient remains stable although he has not made a significant improvement overall and continues to complain of not feeling well, and not doing well. However he remains in no apparent distress, his oxygenation is stable on 2 L per nasal cannula. He remains afebrile. On 06/26/2017 patient seen in follow-up on medical surgical floor. He is resting in bed, does not appear to be in any acute distress. Appears to be more alert today, but states that overall he doesn't feel much better. Lung sounds are less rhonchorous on today's exam, he does have some coarse crackles over bilateral bases and some minimal faint end expiratory wheezing. Currently on 2 L per nasal cannula with O2 sat 95%. He is afebrile. Blood culture remains negative since admission. Patient has been on combination of Zosyn and Levaquin. No new chest x-rays today. Today's lab work has been reviewed, WBC is 14.6, hemoglobin is 8.9, serum potassium is 3.2, BUN is 97, creatinine is 3.40. Patient's renal profile seems to be worsening. Overall patient's seems to be stable from pulmonary standpoint, with no worsening dyspnea, although subjectively he does not report feeling better. Patient's daughter and son are at the bedside, their goal is to transfer the patient to a subacute rehab, most likely [facility] on the [place]. Patient was at [facility] and reportedly did not have a good experience. Patient was seen by hospice, is not ready to enroll in hospice at this time. On 06/27/2017 patient seen again in follow-up. He is up in the chair, tolerating it well. Per nursing staff patient is very generally weak, and required extensive assistance to get up in the chair. Lung sounds are negative for any wheezes, but positive for coarse rales bilaterally. Patient's respirations are shallow, but nonlabored. He remains on 2 L per nasal cannula with O2 sat at 95%. He is afebrile. Today's blood work shows WBC is up to 17.3 , hemoglobin is 9.2, BUN is 101, and creatinine is 3.58. Urinalysis was done, and it showed large amount of blood, large amount of leuks, WBC clumps and yeast buds. Continues on Zosyn, Levaquin. IV Solu-Medrol, and nebulized treatments. Objective - Vital Signs Vital signs: Vital Signs Temp 97.5 F L 06/27/17 07:00 Pulse 82 06/27/17 11:01 Resp 20 06/27/17 09:00 BP 160/95 06/27/17 07:00 Pulse Ox 95 06/27/17 07:00 Intake & Output 06/26/17 06/27/17 06/27/17 18:59 06:59 18:59 Intake Total 236 Output Total 300 200 400 Balance -300 -200 -164 Weight 94.1 kg Intake: Oral 236 Output: Urine 300 200 400 Other: Voiding Method Indwelling Catheter Indwelling Catheter Indwelling Catheter # Voids 1 # Bowel Movements 1 - Exam GENERAL EXAM: Alert, 86-year-old elderly, chronically ill-looking, white male sitting up in the chair, in no acute distress HEAD: Normocephalic/atraumatic. EYES: Normal reaction of pupils, equal size. Conjunctiva pink, sclera white. NOSE: Clear with pink turbinates. THROAT: No erythema or exudates. NECK: No masses, no JVD, no thyroid enlargement, no adenopathy. CHEST: No chest wall deformity. Symmetrical expansion. LUNGS: Equal air entry with with coarse rales bilaterally CVS: Regular rate and rhythm, normal S1 and S2, no gallops, no murmurs, no rubs ABDOMEN: Soft, nontender. No hepatosplenomegaly, normal bowel sounds, no guarding or rigidity. EXTREMITIES: No clubbing, no edema, no cyanosis, 2+ pulses and upper and lower extremities. MUSCULOSKELETAL: Muscle strength and tone normal. SPINE: No scoliosis or deformity SKIN: No rashes CENTRAL NERVOUS SYSTEM: Alert and oriented -3. No focal deficits, tone is normal in all 4 extremities. PSYCHIATRIC: Alert and oriented -3. Appropriate affect. Intact judgment and insight. - Labs CBC & Chem 7: 06/27/17 07:33 18 07:33 Labs: Abnormal Lab Results - Last 24 Hours (Table) 06/25/17 06/26/17 06/26/17 Range/Units 07:16 17:21 20:42 WBC (3.8-10.6) k/uL RBC (4.30-5.90) m/uL Hgb (13.0-17.5) gm/dL Hct (39.0-53.0) % RDW (11.5-15.5) % Neutrophils # (1.3-7.7) k/uL Lymphocytes # (1.0-4.8) k/uL BUN (9-20) mg/dL Creatinine (0.66-1.25) mg/dL Glucose (74-99) mg/dL POC Glucose (mg/dL) 113 H 133 H (75-99) mg/dL Hemoglobin A1c 6.6 H (4.0-6.0) % Calcium (8.4-10.2) mg/dL Urine Protein (Negative) Urine Blood (Negative) Ur Leukocyte Esterase (Negative) Urine RBC (0-5) /hpf Urine WBC (0-5) /hpf Urine WBC Clumps (None) /hpf Urine Mucus (None) /hpf Urine Yeast (Budding) (None) /hpf 06/27/17 06/27/17 06/27/17 Range/Units 07:27 07:33 07:33 WBC 17.3 H (3.8-10.6) k/uL RBC 2.98 L (4.30-5.90) m/uL Hgb 9.2 L (13.0-17.5) gm/dL Hct 27.8 L (39.0-53.0) % RDW 16.4 H (11.5-15.5) % Neutrophils # 15.8 H (1.3-7.7) k/uL Lymphocytes # 0.9 L (1.0-4.8) k/uL BUN 101 H* (9-20) mg/dL Creatinine 3.58 H (0.66-1.25) mg/dL Glucose 169 H (74-99) mg/dL POC Glucose (mg/dL) 211 H (75-99) mg/dL Hemoglobin A1c (4.0-6.0) % Calcium 8.1 L (8.4-10.2) mg/dL Urine Protein (Negative) Urine Blood (Negative) Ur Leukocyte Esterase (Negative) Urine RBC (0-5) /hpf Urine WBC (0-5) /hpf Urine WBC Clumps (None) /hpf Urine Mucus (None) /hpf Urine Yeast (Budding) (None) /hpf 06/27/17 06/27/17 Range/Units 10:00 11:48 WBC (3.8-10.6) k/uL RBC (4.30-5.90) m/uL Hgb (13.0-17.5) gm/dL Hct (39.0-53.0) % RDW (11.5-15.5) % Neutrophils # (1.3-7.7) k/uL Lymphocytes # (1.0-4.8) k/uL BUN (9-20) mg/dL Creatinine (0.66-1.25) mg/dL Glucose (74-99) mg/dL POC Glucose (mg/dL) 131 H (75-99) mg/dL Hemoglobin A1c (4.0-6.0) % Calcium (8.4-10.2) mg/dL Urine Protein Trace H (Negative) Urine Blood Large H (Negative) Ur Leukocyte Esterase Large H (Negative) Urine RBC 181 H (0-5) /hpf Urine WBC >182 H (0-5) /hpf Urine WBC Clumps Moderate H (None) /hpf Urine Mucus Rare H (None) /hpf Urine Yeast (Budding) Many H (None) /hpf Assessment and Plan Plan: Assessment: #1. Acute hypoxic respiratory failure secondary to right lower lobe pneumonia, possibly be aspiration related. He did not tolerate thin liquids at the bedside , was noted to be coughing with thin liquids. However his modified barium swallow did not reveal any evidence of overt aspiration. #2. Recent hospitalization for right lower lobe pneumonia in May, patient was treated with Rocephin and Zithromax during that admission, improved when was discharged home #3. Recent hospitalization for acute on chronic renal failure, with hypokalemia , discharged home on 06/13/2017 #4. COPD, with a baseline FEV1 of 47% of predicted, GOLD stage III #5. History of chronic congestive heart failure with diastolic dysfunction #6. Anemia of chronic disease #7. Chronic renal failure, stage III #8. Hypothyroidism #9. Parkinson's disease/dementia with significant impairment of neurologic function/cognition/memory/gait #10. Poor baseline functional status, patient is mostly bedbound #11. History of BPH, on Avodart and Flomax #12. Osteoarthritis Plan: Continue current plan of care, patient refused hospice yesterday, the patient and the family did make a decision to change her CODE STATUS to DO NOT RESUSCITATE. Continue with supportive care, continue with current antibiotic coverage. Renal profile seems to be worsening. Urinalysis results were noted. Follow-up blood culture and urine culture were obtained and are pending at this time. Repeat chest x-ray in the morning. Maintain aspiration precautions I performed a history & physical examination of the patient and discussed their management with my nurse practitioner, Gretchen Garcia. I reviewed the nurse practitioner's note and agree with the documented findings and plan of care. Lung sounds are positive for coarse rales bilaterally. The findings and the impression was discussed with the patient. I attest to the documentation by the nurse practitioner. Time with Patient: Less than 30
[2017-06-27 15:21] VITALS: RESP 18
[2017-06-27] MEDS: CALCITRIOL 0.25 MCG CAP PO SCH (16:47)
[2017-06-27] MEDS: CHOLECALCIFEROL 1,000 UNIT TAB PO SCH (16:47)
[2017-06-27] MEDS: ASPIRIN 81 MG PO SCH (16:47)
[2017-06-27] MEDS: THIAMINE 100 MG TAB PO SCH (16:48)
[2017-06-27] MEDS: MULTIVITAMINS, THERA 1 EACH TAB PO SCH (16:48)
[2017-06-27] MEDS: FOLIC ACID 1 MG TAB PO SCH (16:48)
[2017-06-27] MEDS: ZINC SULFATE 220 MG CAP PO SCH (16:48)
[2017-06-27 17:00] LABS: Glucose,Whole Blood 53 mg/dL (75-99)
[2017-06-27 17:00] LABS: Glucose,Whole Blood 47 mg/dL (75-99)
[2017-06-27 17:37] LABS: Glucose,Whole Blood 53 mg/dL (75-99)
[2017-06-27 17:58] LABS: Glucose,Whole Blood 60 mg/dL (75-99)
[2017-06-27 18:02] LABS: Glucose,Whole Blood 69 mg/dL (75-99)
[2017-06-27 20:13] LABS: Glucose,Whole Blood 108 mg/dL (75-99)
--- NOTE | 2017-06-27 21:54 | PN ---
PROGRESS NOTE Patient is seen for followup for acute kidney injury which appears to be prerenal. Patient has indwelling Dhillon catheter, as he has had urine retention as well. His creatinine is slightly more elevated today; however, patient has had good urine output and he is sitting out of bed and feels quite well. On examination, blood pressure this morning is 160/95, heart rate 83 per minute. Patient is afebrile. EXAMINATION OF THE HEART: S1, S2. EXAMINATION OF LUNGS: Bilateral breath sounds are heard. ABDOMEN: Soft, non-tender. Examination of lower extremities shows chronic skin changes with edema 1+ bilaterally. Labs show sodium 138, potassium 3.5, BUN 101, serum creatinine 3.58, hemoglobin 9.2 g/dL. ASSESSMENT: 1. Acute kidney injury, prerenal as well as a component of urine retention currently with indwelling Dhillon catheter and maintained on IV fluids. UA done later on today does show evidence of urinary tract infection. Urine culture is currently pending. There are no nephrotoxic agents on board and patient is not hypotensive. 2. 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 3. Chronic kidney disease, NKF stage III, secondary to nephrosclerosis with previous creatinine as low as 1.2 to 1.3 mg/dL during his last admission. 4. Diastolic dysfunction and cardiomyopathy with ejection fraction 50% to 55% in February of 2017. PLAN: Continue IV fluids. Continue to encourage increased oral intake. Repeat labs in a.m. Will follow up on the urine culture results. Overall prognosis is guarded. MMODL / IJN: [id number] /
[2017-06-28 00:56] LABS: Glucose,Whole Blood 174 mg/dL (75-99)
[2017-06-28] MEDS: ACETAMINOPHEN TAB 325 MG TAB PO PRN (01:45)
[2017-06-28] MEDS: LEVOTHYROXINE 75 MCG TAB PO SCH (06:17)
[2017-06-28 07:08] LABS: Anisocytosis Slight; Basophils % (A) 0 %; Eosinophils % (A) 0 %; HCT 26.3 % (39.0-53.0); HGB 8.6 gm/dL (13.0-17.5); Lymphocytes # (A) 1.1 k/uL (1.0-4.8); Lymphocytes % (A) 6 %; MCH 30.3 pg (25.0-35.0); MCHC 32.6 g/dL (31.0-37.0); MCV 92.9 fL (80.0-100.0); Mean Platelet Volume 8.5; Monocytes # (A) 0.5 k/uL (0-1.0); Monocytes % (A) 3 %; Neutrophils # (A) 16.2 k/uL (1.3-7.7); Neutrophils % (A) 90 %; Platelet Count 305 k/uL (150-450); RBC 2.83 m/uL (4.30-5.90); RDW 16.6 % (11.5-15.5); WBC 18.1 k/uL (3.8-10.6)
[2017-06-28 07:17] LABS: Potassium 3.8 mmol/L (3.5-5.1)
[2017-06-28 07:30] LABS: Glucose,Whole Blood 140 mg/dL (75-99)
[2017-06-28] MEDS: INSULIN ASPART 100 UNIT/ML 1 ML 10 ML VIAL SQ SCH ×2 (08:09)
[2017-06-28] MEDS: PANTOPRAZOLE 40 MG TABLET PO SCH (08:29)
[2017-06-28] MEDS: CARBIDOPA-LEVODOPA 25-100 MG 1 EACH TAB PO SCH ×3 (08:30→16:34)
[2017-06-28] MEDS: ALLOPURINOL 100 MG TAB PO SCH (08:30)
[2017-06-28] MEDS: FINASTERIDE 5 MG TAB PO SCH (08:30)
[2017-06-28] MEDS: LORATADINE 10 MG TAB PO SCH (08:31)
[2017-06-28] MEDS: GABAPENTIN 100 MG CAP PO SCH ×2 (08:31→15:15)
[2017-06-28] MEDS: HEPARIN SODIUM,PORCINE 5,000 UNIT/ML 1 ML VIAL SQ SCH (08:32)
[2017-06-28] MEDS: amLODIPine 5 MG TAB PO SCH (08:32)
[2017-06-28] MEDS: TAMSULOSIN 0.4 MG CAP.ER.24H PO SCH (08:32)
[2017-06-28] MEDS: SODIUM POLYSTYRENE SULFONATE 15 GM/60 ML BOTTLE PO SCH (08:33)
[2017-06-28] MEDS: PIPERACILLIN-TAZOBACTAM 3.375 GM in DEXTROSE/WATER 1 50ML.BAG IVPB SCH (08:35)
[2017-06-28] MEDS: hydrOXYzine PAMOATE 25 MG CAP PO SCH (08:36)
[2017-06-28] MEDS: METHADONE 5 MG TAB PO SCH (08:36)
[2017-06-28] MEDS: IPRATROPIUM-ALBUTEROL 3 ML NEB INHALATION SCH ×3 (08:54→16:07)
[2017-06-28] MEDS: SYMBICORT 80-4.5 MCG INHALER INHALATION SCH (08:54)
[2017-06-28] MEDS ORDERED: predniSONE 20 MG TAB PO SCH (09:00)
[2017-06-28 10:44] VITALS: BMI 28.9
[2017-06-28 11:21] LABS: Glucose,Whole Blood 59 mg/dL (75-99)
--- NOTE | 2017-06-28 11:44 | P.PN ---
Subjective Progress Note Date: 06/28/17 Principal diagnosis: Acute hypoxic rest or a failure secondary to right lower lobe pneumonia, suspect aspiration Dejon is a 86-year-old white male patient of Dr. Peyton Das, who was recently hospitalized in May for right lower lobe pneumonia in May, and again for COPD exacerbation and acute on chronic renal failure with hypokalemia on 09/2017, improved, and was discharged home on 06/13/2017. Patient had completed a course of Zithromax and Ceftin for his right lower lobe pneumonia. Patient lives with his son and his [id number], he has poor baseline functional capacity, is unable to ambulate, and is mostly on bedrest. He does not wear oxygen at his baseline. Past medical history includes COPD, congestive heart failure, dementia, osteoarthritis, chronic kidney disease, Parkinson's disease, compression fractures of the lumbar spine, anemia, hypothyroidism. Patient is a former smoker, quit in 1965. Patient was noted to be increasingly short of breath at home, congested, coughing, but unable to produce any sputum. He states he did have the chills at home. He was started on prednisone taper and antibiotics in the form of Augmentin by his primary care physician on 06/19/2017. But in view of progressing dyspnea, chest congestion, and wheezing he was brought to the emergency room for further evaluation and treatment. On presentation he was noted to be hypoxemic, his pulse ox was 85% on room air. Initial chest x-ray showed small pleural effusions, and increasing infiltrates at the posterior lung bases compared to the last exam on 06/11/2017. No evidence of overt heart failure. Follow-up chest x-ray on 06/20/2017 showed bilateral infiltrate and pleural effusions. Patient was started on a combination of IV steroids, Levaquin, Zosyn, nebulized treatments DuoNeb, Symbicort and oral Lasix and admitted for further management. Lab work did not show any evidence of leukocytosis, WBC of 10.3, hemoglobin is 8.7, sodium is 134, potassium is 4.6, B1 is 48, creatinine is 1.9. Troponin was negative 1, proBNP was 2800. Urinalysis showed trace protein, trace blood, rare bacteria and mucus. Patient has been afebrile while inpatient, hemodynamically stable, currently on 3 L per nasal cannula O2 sat 96% . The patient is seen again today 06/21/2017 in follow-up on the regular medical floor. He is currently awake and alert in no acute distress. He is resting comfortably in bed. He states he is breathing about the same as compared to yesterday. No significant improvement thus far. He is maintaining good O2 saturations in the 90s on 2 L/m per nasal cannula. He's been afebrile. Hemodynamically stable. White count 12.8. Hemoglobin 8.7. Creatinine 1.94. He is continued on Zosyn and Levaquin along with IV Solu-Medrol, Symbicort and bronchodilators. Blood cultures reveal no growth to date. The patient is seen again today 06/22/2017 in follow-up on the regular medical floor. He is awake and alert in no acute distress. Currently having breakfast. His appetite is fair. No coughing or choking noted. He continues to maintain good O2 saturations in the 90s on 2 L/m per nasal cannula. He is afebrile. Hemodynamically stable. Blood cultures reveal no growth to date. White count 13.1. Hemoglobin 8.6. Creatinine 2.21. The patient is seen again today 06/23/2017 in follow-up on the regular medical floor. He is currently resting quite comfortably in bed. He is awake and alert in no acute distress. He states he is breathing better today as compared to yesterday. Blood culture reveals no growth to date. White count 12.5. Hemoglobin 8.8. Creatinine 2.38. Reevaluated today on 06/24/2017, patient is basically about the same, comfortable , in no distress, however he continues to have the same complaints every day, stating that he is not feeling well, and is not getting any better. However the patient is noted to be comfortable, and in no distress. On 06/25/2017 patient seen again in follow-up. Resting in bed, denies any acute distress. He states his breathing has not much improved since admission. He still sounds congested, has a loose cough, but unable to bring up any sputum. Remains on 2 L per nasal cannula with O2 sat 99%, remains afebrile, dynamically stable. On today's blood work, WBCs 12.7, hemoglobin is 8.6, potassium is 3.3, BUN is 81, and creatinine is 3.23. Blood culture shows no growth since admission, patient was unable to produce a sputum specimen for culture. He remains on Levaquin and Zosyn for his right lower lobe pneumonia, remains on IV Solu-Medrol, DuoNeb, Symbicort. His lung sounds are positive for diffuse wheezes and rhonchi. Patient remains very weak, has not been able to get up out of bed. Today's chest x-ray shows right basilar infiltrate and tiny effusion, mild central venous congestion, patient was given 1 dose of IV Lasix yesterday, with no significant improvement in the appearance of central venous congestion. Patient's renal profile has worsened on today's blood work. Renal ultrasound showed bilateral renal atrophy with no hydronephrosis or nephrolithiasis. From pulmonary standpoint patient remains stable although he has not made a significant improvement overall and continues to complain of not feeling well, and not doing well. However he remains in no apparent distress, his oxygenation is stable on 2 L per nasal cannula. He remains afebrile. On 06/26/2017 patient seen in follow-up on medical surgical floor. He is resting in bed, does not appear to be in any acute distress. Appears to be more alert today, but states that overall he doesn't feel much better. Lung sounds are less rhonchorous on today's exam, he does have some coarse crackles over bilateral bases and some minimal faint end expiratory wheezing. Currently on 2 L per nasal cannula with O2 sat 95%. He is afebrile. Blood culture remains negative since admission. Patient has been on combination of Zosyn and Levaquin. No new chest x-rays today. Today's lab work has been reviewed, WBC is 14.6, hemoglobin is 8.9, serum potassium is 3.2, BUN is 97, creatinine is 3.40. Patient's renal profile seems to be worsening. Overall patient's seems to be stable from pulmonary standpoint, with no worsening dyspnea, although subjectively he does not report feeling better. Patient's daughter and son are at the bedside, their goal is to transfer the patient to a subacute rehab, most likely [facility] the [place]. Patient was at [facility] and reportedly did not have a good experience. Patient was seen by hospice, is not ready to enroll in hospice at this time. On 06/27/2017 patient seen again in follow-up. He is up in the chair, tolerating it well. Per nursing staff patient is very generally weak, and required extensive assistance to get up in the chair. Lung sounds are negative for any wheezes, but positive for coarse rales bilaterally. Patient's respirations are shallow, but nonlabored. He remains on 2 L per nasal cannula with O2 sat at 95%. He is afebrile. Today's blood work shows WBC is up to 17.3 , hemoglobin is 9.2, BUN is 101, and creatinine is 3.58. Urinalysis was done, and it showed large amount of blood, large amount of leuks, WBC clumps and yeast buds. Continues on Zosyn, Levaquin. IV Solu-Medrol, and nebulized treatments. On 06/28/2017 patient seen in follow-up. He is resting in bed, denies any acute distress. He remains on 2 L per nasal cannula with pulse ox of 99%. He is afebrile, hemodynamically stable. Lung sounds are positive for some scattered wheezes. Patient denies any fever, chills, denies any chest wall tenderness. Today's blood work revealed the PVC of 18.1, hemoglobin 8.6, sodium of 135, BUN is 107, creatinine is 3.70. Renal profile is continuously worsening. Blood culture is negative since admission, urine cultures pending. Patient remains on oral Levaquin 500 mg every 48 hours, in addition to Zosyn. Yesterday we switched his IV steroids to oral prednisone. He is tolerating oral intake. He is receiving gentle IV hydration with 0.9 normal saline at 50 ML per hour. Nephrology is following. Will obtain repeat chest x-ray today, patient denies any worsening dyspnea, he states he is hoping to be discharged today. Increase activity as tolerated, physical therapy consult. Objective - Vital Signs Vital signs: Vital Signs Temp 97.7 F 06/28/17 07:00 Pulse 80 06/28/17 09:12 Resp 18 06/28/17 07:00 BP 133/81 06/28/17 07:00 Pulse Ox 99 06/28/17 08:59 Intake & Output 06/27/17 06/28/17 06/28/17 18:59 06:59 18:59 Intake Total 236 180 290 Output Total 400 600 Balance -164 -420 290 Weight 94 kg 94 kg Intake: Intake, IV Titration 50 Amount Piperacillin-Tazobactam 3 50 .375 gm In Dextrose/Water 1 50ml.bag @ 12.5 mls/hr IVPB Q12HR [facility] Rx#: [id number] Oral 236 180 240 Output: Urine 400 600 Condom 200 Other: Voiding Method Indwelling Catheter Indwelling Catheter Indwelling Catheter # Bowel Movements 1 - Exam GENERAL EXAM: Alert, 86-year-old elderly, chronically ill-looking, white male sitting up in the chair, in no acute distress HEAD: Normocephalic/atraumatic. EYES: Normal reaction of pupils, equal size. Conjunctiva pink, sclera white. NOSE: Clear with pink turbinates. THROAT: No erythema or exudates. NECK: No masses, no JVD, no thyroid enlargement, no adenopathy. CHEST: No chest wall deformity. Symmetrical expansion. LUNGS: Equal air entry with with scattered wheezes CVS: Regular rate and rhythm, normal S1 and S2, no gallops, no murmurs, no rubs ABDOMEN: Soft, nontender. No hepatosplenomegaly, normal bowel sounds, no guarding or rigidity. EXTREMITIES: No clubbing, no edema, no cyanosis, 2+ pulses and upper and lower extremities. MUSCULOSKELETAL: Muscle strength and tone normal. SPINE: No scoliosis or deformity SKIN: No rashes CENTRAL NERVOUS SYSTEM: Alert and oriented -3. No focal deficits, tone is normal in all 4 extremities. PSYCHIATRIC: Alert and oriented -3. Appropriate affect. Intact judgment and insight. - Labs CBC & Chem 7: 06/28/17 06:47 06/28/17 06:47 Labs: Abnormal Lab Results - Last 24 Hours (Table) 06/27/17 06/27/17 06/27/17 Range/Units 11:48 16:56 16:58 WBC (3.8-10.6) k/uL RBC (4.30-5.90) m/uL Hgb (13.0-17.5) gm/dL Hct (39.0-53.0) % RDW (11.5-15.5) % Neutrophils # (1.3-7.7) k/uL Sodium (137-145) mmol/L BUN (9-20) mg/dL Creatinine (0.66-1.25) mg/dL Glucose (74-99) mg/dL POC Glucose (mg/dL) 131 H 47 L 53 L (75-99) mg/dL Calcium (8.4-10.2) mg/dL 06/27/17 06/27/17 06/27/17 Range/Units 17:19 17:37 18:01 WBC (3.8-10.6) k/uL RBC (4.30-5.90) m/uL Hgb (13.0-17.5) gm/dL Hct (39.0-53.0) % RDW (11.5-15.5) % Neutrophils # (1.3-7.7) k/uL Sodium (137-145) mmol/L BUN (9-20) mg/dL Creatinine (0.66-1.25) mg/dL Glucose (74-99) mg/dL POC Glucose (mg/dL) 53 L 60 L 69 L (75-99) mg/dL Calcium (8.4-10.2) mg/dL 06/27/17 06/28/17 06/28/17 Range/Units 20:06 00:52 06:47 WBC 18.1 H (3.8-10.6) k/uL RBC 2.83 L (4.30-5.90) m/uL Hgb 8.6 L (13.0-17.5) gm/dL Hct 26.3 L (39.0-53.0) % RDW 16.6 H (11.5-15.5) % Neutrophils # 16.2 H (1.3-7.7) k/uL Sodium (137-145) mmol/L BUN (9-20) mg/dL Creatinine (0.66-1.25) mg/dL Glucose (74-99) mg/dL POC Glucose (mg/dL) 108 H 174 H (75-99) mg/dL Calcium (8.4-10.2) mg/dL 06/28/17 06/28/17 06/28/17 Range/Units 06:47 07:16 11:11 WBC (3.8-10.6) k/uL RBC (4.30-5.90) m/uL Hgb (13.0-17.5) gm/dL Hct (39.0-53.0) % RDW (11.5-15.5) % Neutrophils # (1.3-7.7) k/uL Sodium 135 L (137-145) mmol/L BUN 107 H* (9-20) mg/dL Creatinine 3.70 H (0.66-1.25) mg/dL Glucose 111 H (74-99) mg/dL POC Glucose (mg/dL) 140 H 59 L (75-99) mg/dL Calcium 8.0 L (8.4-10.2) mg/dL Microbiology - Last 24 Hours (Table) 06/27/17 10:00 Urine Culture - Preliminary Urine,Catheterized Assessment and Plan Plan: Assessment: #1. Acute hypoxic respiratory failure secondary to right lower lobe pneumonia, possibly be aspiration related. He did not tolerate thin liquids at the bedside , was noted to be coughing with thin liquids. However his modified barium swallow did not reveal any evidence of overt aspiration. #2. Recent hospitalization for right lower lobe pneumonia in May, patient was treated with Rocephin and Zithromax during that admission, improved when was discharged home #3. Recent hospitalization for acute on chronic renal failure, with hypokalemia , discharged home on 06/13/2017 #4. COPD, with a baseline FEV1 of 47% of predicted, GOLD stage III #5. History of chronic congestive heart failure with diastolic dysfunction #6. Anemia of chronic disease #7. Chronic renal failure, stage III #8. Hypothyroidism #9. Parkinson's disease/dementia with significant impairment of neurologic function/cognition/memory/gait #10. Poor baseline functional status, patient is mostly bedbound #11. History of BPH, on Avodart and Flomax #12. Osteoarthritis Plan: Continue increasing activity as tolerated, encourage patient to get up and sit in the chair. We'll obtain a repeat chest x-ray today. Patient's white count has increased to 18.1, patient is afebrile, denies any fever or chills. Awaiting the results of the urine culture. Patient is covered with oral Levaquin. Denies any worsening dyspnea. Maintain aspiration precautions. Continue oral prednisone, nebulized treatments. Patient's renal profile seems to be worsening, nephrology is following, patient is receiving gentle hydration. From pulmonary standpoint patient could be transferred to the subacute rehab once cleared by other consultants. I performed a history & physical examination of the patient and discussed their management with my nurse practitioner, Gretchen Garcia. I reviewed the nurse practitioner's note and agree with the documented findings and plan of care. Lung sounds are positive for scattered wheezes. The findings and the impression was discussed with the patient. I attest to the documentation by the nurse practitioner. Time with Patient: Less than 30
[2017-06-28 11:46] LABS: Glucose,Whole Blood 77 mg/dL (75-99)
--- NOTE | 2017-06-28 14:43 | XR ---
EXAMINATION TYPE: XR chest 1V portable DATE OF EXAM: 06/28/2017 COMPARISON: Prior chest x-ray 06/25/2017 HISTORY: Follow-up right lower lobe pneumonia TECHNIQUE: Single frontal view of the chest is obtained. FINDINGS: Findings are similar to prior exam. Minimal patchy density present at the right lung base. No evident pneumothorax or sizable effusion. Cardiomediastinal silhouette, pulmonary vascularity and [place] show a similar appearance. IMPRESSION: Difficult to exclude right lower lobe airspace disease versus atelectasis, effusion. Fol low-up recommended.
--- NOTE | 2017-06-28 14:51 | P.DS ---
Providers Date of admission: 06/19/17 21:41 Expected date of discharge: 06/28/17 Attending physician: Karla Cleaning Consults: 06/19/17 21:41 Consult Physician Routine Consulting Provider: Kurt Brown Consult Reason/Comments: COPD and pneumonia Do you want consulting provider notified?: Yes 06/24/17 10:32 Consult Physician Routine Consulting Provider: Maryann De Leon Consult Reason/Comments: arf Do you want consulting provider notified?: Yes 06/25/17 17:35 Consult Physician Routine Consulting Provider: Maryann De Leon Consult Reason/Comments: renal failure Do you want consulting provider notified?: Yes Primary care physician: Peyton Das [facility] Course: Final Diagnoses: 1. Acute bilateral pneumonia, with no aspiration per MBS; modified diet 2. COPD, gold stage III 3. Recent acute renal failure with hyperkalemia 4. Hyponatremia 5. Dementia 6. Parkinson's disease 7. Chronic renal disease, stage III 8. History of chronic congestive heart failure with diastolic dysfunction 9. Medical debility, mostly bedbound Hospital course: This is an 78-year-old gentleman admitted with acute bilateral pneumonia, possible aspiration pneumonia, COPD, acute renal failure and multiple other medical issues. Evaluated by speech therapy, underwent modified barium swallow reporting no aspiration, but overt cough on thin liquids. Modified diet recommended with no straws. Maintained by a nephrology and pulmonary. Chest x-ray reporting stable bilateral infiltrate and pleural effusion. Maintained on Zosyn, Levaquin, nebulized bronchodilators, steroids and gentle IV fluid hydration. Cleared by all consults for discharge. Patient is being discharged to [facility] subacute rehab in a stable condition with guarded prognosis. Physical Exam:VSS, alert and oriented 2, no acute distress, CV: Muffled S1 and S2.LUNGS: Bilateral bases diminished, occasional scattered expiratory wheezing.ABD: Soft, nontender, positive bowel sounds. Neuro: Generalized diffuse weakness, no focal deficits. Microbiology 06/27/17 12:04 Blood Blood Culture - Preliminary No Growth after 24 hours 06/27/17 10:00 Urine,Catheterized Urine Culture - Preliminary Yeast species 06/19/17 19:35 Blood Blood Culture - Final No Growth after 144 hours The impression and plan of care has been dictated as directed. : I performed a history and examination of this patient, discussed the same with the dictator. I agree with the dictator's note ,documented as a scribe. Any additional findings or plans will be noted. Time taken: 35 minutes Patient Condition at Discharge: Stable Plan - Discharge Summary New Discharge Prescriptions: New amLODIPine [Norvasc] 5 mg PO DAILY tab Ipratropium-Albuterol Nebulize [Duoneb 0.5 mg-3 mg/3 ml Soln] 3 ml INHALATION RT-QID ampul.neb Ipratropium-Albuterol Nebulize [Duoneb 0.5 mg-3 mg/3 ml Soln] 3 ml INHALATION Q4H PRN ampul.neb PRN Reason: Shortness Of Breath Or Wheezing Levofloxacin [Levaquin] 500 mg PO Q48H tab Pantoprazole [Protonix] 40 mg PO AC-BRKFST tablet.dr predniSONE 10 mg PO DIRECTED #30 tab Continue Tamsulosin HCl [Flomax] 0.4 mg PO DAILY@0800 Fluticasone/Salmeterol [Advair 250-50 Diskus] 1 puff INHALATION RT-BID@0800, 1700 Levothyroxine Sodium [Synthroid] 75 mcg PO DAILY@0600 Nitroglycerin Sl Tabs [Nitrostat] 0.4 mg SUBLINGUAL Q5M PRN PRN Reason: Pain Thiamine [Vitamin B-1] 100 mg PO DAILY@1700 Multivitamins, Thera [Multivitamin (formulary)] 1 tab PO DAILY@1700 Folic Acid 1 mg PO DAILY@1700 Carbidopa-Levodopa 25-100 mg [Sinemet 25-100 mg] 1 tab PO TID@0800,1200,1700 Methadone [Dolophine] 5 mg PO BID@0800,2100 Levocetirizine Dihydrochloride [Xyzal] 5 mg PO DAILY@0800 Dutasteride [Avodart] 0.5 mg PO DAILY@0800 Calcitriol 0.5 mcg PO MOWEFR@1700 Allopurinol [Zyloprim] 100 mg PO DAILY@0800 Gabapentin [Neurontin] 100 mg PO TID@0800,1400,2100 Cholecalciferol (Vitamin D3) [Vitamin D3] 2,000 unit PO DAILY@1700 hydrOXYzine PAMOATE 25 mg PO DAILY@0800 Sodium Polystyrene Sulfon/Sorb [Kionex 15 gm/60 ml Suspension] 15 gm PO MOTH@ 0800 Zinc 50 mg PO DAILY@1700 Aspirin 81 mg PO DAILY@1700 Bisacodyl [Dulcolax] 10 mg RECTAL DAILY PRN PRN Reason: Constipation Ensure Clear 1 can PO BID@0800,1700 Magnesium Hydroxide [Milk of Magnesia] 2,400 mg PO DAILY PRN PRN Reason: Constipation Na Phos,M-B/Na Phos,Di-Ba [Fleet Adult] 133 ml RECTAL DAILY PRN PRN Reason: Constipation Discontinued predniSONE See Taper PO DIRECTED Sodium Polystyrene Sulfonate [Kayexalate] 15 gm PO DIRECTED Albuterol Nebulized [Ventolin Nebulized] 2.5 mg INHALATION QID #0 Amoxicillin/Potassium Clav [Augmentin 875-125 Tablet] 1 tab PO Q12HR Discharge Medication List Fluticasone/Salmeterol [Advair 250-50 Diskus] 1 puff INHALATION RT-BID@0800, 1700 09/04/15 [History] Tamsulosin HCl [Flomax] 0.4 mg PO DAILY@0809/04/15 [History] Levothyroxine Sodium [Synthroid] 75 mcg PO DAILY@0609/07/15 [History] Carbidopa-Levodopa 25-100 mg [Sinemet 25-100 mg] 1 tab PO TID@0800,1200,1700 [History] Folic Acid 1 mg PO DAILY@169909/21/15 [History] Multivitamins, Thera [Multivitamin (formulary)] 1 tab PO DAILY@169909/21/15 [ History] Nitroglycerin Sl Tabs [Nitrostat] 0.4 mg SUBLINGUAL Q5M PRN 09/21/15 [History] Thiamine [Vitamin B-1] 100 mg PO DAILY@169909/21/15 [History] Allopurinol [Zyloprim] 100 mg PO DAILY@0800 02/10/17 [History] Calcitriol 0.5 mcg PO MOWEFR@169902/10/17 [History] Dutasteride [Avodart] 0.5 mg PO DAILY@0800 02/10/17 [History] Gabapentin [Neurontin] 100 mg PO TID@0800,1400,2100 02/10/17 [History] Levocetirizine Dihydrochloride [Xyzal] 5 mg PO DAILY@0800 02/10/17 [History] Methadone [Dolophine] 5 mg PO BID@0800,2100 02/10/17 [History] Cholecalciferol (Vitamin D3) [Vitamin D3] 2,000 unit PO DAILY@169905/24/17 [ History] Sodium Polystyrene Sulfon/Sorb [Kionex 15 gm/60 ml Suspension] 15 gm PO MOTH@ 0805/24/17 [History] Zinc 50 mg PO DAILY@169905/24/17 [History] hydrOXYzine PAMOATE 25 mg PO DAILY@0805/24/17 [History] Aspirin 81 mg PO DAILY@169906/11/17 [History] Bisacodyl [Dulcolax] 10 mg RECTAL DAILY PRN 06/11/17 [History] Ensure Clear 1 can PO BID@0800,17006/11/17 [History] Magnesium Hydroxide [Milk of Magnesia] 2,400 mg PO DAILY PRN 06/11/17 [History] Na Phos,M-B/Na Phos,Di-Ba [Fleet Adult] 133 ml RECTAL DAILY PRN 06/11/17 [ History] Ipratropium-Albuterol Nebulize [Duoneb 0.5 mg-3 mg/3 ml Soln] 3 ml INHALATION Q4H PRN ampul.neb 06/28/17 [Rx] Ipratropium-Albuterol Nebulize [Duoneb 0.5 mg-3 mg/3 ml Soln] 3 ml INHALATION RT -QID ampul.neb 06/28/17 [Rx] Levofloxacin [Levaquin] 500 mg PO Q48H tab 06/28/17 [Rx] Pantoprazole [Protonix] 40 mg PO AC-BRKFST tablet. 06/28/17 [Rx] amLODIPine [Norvasc] 5 mg PO DAILY tab 06/28/17 [Rx] predniSONE 10 mg PO DIRECTED #30 tab 06/28/17 [Rx] Follow up Appointment(s)/Referral(s): Peyton Das DO [Primary Care Provider] - 3 Days Maryann De Leon MD [STAFF PHYSICIAN] - 1 Week
[2017-06-28 16:18] VITALS: BP 129/67; TEMP 97.9
[2017-06-28 16:19] VITALS: PULSE 85
[2017-06-28] MEDS: CHOLECALCIFEROL 1,000 UNIT TAB PO SCH (16:34)
[2017-06-28] MEDS: MULTIVITAMINS, THERA 1 EACH TAB PO SCH (16:34)
[2017-06-28] MEDS: FOLIC ACID 1 MG TAB PO SCH (16:34)
[2017-06-28] MEDS: ZINC SULFATE 220 MG CAP PO SCH (16:34)
[2017-06-28] MEDS: THIAMINE 100 MG TAB PO SCH (16:34)
[2017-06-28] MEDS: ASPIRIN 81 MG PO SCH (17:57)
--- NOTE | 2017-06-28 21:07 | PN ---
PROGRESS NOTE The patient is seen for followup for chronic kidney disease and acute kidney injury. He does have underlying urine retention. He had not been eating much and therefore has been started on IV fluids. Renal function has not improved today and his serum creatinine has continued to rise slightly. Today it is at 3.7 from 3.5 mg/dL yesterday. There are plans for discharge to rehab. PHYSICAL EXAMINATION: Blood pressure was this morning 133/81, heart rate 82 per minute. Patient is afebrile. Examination of the heart S1, S2. Examination of lungs bilateral breath sounds are heard. Decreased breath sounds at the bases. Abdomen is soft, nontender. Examination of the lower extremities shows trace edema bilaterally. COATING AND BAKING OPERATOR exam shows patient moving all 4 extremities. LAB: Show sodium 135, potassium 3.9, hemoglobin 8.6 g/dL, serum creatinine 3.7, calcium is 8.0. ASSESSMENT: 1. Chronic kidney disease, NKF stage IV with acute kidney injury, currently possibly acute tubular necrosis. The patient did have urine retention, but currently has an indwelling Dhillon catheter. He did not have a good oral intake and is therefore maintained on IV fluids. 2. Hypertension currently controlled. 3. Generalized debility. 4. 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 PLAN: Continue to encourage increased oral intake. Continue with the indwelling Dhillon catheter and the patient can be discharged. He will need outpatient labs for followup. MMEVERL / EZRAN: [id number] /
[2017-06-29] MEDS ORDERED: LEVOFLOXACIN 500 MG TAB PO SCH (09:00)
== END 2017-06-28 19:00 | DRG 193 ==
LOC: EC 17:24 → 5MS5E 21:41
PROVIDERS: ADMIT Hospitalist; ATTEND Hospitalist
DX: J18.9 Pneumonia, unspecified organism (principal); I50.33 Acute on chronic diastolic (congestive) heart failure; J96.01 Acute respiratory failure with hypoxia; N17.0 Acute kidney failure with tubular necrosis; N18.4 Chronic kidney disease, stage 4 (severe); E87.1 Hypo-osmolality and hyponatremia; I42.9 Cardiomyopathy, unspecified; I13.0 Hypertensive heart and chronic kidney disease with heart failure and stage 1 through stage 4 chronic kidney disease, or unspecified chronic kidney disease; N13.8 Other obstructive and reflux uropathy; N39.0 Urinary tract infection, site not specified; G20 Parkinson's disease; D63.8 Anemia in other chronic diseases classified elsewhere; F03.90 Unspecified dementia, unspecified severity, without behavioral disturbance, psychotic disturbance, mood disturbance, and anxiety; E03.9 Hypothyroidism, unspecified; J44.9 Chronic obstructive pulmonary disease, unspecified; M19.90 Unspecified osteoarthritis, unspecified site; M85.80 Other specified disorders of bone density and structure, unspecified site; N40.1 Benign prostatic hyperplasia with lower urinary tract symptoms; E87.6 Hypokalemia; R26.9 Unspecified abnormalities of gait and mobility; Z79.82 Long term (current) use of aspirin; Z79.899 Other long term (current) drug therapy; Z88.5 Allergy status to narcotic agent; Z96.642 Presence of left artificial hip joint; Z91.81 History of falling; Z90.81 Acquired absence of spleen; Z90.49 Acquired absence of other specified parts of digestive tract; Z87.891 Personal history of nicotine dependence; Z87.01 Personal history of pneumonia (recurrent); Z82.49 Family history of ischemic heart disease and other diseases of the circulatory system; Z66 Do not resuscitate; Z74.01 Bed confinement status
CPT/HCPCS: 36415; 71045; 71046; 74230; 76770; 80048; 80053; 81001; 82550; 82553; 83036; 83735; 83880; 84484; 85025; 85610; 85730; 87040; 87086; 87502; 94640; 94760; 99291

== ENCOUNTER 2017-07-04 17:33 | Inpatient (IN) | payer MEDICARE, BC ==
--- NOTE | 2017-07-04 18:02 | ED ---
General Adult HPI - General Chief complaint: Recheck/Abnormal Lab/Rx Stated complaint: Abnormal labs Time Seen by Provider: 07/04/17 17:42 Source: patient, RN/MD, EMS, RN notes reviewed, old records reviewed Mode of arrival: EMS Limitations: no limitations - History of Present Illness Initial comments: 86-year-old male presents with abnormal outpatient laboratory studies. Patient had elevated BUN and creatinine. He does have history of chronic kidney disease. Patient states he is here because he is not urinating and hasn't had a bowel movement in several days. Patient does have indwelling Dhillon catheter. According to EMS, patient is DO NOT RESUSCITATE and there has been discussion of hospice care. Patient has history of dementia although he is alert and oriented at the time of my evaluation. Denies any chest pain. Denies dyspnea. Denies abdominal pain. Patient is currently being treated for pneumonia. - Related Data Home Medications Medication Instructions Recorded Confirmed Tamsulosin HCl [Flomax] 0.4 mg PO DAILY@0900 09/04/15 07/04/17 Levothyroxine Sodium [Synthroid] 75 mcg PO DAILY@0609/07/15 07/04/17 Carbidopa-Levodopa 25-100 mg 1 tab PO TID@0800,1300,1700 09/21/15 07/04/17 [Sinemet 25-100 mg] Folic Acid 1 mg PO DAILY@169909/21/15 07/04/17 Multivitamins, Thera [Multivitamin 1 tab PO DAILY@169909/21/15 07/04/17 (formulary)] Nitroglycerin Sl Tabs [Nitrostat] 0.4 mg SUBLINGUAL Q5M PRN 09/21/15 07/04/17 Thiamine [Vitamin B-1] 100 mg PO DAILY@1700 09/21/15 07/04/17 Allopurinol [Zyloprim] 100 mg PO DAILY@0800 02/10/17 07/04/17 Calcitriol 0.5 mcg PO MOWEFR@1700 02/10/17 07/04/17 Gabapentin [Neurontin] 100 mg PO TID@0900,1400,2100 02/10/17 07/04/17 Levocetirizine Dihydrochloride 5 mg PO DAILY@0900 02/10/17 07/04/17 [Xyzal] Sodium Polystyrene Sulfon/Sorb 15 gm PO MOTH@0900 05/24/17 07/04/17 [Kionex 15 gm/60 ml Suspension] Zinc 50 mg PO DAILY@1700 05/24/17 07/04/17 hydrOXYzine PAMOATE 25 mg PO DAILY@0900 05/24/17 07/04/17 Aspirin 81 mg PO DAILY@0800 06/11/17 07/04/17 Bisacodyl [Dulcolax] 10 mg RECTAL DAILY PRN 06/11/17 07/04/17 Ensure Clear 1 can PO BID@0900,1700 06/11/17 07/04/17 Magnesium Hydroxide [Milk of 2,400 mg PO DAILY PRN 06/11/17 07/04/17 Magnesia] Na Phos,M-B/Na Phos,Di-Ba [Fleet 133 ml RECTAL DAILY PRN 06/11/17 07/04/17 Adult] Acetaminophen [Tylenol Arthritis] 650 mg PO Q4H PRN 07/04/17 07/04/17 Cholecalciferol [Vitamin D3] 2,000 unit PO DAILY@17007/04/17 07/04/17 Finasteride [Proscar] 5 mg PO DAILY@0907/04/17 07/04/17 Fluticasone/Vilanterol [Breo 1 inhalation PO RT-DAILY@89907/04/17 07/04/17 Ellipta 100-25 Mcg Inhaler] INSULIN LISPRO (HumaLOG) [humaLOG] See Protocol SQ ACHS 07/04/17 07/04/17 Ipratropium-Albuterol Nebulize 3 ml INHALATION RT-Q4H PRN 07/04/17 07/04/17 [Duoneb 0.5 mg-3 mg/3 ml Soln] Methadone [Dolophine] 5 mg PO BID@0900,2100 07/04/17 07/04/17 Nystatin 100,000 Unit/ml Susp 5 ml PO 5XD 07/04/17 07/04/17 [Mycostatin Oral Susp] Pantoprazole [Protonix] 40 mg PO DAILY@0600 07/04/17 07/04/17 amLODIPine [Norvasc] 5 mg PO DAILY@0900 07/04/17 07/04/17 predniSONE 20 mg PO DAILY 07/04/17 07/04/17 Previous Rx's Medication Instructions Recorded Ipratropium-Albuterol Nebulize 3 ml INHALATION RT-QID ampul.neb 06/28/17 [Duoneb 0.5 mg-3 mg/3 ml Soln] Allergies Allergy/AdvReac Type Severity Reaction Status Date / Time fentanyl Allergy Rash/Hives Verified 07/04/17 17:49 Review of Systems ROS Statement: Those systems with pertinent positive or pertinent negative responses have been documented in the HPI. ROS Other: All systems not noted in ROS Statement are negative. Past Medical History Past Medical History: Asthma, Heart Failure, Dementia, Musculoskeletal Disorder , Neurologic Disorder, Osteoarthritis (OA), Renal Disease, Thyroid Disorder Additional Past Medical History / Comment(s): parkinsons disease, compression fracture of the L4 spine, gait dysfunction, bilateral hip and leg pain since a fall in August 2015, chronic renal failure stage IV, hyperkalemia, anemia, DJD, osteopenia, hypothyroidism, BPH, occasional confusion. History of Any Multi-Drug Resistant Organisms: None Reported Past Surgical History: Appendectomy, Joint Replacement Additional Past Surgical History / Comment(s): total L hip replacement, splenectomy Past Anesthesia/Blood Transfusion Reactions: No Reported Reaction Past Psychological History: No Psychological Hx Reported Smoking Status: Former smoker Past Alcohol Use History: None Reported Past Drug Use History: None Reported - Past Family History Sister(s) Family Medical History: Myocardial Infarction (PR) Brother(s) Family Medical History: Diabetes Mellitus Mother Family Medical History: No Reported History Additional Family Medical History / Comment(s): Mother lived to be 80 yrs old. Father History Unknown: Yes Additional Family Medical History / Comment(s): Father lived to be 75yrs old. General Exam Limitations: no limitations General appearance: alert, in no apparent distress Head exam: Present: atraumatic, normocephalic Eye exam: Present: normal appearance, PERRL ENT exam: Present: normal exam Neck exam: Present: normal inspection. Absent: tenderness, meningismus Respiratory exam: Present: rales, rhonchi Cardiovascular Exam: Present: regular rate, normal rhythm GI/Abdominal exam: Present: soft, distended. Absent: tenderness, guarding, rebound Extremities exam: Present: normal capillary refill, pedal edema Neurological exam: Present: alert, oriented X3. Absent: motor sensory deficit Skin exam: Present: warm, dry, intact. Absent: cyanosis, diaphoretic Course Vital Signs 07/04/17 07/04/17 17:44 19:10 Temperature 96.9 F L Pulse Rate 72 72 Respiratory 18 20 Rate Blood Pressure 121/59 129/60 O2 Sat by Pulse 96 98 Oximetry EKG Findings - EKG Comments: EKG Findings:: EKG: Normal sinus rhythm, right bundle branch block, ventricular rate of 71, WA interval 168, QRS duration 138, QTC 469, no signs of acute ischemia Medical Decision Making - Medical Decision Making 86-year-old male with history of chronic kidney disease presenting with chief complaint of decreased bowel movements and decreased urine output. [facility] Patient had large amount of urine in Dhillon catheter bag at the time of arrival this was clear yellow. Laboratory studies are obtained, mild leukocytosis at 12.7, this appears improved from previous of 18. Hemoglobin 8.9 stable from recent of 8.6 , potassium mildly elevated 5.5, no EKG changes. BUN 104 which is stable, creatinine 2.70 which is improved from previous. X-ray shows ileus with retained contrast. Patient did have swallow study proximally 2 weeks ago. Chest x-ray shows cardiomegaly, pleural reaction and atelectasis. Patient is given Kayexalate for both hyperkalemia and ileus. He will be admitted for symptomatic treatment and reevaluation - Lab Data Result diagrams: 07/04/17 18:16 07/04/17 18:16 Lab Results 07/04/17 07/04/17 07/04/17 Range/Units 18:16 18:16 18:16 WBC 12.7 H (3.8-10.6) k/uL RBC 3.11 L (4.30-5.90) m/uL Hgb 8.9 L (13.0-17.5) gm/dL Hct 29.5 L (39.0-53.0) % MCV 94.8 (80.0-100.0) fL MCH 28.7 (25.0-35.0) pg MCHC 30.3 L (31.0-37.0) g/dL RDW 17.2 H (11.5-15.5) % Plt Count 162 (150-450) k/uL Neutrophils % 94 % Lymphocytes % 4 % Monocytes % 2 % Eosinophils % 0 % Basophils % 0 % Neutrophils # 11.9 H (1.3-7.7) k/uL Lymphocytes # 0.5 L (1.0-4.8) k/uL Monocytes # 0.2 (0-1.0) k/uL Eosinophils # 0.0 (0-0.7) k/uL Basophils # 0.0 (0-0.2) k/uL Hypochromasia Slight Anisocytosis Slight PT 10.2 (9.0-12.0) sec INR 1.0 (<1.2) APTT 22.5 (22.0-30.0) sec Sodium 135 L (137-145) mmol/L Potassium 5.5 H (3.5-5.1) mmol/L Chloride 104 (98-107) mmol/L Carbon Dioxide 20 L (22-30) mmol/L Anion Gap 11 mmol/L BUN 104 H* (9-20) mg/dL Creatinine 2.78 H (0.66-1.25) mg/dL Est GFR (CKD-EPI)AfAm 23 (>60 ml/min/1.73 sqM) Est GFR (CKD-EPI)NonAf 20 (>60 ml/min/1.73 sqM) Glucose 124 H (74-99) mg/dL Calcium 7.7 L (8.4-10.2) mg/dL Total Bilirubin 0.4 (0.2-1.3) mg/dL AST 21 (17-59) U/L ALT 15 L (21-72) U/L Alkaline Phosphatase 59 (38-126) U/L Total Protein 4.8 L (6.3-8.2) g/dL Albumin 2.3 L (3.5-5.0) g/dL Urine Color Urine Appearance (Clear) Urine pH (5.0-8.0) Ur Specific [place] (1.001-1.035) Urine Protein (Negative) Urine Glucose (UA) (Negative) Urine Ketones (Negative) Urine Blood (Negative) Urine Nitrite (Negative) Urine Bilirubin (Negative) Urine Urobilinogen (<2.0) mg/dL Ur Leukocyte Esterase (Negative) Urine RBC (0-5) /hpf Urine WBC (0-5) /hpf Hyaline Casts (0-2) /lpf Urine Mucus (None) /hpf Ur Yeast w Hyphae (None) /hpf Urine Yeast (Budding) (None) /hpf 07/04/17 Range/Units 18:55 WBC (3.8-10.6) k/uL RBC (4.30-5.90) m/uL Hgb (13.0-17.5) gm/dL Hct (39.0-53.0) % MCV (80.0-100.0) fL MCH (25.0-35.0) pg MCHC (31.0-37.0) g/dL RDW (11.5-15.5) % Plt Count (150-450) k/uL Neutrophils % % Lymphocytes % % Monocytes % % Eosinophils % % Basophils % % Neutrophils # (1.3-7.7) k/uL Lymphocytes # (1.0-4.8) k/uL Monocytes # (0-1.0) k/uL Eosinophils # (0-0.7) k/uL Basophils # (0-0.2) k/uL Hypochromasia Anisocytosis PT (9.0-12.0) sec INR (<1.2) APTT (22.0-30.0) sec Sodium (137-145) mmol/L Potassium (3.5-5.1) mmol/L Chloride (98-107) mmol/L Carbon Dioxide (22-30) mmol/L Anion Gap mmol/L BUN (9-20) mg/dL Creatinine (0.66-1.25) mg/dL Est GFR (CKD-EPI)AfAm (>60 ml/min/1.73 sqM) Est GFR (CKD-EPI)NonAf (>60 ml/min/1.73 sqM) Glucose (74-99) mg/dL Calcium (8.4-10.2) mg/dL Total Bilirubin (0.2-1.3) mg/dL AST (17-59) U/L ALT (21-72) U/L Alkaline Phosphatase (38-126) U/L Total Protein (6.3-8.2) g/dL Albumin (3.5-5.0) g/dL Urine Color Yellow Urine Appearance Cloudy (Clear) Urine pH 5.0 (5.0-8.0) Ur Specific [place] 1.013 (1.001-1.035) Urine Protein Trace H (Negative) Urine Glucose (UA) Negative (Negative) Urine Ketones Negative (Negative) Urine Blood Negative (Negative) Urine Nitrite Negative (Negative) Urine Bilirubin Negative (Negative) Urine Urobilinogen <2.0 (<2.0) mg/dL Ur Leukocyte Esterase Large H (Negative) Urine RBC 13 H (0-5) /hpf Urine WBC 39 H (0-5) /hpf Hyaline Casts 2 (0-2) /lpf Urine Mucus Occasional H (None) /hpf Ur Yeast w Hyphae Occasional (None) /hpf Urine Yeast (Budding) Many H (None) /hpf Disposition Clinical Impression: Ileus, Hyperkalemia Disposition: ADMITTED IP TO THIS [facility] Condition: Stable Referrals: Peyton Das DO [Primary Care Provider] - 1-2 days Decision to Admit Reason: Admit from EC Decision Date: 07/04/17 Decision Time: 19:39
[2017-07-04 18:30] LABS: Anisocytosis Slight; Basophils % (A) 0 %; Eosinophils % (A) 0 %; HCT 29.5 % (39.0-53.0); HGB 8.9 gm/dL (13.0-17.5); Hypochromasia Slight; Lymphocytes # (A) 0.5 k/uL (1.0-4.8); Lymphocytes % (A) 4 %; MCH 28.7 pg (25.0-35.0); MCHC 30.3 g/dL (31.0-37.0); MCV 94.8 fL (80.0-100.0); Mean Platelet Volume 8.7; Monocytes # (A) 0.2 k/uL (0-1.0); Monocytes % (A) 2 %; Neutrophils # (A) 11.9 k/uL (1.3-7.7); Neutrophils % (A) 94 %; Platelet Count 162 k/uL (150-450); RBC 3.11 m/uL (4.30-5.90); RDW 17.2 % (11.5-15.5); WBC 12.7 k/uL (3.8-10.6)
[2017-07-04 18:39] LABS: Albumin 2.3 g/dL (3.5-5.0); Calcium 7.7 mg/dL (8.4-10.2); Potassium 5.5 mmol/L (3.5-5.1); Total Bilirubin 0.4 mg/dL (0.2-1.3); Total Protein 4.8 g/dL (6.3-8.2)
[2017-07-04 18:41] LABS: Partial Thromboplastin Time 22.5 sec (22.0-30.0); Prothrombin Time 10.2 sec (9.0-12.0)
--- NOTE | 2017-07-04 18:57 | XR ---
EXAMINATION TYPE: XR chest 2V DATE OF EXAM: 07/04/2017 COMPARISON: 06/28/2017 HISTORY: Short of breath and congestion TECHNIQUE: Frontal and lateral views of the chest are obtained. FINDINGS: Heart is enlarged. There is no gross heart failure. There is blunting of costophrenic angl es. Thoracic aorta is atheromatous. There is some linear density in the left upper lobe and to lesser extent the right upper lobe. IMPRESSION: Cardiomegaly. Small pleural effusions and pleural reaction at the lung bases. There are some new linear infiltrates and atelectasis in the upper lobes compared to old exam. No overt heart f ailure.
--- NOTE | 2017-07-04 18:59 | XR ---
EXAMINATION TYPE: XR KUB DATE OF EXAM: 07/04/2017 COMPARISON: NONE HISTORY: Abdominal pain TECHNIQUE: 2 views FINDINGS: There is no sign of intestinal obstruction or pneumoperitoneum. There is large and small chucho wel gas without any disproportionate enlargement of one loop. There is irregular high attenuation margie t measures 4 cm in the right lower abdomen that could be old oral contrast. There is a left hip prost hesis. There are no pathologic calcifications over the kidneys. IMPRESSION: There is evidence for intestinal ileus. No free air. I'm usual high attenuation over the right mid abdomen could be old extravasated contrast or old intestinal oral contrast.
[2017-07-04 19:08] LABS: Appearance,Urine Cloudy (Clear); Bilirubin,Urine Negative (Negative); Blood,Urine Negative (Negative); Budding Yeast,Urine Many /hpf; Color,Urine Yellow; Glucose,Urine (UA) Negative (Negative); Hyaline Casts,Urine 2 /lpf (0-2); Hyphae Yeast, Urine Occasional /hpf; Ketones,Urine Negative (Negative); Leukocyte Esterase,Urine Large (Negative); Mucus,Urine Occasional /hpf; Nitrite,Urine Negative (Negative); Protein,Urine Trace (Negative); RBC,Urine 13 /hpf (0-5); Specific Gravity,Urine 1.013 (1.001-1.035); Urobilinogen,Urine <2.0 mg/dL (<2.0); WBC,Urine 39 /hpf (0-5)
[2017-07-04] MEDS ORDERED: SODIUM POLYSTYRENE SULFONATE 15 GM/60 ML BOTTLE PO STA (19:30)
[2017-07-04] MEDS ORDERED: NALOXONE 0.4 MG/ML 1 ML VIAL IV PRN (19:33)
[2017-07-04] MEDS ORDERED: NA PHOS,M-B/NA PHOS,DI-BA 133 ML ENEMA RECTAL PRN (19:35)
[2017-07-04] MEDS ORDERED: BISACODYL 10 MG SUPP RECTAL PRN (19:35)
[2017-07-04] MEDS: ACETAMINOPHEN TAB 325 MG TAB PO PRN (19:50)
[2017-07-04] MEDS: IPRATROPIUM-ALBUTEROL 3 ML NEB INHALATION SCH (19:52)
[2017-07-04] MEDS: METHADONE 5 MG TAB PO SCH (21:50)
[2017-07-04 23:42] VITALS: BMI 31.1
[2017-07-05] MEDS ORDERED: MAGNESIUM HYDROXIDE 2,400 MG/10 ML CUP PO PRN (00:51)
[2017-07-05] MEDS ORDERED: NITROGLYCERIN SL TABS 0.4 MG TAB SUBLINGUAL PRN (00:51)
[2017-07-05] MEDS ORDERED: LACTULOSE 20 GM/30 ML CUP PO PRN (00:54)
--- NOTE | 2017-07-05 02:50 | HP ---
HISTORY AND PHYSICAL DATE OF SERVICE: 07/04/2017. CHIEF COMPLAINT: Elevated BUN and creatinine. HISTORY OF PRESENT ILLNESS: This 86-year-old gentleman with past medical history of multiple medical problems including COPD, renal failure, dementia, Parkinson's, renal disease, chronic CHF , medical debility, being followed by Dr. Das in the outpatient setting, recently admitted to [facility] with acute bilateral pneumonia with no aspiration. The patient was subsequently sent to [facility] on the [place] for rehab. Apparently in the [facility], the patient had abnormal labs and the patient was sent to [facility] because the patient is not urinating and the patient is not having some bowel movements also. The potassium is 5.5, creatinine is 2.78. During the most recent admission, the creatinine was elevated up to 3.58. There is no history of any fever, rigors or chills. No headache, loss of consciousness, seizures at this time. UA shows possible UTI also. PAST MEDICAL HISTORY: 1. History of recent bilateral pneumonia. 2. COPD. 3. Hyponatremia. 4. Dementia. 5. Parkinson's. MEDICATIONS: Home medications are: 1. Prednisone 20 mg p.o. daily. 2. Hydroxyzine 25 mg p.o. daily. 3. Norvasc 5 mg p.o. daily. 4. Zinc 50 mg p.o. 5. Thiamine 100 mg p.o. 6. Flomax 0.4 daily. 7. Sodium that is Kayexalate 15 g p.o. Sunday, . 8. Protonix 40 mg p.o. daily. 9. Mycostatin 5 mL p.o. 5 times daily. 10.Nitrostat 0.4 mg p.r.n. 11.Fleet p.r.n. 12.Multivitamins 1 p.o. daily. 14.Milk of magnesia 2.4 mg p.o. daily. 15.Synthroid 75 mcg p.o. daily. 16.Xyzal 5 mg p.o. 17.DuoNeb q.i.d. 18.Humalog AC and q.h.s. 19.Neurontin 100 mg p.o. t.i.d. 20.Folic acid 1 mg p.o. daily. 21.Breo Ellipta daily. 22.Proscar 5 mg p.o. daily. 23.Ensure 1 can p.o. t.i.d. 24.Vitamin D3 2000 daily. 25.Sinemet 1 p.o. t.i.d. 26.Calcitriol 0.5 mcg p.o. Sunday, Sunday and Sunday. 27.Dulcolax 10 mg rectally daily. 28.Aspirin 325 mg p.o. daily. 29.Zyloprim 100 mg p.o. daily. 30.Tylenol Arthritis 650 mg q.4h p.r.n. ALLERGIES: None. FAMILY HISTORY: Family history of myocardial infarction in the family. SOCIAL HISTORY: Previous history of smoking. No history of current smoking or alcohol intake. REVIEW OF SYSTEMS: ENT: Diminished hearing and vision. CARDIOVASCULAR: No angina. Respiratory: As mentioned earlier. GI mentioned earlier. : As mentioned earlier. NERVOUS SYSTEM: No numbness or weakness. Allergy/Immunology: No asthma or hayfever. Musculoskeletal as mentioned earlier. Hematology/Oncology: No history of anemia. ENDOCRINE: Diabetes mellitus. Constitutional: As mentioned earlier. Dermatology: Negative. Rheumatology: Negative. Psychiatric: As mentioned earlier. PHYSICAL EXAMINATION: Alert oriented x2. Pulse 74. Blood pressure 126/76, respiration 18, temperature 99 degrees, pulse ox 99% on 2 L. HEENT conjunctivae normal. Oral mucosa moist. Neck is no jugular venous distention. No carotid bruit. No lymph node enlargement. Cardiovascular system: Normal S1, S2. No S3, no S3, S4. Respiratory: Breath sounds diminished in the bases. Bilateral scattered rhonchi and crackles. ABDOMEN: Soft, nontender. No mass palpable. Legs: No edema and no swelling. Nervous system : Higher functions as mentioned earlier. Moves all 4 limbs. No focal motor or sensory deficits. Lymphatics: No lymph nodes palpable in the neck, axillae or groin. SKIN: No ulcer, rash, bleeding. LABS: At this time shows WBC 12.2, hemoglobin is 8.9, sodium 130, potassium 5.5, and calcium 7.1. Chest x-ray which was personally reviewed by me showed some evidence of pleural effusion and increased bronchovascular markings, no evidence of overt CHF was noted. ASSESSMENT: 1. Renal failure, acute on chronic with chronic kidney disease stage 4 with hyperkalemia. 2. Hyponatremia. 3. Constipation. 4. Urinary tract infection possibly related to indwelling Dhillon catheter. 5. Increased WBC. 6. Anemia normocytic anemia of chronic disease. 7. History of recent bilateral pneumonia. 8. History of congestive heart failure. 9. Dementia. 10.Degenerative joint disease. 11.History of asthma. 12.History of Parkinson's. 13.History of compression fracture of L4. 14.Gait dysfunction. 15.History of left hip arthroplasty. 16.NO CODE, NO CPR, NO VENT. RECOMMENDATIONS AND DISCUSSION: In this 86-year-old gentleman who presented with multiple complex medical issues , we will monitor the patient closely, continue the current management and continue symptomatic treatment, Kayexalate. Also recommend avoid nephrotoxic medications and monitor closely. Otherwise, rest of the home medications will be continued. I would also recommend a course of antibiotics and obtain cultures as well. Otherwise monitor blood sugars closely. Resume the bronchodilators. Currently the patient is NO CODE. Apparently, the patient has also been recommended hospice evaluation. We will obtain hospice on an informational basis. Otherwise we will continue the rest of the medications. I would also recommend Pulmonary and Nephrology evaluations also for continued monitoring as well. Overall prognosis guarded because of the above- mentioned complex medical issues. Discussed with staff. Medication reconciliation was performed. The patient is not a candidate for aggressive treatment at this point, but however, we will continue to monitor because of the change in the urinary symptoms. Otherwise, guarded prognosis because of multiple complex medical issues and further recommendations to follow. BECKYL / TRANG: [id number] / MTDD
[2017-07-05] MEDS: PANTOPRAZOLE 40 MG TABLET PO SCH (06:16)
[2017-07-05] MEDS: LEVOTHYROXINE 75 MCG TAB PO SCH (06:16)
[2017-07-05] MEDS: NYSTATIN 100,000 UNIT/ML SUSP 500,000 UNIT/5 ML CUP PO SCH ×5 (06:16→23:56)
[2017-07-05] MEDS: IPRATROPIUM-ALBUTEROL 3 ML NEB INHALATION SCH ×4 (08:09→19:57)
[2017-07-05] MEDS: SYMBICORT 80-4.5 MCG INHALER INHALATION SCH ×2 (08:10→19:57)
[2017-07-05 08:38] LABS: Anisocytosis Slight; Basophils % (A) 0 %; Eosinophils % (A) 0 %; HCT 25.7 % (39.0-53.0); HGB 8.2 gm/dL (13.0-17.5); Lymphocytes # (A) 0.7 k/uL (1.0-4.8); Lymphocytes % (A) 9 %; MCH 29.8 pg (25.0-35.0); MCHC 31.7 g/dL (31.0-37.0); MCV 93.8 fL (80.0-100.0); Mean Platelet Volume 8.4; Monocytes # (A) 0.3 k/uL (0-1.0); Monocytes % (A) 4 %; Neutrophils # (A) 6.4 k/uL (1.3-7.7); Neutrophils % (A) 85 %; Platelet Count 149 k/uL (150-450); RBC 2.75 m/uL (4.30-5.90); RDW 17.4 % (11.5-15.5); WBC 7.5 k/uL (3.8-10.6)
[2017-07-05 08:54] LABS: Calcium 7.6 mg/dL (8.4-10.2); Magnesium 2.3 mg/dL (1.6-2.3); Potassium 5.2 mmol/L (3.5-5.1); Total Bilirubin 0.3 mg/dL (0.2-1.3); Total Protein 4.3 g/dL (6.3-8.2)
[2017-07-05] MEDS ORDERED: NON-FORMULARY DRUG (Ensure Clear 1 CAN) PO SCH (09:00)
[2017-07-05] MEDS: FINASTERIDE 5 MG TAB PO SCH (10:10)
[2017-07-05] MEDS: SODIUM POLYSTYRENE SULFONATE 15 GM/60 ML BOTTLE PO SCH (10:10)
[2017-07-05] MEDS: TAMSULOSIN 0.4 MG CAP.ER.24H PO SCH (10:10)
[2017-07-05] MEDS: ALLOPURINOL 100 MG TAB PO SCH (10:10)
[2017-07-05] MEDS: GABAPENTIN 100 MG CAP PO SCH ×3 (10:10→21:56)
[2017-07-05] MEDS: CARBIDOPA-LEVODOPA 25-100 MG 1 EACH TAB PO SCH ×3 (10:10→16:44)
[2017-07-05] MEDS: predniSONE 20 MG TAB PO SCH (10:10)
[2017-07-05] MEDS: ASPIRIN 81 MG PO SCH (10:11)
[2017-07-05] MEDS: amLODIPine 5 MG TAB PO SCH (10:11)
[2017-07-05] MEDS: METHADONE 5 MG TAB PO SCH ×2 (10:15→21:56)
[2017-07-05] MEDS: hydrOXYzine PAMOATE 25 MG CAP PO SCH (10:16)
[2017-07-05] MEDS ORDERED: FUROSEMIDE 10 MG/ML 10 ML VIAL IV STA (10:30)
--- NOTE | 2017-07-05 10:33 | P.NPCON ---
History of Present Illness - Reason for Consult acute renal failure, chronic renal failure - History of Present Illness Reason for consultation: Acute kidney injury on chronic kidney disease History of present illness: Patient is a 86-year-old male seen in renal consultation for acute kidney injury on chronic kidney disease. Patient was admitted to the hospital last week and was noted to have urinary retention. A Dhillon catheter was placed. At that time his creatinine was up to 3.7 and has been gradually improving. Patient was discharged to a rehab facility. Patient was complaining of pain and was subsequently sent to the hospital. His creatinine was 2.78 yesterday and is 2.71 today. Family is present at bedside. Patient does have history of chronic kidney disease stage IV with baseline creatinine in the range of 1.5-2 secondary to nephrosclerosis. He is noted to have near atrophic bilateral kidneys on ultrasound. Potassium level was 5.5 on admission and he did receive 1 dose of Kayexalate. It is down to 5.2 this morning. Urine output is documented as 700 mL. Hemodynamically he is stable. Chest x-ray reveals cardiomegaly with small pleural effusions. He does have edema in his lower extremities. I don't see any diuretics and his home medications. Initially there were plans for comfort measures and the patient has been refusing renal replacement therapy all along but today he states he will try it. The family believes he may be somewhat confused. Vital signs are stable. General: The patient appeared well nourished and normally developed. HEENT: Head exam is unremarkable. Neck is without jugular venous distension. LUNGS: Lungs are clear to auscultation and percussion. Breath sounds decreased. HEART: Rate and Rhythm are regular. First and second heart sounds normal. No murmurs, rubs or gallops. ABDOMEN: Abdominal exam reveals normal bowel sounds. Non-tender and non- distended. No evidence of peritonitis. EXTREMITITES: 2+ edema. Past Medical History Past Medical History: Asthma, Heart Failure, Dementia, Musculoskeletal Disorder , Neurologic Disorder, Osteoarthritis (OA), Renal Disease, Thyroid Disorder Additional Past Medical History / Comment(s): parkinsons disease, compression fracture of the L4 spine, gait dysfunction, bilateral hip and leg pain since a fall in August 2015, chronic renal failure stage IV, hyperkalemia, anemia, DJD, osteopenia, hypothyroidism, BPH, occasional confusion. History of Any Multi-Drug Resistant Organisms: None Reported Past Surgical History: Appendectomy, Joint Replacement Additional Past Surgical History / Comment(s): total L hip replacement, splenectomy Past Anesthesia/Blood Transfusion Reactions: No Reported Reaction Past Psychological History: No Psychological Hx Reported Additional Psychological History / Comment(s): Pt resides at [facility] at this time. Pt states he does not ambulate or stand, they use a lift to get him into a wheelchair, he is otherwise bedbound. Smoking Status: Former smoker Past Alcohol Use History: None Reported Additional Past Alcohol Use History / Comment(s): pt states he quit smoking over 50 years ago. Past Drug Use History: None Reported Additional Drug Use History / Comment(s): xsmoker over 50 yrs ago - Past Family History Sister(s) Family Medical History: Myocardial Infarction ([place]) Brother(s) Family Medical History: Diabetes Mellitus Mother Family Medical History: No Reported History Additional Family Medical History / Comment(s): Mother lived to be 80 yrs old. Father History Unknown: Yes Additional Family Medical History / Comment(s): Father lived to be 75yrs old. Medications and Allergies Home Medications Medication Instructions Recorded Confirmed Type Tamsulosin HCl [Flomax] 0.4 mg PO DAILY@0900 09/04/15 07/04/17 History Levothyroxine Sodium [Synthroid] 75 mcg PO DAILY@0609/07/15 07/04/17 History Carbidopa-Levodopa 25-100 mg 1 tab PO TID@0800,1300,1700 09/21/15 07/04/17 History [Sinemet 25-100 mg] Folic Acid 1 mg PO DAILY@169909/21/15 07/04/17 History Multivitamins, Thera [Multivitamin 1 tab PO DAILY@169909/21/15 07/04/17 History (formulary)] Nitroglycerin Sl Tabs [Nitrostat] 0.4 mg SUBLINGUAL Q5M PRN 09/21/15 07/04/17 History Thiamine [Vitamin B-1] 100 mg PO DAILY@169909/21/15 07/04/17 History Allopurinol [Zyloprim] 100 mg PO DAILY@0800 02/10/17 07/04/17 History Calcitriol 0.5 mcg PO MOWEFR@1700 02/10/17 07/04/17 History Gabapentin [Neurontin] 100 mg PO TID@0900,1400,2100 02/10/17 07/04/17 History Levocetirizine Dihydrochloride 5 mg PO DAILY@0900 02/10/17 07/04/17 History [Xyzal] Sodium Polystyrene Sulfon/Sorb 15 gm PO MOTH@0900 05/24/17 07/04/17 History [Kionex 15 gm/60 ml Suspension] Zinc 50 mg PO DAILY@1700 05/24/17 07/04/17 History hydrOXYzine PAMOATE 25 mg PO DAILY@0900 05/24/17 07/04/17 History Aspirin 81 mg PO DAILY@0800 06/11/17 07/04/17 History Bisacodyl [Dulcolax] 10 mg RECTAL DAILY PRN 06/11/17 07/04/17 History Ensure Clear 1 can PO BID@0900,1700 06/11/17 07/04/17 History Magnesium Hydroxide [Milk of 2,400 mg PO DAILY PRN 06/11/17 07/04/17 History Magnesia] Na Phos,M-B/Na Phos,Di-Ba [Fleet 133 ml RECTAL DAILY PRN 06/11/17 07/04/17 History Adult] Ipratropium-Albuterol Nebulize 3 ml INHALATION RT-QID ampul.neb 06/28/17 Rx [Duoneb 0.5 mg-3 mg/3 ml Soln] Acetaminophen [Tylenol Arthritis] 650 mg PO Q4H PRN 07/04/17 07/04/17 History Cholecalciferol [Vitamin D3] 2,000 unit PO DAILY@1700 07/04/17 07/04/17 History Finasteride [Proscar] 5 mg PO DAILY@0900 07/04/17 07/04/17 History Fluticasone/Vilanterol [Breo 1 inhalation PO RT-DAILY@89907/04/17 07/04/17 History Ellipta 100-25 Mcg Inhaler] INSULIN LISPRO (HumaLOG) [humaLOG] See Protocol SQ ACHS 07/04/17 07/04/17 History Ipratropium-Albuterol Nebulize 3 ml INHALATION RT-Q4H PRN 07/04/17 07/04/17 History [Duoneb 0.5 mg-3 mg/3 ml Soln] Methadone [Dolophine] 5 mg PO BID@0900,2100 07/04/17 07/04/17 History Nystatin 100,000 Unit/ml Susp 5 ml PO 5XD 07/04/17 07/04/17 History [Mycostatin Oral Susp] Pantoprazole [Protonix] 40 mg PO DAILY@0600 07/04/17 07/04/17 History amLODIPine [Norvasc] 5 mg PO DAILY@0900 07/04/17 07/04/17 History predniSONE 20 mg PO DAILY 07/04/17 07/04/17 History Allergies Allergy/AdvReac Type Severity Reaction Status Date / Time fentanyl Allergy Rash/Hives Verified 07/04/17 17:49 Physical Exam Vitals: Vital Signs Temp Pulse Pulse Resp BP BP Pulse Ox 07/05/17 08:20 72 07/05/17 08:10 72 07/05/17 07:00 97.9 F 67 16 123/58 98 07/05/17 00:00 74 18 07/04/17 22:51 99 F 74 18 120/66 99 07/04/17 21:47 99 F 74 18 120/66 99 07/04/17 20:02 75 07/04/17 20:00 73 16 131/60 97 07/04/17 19:53 75 07/04/17 19:36 70 19 141/66 97 07/04/17 19:10 72 20 129/60 98 07/04/17 17:44 96.9 F L 72 18 121/59 96 Intake and Output 07/04/17 07/05/17 07/05/17 22:59 06:59 14:59 Intake Total 50 Output Total 700 Balance 50 -700 Intake: Oral 50 Output: Urine 700 Other: Voiding Method Indwelling Catheter Indwelling Catheter Weight 93 kg 93 kg Results - Lab Results Most recent lab results Calcium 7.6 mg/dL (8.4-10.2) L 07/05/17 08:09 Magnesium 2.3 mg/dL (1.6-2.3) 07/05/17 08:09 07/05/17 08:09 07/05/17 08:09 Assessment and Plan Plan: Assessment: #1. Nonoliguric acute kidney injury from recovering ATN and urinary retention from last week. Creatinine was up to 3.7 earlier this month and is down to 2.7 today. #2. Chronic kidney disease stage IV secondary to nephrosclerosis with baseline creatinine near 2. #3. Urinary retention status post Dhillon catheter placement. #4. Pyuria. Urine culture pending. #5. Metabolic acidosis secondary to acute kidney injury. #6. Anemia of chronic kidney disease. Rule out iron deficiency. #7. Volume overload. #8. Diastolic CHF. #9. 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 Plan: I will give him 25 g of albumin and 1 dose of Lasix 60 mg IV once today. Follow-up cultures. Add oral sodium bicarbonate 650 mg twice daily. Check iron studies. Avoid nephrotoxic agents and hypotensive episodes. Discontinue Fleet enema. Continue to monitor renal function and urine output. No urgent need for renal replacement therapy at this time. Thank you for the consultation. I will continue to follow the patient with you during his hospital stay.
[2017-07-05] MEDS ORDERED: ALBUMIN HUMAN 5% 500 ML in EMPTY BAG 1 BAG IVPB ONE (10:45)
--- NOTE | 2017-07-05 11:18 | CDI ---
Last Revision, March 2017 Documentation Clarification Form Date: 07/05/17 From: Kari Matta RN, CCDS Admit Date: 07/04/2017 7:33:00 PM Patient Name: Dejon Canas Visit Number: [id number] Discharge Date: ATTENTION: The Clinical Documentation Specialists (CDI) and [facility] Coding Staff appreciate your assistance in clarifying documentation. Please respond to the clarification below the line at the bottom and electronically sign. The CDI & [facility] Coding staff will review the response and follow-up if needed. Please note: Queries are made part of the Legal Health Record. If you have any questions, please contact the author of this message via ITS. Dr. Karla Cleaning History/Risk Factors: Chronic CHF, COPD, CKD Stage IV, Parkinson's, BPH Clinical Indicators: Present with elevation of bun and creatinine, not urinating, and not having some bowel movements. His lungs bilateral has scattered rhonchi and crackles. Chest x-ray showed some evidence of pleural effusion and increased bronchovascular markings. In your H/P: No evidence of overt CHF was noted. VS/Pulse OX: 126/76 74 18 99.0, 99 % on 2/L NC, BNP: Not noted 07/05/17 Nephrology consult ([place]) Chest x-ray reveals cardiomegaly with small pleural effusions. He does have 2 + edema in his lower extremities. Lungs are clear. Breath sounds decreased. Impression: Volume overload. Diastolic CHF Treatment: Lasix 60 IV x1 Albumin 25 gm X1 Monitor I/O Monitor Labs In your professional opinion, can you please clarify the acuity and type of CHF if known? Diastolic Heart Failure: Acute Chronic Acute on Chronic Unable to Determine Other, please specify Please continue to document in your progress notes and discharge summary in order to capture severity of illness and risk of mortality. Include clinical findings that support your diagnosis. Unable to Determine MTDD
[2017-07-05] MEDS: SODIUM BICARBONATE TAB 650 MG TAB PO SCH ×2 (11:41→21:57)
[2017-07-05] MEDS: cefTRIAXone IN SWFI 1,000 MG/10 ML SYRINGE IVP SCH (11:42)
[2017-07-05 16:40] LABS: Iron Saturation 33.74 (15.00-50.00)
[2017-07-05] MEDS: FOLIC ACID 1 MG TAB PO SCH (16:45)
[2017-07-05] MEDS: CHOLECALCIFEROL 1,000 UNIT TAB PO SCH (16:45)
[2017-07-05] MEDS: THIAMINE 100 MG TAB PO SCH (16:45)
[2017-07-05] MEDS: MULTIVITAMINS, THERA 1 EACH TAB PO SCH (16:45)
--- NOTE | 2017-07-05 17:01 | P.CNPUL ---
History of Present Illness Consult date: 07/05/17 Requesting physician: Karla Cleaning Reason for consult: other Chief complaint: Constipation, urinary retention History of present illness: Dejon is a 78-year-old white male patient of Dr. Martínez, presented to the emergency department per EMS on 07/04/2017 at 1733 from [facility] rehab for complaints of abnormal labs, serum potassium was 5.5 on admission, in addition patient was having constipation, and had not had a bowel movement in several days. He was recently hospitalized and discharged from this hospital after being treated for acute bilateral pneumonia, improved and was sent to the [facility] in stable condition, on prescription Levaquin, nebulized treatments, and prednisone taper. Patient went to the rehab with an indwelling catheter in place for urinary retention. Urinalysis on admission was positive for large amount of leukocyte esterase, WBCs, and urinalysis. He however denies any her, chills. Patient denies any chest congestion, denies any chest pain. Chest x-ray taken in the ER showed cardiomegaly, small pleural effusions and pleural reaction at the lung bases, new linear infiltrates and/or atelectasis in the upper lobes compared to old exam, no overt heart failure. Patient's creatinine on admission was 2.78, patient does have a chronic kidney disease IV at his baseline, and this is improved finding from his last inpatient creatinine of 3.20. Urine culture is pending at this time, patient denies any urinary symptoms. His urine is clear yellow, small amount of sediment. Patient has mild pretibial edema. Patient was given Kayexalate to treat both his hyperkalemia and constipation, and patient has past couple of form 2 bowel movements last night per nursing report. Abdominal x-ray showed evidence for intestinal ileus, but no free air. Patient's abdomen is soft, nontender, with positive bowel sounds. Other medical history includes history of moderately severe COPD, chronic congestive heart failure with diastolic dysfunction, anemia, hypothyroidism, Parkinson's disease, dementia, his poor baseline functional status, BPH and osteoarthritis. On today's exam patient's lung sounds positive for some scattered wheezes. Patient denies any dyspnea. Currently on 2 L per nasal cannula with O2 sat 98%. He has been afebrile, vital signs have been stable. Review of Systems All systems: negative Constitutional: Denies chills, Denies fever Eyes: denies blurred vision, denies pain Ears, nose, mouth and throat: Denies headache, Denies sore throat Cardiovascular: Denies chest pain, Denies shortness of breath Respiratory: Denies cough Gastrointestinal: Denies abdominal pain, Denies diarrhea, Denies nausea, Denies vomiting Musculoskeletal: Denies myalgias Integumentary: Denies pruritus, Denies rash Neurological: Denies numbness, Denies weakness Psychiatric: Denies anxiety, Denies depression Endocrine: Denies fatigue, Denies weight change Past Medical History Past Medical History: Asthma, Heart Failure, Dementia, Musculoskeletal Disorder , Neurologic Disorder, Osteoarthritis (OA), Renal Disease, Thyroid Disorder Additional Past Medical History / Comment(s): parkinsons disease, compression fracture of the L4 spine, gait dysfunction, bilateral hip and leg pain since a fall in August 2015, chronic renal failure stage IV, hyperkalemia, anemia, DJD, osteopenia, hypothyroidism, BPH, occasional confusion. History of Any Multi-Drug Resistant Organisms: None Reported Past Surgical History: Appendectomy, Joint Replacement Additional Past Surgical History / Comment(s): total L hip replacement, splenectomy Past Anesthesia/Blood Transfusion Reactions: No Reported Reaction Past Psychological History: No Psychological Hx Reported Additional Psychological History / Comment(s): Pt resides at [facility] at this time. Pt states he does not ambulate or stand, they use a lift to get him into a wheelchair, he is otherwise bedbound. Smoking Status: Former smoker Past Alcohol Use History: None Reported Additional Past Alcohol Use History / Comment(s): pt states he quit smoking over 50 years ago. Past Drug Use History: None Reported Additional Drug Use History / Comment(s): xsmoker over 50 yrs ago - Past Family History Sister(s) Family Medical History: Myocardial Infarction ([place]) Brother(s) Family Medical History: Diabetes Mellitus Mother Family Medical History: No Reported History Additional Family Medical History / Comment(s): Mother lived to be 80 yrs old. Father History Unknown: Yes Additional Family Medical History / Comment(s): Father lived to be 75yrs old. Medications and Allergies Home Medications Medication Instructions Recorded Confirmed Type Tamsulosin HCl [Flomax] 0.4 mg PO DAILY@0900 09/04/15 07/04/17 History Levothyroxine Sodium [Synthroid] 75 mcg PO DAILY@0600 09/07/15 07/04/17 History Carbidopa-Levodopa 25-100 mg 1 tab PO TID@0800,1300,1700 09/21/15 07/04/17 History [Sinemet 25-100 mg] Folic Acid 1 mg PO DAILY@1700 09/21/15 07/04/17 History Multivitamins, Thera [Multivitamin 1 tab PO DAILY@169909/21/15 07/04/17 History (formulary)] Nitroglycerin Sl Tabs [Nitrostat] 0.4 mg SUBLINGUAL Q5M PRN 09/21/15 07/04/17 History Thiamine [Vitamin B-1] 100 mg PO DAILY@1700 09/21/15 07/04/17 History Allopurinol [Zyloprim] 100 mg PO DAILY@0800 02/10/17 07/04/17 History Calcitriol 0.5 mcg PO MOWEFR@1700 02/10/17 07/04/17 History Gabapentin [Neurontin] 100 mg PO TID@0900,1400,2100 02/10/17 07/04/17 History Levocetirizine Dihydrochloride 5 mg PO DAILY@0900 02/10/17 07/04/17 History [Xyzal] Sodium Polystyrene Sulfon/Sorb 15 gm PO MOTH@0905/24/17 07/04/17 History [Kionex 15 gm/60 ml Suspension] Zinc 50 mg PO DAILY@17005/24/17 07/04/17 History hydrOXYzine PAMOATE 25 mg PO DAILY@0905/24/17 07/04/17 History Aspirin 81 mg PO DAILY@0800 06/11/17 07/04/17 History Bisacodyl [Dulcolax] 10 mg RECTAL DAILY PRN 06/11/17 07/04/17 History Ensure Clear 1 can PO BID@0900,1700 06/11/17 07/04/17 History Magnesium Hydroxide [Milk of 2,400 mg PO DAILY PRN 06/11/17 07/04/17 History Magnesia] Na Phos,M-B/Na Phos,Di-Ba [Fleet 133 ml RECTAL DAILY PRN 06/11/17 07/04/17 History Adult] Ipratropium-Albuterol Nebulize 3 ml INHALATION RT-QID ampul.neb 06/28/17 Rx [Duoneb 0.5 mg-3 mg/3 ml Soln] Acetaminophen [Tylenol Arthritis] 650 mg PO Q4H PRN 07/04/17 07/04/17 History Cholecalciferol [Vitamin D3] 2,000 unit PO DAILY@1700 07/04/17 07/04/17 History Finasteride [Proscar] 5 mg PO DAILY@0900 07/04/17 07/04/17 History Fluticasone/Vilanterol [Breo 1 inhalation PO RT-DAILY@0900 07/04/17 07/04/17 History Ellipta 100-25 Mcg Inhaler] INSULIN LISPRO (HumaLOG) [humaLOG] See Protocol SQ ACHS 07/04/17 07/04/17 History Ipratropium-Albuterol Nebulize 3 ml INHALATION RT-Q4H PRN 07/04/17 07/04/17 History [Duoneb 0.5 mg-3 mg/3 ml Soln] Methadone [Dolophine] 5 mg PO BID@0900,2100 07/04/17 07/04/17 History Nystatin 100,000 Unit/ml Susp 5 ml PO 5XD 07/04/17 07/04/17 History [Mycostatin Oral Susp] Pantoprazole [Protonix] 40 mg PO DAILY@0600 07/04/17 07/04/17 History amLODIPine [Norvasc] 5 mg PO DAILY@0900 07/04/17 07/04/17 History predniSONE 20 mg PO DAILY 07/04/17 07/04/17 History Allergies Allergy/AdvReac Type Severity Reaction Status Date / Time fentanyl Allergy Rash/Hives Verified 07/04/17 17:49 Physical Exam Vitals: Vital Signs Temp Pulse Pulse Resp BP BP Pulse Ox 07/05/17 16:18 78 07/05/17 16:07 77 07/05/17 15:00 98.3 F 88 16 131/61 98 07/05/17 11:34 70 07/05/17 08:20 72 07/05/17 08:10 72 07/05/17 07:00 97.9 F 67 16 123/58 98 07/05/17 00:00 74 18 07/04/17 22:51 99 F 74 18 120/66 99 07/04/17 21:47 99 F 74 18 120/66 99 07/04/17 20:02 75 07/04/17 20:00 73 16 131/60 97 07/04/17 19:53 75 07/04/17 19:36 70 19 141/66 97 07/04/17 19:10 72 20 129/60 98 07/04/17 17:44 96.9 F L 72 18 121/59 96 Intake and Output 07/05/17 07/05/17 07/05/17 06:59 14:59 22:59 Output Total 700 1400 Balance -700 -1400 Output: Urine 700 1400 Other: Voiding Method Indwelling Catheter Indwelling Catheter # Bowel Movements 1 Weight 93 kg GENERAL EXAM: Alert, frail-looking 86-year-old white male, comfortable in no apparent distress. HEAD: Normocephalic/atraumatic. EYES: Normal reaction of pupils, equal size. Conjunctiva pink, sclera white. NOSE: Clear with pink turbinates. THROAT: No erythema or exudates. NECK: No masses, no JVD, no thyroid enlargement, no adenopathy. CHEST: No chest wall deformity. Symmetrical expansion. LUNGS: Equal air entry with scattered expiratory wheezing CVS: Regular rate and rhythm, normal S1 and S2, no gallops, no murmurs, no rubs ABDOMEN: Soft, nontender. No hepatosplenomegaly, normal bowel sounds, no guarding or rigidity. EXTREMITIES: No clubbing, mild edema, no cyanosis, 2+ pulses and upper and lower extremities. MUSCULOSKELETAL: Muscle strength and tone normal. SPINE: No scoliosis or deformity SKIN: No rashes CENTRAL NERVOUS SYSTEM: Alert and oriented -3. No focal deficits, tone is normal in all 4 extremities. PSYCHIATRIC: Alert and oriented -3. Appropriate affect. Intact judgment and insight. Results - Laboratory Findings CBC and BMP: 07/05/17 08:09 07/05/17 08:09 PT/INR, D-dimer PT 10.2 sec (9.0-12.0) 07/04/17 18:16 INR 1.0 (<1.2) 07/04/17 18:16 Abnormal lab findings: Abnormal Labs 07/04/17 07/04/17 07/04/17 18:16 18:16 18:55 WBC 12.7 H RBC 3.11 L Hgb 8.9 L Hct 29.5 L MCHC 30.3 L RDW 17.2 H Plt Count Neutrophils # 11.9 H Lymphocytes # 0.5 L Sodium 135 L Potassium 5.5 H Carbon Dioxide 20 L BUN 104 H* Creatinine 2.78 H Glucose 124 H Calcium 7.7 L AST ALT 15 L Total Protein 4.8 L Albumin 2.3 L Urine Protein Trace H Ur Leukocyte Esterase Large H Urine RBC 13 H Urine WBC 39 H Urine Mucus Occasional H Urine Yeast (Budding) Many H 07/05/17 07/05/17 08:09 08:09 WBC RBC 2.75 L Hgb 8.2 L Hct 25.7 L MCHC RDW 17.4 H Plt Count 149 L Neutrophils # Lymphocytes # 0.7 L Sodium Potassium 5.2 H Carbon Dioxide 20 L BUN 100 H* Creatinine 2.71 H Glucose 119 H Calcium 7.6 L AST 14 L ALT 17 L Total Protein 4.3 L Albumin 2.0 L Urine Protein Ur Leukocyte Esterase Urine RBC Urine WBC Urine Mucus Urine Yeast (Budding) - Diagnostic Findings Chest x-ray: report reviewed Additional studies: Abdominal x-ray, twelve-lead EKG reviewed Assessment and Plan Plan: Assessment: #1. New infiltrate in the left upper lobe and right lower lobe, compared to previous chest x-ray on 06/28/2017. Clinically patient has no fever, no significant leukocytosis, on presentation his WBC is 12.7, on today's labs WC 7.5. Denies any significant dyspnea, chest congestion #2. Acute kidney injury, recovering from ATN and urinary retention. #3. Fecal stasis, ileus, resolved #4. Chronic kidney disease stage IV #5. Urinary retention status post Dhillon catheter placement #6. Acute urinary tract infection, urine cultures pending #7. Recent hospitalization for acute bilateral pneumonia, patient was treated with a course of oral Levaquin, improved, and discharged on 06/28/2017 #8. Anemia of running disease #9. History of COPD, with a baseline FEV1 of 47% of predicted, GOLD stage III #10. Hypothyroidism, #11. Parkinson's disease, dementia, with significant impairment of neurologic function/cognition/memory/gait #12. Poor baseline functional capacity, patient is mostly bedbound graft #13. History of BPH, on Avodart and Flomax #14. Osteoarthritis Plan: We'll repeat chest x-ray in the morning, chest x-ray on admission was noted to have left upper lobe and right lower lobe infiltrates, but clinically he does not have any significant pulmonary symptoms. No leukocytosis. Continue with IV Rocephin, nebulized treatments, Symbicort. Aspiration precautions. I performed a history & physical examination of the patient and discussed their management with my nurse practitioner, Gretchen Garcia. I reviewed the nurse practitioner's note and agree with the documented findings and plan of care. Lung sounds are positive for a few scattered wheezes. The findings and the impression was discussed with the patient. I attest to the documentation by the nurse practitioner. Time with Patient: Greater than 30
--- NOTE | 2017-07-05 17:48 | PN ---
PROGRESS NOTE DATE OF SERVICE: 07/05/2017 This 86-year-old gentleman admitted with elevated BUN and creatinine, hyperkalemia, hyponatremia, is being closely monitored at this time. The patient also had stage IV kidney disease. The sensorium has improved significantly at this time. No chest pain. No palpitations. No fever. PHYSICAL EXAMINATION: Alert and oriented x2. Pulse is 88 per minute, blood pressure 131/61, respiration 16, temperature 98.3, pulse ox 98% on 2 L. HEENT: Conjunctivae normal. NECK: No jugular venous distention. CARDIOVASCULAR SYSTEM: S1, S2 muffled. RESPIRATORY SYSTEM: Breath sounds diminished at the bases. A few scattered rhonchi and crackles. ABDOMEN: Soft, nontender. No mass palpable. LEGS: No edema. No swelling. NERVOUS SYSTEM: Higher functions as mentioned earlier. Moves all 4 limbs. No focal deficit. LYMPHATICS: No lymph node palpable in neck, axillae or groin. SKIN: No ulcer, rash, bleeding. LABS: WBC 7.5, hemoglobin 8.2, sodium 137, potassium 5.2. Creatinine is 2.71. ASSESSMENT: 1. Acute renal failure, acute on chronic, with chronic kidney disease, stage IV with hypokalemia. 2. Hyponatremia. 3. Constipation. 4. Urinary tract infection, possibly related to indwelling Dhillon catheter. 5. Increased white count. 6. Anemia; normocytic anemia of chronic disease. 7. History of recent bilateral pneumonia. 8. History of congestive heart failure. 9. Dementia. 10.Degenerative joint disease. 11.History of asthma. 12.History of Parkinson's. 13.History of compression fracture at L4. 14.History gait dysfunction. 15.History of left hip arthroplasty. 16.NO CODE, NO CPR, NO VENT. RECOMMENDATIONS AND DISCUSSION: I recommend to continue current medication, continue with symptomatic treatment. We will monitor closely with Nephrology and Pulmonology. Broad-spectrum IV antibiotics. Cultures. Guarded prognosis because of multiple complex medical issues. Further recommendations to follow. MMODL / IJN: [id number] /
[2017-07-06] MEDS: ACETAMINOPHEN TAB 325 MG TAB PO PRN (00:23)
[2017-07-06] MEDS: PANTOPRAZOLE 40 MG TABLET PO SCH (06:03)
[2017-07-06] MEDS: LEVOTHYROXINE 75 MCG TAB PO SCH (06:03)
[2017-07-06] MEDS: NYSTATIN 100,000 UNIT/ML SUSP 500,000 UNIT/5 ML CUP PO SCH ×5 (06:03→23:42)
[2017-07-06] MEDS: SYMBICORT 80-4.5 MCG INHALER INHALATION SCH ×2 (08:14→19:06)
[2017-07-06] MEDS: IPRATROPIUM-ALBUTEROL 3 ML NEB INHALATION SCH ×4 (08:14→19:06)
[2017-07-06] MEDS ORDERED: DARBEPOETIN ALFA 40 MCG/0.4 ML SYRINGE SQ SCH (09:00)
--- NOTE | 2017-07-06 09:12 | P.PN ---
Subjective Patient is seen in follow-up for acute kidney injury on chronic kidney disease. Patient has chronic kidney disease stage IV secondary to nephrosclerosis with baseline creatinine in the range of 1.5-2. Patient was admitted last week and his creatinine at that time was up to 3.7. A Dhillon catheter was placed due to urinary retention at that time. He is currently resting in bed. Denies any active complaints. He received 1 dose of IV Lasix yesterday and his urine output is documented is 3.3 L. No vomiting or diarrhea. Vital signs are stable. General: The patient appeared well nourished and normally developed. HEENT: Head exam is unremarkable. Neck is without jugular venous distension. LUNGS: Lungs are clear to auscultation and percussion. Breath sounds decreased. HEART: Rate and Rhythm are regular. First and second heart sounds normal. No murmurs, rubs or gallops. ABDOMEN: Abdominal exam reveals normal bowel sounds. Non-tender and non- distended. No evidence of peritonitis. EXTREMITITES: 1+ edema. Objective - Vital Signs Vital signs: Vital Signs Temp 97.5 F L 07/06/17 07:00 Pulse 98 07/06/17 08:24 Resp 18 07/06/17 07:00 BP 117/50 07/06/17 07:00 Pulse Ox 98 07/06/17 07:00 Intake & Output 07/05/17 07/06/17 07/06/17 18:59 06:59 18:59 Intake Total 240 Output Total 2300 1000 Balance -2300 -760 Intake: Oral 240 Output: Urine 2300 1000 Other: Voiding Method Indwelling Catheter Indwelling Catheter # Bowel Movements 1 - Labs CBC & Chem 7: 07/05/17 08:09 07/05/17 08:09 Labs: Abnormal Lab Results - Last 24 Hours (Table) 07/05/17 Range/Units 08:09 Iron 55 L (65-175) ug/dL TIBC 163 L (228-460) ug/dL Ferritin 626.3 H (22.0-322.0) ng/mL Microbiology - Last 24 Hours (Table) 07/04/17 18:16 Blood Culture - Preliminary Blood No Growth after 24 hours 07/05/17 06:15 Urine Culture - Preliminary Urine,Catheterized Assessment and Plan Plan: Assessment: #1. Nonoliguric acute kidney injury from recovering ATN and urinary retention from last week. Creatinine was up to 3.7 earlier this month and is down to 2.7 as of yesterday. #2. Chronic kidney disease stage IV secondary to nephrosclerosis with baseline creatinine near 2. #3. Urinary retention status post Dhillon catheter placement. #4. Pyuria. Urine culture pending. #5. Metabolic acidosis secondary to acute kidney injury. #6. Anemia of chronic kidney disease. Iron replete. #7. Volume overload. Improving with diuretics. #8. Diastolic CHF. #9. 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 Plan: Lasix 40 mg IV once today. Follow-up cultures. Maintain oral sodium bicarbonate 650 mg twice daily. Start Aranesp. Avoid nephrotoxic agents and hypotensive episodes. Discontinued Fleet enema. Continue to monitor renal function and urine output. No urgent need for renal replacement therapy at this time.
[2017-07-06] MEDS: GABAPENTIN 100 MG CAP PO SCH ×3 (09:20→20:16)
[2017-07-06] MEDS: TAMSULOSIN 0.4 MG CAP.ER.24H PO SCH (09:20)
[2017-07-06] MEDS: ALLOPURINOL 100 MG TAB PO SCH (09:20)
[2017-07-06] MEDS: amLODIPine 5 MG TAB PO SCH (09:21)
[2017-07-06] MEDS: cefTRIAXone IN SWFI 1,000 MG/10 ML SYRINGE IVP SCH (09:21)
[2017-07-06] MEDS: predniSONE 20 MG TAB PO SCH (09:21)
[2017-07-06] MEDS: SODIUM BICARBONATE TAB 650 MG TAB PO SCH ×2 (09:21→20:16)
[2017-07-06] MEDS: CARBIDOPA-LEVODOPA 25-100 MG 1 EACH TAB PO SCH ×3 (09:21→17:36)
[2017-07-06] MEDS: FINASTERIDE 5 MG TAB PO SCH (09:21)
[2017-07-06 09:51] LABS: Anisocytosis Slight; Basophils % (A) 0 %; Eosinophils # (A) 0.1 k/uL (0-0.7); Eosinophils % (A) 1 %; HCT 24.7 % (39.0-53.0); HGB 7.9 gm/dL (13.0-17.5); Lymphocytes # (A) 0.6 k/uL (1.0-4.8); Lymphocytes % (A) 11 %; MCH 30.5 pg (25.0-35.0); MCV 95.4 fL (80.0-100.0); Macrocytosis Slight; Mean Platelet Volume 8.2; Monocytes # (A) 0.1 k/uL (0-1.0); Monocytes % (A) 2 %; Neutrophils # (A) 4.7 k/uL (1.3-7.7); Neutrophils % (A) 84 %; Platelet Count 142 k/uL (150-450); RBC 2.59 m/uL (4.30-5.90); RDW 17.4 % (11.5-15.5); WBC 5.6 k/uL (3.8-10.6)
[2017-07-06 10:03] LABS: Calcium 7.7 mg/dL (8.4-10.2); Potassium 4.5 mmol/L (3.5-5.1)
[2017-07-06] MEDS: ASPIRIN 81 MG PO SCH (11:38)
[2017-07-06] MEDS: hydrOXYzine PAMOATE 25 MG CAP PO SCH (11:39)
[2017-07-06] MEDS: METHADONE 5 MG TAB PO SCH ×2 (11:40→20:16)
[2017-07-06] MEDS ORDERED: FUROSEMIDE 10 MG/ML 4 ML VIAL IV STA ×2 (12:02→16:02)
--- NOTE | 2017-07-06 13:10 | XR ---
EXAMINATION TYPE: XR chest 1V portable DATE OF EXAM: 07/06/2017 COMPARISON: Prior chest x-ray 07/04/2017 HISTORY: Congestive heart failure TECHNIQUE: Single frontal view of the chest is obtained. FINDINGS: Patient is rotated and the heart remains enlarged. Interstitium is somewhat increased. No pneumothorax is evident. Blunting of the right costophrenic angle compatible with small effusion. No pneumothorax. IMPRESSION: Findings could be due to pulmonary venous hypertension and interstitial edema, correlate . Small right pleural effusion. Rotated expiratory exam. Follow-up recommended.
--- NOTE | 2017-07-06 15:59 | P.PN ---
Subjective Progress Note Date: 07/06/17 Principal diagnosis: Acute on chronic hypoxic respiratory failure, related to fluid overload, no clear-cut evidence of pneumonia Dejon is a 78-year-old white male patient of Dr. Martínez, presented to the emergency department per EMS on 07/04/2017 at 1733 from [facility] on [facility] rehab for complaints of abnormal labs, serum potassium was 5.5 on admission, in addition patient was having constipation, and had not had a bowel movement in several days. He was recently hospitalized and discharged from this hospital after being treated for acute bilateral pneumonia, improved and was sent to the [facility] on [facility] in stable condition, on prescription Levaquin, nebulized treatments, and prednisone taper. Patient went to the rehab with an indwelling catheter in place for urinary retention. Urinalysis on admission was positive for large amount of leukocyte esterase, WBCs, and urinalysis. He however denies any her, chills. Patient denies any chest congestion, denies any chest pain. Chest x-ray taken in the ER showed cardiomegaly, small pleural effusions and pleural reaction at the lung bases, new linear infiltrates and/or atelectasis in the upper lobes compared to old exam, no overt heart failure. Patient's creatinine on admission was 2.78, patient does have a chronic kidney disease IV at his baseline, and this is improved finding from his last inpatient creatinine of 3.20. Urine culture is pending at this time, patient denies any urinary symptoms. His urine is clear yellow, small amount of sediment. Patient has mild pretibial edema. Patient was given Kayexalate to treat both his hyperkalemia and constipation, and patient has past couple of form 2 bowel movements last night per nursing report. Abdominal x-ray showed evidence for intestinal ileus, but no free air. Patient's abdomen is soft, nontender, with positive bowel sounds. Other medical history includes history of moderately severe COPD, chronic congestive heart failure with diastolic dysfunction, anemia, hypothyroidism, Parkinson's disease, dementia, his poor baseline functional status, BPH and osteoarthritis. On today's exam patient's lung sounds positive for some scattered wheezes. Patient denies any dyspnea. Currently on 2 L per nasal cannula with O2 sat 98%. He has been afebrile, vital signs have been stable. On 07/06/2017 patient is seen in follow-up. Nursing reports increased upper chest congestion this morning, the patient denies any acute distress. Yesterday he received 60 mg of IV Lasix per nephrology and was given 500 mL of albumin. Has a congested cough, but is not able to provide produce any sputum. Vital signs are stable, remains afebrile, denies fever or chills, denies any chest pain. Today's chest x-ray shows interstitial edema, small right pleural effusion. Additional 40 mg of IV Lasix was given per nephrology today. At the time of my evaluation patient is resting comfortably in bed, appears very comfortable, no distress. He is eating lunch. Lung sounds are positive for some coarse rhonchi and crackles, Dhillon catheter in place, his urine output is adequate, he is in -3060 ML fluid balance over the last 24 hours. Continue with empiric antibiotics, bronchodilators, although the possibility of pneumonia is low. Objective - Vital Signs Vital signs: Vital Signs Temp 97.5 F L 07/06/17 07:00 Pulse 75 07/06/17 11:50 Resp 18 07/06/17 07:00 BP 117/50 07/06/17 07:00 Pulse Ox 98 07/06/17 07:00 Intake & Output 07/05/17 07/06/17 07/06/17 18:59 06:59 18:59 Intake Total 240 Output Total 2300 1000 1000 Balance -2300 -760 -1000 Intake: Oral 240 Output: Urine 2300 1000 1000 Uretheral (Dhillon) 1000 Other: Voiding Method Indwelling Catheter Indwelling Catheter Indwelling Catheter # Bowel Movements 1 - Exam GENERAL EXAM: Alert, frail-looking 86-year-old white male, comfortable in no apparent distress. HEAD: Normocephalic/atraumatic. EYES: Normal reaction of pupils, equal size. Conjunctiva pink, sclera white. NOSE: Clear with pink turbinates. THROAT: No erythema or exudates. NECK: No masses, no JVD, no thyroid enlargement, no adenopathy. CHEST: No chest wall deformity. Symmetrical expansion. LUNGS: Equal air entry with scattered rhonchi and rales CVS: Regular rate and rhythm, normal S1 and S2, no gallops, no murmurs, no rubs ABDOMEN: Soft, nontender. No hepatosplenomegaly, normal bowel sounds, no guarding or rigidity. EXTREMITIES: No clubbing, mild edema, no cyanosis, 2+ pulses and upper and lower extremities. MUSCULOSKELETAL: Muscle strength and tone normal. SPINE: No scoliosis or deformity SKIN: No rashes CENTRAL NERVOUS SYSTEM: Alert and oriented -3. No focal deficits, tone is normal in all 4 extremities. PSYCHIATRIC: Alert and oriented -3. Appropriate affect. Intact judgment and insight. - Labs CBC & Chem 7: 07/06/17 09:28 07/06/17 09:28 Labs: Abnormal Lab Results - Last 24 Hours (Table) 07/05/17 07/06/17 07/06/17 Range/Units 08:09 09:28 09:28 RBC 2.59 L (4.30-5.90) m/uL Hgb 7.9 L (13.0-17.5) gm/dL Hct 24.7 L (39.0-53.0) % RDW 17.4 H (11.5-15.5) % Plt Count 142 L (150-450) k/uL Lymphocytes # 0.6 L (1.0-4.8) k/uL BUN 88 H* (9-20) mg/dL Creatinine 2.52 H (0.66-1.25) mg/dL Glucose 105 H (74-99) mg/dL Calcium 7.7 L (8.4-10.2) mg/dL Iron 55 L (65-175) ug/dL TIBC 163 L (228-460) ug/dL Ferritin 626.3 H (22.0-322.0) ng/mL Microbiology - Last 24 Hours (Table) 07/05/17 06:15 Urine Culture - Final Urine,Catheterized Neelima albicans 07/04/17 18:16 Blood Culture - Preliminary Blood No Growth after 24 hours Assessment and Plan Plan: Assessment: #1. Interstitial edema, small pleural effusions, secondary to fluid overload, possibility of pneumonia is low. Patient has no evidence of leukocytosis, no fever, no chills #2. Acute kidney injury, recovering from ATN and urinary retention. #3. Fecal stasis, ileus, resolved #4. Chronic kidney disease stage IV #5. Urinary retention status post Dhillon catheter placement #6. Acute urinary tract infection, urine cultures pending #7. Recent hospitalization for acute bilateral pneumonia, patient was treated with a course of oral Levaquin, improved, and discharged on 06/28/2017 #8. Anemia of running disease #9. History of COPD, with a baseline FEV1 of 47% of predicted, GOLD stage III #10. Hypothyroidism, #11. Parkinson's disease, dementia, with significant impairment of neurologic function/cognition/memory/gait #12. Poor baseline functional capacity, patient is mostly bedbound graft #13. History of BPH, on Avodart and Flomax #14. Osteoarthritis Plan: Today's chest x-ray was reviewed by Dr. Ortiz and shows interstitial edema and small pleural effusions. Agree with diuretics, which are being managed by nephrology. Continue with empiric antibiotics, although the possibility of pneumonia is low. Continue with nebulized treatments, Symbicort, maintain aspiration precautions, we'll continue to follow. I performed a history & physical examination of the patient and discussed their management with my nurse practitioner, Gretchen Garcia. I reviewed the nurse practitioner's note and agree with the documented findings and plan of care. Lung sounds are positive for a scattered rhonchi and rales. The findings and the impression was discussed with the patient. I attest to the documentation by the nurse practitioner. Time with Patient: Less than 30
[2017-07-06] MEDS: MULTIVITAMINS, THERA 1 EACH TAB PO SCH (17:36)
[2017-07-06] MEDS: CHOLECALCIFEROL 1,000 UNIT TAB PO SCH (17:36)
[2017-07-06] MEDS: CALCITRIOL 0.25 MCG CAP PO SCH (17:36)
[2017-07-06] MEDS: THIAMINE 100 MG TAB PO SCH (17:36)
[2017-07-06] MEDS: FOLIC ACID 1 MG TAB PO SCH (17:36)
--- NOTE | 2017-07-06 17:55 | PN ---
PROGRESS NOTE DATE OF SERVICE: 07/06/2017 This 86-year-old gentleman who was admitted with elevated BUN and creatinine also had evidence of fluid overload. The most recent chest x-ray, which was reviewed by me, showed some evidence of pulmonary vascular congestion. The patient is on intravenous Lasix. The patient is being closely monitored at this time. No chest pain. No palpitations. No fever. PHYSICAL EXAMINATION: Alert and oriented x2. Pulse 96, blood pressure 112/77, respiration 18, temperature 98.8, pulse ox 92% on 3 L. HEENT: Conjunctivae normal. NECK: No jugular venous distention. CARDIOVASCULAR SYSTEM: S1, S2 muffled. RESPIRATORY SYSTEM: Breath sounds diminished at the bases. Scattered rhonchi and crackles. Expiratory wheezing also present. ABDOMEN: Soft, non-tender. LEGS: No edema. No swelling. NERVOUS SYSTEM: No focal deficit. LABS: WBC 5.6, hemoglobin 7.9. Creatinine is 2.52. ASSESSMENT: 1. Acute on chronic renal failure with chronic kidney disease, stage IV, with hypokalemia. 2. Hyponatremia. 3. Constipation. 4. Urinary tract infection, possibly related to indwelling Dhillon catheter. 5. Increased white count. 6. Anemia; normocytic anemia of chronic disease. 7. History of recent bilateral pneumonia. 8. History of congestive heart failure. 9. Dementia. 10.History of degenerative joint disease. 11.History of asthma. 12.History of Parkinson's. 13.History of compression fracture at L4. 14.History of gait dysfunction. 15.History of left hip arthroplasty. 16.NO CODE, NO CPR, NO VENT. RECOMMENDATIONS AND DISCUSSION: In this 86-year-old gentleman who presented with multiple complex medical issues, we will monitor the patient closely, continue the current medications, continue with symptomatic treatment. Otherwise I would recommend continuing with IV Lasix as recommended by Dr. Fierro, closely monitor with Nephrology. Once again, the overall prognosis is guarded because of multiple complex medical issues. Further recommendations to follow. MMODL / IJN: [id number] /
[2017-07-07] MEDS: NYSTATIN 100,000 UNIT/ML SUSP 500,000 UNIT/5 ML CUP PO SCH ×4 (06:13→21:12)
[2017-07-07] MEDS: LEVOTHYROXINE 75 MCG TAB PO SCH (06:13)
[2017-07-07] MEDS: PANTOPRAZOLE 40 MG TABLET PO SCH (06:14)
[2017-07-07 07:44] LABS: Magnesium 2.1 mg/dL (1.6-2.3); Potassium 4.6 mmol/L (3.5-5.1)
[2017-07-07] MEDS: CARBIDOPA-LEVODOPA 25-100 MG 1 EACH TAB PO SCH ×3 (08:00→17:43)
[2017-07-07] MEDS: TAMSULOSIN 0.4 MG CAP.ER.24H PO SCH (08:01)
[2017-07-07] MEDS: GABAPENTIN 100 MG CAP PO SCH ×3 (08:01→21:12)
[2017-07-07] MEDS: predniSONE 20 MG TAB PO SCH (08:01)
[2017-07-07] MEDS: ALLOPURINOL 100 MG TAB PO SCH (08:01)
[2017-07-07] MEDS: amLODIPine 5 MG TAB PO SCH (08:01)
[2017-07-07] MEDS: SODIUM BICARBONATE TAB 650 MG TAB PO SCH ×2 (08:01→21:12)
[2017-07-07] MEDS: ASPIRIN 81 MG PO SCH (08:01)
[2017-07-07] MEDS: FINASTERIDE 5 MG TAB PO SCH (08:01)
[2017-07-07] MEDS: cefTRIAXone IN SWFI 1,000 MG/10 ML SYRINGE IVP SCH (08:04)
[2017-07-07] MEDS: hydrOXYzine PAMOATE 25 MG CAP PO SCH (08:04)
[2017-07-07] MEDS: METHADONE 5 MG TAB PO SCH ×2 (08:07→21:12)
[2017-07-07] MEDS: SYMBICORT 80-4.5 MCG INHALER INHALATION SCH ×3 (08:27→21:03)
[2017-07-07] MEDS: IPRATROPIUM-ALBUTEROL 3 ML NEB INHALATION SCH ×5 (08:27→21:03)
[2017-07-07 10:50] LABS: Anisocytosis Slight; Basophils % (A) 0 %; Eosinophils % (A) 0 %; HCT 26.6 % (39.0-53.0); HGB 8.2 gm/dL (13.0-17.5); Hypochromasia Slight; Lymphocytes # (A) 0.8 k/uL (1.0-4.8); Lymphocytes % (A) 13 %; MCH 29.8 pg (25.0-35.0); MCHC 30.8 g/dL (31.0-37.0); MCV 96.6 fL (80.0-100.0); Macrocytosis Slight; Mean Platelet Volume 8.9; Monocytes # (A) 0.2 k/uL (0-1.0); Monocytes % (A) 4 %; Neutrophils # (A) 4.8 k/uL (1.3-7.7); Neutrophils % (A) 82 %; Platelet Count 135 k/uL (150-450); RBC 2.75 m/uL (4.30-5.90); RDW 17.3 % (11.5-15.5); WBC 5.9 k/uL (3.8-10.6)
--- NOTE | 2017-07-07 11:02 | P.PN ---
Subjective Progress Note Date: 07/07/17 Seen and examined today for the follow-up of acute kidney injury. He has CK D stage IV secondary to nephrosclerosis with baseline creatinine 1.5-2.1 MG per DL. Dhillon catheter in place draining urine. Objective - Vital Signs Vital signs: Vital Signs Temp 97.6 F 07/07/17 07:00 Pulse 84 07/07/17 08:46 Resp 16 07/07/17 07:00 BP 131/63 07/07/17 07:00 Pulse Ox 97 07/07/17 07:00 Intake & Output 07/06/17 07/07/17 07/07/17 18:59 06:59 18:59 Intake Total 240 Output Total 1800 1400 Balance -1800 -1160 Weight 93 kg Intake: Oral 240 Output: Urine 1800 1400 Uretheral (Dhillon) 1000 Other: Voiding Method Indwelling Catheter Indwelling Catheter # Bowel Movements 0 - Exam Lying in bed no acute distress S1-S2 herd Lungs clear Edema Dhillon catheter - Labs CBC & Chem 7: 07/07/17 06:00 07/07/17 07:01 Labs: Abnormal Lab Results - Last 24 Hours (Table) 07/07/17 07/07/17 Range/Units 06:00 07:01 RBC 2.75 L (4.30-5.90) m/uL Hgb 8.2 L (13.0-17.5) gm/dL Hct 26.6 L (39.0-53.0) % MCHC 30.8 L (31.0-37.0) g/dL RDW 17.3 H (11.5-15.5) % Plt Count 135 L (150-450) k/uL Lymphocytes # 0.8 L (1.0-4.8) k/uL BUN 84 H* (9-20) mg/dL Creatinine 2.40 H (0.66-1.25) mg/dL Glucose 108 H (74-99) mg/dL Calcium 8.0 L (8.4-10.2) mg/dL Microbiology - Last 24 Hours (Table) 07/04/17 18:16 Blood Culture - Preliminary Blood No Growth after 48 hours 07/05/17 06:15 Urine Culture - Final Urine,Catheterized Neelima albicans Assessment and Plan Assessment: Impression: #1 nonoliguric acute kidney injury secondary to ATN and urinary retention, renal function improving. #2 CK D4 secondary to nephrosclerosis baseline creatinine 1.5-2.0 MG per DL #3 urinary retention status post Dhillon catheter #4 metabolic acidosis #5 anemia due to CKD #6 diastolic CHF Recommendations: #1 renal function improving, supportive care. #2 Lasix has been stopped. Monitor closely. #3 avoid nephrotoxic agents and hypotensive episodes #4 repeat labs in the morning
[2017-07-07] MEDS: FLUCONAZOLE 100 MG TAB PO SCH (13:13)
--- NOTE | 2017-07-07 13:39 | P.PN ---
Subjective Progress Note Date: 07/07/17 Principal diagnosis: Hypoxic respiratory failure secondary to interstitial edema with small pleural effusions Dejon is a 78-year-old white male patient of Dr. Martínez, presented to the emergency department per EMS on 07/04/2017 at 1733 from [facility] on [facility] rehab for complaints of abnormal labs, serum potassium was 5.5 on admission, in addition patient was having constipation, and had not had a bowel movement in several days. He was recently hospitalized and discharged from this hospital after being treated for acute bilateral pneumonia, improved and was sent to the [facility] on [facility] in stable condition, on prescription Levaquin, nebulized treatments, and prednisone taper. Patient went to the rehab with an indwelling catheter in place for urinary retention. Urinalysis on admission was positive for large amount of leukocyte esterase, WBCs, and urinalysis. He however denies any her, chills. Patient denies any chest congestion, denies any chest pain. Chest x-ray taken in the ER showed cardiomegaly, small pleural effusions and pleural reaction at the lung bases, new linear infiltrates and/or atelectasis in the upper lobes compared to old exam, no overt heart failure. Patient's creatinine on admission was 2.78, patient does have a chronic kidney disease IV at his baseline, and this is improved finding from his last inpatient creatinine of 3.20. Urine culture is pending at this time, patient denies any urinary symptoms. His urine is clear yellow, small amount of sediment. Patient has mild pretibial edema. Patient was given Kayexalate to treat both his hyperkalemia and constipation, and patient has past couple of form 2 bowel movements last night per nursing report. Abdominal x-ray showed evidence for intestinal ileus, but no free air. Patient's abdomen is soft, nontender, with positive bowel sounds. Other medical history includes history of moderately severe COPD, chronic congestive heart failure with diastolic dysfunction, anemia, hypothyroidism, Parkinson's disease, dementia, his poor baseline functional status, BPH and osteoarthritis. On today's exam patient's lung sounds positive for some scattered wheezes. Patient denies any dyspnea. Currently on 2 L per nasal cannula with O2 sat 98%. He has been afebrile, vital signs have been stable. On 07/06/2017 patient is seen in follow-up. Nursing reports increased upper chest congestion this morning, the patient denies any acute distress. Yesterday he received 60 mg of IV Lasix per nephrology and was given 500 mL of albumin. Has a congested cough, but is not able to provide produce any sputum. Vital signs are stable, remains afebrile, denies fever or chills, denies any chest pain. Today's chest x-ray shows interstitial edema, small right pleural effusion. Additional 40 mg of IV Lasix was given per nephrology today. At the time of my evaluation patient is resting comfortably in bed, appears very comfortable, no distress. He is eating lunch. Lung sounds are positive for some coarse rhonchi and crackles, Dhillon catheter in place, his urine output is adequate, he is in -3060 ML fluid balance over the last 24 hours. Continue with empiric antibiotics, bronchodilators, although the possibility of pneumonia is low. The patient is seen again today 07/07/2017 in follow-up on the regular medical floor. He is currently laying fairly comfortable in bed. He is awake and alert. He denies any worsening shortness of breath at this time. He continues with a loose nonproductive cough. Does have complaints of tongue pain. There are sores noted. He is currently on Diflucan. He is maintaining good O2 saturations in the 90s on 2 L. Blood cultures revealed no growth. Urine culture reveals Neelima. White count 5.9. Hemoglobin 8.2. BUN 84, Creatinine 2.40. Objective - Vital Signs Vital signs: Vital Signs Temp 97.6 F 07/07/17 07:00 Pulse 88 07/07/17 12:14 Resp 16 07/07/17 07:00 BP 131/63 07/07/17 07:00 Pulse Ox 97 07/07/17 07:00 Intake & Output 07/06/17 07/07/17 07/07/17 18:59 06:59 18:59 Intake Total 240 Output Total 1800 1400 Balance -1800 -1160 Weight 93 kg Intake: Oral 240 Output: Urine 1800 1400 Uretheral (Dhillon) 1000 Other: Voiding Method Indwelling Catheter Indwelling Catheter # Bowel Movements 0 - Exam GENERAL EXAM: Alert, frail cachectic 86-year-old white male, comfortable in no apparent distress. HEAD: Normocephalic/atraumatic. EYES: Normal reaction of pupils, equal size. Conjunctiva pink, sclera white. NOSE: Clear with pink turbinates. THROAT: No erythema or exudates. NECK: No masses, no JVD, no thyroid enlargement, no adenopathy. CHEST: No chest wall deformity. Symmetrical expansion. LUNGS: Equal air entry with scattered rhonchi and rales CVS: Regular rate and rhythm, normal S1 and S2, no gallops, no murmurs, no rubs ABDOMEN: Soft, nontender. No hepatosplenomegaly, normal bowel sounds, no guarding or rigidity. EXTREMITIES: No clubbing, mild edema, no cyanosis, 2+ pulses and upper and lower extremities. MUSCULOSKELETAL: Muscle strength and tone normal. SPINE: No scoliosis or deformity SKIN: No rashes CENTRAL NERVOUS SYSTEM: Alert and oriented -3. No focal deficits, tone is normal in all 4 extremities. PSYCHIATRIC: Alert and oriented -3. Appropriate affect. Intact judgment and insight - Labs CBC & Chem 7: 07/07/17 06:00 07/07/17 07:01 Labs: Abnormal Lab Results - Last 24 Hours (Table) 07/07/17 07/07/17 Range/Units 06:00 07:01 RBC 2.75 L (4.30-5.90) m/uL Hgb 8.2 L (13.0-17.5) gm/dL Hct 26.6 L (39.0-53.0) % MCHC 30.8 L (31.0-37.0) g/dL RDW 17.3 H (11.5-15.5) % Plt Count 135 L (150-450) k/uL Lymphocytes # 0.8 L (1.0-4.8) k/uL BUN 84 H* (9-20) mg/dL Creatinine 2.40 H (0.66-1.25) mg/dL Glucose 108 H (74-99) mg/dL Calcium 8.0 L (8.4-10.2) mg/dL Microbiology - Last 24 Hours (Table) 07/04/17 18:16 Blood Culture - Preliminary Blood No Growth after 48 hours 07/05/17 06:15 Urine Culture - Final Urine,Catheterized Neelima albicans Assessment and Plan Assessment: Assessment: #1. Interstitial edema, small pleural effusions, secondary to fluid overload, possibility of pneumonia is low. Patient has no evidence of leukocytosis, no fever, no chills #2. Acute kidney injury, recovering from ATN and urinary retention. #3. Fecal stasis, ileus, resolved #4. Chronic kidney disease stage IV #5. Urinary retention status post Dhillon catheter placement #6. Acute urinary tract infection, urine cultures pending #7. Recent hospitalization for acute bilateral pneumonia, patient was treated with a course of oral Levaquin, improved, and discharged on 06/28/2017 #8. Anemia of running disease #9. History of COPD, with a baseline FEV1 of 47% of predicted, GOLD stage III #10. Hypothyroidism, #11. Parkinson's disease, dementia, with significant impairment of neurologic function/cognition/memory/gait #12. Poor baseline functional capacity, patient is mostly bedbound graft #13. History of BPH, on Avodart and Flomax #14. Osteoarthritis Plan: The patient was seen and evaluated by Dr. Ortiz. He is currently stable from the pulmonary standpoint. We'll continue with his current medications for now. Maintain aspiration precautions. We'll continue to follow and make further recommendations based on his clinical status. I, the cosigning physician, performed a history & physical examination of the patient. Lungs sounds have few scattered rhonchi. Maintaining good O2 saturations in the 90s on 2 L/m per nasal cannula. I discussed the assessment and plan of care with my nurse practitioner, Autumn Almonte. I attest to the above note as dictated by her.
--- NOTE | 2017-07-07 17:14 | PN ---
PROGRESS NOTE DATE OF SERVICE: 07/07/2017 This 86-year-old gentleman who was admitted with acute on chronic renal failure with elevated BUN and had multiple electrolyte abnormalities, also. The patient has significant shortness of breath, also. The patient is being closely monitored. The patient is NO CODE at this time. No chest pain. No palpitations. No fever. PHYSICAL EXAM: Alert and oriented x2. Pulse 83, blood pressure 126/61, respirations 16, temperature 97.7, pulse ox 97% on 2L. HEENT: Conjunctivae normal. NECK: No jugular venous distention. CARDIOVASCULAR: S1, S2 muffled. RESPIRATORY: Breath sounds diminished in the bases. A few scattered rhonchi and no crackles. Expiratory wheezing also present. ABDOMEN: Soft, obese. LEGS: Bilateral leg edema. NERVOUS SYSTEM: No focal deficits. LABS: Creatinine is 2.40. ASSESSMENT: 1. Acute on chronic renal failure with chronic kidney disease stage 4 with hypokalemia. 2. Hyponatremia. 3. Constipation. 4. Urinary tract infection possibly related to chronic indwelling Dhillon catheter. 5. Increased WBC. 6. Anemia, normocytic anemia of chronic disease. 7. History of recent bilateral pneumonia. 8. History of congestive heart failure. 9. Dementia. 10.History of degenerative joint disease. 11.History of asthma. 12.History of Parkinson's. 13.History compression fracture L4. 14.History of gait dysfunction. 15.History of left hip arthroplasty. 16.NO CODE, NO CPR, NO VENT. RECOMMENDATIONS AND DISCUSSION: Recommend to continue current medical management, monitoring, symptomatic treatment. Otherwise, the urine culture showed some Neelima albicans. I would recommend to repeat a UA with micro. Otherwise, continue to monitor. The white count is normal. Patient is not running a fever at this time. Overall prognosis extremely guarded because of multiple complex medical issues. MMODL / IJN: [id number] /
[2017-07-07 17:32] LABS: Appearance,Urine Cloudy (Clear); Bilirubin,Urine Negative (Negative); Blood,Urine Small (Negative); Budding Yeast,Urine Moderate /hpf; Color,Urine Yellow; Glucose,Urine (UA) Negative (Negative); Ketones,Urine Negative (Negative); Leukocyte Esterase,Urine Large (Negative); Nitrite,Urine Negative (Negative); PH, Urine 5.5 (5.0-8.0); Protein,Urine 1+ (Negative); RBC,Urine 28 /hpf (0-5); Specific Gravity,Urine 1.011 (1.001-1.035); Urobilinogen,Urine <2.0 mg/dL (<2.0); WBC,Urine 77 /hpf (0-5)
[2017-07-07] MEDS: MULTIVITAMINS, THERA 1 EACH TAB PO SCH (17:43)
[2017-07-07] MEDS: THIAMINE 100 MG TAB PO SCH (17:43)
[2017-07-07] MEDS: FOLIC ACID 1 MG TAB PO SCH (17:43)
[2017-07-07] MEDS: CHOLECALCIFEROL 1,000 UNIT TAB PO SCH (17:43)
[2017-07-07] MEDS ORDERED: FUROSEMIDE 10 MG/ML 2 ML VIAL IV STA (18:01)
[2017-07-08] MEDS: NYSTATIN 100,000 UNIT/ML SUSP 500,000 UNIT/5 ML CUP PO SCH ×6 (00:17→23:10)
[2017-07-08] MEDS: LEVOTHYROXINE 75 MCG TAB PO SCH (06:21)
[2017-07-08] MEDS: PANTOPRAZOLE 40 MG TABLET PO SCH (06:21)
[2017-07-08 07:26] LABS: Anisocytosis Slight; Basophils % (A) 0 %; Eosinophils % (A) 0 %; HCT 26.3 % (39.0-53.0); HGB 8.1 gm/dL (13.0-17.5); Hypochromasia Slight; Lymphocytes # (A) 0.8 k/uL (1.0-4.8); Lymphocytes % (A) 14 %; MCH 29.3 pg (25.0-35.0); MCHC 30.7 g/dL (31.0-37.0); MCV 95.3 fL (80.0-100.0); Mean Platelet Volume 8.5; Monocytes # (A) 0.2 k/uL (0-1.0); Monocytes % (A) 3 %; Neutrophils # (A) 4.8 k/uL (1.3-7.7); Neutrophils % (A) 82 %; Platelet Count 144 k/uL (150-450); RBC 2.76 m/uL (4.30-5.90); RDW 16.8 % (11.5-15.5); WBC 5.8 k/uL (3.8-10.6)
[2017-07-08] MEDS: IPRATROPIUM-ALBUTEROL 3 ML NEB INHALATION SCH ×4 (07:35→19:26)
[2017-07-08 07:39] LABS: Calcium 7.8 mg/dL (8.4-10.2); Potassium 4.2 mmol/L (3.5-5.1)
[2017-07-08] MEDS: GABAPENTIN 100 MG CAP PO SCH ×3 (08:06→21:04)
[2017-07-08] MEDS: TAMSULOSIN 0.4 MG CAP.ER.24H PO SCH (08:06)
[2017-07-08] MEDS: ALLOPURINOL 100 MG TAB PO SCH (08:06)
[2017-07-08] MEDS: FLUCONAZOLE 100 MG TAB PO SCH (08:06)
[2017-07-08] MEDS: FINASTERIDE 5 MG TAB PO SCH (08:06)
[2017-07-08] MEDS: CARBIDOPA-LEVODOPA 25-100 MG 1 EACH TAB PO SCH ×3 (08:07→16:53)
[2017-07-08] MEDS: SODIUM BICARBONATE TAB 650 MG TAB PO SCH ×2 (08:07→21:04)
[2017-07-08] MEDS: predniSONE 20 MG TAB PO SCH (08:07)
[2017-07-08] MEDS: amLODIPine 5 MG TAB PO SCH (08:07)
[2017-07-08] MEDS: ASPIRIN 81 MG PO SCH (08:07)
[2017-07-08] MEDS: METHADONE 5 MG TAB PO SCH ×2 (08:11→21:04)
[2017-07-08] MEDS: hydrOXYzine PAMOATE 25 MG CAP PO SCH (08:12)
[2017-07-08] MEDS: cefTRIAXone IN SWFI 1,000 MG/10 ML SYRINGE IVP SCH (08:12)
--- NOTE | 2017-07-08 09:52 | P.PN ---
Subjective Progress Note Date: 07/08/17 Seen and examined today for the follow-up of acute kidney injury. He has CKD stage IV secondary to nephrosclerosis with baseline creatinine 1.5-2.1 MG per DL. Dhillon catheter in place draining urine. Family at bedside. Objective - Vital Signs Vital signs: Vital Signs Temp 98.4 F 07/08/17 07:00 Pulse 88 07/08/17 07:47 Resp 16 07/08/17 07:00 BP 137/65 07/08/17 07:00 Pulse Ox 97 07/08/17 07:37 Intake & Output 07/07/17 07/08/17 07/08/17 18:59 06:59 18:59 Intake Total 300 240 Balance 300 240 Weight 93 kg 93 kg Intake: Oral 300 240 Other: Voiding Method Indwelling Catheter Indwelling Catheter # Bowel Movements 1 - Exam Lying in bed no acute distress S1-S2 herd Lungs clear Edema Dhillon catheter - Labs CBC & Chem 7: 07/08/17 07:02 07/08/17 07:02 Labs: Abnormal Lab Results - Last 24 Hours (Table) 07/07/17 07/07/17 07/08/17 Range/Units 06:00 15:38 07:02 RBC 2.75 L 2.76 L (4.30-5.90) m/uL Hgb 8.2 L 8.1 L (13.0-17.5) gm/dL Hct 26.6 L 26.3 L (39.0-53.0) % MCHC 30.8 L 30.7 L (31.0-37.0) g/dL RDW 17.3 H 16.8 H (11.5-15.5) % Plt Count 135 L 144 L (150-450) k/uL Lymphocytes # 0.8 L 0.8 L (1.0-4.8) k/uL BUN (9-20) mg/dL Creatinine (0.66-1.25) mg/dL Glucose (74-99) mg/dL Calcium (8.4-10.2) mg/dL Urine Protein 1+ H (Negative) Urine Blood Small H (Negative) Ur Leukocyte Esterase Large H (Negative) Urine RBC 28 H (0-5) /hpf Urine WBC 77 H (0-5) /hpf Urine WBC Clumps Many H (None) /hpf Urine Yeast (Budding) Moderate H (None) /hpf 07/08/17 Range/Units 07:02 RBC (4.30-5.90) m/uL Hgb (13.0-17.5) gm/dL Hct (39.0-53.0) % MCHC (31.0-37.0) g/dL RDW (11.5-15.5) % Plt Count (150-450) k/uL Lymphocytes # (1.0-4.8) k/uL BUN 76 H (9-20) mg/dL Creatinine 2.16 H (0.66-1.25) mg/dL Glucose 102 H (74-99) mg/dL Calcium 7.8 L (8.4-10.2) mg/dL Urine Protein (Negative) Urine Blood (Negative) Ur Leukocyte Esterase (Negative) Urine RBC (0-5) /hpf Urine WBC (0-5) /hpf Urine WBC Clumps (None) /hpf Urine Yeast (Budding) (None) /hpf Microbiology - Last 24 Hours (Table) 07/04/17 18:16 Blood Culture - Preliminary Blood No Growth after 72 hours Assessment and Plan Assessment: Impression: #1 nonoliguric acute kidney injury secondary to ATN and urinary retention, renal function improving. #2 CKD4 secondary to nephrosclerosis baseline creatinine 1.5-2.0 MG per DL #3 urinary retention status post Dhillon catheter #4 metabolic acidosis #5 anemia due to CKD #6 diastolic CHF Recommendations: #1 renal function almost close to baseline. #2 Lasix has been on hold by the primary team. Monitor closely. #3 avoid nephrotoxic agents and hypotensive episodes #4 repeat labs in the morning
[2017-07-08] MEDS: SYMBICORT 80-4.5 MCG INHALER INHALATION SCH ×2 (11:01→19:26)
--- NOTE | 2017-07-08 11:27 | P.PN ---
Subjective Progress Note Date: 07/08/17 Principal diagnosis: Acute on chronic renal failure, acute urinary tract infection This is an 86-year-old male patient who presented to the hospital with acute on chronic renal failure and evidence of urinary tract infection. His renal function has improved. Electrolytes replaced and normalized. Patient had evidence of urinary tract infection and is on antibiotics and Diflucan. He also has oral yeast infection and is receiving nystatin swish and swallow. Patient is alert and oriented. In no acute distress. He's been afebrile overnight. Apparently the family and the patient has decided to decline hospice services at that time and is wishing full treatment. He remains a DO NOT RESUSCITATE. Objective - Vital Signs Vital signs: Vital Signs Temp 98.4 F 07/08/17 07:00 Pulse 92 07/08/17 11:16 Resp 16 07/08/17 07:00 BP 137/65 07/08/17 07:00 Pulse Ox 97 07/08/17 07:37 Intake & Output 07/07/17 07/08/17 07/08/17 18:59 06:59 18:59 Intake Total 300 240 Balance 300 240 Weight 93 kg 93 kg Intake: Oral 300 240 Other: Voiding Method Indwelling Catheter Indwelling Catheter # Bowel Movements 1 - Constitutional General appearance: Present: no acute distress - EENT Eyes: Present: normal appearance ENT: Present: normal oropharynx Ears: bilateral: normal - Neck Neck: Present: normal ROM - Respiratory Respiratory: bilateral: rales (Posterior lower lobes) - Cardiovascular Rhythm: regular Abnormal Heart Sounds: Present: systolic murmur - Gastrointestinal General gastrointestinal: Present: normal bowel sounds - Musculoskeletal Musculoskeletal: Present: generalized weakness - Psychiatric Psychiatric: Present: appropriate affect - Labs CBC & Chem 7: 07/08/17 07:02 07/08/17 07:02 Labs: Abnormal Lab Results - Last 24 Hours (Table) 07/07/17 07/08/17 07/08/17 Range/Units 15:38 07:02 07:02 RBC 2.76 L (4.30-5.90) m/uL Hgb 8.1 L (13.0-17.5) gm/dL Hct 26.3 L (39.0-53.0) % MCHC 30.7 L (31.0-37.0) g/dL RDW 16.8 H (11.5-15.5) % Plt Count 144 L (150-450) k/uL Lymphocytes # 0.8 L (1.0-4.8) k/uL BUN 76 H (9-20) mg/dL Creatinine 2.16 H (0.66-1.25) mg/dL Glucose 102 H (74-99) mg/dL Calcium 7.8 L (8.4-10.2) mg/dL Urine Protein 1+ H (Negative) Urine Blood Small H (Negative) Ur Leukocyte Esterase Large H (Negative) Urine RBC 28 H (0-5) /hpf Urine WBC 77 H (0-5) /hpf Urine WBC Clumps Many H (None) /hpf Urine Yeast (Budding) Moderate H (None) /hpf Microbiology - Last 24 Hours (Table) 07/04/17 18:16 Blood Culture - Preliminary Blood No Growth after 72 hours - Imaging and Cardiology Chest x-ray: report reviewed Assessment and Plan Assessment: Acute on chronic renal failure stage IV improved Congestive heart failure, unknown type Acute urinary tract infection Chronic anemia History of recent bilateral pneumonia DJD Asthma Parkinsonism History of compression fracture of L4 Plan: Continue current medication regimen including antibiotics and Diflucan for acute UTI. The patient has received 2 or 3 doses of Lasix since admission and I will place him on Lasix 20 mg IV twice a day and watch his renal function closely. The patient remains a DNR and his prognosis is poor due to multiple complex medical issues. We will continue to follow him closely.
--- NOTE | 2017-07-08 13:16 | P.PN ---
Subjective Progress Note Date: 07/08/17 Dejon is a 78-year-old white male patient of Dr. Martínez, presented to the emergency department per EMS on 07/04/2017 at 1733 from [facility] on [facility] rehab for complaints of abnormal labs, serum potassium was 5.5 on admission, in addition patient was having constipation, and had not had a bowel movement in several days. He was recently hospitalized and discharged from this hospital after being treated for acute bilateral pneumonia, improved and was sent to the [facility] on [facility] in stable condition, on prescription Levaquin, nebulized treatments, and prednisone taper. Patient went to the rehab with an indwelling catheter in place for urinary retention. Urinalysis on admission was positive for large amount of leukocyte esterase, WBCs, and urinalysis. He however denies any her, chills. Patient denies any chest congestion, denies any chest pain. Chest x-ray taken in the ER showed cardiomegaly, small pleural effusions and pleural reaction at the lung bases, new linear infiltrates and/or atelectasis in the upper lobes compared to old exam, no overt heart failure. Patient's creatinine on admission was 2.78, patient does have a chronic kidney disease IV at his baseline, and this is improved finding from his last inpatient creatinine of 3.20. Urine culture is pending at this time, patient denies any urinary symptoms. His urine is clear yellow, small amount of sediment. Patient has mild pretibial edema. Patient was given Kayexalate to treat both his hyperkalemia and constipation, and patient has past couple of form 2 bowel movements last night per nursing report. Abdominal x-ray showed evidence for intestinal ileus, but no free air. Patient's abdomen is soft, nontender, with positive bowel sounds. Other medical history includes history of moderately severe COPD, chronic congestive heart failure with diastolic dysfunction, anemia, hypothyroidism, Parkinson's disease, dementia, his poor baseline functional status, BPH and osteoarthritis. On today's exam patient's lung sounds positive for some scattered wheezes. Patient denies any dyspnea. Currently on 2 L per nasal cannula with O2 sat 98%. He has been afebrile, vital signs have been stable. On 07/06/2017 patient is seen in follow-up. Nursing reports increased upper chest congestion this morning, the patient denies any acute distress. Yesterday he received 60 mg of IV Lasix per nephrology and was given 500 mL of albumin. Has a congested cough, but is not able to provide produce any sputum. Vital signs are stable, remains afebrile, denies fever or chills, denies any chest pain. Today's chest x-ray shows interstitial edema, small right pleural effusion. Additional 40 mg of IV Lasix was given per nephrology today. At the time of my evaluation patient is resting comfortably in bed, appears very comfortable, no distress. He is eating lunch. Lung sounds are positive for some coarse rhonchi and crackles, Dhillon catheter in place, his urine output is adequate, he is in -3060 ML fluid balance over the last 24 hours. Continue with empiric antibiotics, bronchodilators, although the possibility of pneumonia is low. The patient is seen again today 07/07/2017 in follow-up on the regular medical floor. He is currently laying fairly comfortable in bed. He is awake and alert. He denies any worsening shortness of breath at this time. He continues with a loose nonproductive cough. Does have complaints of tongue pain. There are sores noted. He is currently on Diflucan. He is maintaining good O2 saturations in the 90s on 2 L. Blood cultures revealed no growth. Urine culture reveals Neelima. White count 5.9. Hemoglobin 8.2. BUN 84, Creatinine 2.40. On 07/08/2017, patient is being seen for a follow-up. The patient is looking well. He has no specific complaints. No signs of any respiratory distress. He has a UTI with possible candidal infection and patient has his Dhillon catheter swish and the patient was also placed on Diflucan especially that he has oropharyngeal yeast and tongue ulceration. He is afebrile and he is being considered for hospice services is at a later stage. No active respirator distress for now. His creatinine is improving is down to 2.1. Objective - Vital Signs Vital signs: Vital Signs Temp 98.4 F 07/08/17 07:00 Pulse 92 07/08/17 11:16 Resp 16 07/08/17 08:00 BP 137/65 07/08/17 07:00 Pulse Ox 97 07/08/17 07:37 Intake & Output 07/07/17 07/08/17 07/08/17 18:59 06:59 18:59 Intake Total 300 240 Balance 300 240 Weight 93 kg 93 kg Intake: Oral 300 240 Other: Voiding Method Indwelling Catheter Indwelling Catheter Indwelling Catheter # Bowel Movements 1 - Exam GENERAL EXAM: Alert, frail cachectic 86-year-old white male, comfortable in no apparent distress. HEAD: Normocephalic/atraumatic. EYES: Normal reaction of pupils, equal size. Conjunctiva pink, sclera white. NOSE: Clear with pink turbinates. THROAT: No erythema or exudates. NECK: No masses, no JVD, no thyroid enlargement, no adenopathy. CHEST: No chest wall deformity. Symmetrical expansion. LUNGS: Equal air entry with scattered rhonchi and rales CVS: Regular rate and rhythm, normal S1 and S2, no gallops, no murmurs, no rubs ABDOMEN: Soft, nontender. No hepatosplenomegaly, normal bowel sounds, no guarding or rigidity. EXTREMITIES: No clubbing, mild edema, no cyanosis, 2+ pulses and upper and lower extremities. MUSCULOSKELETAL: Muscle strength and tone normal. SPINE: No scoliosis or deformity SKIN: No rashes CENTRAL NERVOUS SYSTEM: Alert and oriented -3. No focal deficits, tone is normal in all 4 extremities. PSYCHIATRIC: Alert and oriented -3. Appropriate affect. Intact judgment and insight - Labs CBC & Chem 7: 07/08/17 07:02 07/08/17 07:02 Labs: Abnormal Lab Results - Last 24 Hours (Table) 07/07/17 07/08/17 07/08/17 Range/Units 15:38 07:02 07:02 RBC 2.76 L (4.30-5.90) m/uL Hgb 8.1 L (13.0-17.5) gm/dL Hct 26.3 L (39.0-53.0) % MCHC 30.7 L (31.0-37.0) g/dL RDW 16.8 H (11.5-15.5) % Plt Count 144 L (150-450) k/uL Lymphocytes # 0.8 L (1.0-4.8) k/uL BUN 76 H (9-20) mg/dL Creatinine 2.16 H (0.66-1.25) mg/dL Glucose 102 H (74-99) mg/dL Calcium 7.8 L (8.4-10.2) mg/dL Urine Protein 1+ H (Negative) Urine Blood Small H (Negative) Ur Leukocyte Esterase Large H (Negative) Urine RBC 28 H (0-5) /hpf Urine WBC 77 H (0-5) /hpf Urine WBC Clumps Many H (None) /hpf Urine Yeast (Budding) Moderate H (None) /hpf Microbiology - Last 24 Hours (Table) 07/04/17 18:16 Blood Culture - Preliminary Blood No Growth after 72 hours Assessment and Plan Plan: Assessment: #1. Pulmonary Interstitial edema, small pleural effusions, secondary to fluid overload, possibility of pneumonia is low. Overall poor status is stable and the patient is not having any signs of respiratory distress, and the patient responded to diuretics and currently pulse oxing 97% and these of oxygen nasal cannula. #2. Acute kidney injury, recovering from ATN and urinary retention. The patient 's creatinine is improving. #3. Fecal stasis, ileus, resolved #4. Chronic kidney disease stage IV #5. Urinary retention status post Dhillon catheter placement #6. Acute urinary tract infection, Neelima albicans currently on Diflucan #7. Recent hospitalization for acute bilateral pneumonia, patient was treated with a course of oral Levaquin, improved, and discharged on 06/28/2017 #8. Anemia of running disease #9. History of COPD, with a baseline FEV1 of 47% of predicted, GOLD stage III #10. Hypothyroidism, #11. Parkinson's disease, dementia, with significant impairment of neurologic function/cognition/memory/gait #12. Poor baseline functional capacity, patient is mostly bedbound graft #13. History of BPH, on Avodart and Flomax #14. Osteoarthritis Plan Continue Diflucan. Monitor urine output. Monitor renal function. Routine IV Lasix. DO NOT RESUSCITATE CODE STATUS. Possible hospice a later stage. Breathing status is stable
[2017-07-08] MEDS: FUROSEMIDE 10 MG/ML 2 ML VIAL IV SCH ×2 (14:15→21:04)
[2017-07-08] MEDS: THIAMINE 100 MG TAB PO SCH (14:17)
[2017-07-08] MEDS: CHOLECALCIFEROL 1,000 UNIT TAB PO SCH (14:17)
[2017-07-08] MEDS: FOLIC ACID 1 MG TAB PO SCH (14:17)
[2017-07-08] MEDS: MULTIVITAMINS, THERA 1 EACH TAB PO SCH (14:17)
[2017-07-09] MEDS: NYSTATIN 100,000 UNIT/ML SUSP 500,000 UNIT/5 ML CUP PO SCH ×5 (06:18→23:38)
[2017-07-09] MEDS: LEVOTHYROXINE 75 MCG TAB PO SCH (06:19)
[2017-07-09] MEDS: PANTOPRAZOLE 40 MG TABLET PO SCH (06:20)
[2017-07-09 07:19] LABS: Anisocytosis Slight; Basophils % (A) 0 %; Eosinophils % (A) 0 %; HCT 27.7 % (39.0-53.0); HGB 8.6 gm/dL (13.0-17.5); Hypochromasia Slight; Lymphocytes % (A) 17 %; MCH 29.7 pg (25.0-35.0); MCHC 31.1 g/dL (31.0-37.0); MCV 95.5 fL (80.0-100.0); Mean Platelet Volume 8.2; Monocytes # (A) 0.2 k/uL (0-1.0); Monocytes % (A) 3 %; Neutrophils # (A) 4.6 k/uL (1.3-7.7); Neutrophils % (A) 79 %; Platelet Count 159 k/uL (150-450); WBC 5.8 k/uL (3.8-10.6)
[2017-07-09] MEDS: IPRATROPIUM-ALBUTEROL 3 ML NEB INHALATION SCH ×4 (07:34→19:37)
[2017-07-09] MEDS: SYMBICORT 80-4.5 MCG INHALER INHALATION SCH ×2 (07:34→19:34)
[2017-07-09 07:44] LABS: Calcium 8.1 mg/dL (8.4-10.2); Potassium 4.6 mmol/L (3.5-5.1)
[2017-07-09] MEDS: METHADONE 5 MG TAB PO SCH ×2 (08:20→20:09)
[2017-07-09] MEDS: cefTRIAXone IN SWFI 1,000 MG/10 ML SYRINGE IVP SCH (08:21)
[2017-07-09] MEDS: CARBIDOPA-LEVODOPA 25-100 MG 1 EACH TAB PO SCH ×3 (08:22→18:00)
[2017-07-09] MEDS: SODIUM POLYSTYRENE SULFONATE 15 GM/60 ML BOTTLE PO SCH (08:22)
[2017-07-09] MEDS: SODIUM BICARBONATE TAB 650 MG TAB PO SCH ×2 (08:22→09:11)
[2017-07-09] MEDS: FUROSEMIDE 10 MG/ML 2 ML VIAL IV SCH (08:23)
[2017-07-09] MEDS: TAMSULOSIN 0.4 MG CAP.ER.24H PO SCH (08:23)
[2017-07-09] MEDS: FLUCONAZOLE 100 MG TAB PO SCH (08:23)
[2017-07-09] MEDS: GABAPENTIN 100 MG CAP PO SCH ×3 (08:23→20:09)
[2017-07-09] MEDS: ALLOPURINOL 100 MG TAB PO SCH (08:23)
[2017-07-09] MEDS: FINASTERIDE 5 MG TAB PO SCH (08:24)
[2017-07-09] MEDS: ASPIRIN 81 MG PO SCH (08:24)
[2017-07-09] MEDS: predniSONE 20 MG TAB PO SCH (08:24)
[2017-07-09] MEDS: amLODIPine 5 MG TAB PO SCH (08:25)
[2017-07-09] MEDS: hydrOXYzine PAMOATE 25 MG CAP PO SCH (08:29)
--- NOTE | 2017-07-09 09:25 | P.PN ---
Subjective Patient is seen in follow-up for acute kidney injury on chronic kidney disease. Patient has chronic kidney disease stage IV secondary to nephrosclerosis with baseline creatinine in the range of 1.5-2. Patient was admitted 2 weeks ago and his creatinine at that time was up to 3.7. A Dhillon catheter was placed due to urinary retention at that time. He is currently resting in bed. Renal function is stable with creatinine at 2.25 today. He does admit to dyspnea. Edema has improved. Vital signs are stable. General: The patient appeared well nourished and normally developed. HEENT: Head exam is unremarkable. Neck is without jugular venous distension. LUNGS: Lungs are clear to auscultation and percussion. Breath sounds decreased. HEART: Rate and Rhythm are regular. First and second heart sounds normal. No murmurs, rubs or gallops. ABDOMEN: Abdominal exam reveals normal bowel sounds. Non-tender and non- distended. No evidence of peritonitis. EXTREMITITES: 1+ edema. Objective - Vital Signs Vital signs: Vital Signs Temp 98.0 F 07/08/17 22:04 Pulse 88 07/09/17 07:46 Resp 18 07/08/17 22:04 BP 164/67 07/08/17 22:04 Pulse Ox 95 07/08/17 22:04 Intake & Output 07/08/17 07/09/17 07/09/17 18:59 06:59 18:59 Output Total 850 350 Balance -850 -350 Weight 93 kg Output: Urine 850 350 Uretheral (Dhillon) 350 Other: Voiding Method Indwelling Catheter Indwelling Catheter # Voids 0 - Labs CBC & Chem 7: 07/09/17 06:54 07/09/17 06:54 Labs: Abnormal Lab Results - Last 24 Hours (Table) 07/09/17 07/09/17 Range/Units 06:54 06:54 RBC 2.90 L (4.30-5.90) m/uL Hgb 8.6 L (13.0-17.5) gm/dL Hct 27.7 L (39.0-53.0) % RDW 17.0 H (11.5-15.5) % BUN 78 H (9-20) mg/dL Creatinine 2.25 H (0.66-1.25) mg/dL Calcium 8.1 L (8.4-10.2) mg/dL Microbiology - Last 24 Hours (Table) 07/04/17 18:16 Blood Culture - Preliminary Blood No Growth after 96 hours Assessment and Plan Plan: Assessment: #1. Nonoliguric acute kidney injury from recovering ATN and urinary retention from last week. Creatinine was up to 3.7 last month and is stable at 2.25 today. #2. Chronic kidney disease stage IV secondary to nephrosclerosis with baseline creatinine near 2. #3. Urinary retention status post Dhillon catheter placement. #4. UTI with urine culture positive for Neelima. #5. Metabolic acidosis secondary to acute kidney injury. Resolved. #6. Anemia of chronic kidney disease. Iron replete. #7. Volume overload. Improving with diuretics. #8. Diastolic CHF. #9. 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 Plan: Lasix 40 mg IV daily. Decrease sodium bicarbonate once daily. Maintain Aranesp. Avoid nephrotoxic agents and hypotensive episodes. Discontinued Fleet enema. Continue to monitor renal function and urine output. No urgent need for renal replacement therapy at this time.
--- NOTE | 2017-07-09 11:41 | XR ---
EXAMINATION TYPE: XR chest 1V DATE OF EXAM: 07/09/2017 COMPARISON: 07/06/2017 HISTORY: Shortness of breath TECHNIQUE: Single frontal view of the chest is obtained. FINDINGS: Bilateral consolidation and pleural effusion is stable. Interstitium is slightly improved. Assessment of the right apex limited due to soft tissue overlap. No obvious pneumothorax. Diffuse os teopenia and arthropathy of the shoulders noted. IMPRESSION: 1. Bilateral infiltrate and pleural effusion are stable. There is mild improvement in appearance of t he interstitium suggestive of improving venous congestion or pneumonitis.
--- NOTE | 2017-07-09 14:20 | P.PN ---
Subjective 86-year-old male patient who presented to the hospital with acute on chronic renal failure and evidence of urinary tract infection. His renal function has improved. Electrolytes replaced and normalized. Patient had evidence of urinary tract infection and is on antibiotics and Diflucan. He also has oral yeast infection and is receiving nystatin swish and swallow. Patient is alert and oriented. In no acute distress. He's been afebrile overnight. Apparently the family and the patient has decided to decline hospice services at that time and is wishing full treatment. 07/09/2017 Patient is comparing of back pain when I evaluated the patient later in the day was able to discuss with the family and the patient patient is bit confused and agreeable for hospice. He wants his [id number] to make decisions for him was agreeable and hospice. 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 Patient' s Karnofsky score is less than 10. As per the request of the family [facility] hospice will be consulted. Unfortunately hydromorphone is not available in the hospital and patient does have kidney dysfunction because of which I'm unable to use morphine and the transdermal fentanyl patch will be used instead for his comfort. Patient is presently comfort care. Objective - Vital Signs Vital signs: Vital Signs Temp 98.8 F 07/09/17 07:00 Pulse 90 07/09/17 12:01 Resp 22 07/09/17 07:00 BP 113/62 07/09/17 07:00 Pulse Ox 99 07/09/17 07:00 Intake & Output 07/08/17 07/09/17 07/09/17 18:59 06:59 18:59 Output Total 850 350 Balance -850 -350 Weight 93 kg 93 kg Output: Urine 850 350 Uretheral (Dhillon) 350 Other: Voiding Method Indwelling Catheter Indwelling Catheter Indwelling Catheter # Voids 0 - Exam PHYSICAL EXAMINATION: GENERAL: The patient is alert and oriented x2, not in any acute distress. Well developed, well nourished. HEENT: Pupils are round and equally reacting to light. EOMI. No scleral icterus. No conjunctival pallor. Normocephalic, atraumatic. No pharyngeal erythema. No thyromegaly. CARDIOVASCULAR: S1 and S2 present. No murmurs, rubs, or gallops. PULMONARY: Patient does have some crackles and gurgling sounds upon exam ABDOMEN: Soft, nontender, nondistended, normoactive bowel sounds. No palpable organomegaly. MUSCULOSKELETAL: No joint swelling or deformity. EXTREMITIES: No cyanosis, clubbing, or pedal edema. NEUROLOGICAL: Gross neurological examination did not reveal any focal deficits. But patient does have significant generalized weakness SKIN: No rashes. - Labs CBC & Chem 7: 07/09/17 06:54 07/09/17 06:54 Labs: Abnormal Lab Results - Last 24 Hours (Table) 07/09/17 07/09/17 Range/Units 06:54 06:54 RBC 2.90 L (4.30-5.90) m/uL Hgb 8.6 L (13.0-17.5) gm/dL Hct 27.7 L (39.0-53.0) % RDW 17.0 H (11.5-15.5) % BUN 78 H (9-20) mg/dL Creatinine 2.25 H (0.66-1.25) mg/dL Calcium 8.1 L (8.4-10.2) mg/dL Microbiology - Last 24 Hours (Table) 07/04/17 18:16 Blood Culture - Preliminary Blood No Growth after 96 hours Assessment and Plan Plan: -Acute hypoxic respiratory failure: Secondary to congestive heart failure exacerbation, patient may have chronic diastolic dysfunction with acute exacerbation patient improved with IV Lasix continued on IV Lasix for now. -Chronic low back pain patient is complaining of severe pain in the back pain management as mentioned above. -Ileus, resolved patient is starting having diarrhea. -Urinary retention with a Dhillon catheter. -Chronic kidney disease stage IV creatinine is better than his baseline patient had acute tubular necrosis and acute kidney injury during his last hospitalization which is actually improving now. 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
[2017-07-09] MEDS: CALCITRIOL 0.25 MCG CAP PO SCH (17:59)
[2017-07-09] MEDS: CHOLECALCIFEROL 1,000 UNIT TAB PO SCH (17:59)
[2017-07-09] MEDS: THIAMINE 100 MG TAB PO SCH (18:00)
[2017-07-09] MEDS: FOLIC ACID 1 MG TAB PO SCH (18:00)
[2017-07-09] MEDS: MULTIVITAMINS, THERA 1 EACH TAB PO SCH (18:00)
[2017-07-10] MEDS: PANTOPRAZOLE 40 MG TABLET PO SCH (06:11)
[2017-07-10] MEDS: NYSTATIN 100,000 UNIT/ML SUSP 500,000 UNIT/5 ML CUP PO SCH ×2 (06:11→11:40)
[2017-07-10] MEDS: LEVOTHYROXINE 75 MCG TAB PO SCH (06:11)
[2017-07-10] MEDS: SYMBICORT 80-4.5 MCG INHALER INHALATION SCH ×2 (07:11→07:24)
[2017-07-10] MEDS: IPRATROPIUM-ALBUTEROL 3 ML NEB INHALATION SCH ×2 (07:12→11:01)
[2017-07-10 07:25] VITALS: PULSE 88
[2017-07-10 07:38] LABS: Anisocytosis Slight; Basophils % (A) 0 %; Eosinophils % (A) 0 %; Hypochromasia Slight; Lymphocytes # (A) 1.4 k/uL (1.0-4.8); Lymphocytes % (A) 25 %; MCH 29.4 pg (25.0-35.0); MCHC 30.9 g/dL (31.0-37.0); MCV 95.2 fL (80.0-100.0); Mean Platelet Volume 8.4; Monocytes # (A) 0.2 k/uL (0-1.0); Monocytes % (A) 3 %; Neutrophils # (A) 3.9 k/uL (1.3-7.7); Neutrophils % (A) 70 %; Platelet Count 147 k/uL (150-450); RBC 2.73 m/uL (4.30-5.90); WBC 5.6 k/uL (3.8-10.6)
[2017-07-10 07:46] LABS: Calcium 7.9 mg/dL (8.4-10.2); Magnesium 2.1 mg/dL (1.6-2.3); Potassium 4.9 mmol/L (3.5-5.1)
[2017-07-10 08:04] VITALS: BP 146/70; TEMP 97.5
[2017-07-10 08:43] VITALS: RESP 12
[2017-07-10] MEDS ORDERED: FUROSEMIDE 10 MG/ML 4 ML VIAL IV SCH (09:00)
[2017-07-10] MEDS: cefTRIAXone IN SWFI 1,000 MG/10 ML SYRINGE IVP SCH (09:37)
[2017-07-10] MEDS: METHADONE 5 MG TAB PO SCH (09:39)
[2017-07-10] MEDS: SODIUM BICARBONATE TAB 650 MG TAB PO SCH (09:39)
[2017-07-10] MEDS: GABAPENTIN 100 MG CAP PO SCH ×2 (09:39→12:48)
[2017-07-10] MEDS: FINASTERIDE 5 MG TAB PO SCH (09:41)
[2017-07-10] MEDS: FLUCONAZOLE 100 MG TAB PO SCH (09:41)
[2017-07-10] MEDS: amLODIPine 5 MG TAB PO SCH (09:41)
[2017-07-10] MEDS: CARBIDOPA-LEVODOPA 25-100 MG 1 EACH TAB PO SCH ×2 (09:41→12:48)
[2017-07-10] MEDS: ALLOPURINOL 100 MG TAB PO SCH (09:42)
[2017-07-10] MEDS: ASPIRIN 81 MG PO SCH (09:42)
[2017-07-10] MEDS: predniSONE 20 MG TAB PO SCH (09:43)
[2017-07-10] MEDS: TAMSULOSIN 0.4 MG CAP.ER.24H PO SCH (09:43)
[2017-07-10] MEDS: hydrOXYzine PAMOATE 25 MG CAP PO SCH (09:50)
--- NOTE | 2017-07-10 11:18 | CDI ---
Last Revision, March 2017 Documentation Clarification Form Date: 07/10/17 From: Kari Matta RN, CCDS Admit Date: 07/04/2017 7:33:00 PM Patient Name: Dejon Canas Visit Number: [id number] Discharge Date: ATTENTION: The Clinical Documentation Specialists (CDI) and [facility] Coding Staff appreciate your assistance in clarifying documentation. Please respond to the clarification below the line at the bottom and electronically sign. The CDI & [facility] Coding staff will review the response and follow-up if needed. Please note: Queries are made part of the Legal Health Record. If you have any questions, please contact the author of this message via ITS. Dr. Matilda Martínez Physical therapy evaluation and general information on 07/09/17 had indicated patient required total assist with overall bed mobility and activity of daily living. Patient history/risk factors: Parkinson dementia, moderately severe COPD, Chronic congestive heart failure with diastolic dysfunction CKD stage IV, Recent pneumonia Clinical Indicators: 07/09/17 assessment: Patient has extremely poor functionality. He has Parkinsonian dementia unibody. He has a karnofshy score is less than 10 Lab findings: On admission: 12.7, HGB 8.9, HCT 29.5, BUN 104, CR 2.78, Total Protein 4.8, Albumin 2.3, Positive UTI Vital Signs: 146/70 88 12 95 % 3/L NC Dr. Ortiz: Parkinsons disease, dementia, with significant impairment of neurologic function/cognition/memory/gait. Poor baseline functional capacity, patient is mostly bedbound. Treatment: Physical therapy evaluation and treat Assist with ADL Monitor Labs. I/O In your professional opinion, can you please clarify clinical findings and treatment indicates? Functional quadriplegia Other, please specify Unable to determine Please continue to document in your progress notes and discharge summary in order to capture severity of illness and risk of mortality. Include clinical findings that support your diagnosis. MTDD
--- NOTE | 2017-07-10 12:10 | CDI ---
Last Revision, March 2017 Documentation Clarification Form Date: 07/10/17 From: Kari Matta RN, CCDS Admit Date: 07/04/2017 7:33:00 PM Patient Name: Dejon Canas Visit Number: [id number] Discharge Date: ATTENTION: The Clinical Documentation Specialists (CDI) and [facility] Coding Staff appreciate your assistance in clarifying documentation. Please respond to the clarification below the line at the bottom and electronically sign. The CDI & [facility] Coding staff will review the response and follow-up if needed. Please note: Queries are made part of the Legal Health Record. If you have any questions, please contact the author of this message via ITS. Dr. Matilda Martínez A diagnosis of UTI has been documented in your progress notes on 07/09/17. History/Risk factors: Urinary retention, Parkinson's Dementia, Chronic Diastolic CHF, CKD stage IV, COPD, Per documentation in the Emergency Department this patient was admitted with an indwelling Dhillon catheter Clinical Indicators: Patient present with elevated BUN and creatinine with urine showing Large Leukocyte Esterase, Yeast Moderate. Urine culture: Neelima albicans Lab results on admission: WBC 12.7, HGB 8.9, HCT 29.5, BUN 104, CR 2.78, Total protein 4.8, Albumin 2.3, 2.0 Treatment: Monitor Labs Rocephin IV Diflucan PO In your professional opinion, can you please clarify the etiology of the UTI, if known? Dhillon catheter present on admission UTI not related to catheter Other condition, please specify Unable to determine If an infective organism is present, please specify cause and effect relationship if applicable. Please continue to document in your progress notes and discharge summary in order to capture severity of illness and risk of mortality. Include clinical findings that support your diagnosis. MTDD
--- NOTE | 2017-07-10 14:00 | P.DS ---
Providers Date of admission: 07/04/17 19:33 Expected date of discharge: 07/10/17 Attending physician: Matilda Martínez Consults: 07/05/17 00:53 Consult Physician Routine Consulting Provider: Bola Ortiz Consult Reason/Comments: copd Do you want consulting provider notified?: Yes Consult Physician Routine Consulting Provider: Maryann De Leon Consult Reason/Comments: arf Do you want consulting provider notified?: Yes Primary care physician: Peyton Das Hospital Course: Final Diagnoses: -Acute hypoxic respiratory failure: Secondary to congestive heart failure exacerbation, patient may have chronic diastolic dysfunction with acute exacerbation patient improved with IV Lasix continued on IV Lasix for now. -Chronic low back pain patient is complaining of severe pain in the back pain management as mentioned above. -Ileus, resolved patient is starting having diarrhea. -Urinary retention with a Dhillon catheter. -Chronic kidney disease stage IV creatinine is better than his baseline patient had acute tubular necrosis and acute kidney injury during his last hospitalization which is actually improving now. 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 His Electrolytes replaced. Patient had evidence of urinary tract infection and is on antibiotics and Diflucan. Apparently the family and the patient has decided to decline hospice services at that time and is wishing full treatment. 07/09/2017 Patient is comparing of back pain when I evaluated the patient later in the day was able to discuss with the family and the patient patient is bit confused and agreeable for hospice. He wants his [id number] to make decisions for him was agreeable and hospice. 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 Patient' s Karnofsky score is less than 10. As per the request of the family hospice consulted. Unfortunately hydromorphone is not available in the hospital and patient does have kidney dysfunction because of which I'm unable to use morphine and the transdermal fentanyl patch will be used instead for his comfort. Patient is presently comfort care. Patient is being discharged to [facility], no code, no CPR, no intubation, comfort care, hospice as per agreement of family/[id number].. The impression and plan of care has been dictated as directed. : I performed a history and examination of this patient, discussed the same with the dictator. I agree with the dictator's note ,documented as a scribe. Any additional findings or plans will be noted. Time taken: 35 minutes Patient Condition at Discharge: Stable Plan - Discharge Summary Discharge Rx Participant: No New Discharge Prescriptions: New MORPHINE ORAL BEN CONC 20mg/mL [Roxanol Oral Soln Conc 20MG/ML] 10 mg PO Q4H PRN #30 ml PRN Reason: Pain LORazepam [Ativan] 0.5 mg SL Q8H PRN #20 tab PRN Reason: Anxiety Atropine Ophth Soln 1% 5Ml [Isopto Atropine 1% 5Ml] 2 drop SUBLINGUAL Q4H PRN #1 bottle PRN Reason: Secretions Acetaminophen Tab [Tylenol] 650 mg PO Q4H PRN tab PRN Reason: Pain fentaNYL 25MCG/HR PATCH [Duragesic 25MCG/HR] 1 patch TRANSDERM Q72H #3 patch Continue Tamsulosin HCl [Flomax] 0.4 mg PO DAILY@0900 Nitroglycerin Sl Tabs [Nitrostat] 0.4 mg SUBLINGUAL Q5M PRN PRN Reason: Pain Carbidopa-Levodopa 25-100 mg [Sinemet 25-100 mg] 1 tab PO TID@0800,1300,1700 Gabapentin [Neurontin] 100 mg PO TID@0900,1400,2100 Bisacodyl [Dulcolax] 10 mg RECTAL DAILY PRN PRN Reason: Constipation Fluticasone/Vilanterol [Breo Ellipta 100-25 Mcg Inhaler] 1 inhalation PO RT- DAILY@0900 predniSONE 20 mg PO DAILY Ipratropium-Albuterol Nebulize [Duoneb 0.5 mg-3 mg/3 ml Soln] 3 ml INHALATION RT-QID #0 ampul.neb Discontinued Levocetirizine Dihydrochloride [Xyzal] 5 mg PO DAILY@0900 hydrOXYzine PAMOATE 25 mg PO DAILY@0900 Zinc 50 mg PO DAILY@1700 Aspirin 81 mg PO DAILY@0800 Ensure Clear 1 can PO BID@0900,1700 Acetaminophen [Tylenol Arthritis] 650 mg PO Q4H PRN PRN Reason: Pain amLODIPine [Norvasc] 5 mg PO DAILY@0900 Methadone [Dolophine] 5 mg PO BID@0900,2100 Nystatin 100,000 Unit/ml Susp [Mycostatin Oral Susp] 5 ml PO 5XD Ipratropium-Albuterol Nebulize [Duoneb 0.5 mg-3 mg/3 ml Soln] 3 ml INHALATION RT-Q4H PRN PRN Reason: Shortness Of Breath Or Wheezing No Action Finasteride [Proscar] 5 mg PO DAILY@0900 Pantoprazole [Protonix] 40 mg PO DAILY@0600 Discharge Medication List Tamsulosin HCl [Flomax] 0.4 mg PO DAILY@0900 09/04/15 [History] Carbidopa-Levodopa 25-100 mg [Sinemet 25-100 mg] 1 tab PO TID@0800,1300,1700 [History] Nitroglycerin Sl Tabs [Nitrostat] 0.4 mg SUBLINGUAL Q5M PRN 09/21/15 [History] Gabapentin [Neurontin] 100 mg PO TID@0900,1400,2100 02/10/17 [History] Bisacodyl [Dulcolax] 10 mg RECTAL DAILY PRN 06/11/17 [History] Finasteride [Proscar] 5 mg PO DAILY@0900 07/04/17 [History] Fluticasone/Vilanterol [Breo Ellipta 100-25 Mcg Inhaler] 1 inhalation PO RT- DAILY@0900 07/04/17 [History] Pantoprazole [Protonix] 40 mg PO DAILY@0607/04/17 [History] predniSONE 20 mg PO DAILY 07/04/17 [History] Acetaminophen Tab [Tylenol] 650 mg PO Q4H PRN tab 07/10/17 [Rx] Atropine Ophth Soln 1% 5Ml [Isopto Atropine 1% 5Ml] 2 drop SUBLINGUAL Q4H PRN # 1 bottle 07/10/17 [Rx] Ipratropium-Albuterol Nebulize [Duoneb 0.5 mg-3 mg/3 ml Soln] 3 ml INHALATION RT -QID #0 ampul.neb 07/10/17 [Rx] LORazepam [Ativan] 0.5 mg SL Q8H PRN #20 tab 07/10/17 [Rx] MORPHINE ORAL BEN CONC 20mg/mL [Roxanol Oral Soln Conc 20MG/ML] 10 mg PO Q4H PRN #30 ml 07/10/17 [Rx] fentaNYL 25MCG/HR PATCH [Duragesic 25MCG/HR] 1 patch TRANSDERM Q72H #3 patch 06/24 [Rx] Follow up Appointment(s)/Referral(s): Peyton Das DO [Primary Care Provider] - As Needed Discharge Disposition: DISCH TO HOSPICE MED FACILTY
--- NOTE | 2017-07-10 17:20 | PN ---
PROGRESS NOTE The patient is seen for followup for chronic kidney disease and acute kidney injury. His renal function is fairly stable over the last 2-3 days. Code status is being a considered to be changed to hospice and comfort care measures. PHYSICAL EXAMINATION: Patient is comfortable. His blood pressure was 146/70, heart rate 84 per minute. He is afebrile. Examination of the heart S1, S2. Examination lungs bilateral breath sounds are heard. Abdomen is soft, nontender. Examination lower extremities shows edema 1+ bilaterally. Chronic skin changes are noted. LAB: Show sodium 141, potassium 4.9, BUN 76, serum creatinine 2.23, hemoglobin 8.0 g/dL. ASSESSMENT: 1. Chronic kidney disease NKF stage IV not a candidate for renal replacement therapy. 2. Acute kidney injury from recovering acute tubular necrosis and urine retention currently continuing to improve. 3. Chronic kidney disease stage 4. 4. Urinary tract infection with urine cultures showing Neelima. 5. Generalized debility. 6. Diastolic heart failure. PLAN: I agree with the code status changed to hospice care given the multiple comorbidities and poor quality of life. MMODL / IJN: [id number] /
== END 2017-07-10 15:41 | disposition hospice, inpatient (51) | DRG 291 ==
LOC: EC 17:33 → 5MS5E 19:33
PROVIDERS: ADMIT Internal Medicine; ATTEND Internal Medicine
DX: I50.33 Acute on chronic diastolic (congestive) heart failure (principal); N17.0 Acute kidney failure with tubular necrosis; R53.2 Functional quadriplegia; E87.2 Acidosis; E87.1 Hypo-osmolality and hyponatremia; B37.0 Candidal stomatitis; K56.7 Ileus, unspecified; J98.11 Atelectasis; N18.4 Chronic kidney disease, stage 4 (severe); T83.511A Infection and inflammatory reaction due to indwelling urethral catheter, initial encounter; B37.49 Other urogenital candidiasis; E87.5 Hyperkalemia; D63.1 Anemia in chronic kidney disease; G20 Parkinson's disease; J44.9 Chronic obstructive pulmonary disease, unspecified; E03.9 Hypothyroidism, unspecified; F02.80 Dementia in other diseases classified elsewhere, unspecified severity, without behavioral disturbance, psychotic disturbance, mood disturbance, and anxiety; G89.29 Other chronic pain; M19.90 Unspecified osteoarthritis, unspecified site; M85.80 Other specified disorders of bone density and structure, unspecified site; N40.0 Benign prostatic hyperplasia without lower urinary tract symptoms; M54.5 Low back pain; R26.9 Unspecified abnormalities of gait and mobility; H91.90 Unspecified hearing loss, unspecified ear; H54.7 Unspecified visual loss; K59.00 Constipation, unspecified; R33.9 Retention of urine, unspecified; E83.89 Other disorders of mineral metabolism; M25.552 Pain in left hip; M25.551 Pain in right hip; M79.605 Pain in left leg; M79.604 Pain in right leg; K14.0 Glossitis; Z51.5 Encounter for palliative care; Z66 Do not resuscitate; Z79.82 Long term (current) use of aspirin; Z79.899 Other long term (current) drug therapy; Z79.4 Long term (current) use of insulin; Z79.891 Long term (current) use of opiate analgesic; Z79.52 Long term (current) use of systemic steroids; Z88.5 Allergy status to narcotic agent; Z96.642 Presence of left artificial hip joint; Z90.81 Acquired absence of spleen; Z91.81 History of falling; Z87.891 Personal history of nicotine dependence; Z74.01 Bed confinement status; Z82.49 Family history of ischemic heart disease and other diseases of the circulatory system
CPT/HCPCS: 36415; 71045; 71046; 74018; 80048; 80053; 81001; 82728; 83540; 83550; 83735; 85025; 85610; 85730; 87040; 87086; 93005; 94640; 94760; 99285